=== PATIENT | female | born 1955 | race American Indian/Alaskan Native ===

== ENCOUNTER 2017-12-31 14:37 | Inpatient (IN) | payer OTHER ==
[2017-12-31 15:18] LABS: Basophils # (Auto) 0.1 K/mm3 (0.0-0.1); Eosinophils # (Auto) 0.1 K/mm3 (0.0-0.4); Eosinophils % (Auto) 1.4 % (0.0-4.3); Hematocrit 40.4 % (30.3-42.9); Hemoglobin 13.2 gm/dl (10.1-14.3); Lymphocytes # (Auto) 1.1 K/mm3 (1.2-5.4); Lymphocytes % (Auto) 17.5 % (13.4-35.0); Mean Corpuscular HGB Conc 33 % (30-34); Mean Corpuscular Hemoglobin 29 pg (28-32); Mean Corpuscular Volume 90 fl (79-97); Monocytes # (Auto) 0.5 K/mm3 (0.0-0.8); Monocytes % (Auto) 7.1 % (0.0-7.3); Platelet Count 289 K/mm3 (140-440); Red Blood Count 4.49 M/mm3 (3.65-5.03); Red Cell Distribution Width 15.9 % (13.2-15.2)
[2017-12-31 15:28] LABS: INR 1.16 (0.87-1.13)
[2017-12-31 15:29] LABS: Partial Thromboplastin Time 26.7 Sec. (24.2-36.6)
[2017-12-31 15:32] LABS: Calcium 8.9 mg/dL (8.4-10.2)
--- NOTE | 2017-12-31 16:30 | XRay Report ---
FINAL REPORT EXAM: XR CHEST 1V AP HISTORY: DIFF BREATHING TECHNIQUE: One view examination of the chest PRIORS: None FINDINGS: Bilateral lung base linear and patchy opacity is slightly more prominent on the right. No focal consolidation. This may be atelectasis, edema, or slight interstitial pneumonitis. No definite evidence of pneumothorax or pleural effusion. Cardiac silhouette size slightly enlarged without definite vascular congestion. No visible acute displaced fracture. Atherosclerotic change with calcification in aortic arch. IMPRESSION: Bilateral lung base linear and slight patchy opacity may reflect atelectasis, edema, and/or interstitial pneumonitis
[2017-12-31] MEDS ORDERED: LASIX IV ONE (20:25)
--- NOTE | 2017-12-31 20:32 | Emergency Department Report ---
HPI - General Chief Complaint: Dyspnea/Respdistress Time Seen by Provider: 12/31/17 20:11 - HPI HPI: Room 25 The patient is a 62-year-old female presenting with a chief complaint of shortness of breath. The patient states she has had shortness of breath for 3 months. The patient states she's been to the hospital several times for shortness of breath but is persistently short of breath at discharge. Patient states for the past 2 weeks she's noted bilateral lower extremity edema. The patient states she's been compliant with her Lasix until she ran out approximately 1 week ago. Patient denies chest pain Location: Lungs, feet Duration: [See above] Quality: Shortness of breath Severity: moderate Modifying factors: [see above] Context: [see above] Mode of transportation: [not driving] ED Past Medical Hx - Past Medical History Hx Congestive Heart Failure: Yes - Surgical History Past Surgical History?: No - Family History Family history: no significant - Social History Smoking Status: Never Smoker Substance Use Type: None (denies illicit drug use) ED Review of Systems ROS: Stated complaint: ASHISH Other details as noted in HPI Constitutional: no symptoms reported Eyes: denies: eye pain ENT: denies: throat pain Respiratory: shortness of breath Cardiovascular: denies: chest pain Endocrine: denies: unexplained weight gain Gastrointestinal: denies: abdominal pain Genitourinary: denies: dysuria Musculoskeletal: denies: back pain Skin: denies: change in color Neurological: denies: headache Hematological/Lymphatic: other (bilateral lower extremity edema) Physical Exam - Physical Exam Vital Signs: Vital Signs 12/31/17 12/31/17 14:43 19:59 Temperature 98.1 F Pulse Rate 103 H 85 Respiratory 24 20 Rate Blood Pressure 105/71 O2 Sat by Pulse 87 99 Oximetry Physical Exam: GENERAL: The patient is well-developed well-nourished female lying on stretcher not appearing to be in acute distress. [] HEENT: Normocephalic. Atraumatic. Extraocular motions are intact. Patient has moist mucous membranes. NECK: Supple. Trachea midline CHEST/LUNGS: Bibasilar crackles. There is no respiratory distress noted. HEART/CARDIOVASCULAR: Regular. There is no tachycardia. There is no gallop rub or murmur. ABDOMEN: Abdomen is soft, nontender. Patient has normal bowel sounds. There is no abdominal distention. SKIN: There is no rash. There is 2-3+ bilateral lower extremity pitting edema. There is no diaphoresis. NEURO: The patient is awake, alert, and oriented. The patient is cooperative. The patient has normal speech MUSCULOSKELETAL: There is no evidence of acute injury. ED Course Vital Signs 12/31/17 12/31/17 14:43 19:59 Temperature 98.1 F Pulse Rate 103 H 85 Respiratory 24 20 Rate Blood Pressure 105/71 O2 Sat by Pulse 87 99 Oximetry ED Medical Decision Making - Lab Data Result diagrams: 12/31/17 15:09 12/31/17 15:09 Laboratory Tests 12/31/17 12/31/17 12/31/17 15:09 15:09 15:09 WBC 6.3 RBC 4.49 Hgb 13.2 Hct 40.4 MCV 90 MCH 29 MCHC 33 RDW 15.9 H Plt Count 289 Lymph % (Auto) 17.5 [place] % (Auto) 7.1 Eos % (Auto) 1.4 Baso % (Auto) 1.0 Lymph # 1.1 L [place] # 0.5 Eos # 0.1 Baso # 0.1 Seg Neutrophils % 73.0 H Seg Neutrophils # 4.6 PT 15.4 H INR 1.16 H APTT 26.7 Sodium 138 Potassium 3.7 Chloride 99.9 Carbon Dioxide 26 Anion Gap 16 BUN 21 H Creatinine 1.0 Estimated GFR 57 BUN/Creatinine Ratio 21 Glucose 135 H Calcium 8.9 Troponin T 0.021 NT-Pro-B Natriuret Pep 12/31/17 15:09 WBC RBC Hgb Hct MCV MCH MCHC RDW Plt Count Lymph % (Auto) [place] % (Auto) Eos % (Auto) Baso % (Auto) Lymph # [place] # Eos # Baso # Seg Neutrophils % Seg Neutrophils # PT INR APTT Sodium Potassium Chloride Carbon Dioxide Anion Gap BUN Creatinine Estimated GFR BUN/Creatinine Ratio Glucose Calcium Troponin T NT-Pro-B Natriuret Pep 2424 H - EKG Data -: EKG Interpreted by Me EKG shows normal: sinus rhythm Rate: normal - EKG Data When compared to previous EKG there are: previous EKG unavailable Interpretation: other (no ischemic changes seen) - Radiology Data Radiology results: report reviewed (chest x-ray), image reviewed (chest x-ray) interpreted by me: Chest x-ray-edema at bilateral bases. No pneumothorax [facility] [address] [place] [address] XRay Report Signed Patient: LULU BACA MR#: [id number] : 1955 Acct: [id number] Age/Sex: 62 / F ADM Date: 12/31/17 Loc: ED Attending Dr: Ordering Physician: SOFIA SWAIN MD Date of Service: 12/31/17 Procedure(s): XR chest 1V ap Accession Number(s): [id number] cc: ED MD WILIAM Fluoro Time In Minutes: FINAL REPORT EXAM: XR CHEST 1V AP HISTORY: DIFF BREATHING TECHNIQUE: One view examination of the chest PRIORS: None FINDINGS: Bilateral lung base linear and patchy opacity is slightly more prominent on the right. No focal consolidation. This may be atelectasis, edema, or slight interstitial pneumonitis. No definite evidence of pneumothorax or pleural effusion. Cardiac silhouette size slightly enlarged without definite vascular congestion. No visible acute displaced fracture. Atherosclerotic change with calcification in aortic arch. IMPRESSION: Bilateral lung base linear and slight patchy opacity may reflect atelectasis, edema, and/or interstitial pneumonitis Transcribed By: BAL Dictated By: LUIS MATUTE MD Electronically Authenticated By: LUIS MATUTE MD Signed Date/ Time: 12/31/171625 DD/ 25 TD/TT: 12/31/171625 - Differential Diagnosis CHF exacerbation, pneumonia, bronchitis Critical care attestation.: If time is entered above; I have spent that time in minutes in the direct care of this critically ill patient, excluding procedure time. ED Disposition Clinical Impression: Shortness of breath, CHF exacerbation Disposition: OP ADMIT IP TO THIS HOSP Is pt being admited?: No Does the pt Need Aspirin: No Condition: Fair Referrals: PRIMARY CARE, [Primary Care Provider] - 3-5 Days Time of Disposition: 20:35 (hospitalist paged (Dr Howard))
[2017-12-31] MEDS ORDERED: SODIUM CHLORIDE FLUSH SYRINGE 10 ML IV PRN (21:39)
[2017-12-31] MEDS ORDERED: NORCO 5/325 PO PRN (21:39)
[2017-12-31] MEDS ORDERED: ZOFRAN IV PRN (21:39)
[2017-12-31] MEDS ORDERED: TYLENOL PO PRN (21:39)
[2017-12-31] MEDS ORDERED: LOPRESSOR PO SCH ×2 (22:00)
[2017-12-31] MEDS ORDERED: DUONEB *Not for PRN Use IH ONE (22:24)
[2017-12-31] MEDS: DUONEB *Not for PRN Use IH SCH (22:28)
--- NOTE | 2017-12-31 23:36 | History and Physical Report ---
History of Present Illness Date of examination: 12/31/17 Date of admission: 12/31/17 21:39 Chief complaint: Shortness of breath for 3 months Chronic cough for 5 years History of present illness: 62-year-old -[place] female with a questionable history of congestive heart failure and apparently admitted to [facility] [place] 3 times in the past 3 months, with a diagnosis of CHF and was told to see learning and development consultant and drapery counselor as an outpatient comes in with complaints of persistent shortness of breath for the past 3 months. She says the shortness of breath is on minimal exertion. She denies any exertional chest pain palpitations or syncope. Denies any history of paroxysmal nocturnal dyspnea but states she sleeps almost in a sitting up position. She denies any fever or chills. Has chronic cough with mucoid sputum for the past 5 years. She denies any nasal congestion or headaches. Denies nausea vomiting diarrhea or abdominal pain hematemesis or melena. Denies dysuria or urinary frequency. She states she ran out of Lasix a week ago. She denies taking any other medications or inhalers. She states she has not seen a learning and development consultant or drapery counselor during the last 3 admissions and denies having had any echocardiogram She is being admitted for further evaluation of for shortness of breath Past History Past Medical History: heart failure Past Surgical History: No surgical history Social history: no significant social history. denies: smoking, alcohol abuse, prescription drug abuse, IV drug use Family history: CAD, diabetes, hypertension Medications and Allergies Allergies Allergy/AdvReac Type Severity Reaction Status Date / Time No Known Allergies Allergy Unverified 12/31/17 14:43 Active Meds: Active Medications Acetaminophen (Tylenol) 650 mg PO Q4H PRN PRN Reason: Pain MILD(1-3)/Fever >100.5/BOB Acetaminophen/Hydrocodone Bitart ([place] 5/325) 1 each PO Q6H PRN PRN Reason: Pain, Moderate (4-6) Albuterol/Ipratropium (Duoneb *Not For Prn Use*) 1 ampul IH Q6HRT [facility] Last Admin: 12/31/17 22:28 Dose: 1 ampul Furosemide (Lasix) 20 mg IV Q12H [facility] Heparin Sodium (Porcine) (Heparin) 5,000 unit SUB-Q Q8HR [facility] Lisinopril (Zestril) 2.5 mg PO DAILY [facility] Metoprolol Tartrate (Lopressor) 6.25 mg PO Q12HR [facility] Ondansetron HCl (Zofran) 4 mg IV Q8H PRN PRN Reason: Nausea And Vomiting Sodium Chloride (Sodium Chloride Flush Syringe 10 Ml) 10 ml IV BID [facility] Sodium Chloride (Sodium Chloride Flush Syringe 10 Ml) 10 ml IV PRN PRN PRN Reason: LINE FLUSH Review of Systems All systems: negative (as stated above in the history of present illness) Exam - Constitutional Vitals: Temp Pulse Resp BP Pulse Ox 98.1 F 81 15 120/88 98 12/31/17 14:43 12/31/17 22:44 12/31/17 22:51 12/31/17 22:40 12/31/17 22:51 General appearance: Present: no acute distress - EENT Eyes: Present: PERRL, EOM intact ENT: hearing intact, clear oral mucosa - Neck Neck: Present: supple, normal ROM. Absent: masses or JVD - Respiratory Respiratory effort: normal Respiratory: bilateral: rales (bilateral basal Rales), negative: rhonchi, wheezing - Cardiovascular Rhythm: regular Heart Sounds: Present: S1 & S2 - Extremities Extremity abnormal: edema (proposed bilateral pitting leg edema) Peripheral Pulses: within normal limits - Abdominal General gastrointestinal: Present: soft, non-tender. Absent: hepatomegaly, splenomegaly Female genitourinary: Present: deferred - Rectal Rectal Exam: deferred - Integumentary Integumentary: Present: clear - Musculoskeletal Musculoskeletal: strength equal bilaterally - Psychiatric Psychiatric: appropriate mood/affect - Neurologic Neurologic: no focal deficits, moves all extremities Results - Labs CBC & Chem 7: 12/31/17 15:09 12/31/17 15:09 Labs: Abnormal lab results 12/31/17 12/31/17 12/31/17 Range/Units 15:09 15: 15: RDW 15.9 H (13.2-15.2) % Lymph # 1.1 L (1.2-5.4) K/mm3 Seg Neutrophils % 73.0 H (40.0-70.0) % PT 15.4 H (12.2-14.9) Sec. INR 1.16 H (0.87-1.13) BUN 21 H (7-17) mg/dL Glucose 135 H (65-100) mg/dL NT-Pro-B Natriuret Pep (0-900) pg/mL 12/31/17 Range/Units 15:09 RDW (13.2-15.2) % Lymph # (1.2-5.4) K/mm3 Seg Neutrophils % (40.0-70.0) % PT (12.2-14.9) Sec. INR (0.87-1.13) BUN (7-17) mg/dL Glucose (65-100) mg/dL NT-Pro-B Natriuret Pep 2424 H (0-900) pg/mL Assessment and Plan - Patient Problems (1) CHF exacerbation Current Visit: Yes Status: Acute Qualifiers: Heart failure type: unspecified Qualified Code(s): I50.9 - Heart failure, unspecified Plan to address problem: Admitted the patient to telemetry Oxygen via nasal cannula We will order echocardiogram Consult cardiology BNP is moderately elevated Troponin negative EKG shows a heart rate of 100 bpm sinus tachycardia low-voltage QRS complex with right ventricular hypertrophy Lasix IV We will start the patient on low-dose EMERSON inhibitor with lisinopril 2.5 and metoprolol 6.25 mg twice a day We will await cardiology follow-up for further recommendations (2) Chronic cough Current Visit: Yes Status: Acute Plan to address problem: Patient states she has been coughing for the past 5 years We will request a pulmonary consult to rule out ?? ILD Empirically start the patient on DuoNeb solution via nebulizer and prednisone (3) Hypoxia Current Visit: Yes Status: Acute Plan to address problem: Patient's O2 saturation initially was 85% unclear if this was on room air However it went up to about 95% with oxygen (4) Hyperglycemia Current Visit: Yes Status: Acute Plan to address problem: check hemoglobin A1c to rule out diabetes
[2018-01-01] MEDS: LOPRESSOR PO SCH ×4 (00:39→22:03)
[2018-01-01] MEDS: HEPARIN SUB-Q SCH ×4 (00:40→22:04)
[2018-01-01] MEDS: SODIUM CHLORIDE FLUSH SYRINGE 10 ML IV SCH ×3 (00:40→22:03)
[2018-01-01] MEDS: DUONEB *Not for PRN Use IH SCH ×4 (01:06→21:02)
[2018-01-01 05:03] LABS: BUN/Creatinine Ratio 26; Blood Urea Nitrogen 21 mg/dL (7-17); Calcium 8.6 mg/dL (8.4-10.2); Hemolysis Index 5
[2018-01-01] MEDS ORDERED: LASIX IV SCH (06:00)
[2018-01-01] MEDS: DELTASONE PO SCH (10:34)
[2018-01-01] MEDS: ZESTRIL PO SCH ×2 (10:34→10:39)
[2018-01-01] MEDS ORDERED: PNEUMOVAX 23 IM ONE (12:00)
--- NOTE | 2018-01-01 13:09 | Progress Note ---
Assessment and Plan Assessment and plan: Acute on chronic CHF. Patient was just diagnosed with CHF about 3 months ago and has had multiple hospitalizations. She ran out of lasix Lasix iv bid cardiology consulted, Echo ordered Prediabetes. Start diabetic diet. Fingerstick glucose Qac and hs hypokalemia. Replace orally and re-check potassium level in the morning. DVT prophylaxis with Heparin. Full code status History Interval history: Shortness of breath swelling both legs Hospitalist Physical - Physical exam Narrative exam: Gen : Not in acute distress, sitting up in bed HEENT:Normocephalic, atraumatic Neck: supple, JVD presented Lungs: Biltateral crackles, no rhonchi Heart :S1 and S2 reg, no murmurs, rubs or gallop Abd:soft, non tender, non distended, normal bowel sounds Ext: Bilateral pitting pedal edema, no clubbing, no cyanosis, Neuro: Awake,alert,oriented x 3, no focal signs Psych:normal mood - Constitutional Vitals: Temp Pulse Resp BP Pulse Ox 97.7 F 81 16 114/77 95 01/01/18 11:05 01/01/18 11:05 01/01/18 11:05 01/01/18 11:05 01/01/18 11:05 General appearance: Present: no acute distress Results - Labs CBC & Chem 7: 12/31/17 15:09 01/01/18 04:19 Labs: Laboratory Last Values WBC 6.3 K/mm3 (4.5-11.0) 12/31/17 15:09 RBC 4.49 M/mm3 (3.65-5.03) 12/31/17 15:09 Hgb 13.2 gm/dl (10.1-14.3) 12/31/17 15:09 Hct 40.4 % (30.3-42.9) 12/31/17 15:09 MCV 90 fl (79-97) 12/31/17 15:09 MCH 29 pg (28-32) 12/31/17 15:09 MCHC 33 % (30-34) 12/31/17 15:09 RDW 15.9 % (13.2-15.2) H 12/31/17 15:09 Plt Count 289 K/mm3 (140-440) 12/31/17 15:09 Lymph % (Auto) 17.5 % (13.4-35.0) 12/31/17 15:09 [place] % (Auto) 7.1 % (0.0-7.3) 12/31/17 15:09 Eos % (Auto) 1.4 % (0.0-4.3) 12/31/17 15:09 Baso % (Auto) 1.0 % (0.0-1.8) 12/31/17 15:09 Lymph # 1.1 K/mm3 (1.2-5.4) L 12/31/17 15:09 [place] # 0.5 K/mm3 (0.0-0.8) 12/31/17 15:09 Eos # 0.1 K/mm3 (0.0-0.4) 12/31/17 15:09 Baso # 0.1 K/mm3 (0.0-0.1) 12/31/17 15:09 Seg Neutrophils % 73.0 % (40.0-70.0) H 12/31/17 15:09 Seg Neutrophils # 4.6 K/mm3 (1.8-7.7) 12/31/17 15:09 PT 15.4 Sec. (12.2-14.9) H 12/31/17 15:09 INR 1.16 (0.87-1.13) H 12/31/17 15:09 APTT 26.7 Sec. (24.2-36.6) 12/31/17 15:09 Sodium 137 mmol/L (137-145) 01/01/18 04:19 Potassium 3.4 mmol/L (3.6-5.0) L 01/01/18 04:19 Chloride 100.5 mmol/L (98-107) 01/01/18 04:19 Carbon Dioxide 24 mmol/L (22-30) 01/01/18 04:19 Anion Gap 16 mmol/L 01/01/18 04:19 BUN 21 mg/dL (7-17) H 01/01/18 04:19 Creatinine 0.8 mg/dL (0.7-1.2) 01/01/18 04:19 Estimated GFR > 60 ml/min 01/01/18 04:19 BUN/Creatinine Ratio 26 % 01/01/18 04:19 Glucose 124 mg/dL (65-100) H 01/01/18 04:19 Hemoglobin A1c 6.4 % (4-6) H 01/01/18 04:19 Calcium 8.6 mg/dL (8.4-10.2) 01/01/18 04:19 Troponin T 0.021 ng/mL (0.00-0.029) 12/31/17 15:09 NT-Pro-B Natriuret Pep 2424 pg/mL (0-900) H 12/31/17 15:09 TSH 1.260 mlU/mL (0.270-4.200) 01/01/18 04:19
--- NOTE | 2018-01-01 15:12 | Consultation ---
History of Present Illness Consult date: 01/01/18 Past History Past Medical History: heart failure Past Surgical History: No surgical history Social history: no significant social history. denies: smoking, alcohol abuse, prescription drug abuse, IV drug use Family history: CAD, diabetes, hypertension Medications and Allergies Allergies Allergy/AdvReac Type Severity Reaction Status Date / Time No Known Allergies Allergy Unverified 12/31/17 14:43 Active Meds: Active Medications Acetaminophen (Tylenol) 650 mg PO Q4H PRN PRN Reason: Pain MILD(1-3)/Fever >100.5/BOB Acetaminophen/Hydrocodone Bitart ([place] 5/325) 1 each PO Q6H PRN PRN Reason: Pain, Moderate (4-6) Albuterol/Ipratropium (Duoneb *Not For Prn Use*) 1 ampul IH Q6HRT [facility] Last Admin: 01/01/18 08:51 Dose: Not Given Furosemide (Lasix) 40 mg IV 0600,1800 [facility] Heparin Sodium (Porcine) (Heparin) 5,000 unit SUB-Q Q8HR [facility] Last Admin: 01/01/18 05:50 Dose: Not Given Lisinopril (Zestril) 2.5 mg PO DAILY [facility] Last Admin: 01/01/18 10:39 Dose: Not Given Ondansetron HCl (Zofran) 4 mg IV Q8H PRN PRN Reason: Nausea And Vomiting Prednisone (Deltasone) 40 mg PO QDAY [facility] Last Admin: 01/01/18 10:34 Dose: 40 mg Sodium Chloride (Sodium Chloride Flush Syringe 10 Ml) 10 ml IV BID [facility] Last Admin: 01/01/18 10:36 Dose: 10 ml Sodium Chloride (Sodium Chloride Flush Syringe 10 Ml) 10 ml IV PRN PRN PRN Reason: LINE FLUSH Physical Examination Vital Signs Temp Pulse Resp BP Pulse Ox 98.1 F 103 H 24 105/71 87 12/31/17 14:43 12/31/17 14:43 12/31/17 14:43 12/31/17 14:43 12/31/17 14:43 Results 12/31/17 15:09 01/01/18 04:19 Coagulation 12/31/17 Range/Units 15:09 PT 15.4 H (12.2-14.9) Sec. INR 1.16 H (0.87-1.13) APTT 26.7 (24.2-36.6) Sec. CBC 12/31/17 Range/Units 15:09 WBC 6.3 (4.5-11.0) K/mm3 RBC 4.49 (3.65-5.03) M/mm3 Hgb 13.2 (10.1-14.3) gm/dl Hct 40.4 (30.3-42.9) % Plt Count 289 (140-440) K/mm3 Lymph # 1.1 L (1.2-5.4) K/mm3 [place] # 0.5 (0.0-0.8) K/mm3 Eos # 0.1 (0.0-0.4) K/mm3 Baso # 0.1 (0.0-0.1) K/mm3 Comprehensive Metabolic Panel 12/31/17 01/01/18 Range/Units 15:09 04:19 Sodium 138 137 (137-145) mmol/L Potassium 3.7 3.4 L (3.6-5.0) mmol/L Chloride 99.9 100.5 (98-107) mmol/L Carbon Dioxide 26 24 (22-30) mmol/L BUN 21 H 21 H (7-17) mg/dL Creatinine 1.0 0.8 (0.7-1.2) mg/dL Glucose 135 H 124 H (65-100) mg/dL Calcium 8.9 8.6 (8.4-10.2) mg/dL Assessment and Plan Detailed Cardiology consult dictated.
[2018-01-01] MEDS: LASIX IV SCH ×2 (15:39→17:37)
--- NOTE | 2018-01-01 15:44 | Cat Scan Report ---
FINAL REPORT EXAM: CT CHEST WO CON HISTORY: Concern for ILD TECHNIQUE: Standard unenhanced CT of the chest at 2.5 mm axial increments. Coronal and sagittal reconstruction was also obtained. PRIORS: None. FINDINGS: There is interstitial prominence throughout both lungs particularly in the periphery bilaterally. More coarsened lung markings are present in the lung bases posteriorly with a few air bronchograms identified in the right middle lobe. These likely represent infiltrate superimposed on chronic fibrotic changes. Alternatively, these could be chronic as well and can be correlated clinically. Several small ground-glass nodules are present in the apices bilaterally There is extensive adenopathy throughout the mediastinum. The largest lymph node is in the right paratracheal region measuring 1.7 cm. This may be reactive. There is no evidence for bilateral hilar or axillary adenopathy. The esophagus is collapsed. The trachea is midline. Calcification of aorta is noted. There is a small low-density pericardial effusion. Cardiac size is mildly enlarged. Aorta is normal in caliber. Images through the lung bases include upper abdomen which show no abnormality of the visualized abdominal viscera. Bony structures show no focal abnormalities. No evidence for bony fracture is seen. IMPRESSION: 1. Interstitial prominence throughout the lungs particularly in the periphery, likely chronic 2. More coarsened lung markings in each lung base posteriorly and in the right middle lobe. With air bronchograms noted in right middle lobe, best ability of infiltrate superimposed on chronic fibrotic changes should be considered. However, this could also be a completely chronic findings 3. Extensive mediastinal adenopathy which may be reactive 4. Small ground-glass nodules in the apices bilaterally, most typically inflammatory or infectious. These can be followed. 5. Small pericardial effusion with mild cardiomegaly
[2018-01-01] MEDS: K-DUR PO SCH ×2 (16:27→22:03)
[2018-01-02] MEDS: DUONEB *Not for PRN Use IH SCH ×4 (02:23→19:39)
[2018-01-02] MEDS: LASIX IV SCH ×2 (05:42→18:45)
[2018-01-02] MEDS: HEPARIN SUB-Q SCH ×3 (05:44→22:41)
--- NOTE | 2018-01-02 06:38 | Consultation ---
CARDIOLOGY CONSULTATION REFERRING PHYSICIAN: Dr. Anderson Maier, hospitalist. HISTORY OF PRESENT ILLNESS: A 62-year-old [facility] [place] woman with a history of "Congestive heart failure" was admitted with chronic shortness of breath on [id number] exertion for the past 4 months. She was admitted at [facility] [place] three times with this diagnosis and treated for the same. She also gives a history of swelling of both legs and feet for the past 2-3 weeks in duration. No history of orthopnea or paroxysmal nocturnal dyspnea. She has chronic cough with mucoid expectoration for several months. She was on diuretics and she ran out of it and she started having these symptoms and she was admitted. No history of hypertension or diabetes mellitus. She does not know her lipid status. No history of any thyroid problems. One set of troponin is negative. ProBNP was 2424. Glucose was slightly increased to 135 and 124. PAST MEDICAL HISTORY: History of "CHF", history of chronic cough. No history of CAD or myocardial infarction in the past. PAST SURGICAL HISTORY: She has had tubal ligation in the past. SOCIAL HISTORY: Not a smoker, not an alcoholic, no history of drug abuse. FAMILY HISTORY: Negative for premature coronary artery disease; however, there is a family history of hypertension, diabetes mellitus and CAD. ALLERGIES: PENICILLIN. MEDICATIONS: Furosemide 40 mg IV b.i.d., subcutaneous heparin 5000 units q.8 hours, metoprolol 6.25 mg p.o. b.i.d., lisinopril 2.5 mg p.o. daily, and prednisone 40 mg p.o. daily. REVIEW OF SYSTEMS: CARDIOVASCULAR: As described in the history. PULMONARY: As described in the history. GENITOURINARY SYSTEM: As described in the history. Review of rest of the 10 systems is negative. PHYSICAL EXAMINATION: GENERAL: A 62-year-old [facility] [place] woman, not in acute distress, able to lie flat in the bed. VITAL SIGNS: She is afebrile, pulse 81 per minute and regular, blood pressure 114/77 mmHg, and respirations 18 per minute. NEUROLOGIC: She is alert and oriented x 3. HEENT: Negative. NECK: Supple, no JVD, no bruit, no thyromegaly. HEART: PMI is slightly shifted laterally and is forcible in nature, no palpable thrills. Auscultation of heart reveals S1, S2 heard, regular. Grade 1 to 2 over 6 short ejection systolic murmur is heard. No gallop, no rub. EXTREMITIES: Peripheral pulses felt, bilateral 1+ pitting edema of the legs and feet. LUNGS: Bibasilar crepitations. No bronchial breathing, no wheezing. ABDOMEN: Soft, benign. No organomegaly. SKIN: Negative. BONE AND JOINTS: Negative. LABORATORY DATA: Potassium 3.4, BUN and creatinine are within normal limits. Serum TSH is normal. ProBNP and troponin as described in the history. CBC, platelet count within normal limits. Chest x-ray one-view: Bibasilar atelectasis/pulmonary edema/interstitial pneumonitis. EKG done on 12/31/2017 revealed mild sinus tachycardia with a rate of 100 per minute, low voltage complexes in the precordial leads,pulmonary disease pattern, possible right ventricular hypertrophy, mild and diffuse nonspecific T-wave changes. IMPRESSION: 1. Acute on chronic congestive heart failure. 2. Possible bronchitis. 3. History of chronic cough. 4. Mild hyperglycemia. 5. Abnormal EKG. 6. Hypokalemia. RECOMMENDATIONS: 1. We would increase metoprolol to 12.5 mg p.o. b.i.d. 2. Continue IV diuretics and EMERSON inhibitor. 3. To keep K level around 4. 4. Follow up echocardiogram. Further recommendations will follow after reviewing the echocardiogram. Thank you again, we will follow. Sincerely, JOB# [id number] ALEXI/MASON TRAORE
[2018-01-02 08:10] LABS: BUN/Creatinine Ratio 24; Blood Urea Nitrogen 19 mg/dL (7-17); Calcium 9.1 mg/dL (8.4-10.2); Hemolysis Index 85
--- NOTE | 2018-01-02 09:10 | Progress Note ---
Assessment and Plan Assessment and plan: Acute on chronic systolic CHF. Patient was just diagnosed with CHF about 3 months ago and has had multiple hospitalizations. She ran out of lasix Continue Lasix 40 iv bid cardiology consulted, Echo shows EF 45-50% Prediabetes. Start diabetic diet. Fingerstick glucose Qac and hs Hypokalemia. Now resolved. Will discontinue Potassium DVT prophylaxis with Heparin. Full code status History Interval history: Feels better, Less shortness of breath less swelling both legs Hospitalist Physical - Physical exam Narrative exam: Gen : Not in acute distress, sitting up in bed HEENT:Normocephalic, atraumatic Neck: supple, JVD presented Lungs: Biltateral crackles, no rhonchi Heart :S1 and S2 reg, no murmurs, rubs or gallop Abd:soft, non tender, non distended, normal bowel sounds Ext: Bilateral pitting pedal edema, no clubbing, no cyanosis, Neuro: Awake,alert,oriented x 3, no focal signs Psych:normal mood - Constitutional Vitals: Temp Pulse Resp BP Pulse Ox 97.6 F 76 20 102/70 90 01/02/18 04:24 01/02/18 04:24 01/02/18 04:24 01/02/18 04:24 01/02/18 04:24 General appearance: Present: no acute distress Results - Labs CBC & Chem 7: 12/31/17 15:09 01/02/18 07:30 Labs: Laboratory Last Values WBC 6.3 K/mm3 (4.5-11.0) 12/31/17 15:09 RBC 4.49 M/mm3 (3.65-5.03) 12/31/17 15:09 Hgb 13.2 gm/dl (10.1-14.3) 12/31/17 15:09 Hct 40.4 % (30.3-42.9) 12/31/17 15:09 MCV 90 fl (79-97) 12/31/17 15:09 MCH 29 pg (28-32) 12/31/17 15:09 MCHC 33 % (30-34) 12/31/17 15:09 RDW 15.9 % (13.2-15.2) H 12/31/17 15:09 Plt Count 289 K/mm3 (140-440) 12/31/17 15:09 Lymph % (Auto) 17.5 % (13.4-35.0) 12/31/17 15:09 Early % (Auto) 7.1 % (0.0-7.3) 12/31/17 15:09 Eos % (Auto) 1.4 % (0.0-4.3) 12/31/17 15:09 Baso % (Auto) 1.0 % (0.0-1.8) 12/31/17 15:09 Lymph # 1.1 K/mm3 (1.2-5.4) L 12/31/17 15:09 Early # 0.5 K/mm3 (0.0-0.8) 12/31/17 15:09 Eos # 0.1 K/mm3 (0.0-0.4) 12/31/17 15:09 Baso # 0.1 K/mm3 (0.0-0.1) 12/31/17 15:09 Seg Neutrophils % 73.0 % (40.0-70.0) H 12/31/17 15:09 Seg Neutrophils # 4.6 K/mm3 (1.8-7.7) 12/31/17 15:09 PT 15.4 Sec. (12.2-14.9) H 12/31/17 15:09 INR 1.16 (0.87-1.13) H 12/31/17 15:09 APTT 26.7 Sec. (24.2-36.6) 12/31/17 15:09 Sodium 138 mmol/L (137-145) 01/02/18 07:30 Potassium 4.8 mmol/L (3.6-5.0) D 01/02/18 07:30 Chloride 99.8 mmol/L (98-107) 01/02/18 07:30 Carbon Dioxide 22 mmol/L (22-30) 01/02/18 07:30 Anion Gap 21 mmol/L 01/02/18 07:30 BUN 19 mg/dL (7-17) H 01/02/18 07:30 Creatinine 0.8 mg/dL (0.7-1.2) 01/02/18 07:30 Estimated GFR > 60 ml/min 01/02/18 07:30 BUN/Creatinine Ratio 24 % 07/08/18 07:30 Glucose 114 mg/dL (65-100) H 01/02/18 07:30 Hemoglobin A1c 6.4 % (4-6) H 01/01/18 04:19 Calcium 9.1 mg/dL (8.4-10.2) 01/02/18 07:30 Troponin T 0.021 ng/mL (0.00-0.029) 12/31/17 15:09 NT-Pro-B Natriuret Pep 2424 pg/mL (0-900) H 12/31/17 15:09 TSH 1.260 mlU/mL (0.270-4.200) 01/01/18 04:19
[2018-01-02] MEDS: ZESTRIL PO SCH (11:15)
[2018-01-02] MEDS: LOPRESSOR PO SCH ×2 (11:15→22:41)
[2018-01-02] MEDS: DELTASONE PO SCH (11:24)
[2018-01-02] MEDS: SODIUM CHLORIDE FLUSH SYRINGE 10 ML IV SCH ×2 (11:25→22:41)
--- NOTE | 2018-01-02 12:49 | Event Note ---
Date: 01/02/18 Pulm consult for chronic cough, cough of [address] of chest. Does show evidence of chronic disease and volume overload. Per report, lifelong nonsmoker. Patient has improved with diuresis as directed by cards. Will sign off. She is welcome to see us or another lung specialist if her shortness of breath, and cough are resolved with adequate diuretic therapy.
--- NOTE | 2018-01-02 15:33 | Progress Note ---
Assessment and Plan Patient has biventricular CHF - predominantly right sided HF.D/C Lisinopril ( ch.cough). Place her on Losartan.Cause for her predominately R heart failure is not clear.No H/O pul.embolism in the past.Intracardiac shunt has to be ruled out. Will plan for ULYSSES in AM. Benefits and risks of the procedure were explained to the patient in detail.She understands and wants us to proceed. - Patient Problems (1) Biventricular congestive heart failure Current Visit: Yes Status: Acute (2) Abnormal EKG Current Visit: Yes Status: Acute (3) Hypokalemia Current Visit: Yes Status: Acute (4) Cor pulmonale Current Visit: Yes Status: Chronic (5) Chronic cough Current Visit: Yes Status: Chronic (6) Hyperglycemia Current Visit: Yes Status: Acute (7) Hypoxia Current Visit: Yes Status: Acute (8) Shortness of breath Current Visit: Yes Status: Acute Subjective Date of service: 01/02/18 Interval history: K, BUN, Cr: Normal.Hb A1C 9.1.Echo: LVEF 45 to 50%. R heart enlargement.Moderate RV systolic dysfunction. Mild to moderate TR, Mild pul.htn with RVSP of 44 mm Hg.Mildly dilated noncollapsible IVC.SOB, Swelling legs- better.Still has cough. Objective Vital Signs Temp Pulse Pulse Pulse Pulse Pulse Resp 01/02/18 14:21 95 H 95 H 01/02/18 14:10 88 88 01/02/18 11:15 01/02/18 10:00 01/02/18 09:30 88 01/02/18 09:15 96 H 01/02/18 08:44 97.3 F L 92 H 18 01/02/18 04:24 97.6 F 76 20 01/01/18 23:22 97.5 F L 89 20 01/01/18 22:15 100 H 18 01/01/18 22:03 100 H 01/01/18 21:09 01/01/18 20:17 101 H 01/01/18 20:13 97.9 F 100 H 20 01/01/18 16:16 97.9 F 94 H 20 01/01/18 16:14 99 H 01/01/18 16:07 01/01/18 15:57 99 H 01/01/18 15:48 97.9 F 94 H Resp Resp Resp BP BP Pulse Ox 01/02/18 14:21 20 20 01/02/18 14:10 18 18 01/02/18 11:15 108/73 01/02/18 10:00 96 01/02/18 09:30 20 01/02/18 09:15 18 01/02/18 08:44 108/73 94 01/02/18 04:24 102/70 90 01/01/18 23:22 101/73 93 01/01/18 22:15 92 01/01/18 22:03 100/66 01/01/18 21:09 96 01/01/18 20:17 01/01/18 20:13 100/66 91 01/01/18 16:16 113/79 95 01/01/18 16:14 20 01/01/18 16:07 95 01/01/18 15:57 20 01/01/18 15:48 113/79 90 - Physical Examination General: No Apparent Distress HEENT: Positive: Normocephaly, Mucus Membranes Moist Neck: Positive: neck supple, trachea midline Cardiac: Positive: Reg Rate and Rhythm, Other (Loud S2+) Lungs: Positive: clear to auscultation Neuro: Positive: Grossly Intact Abdomen: Positive: Soft, Active Bowel Sounds Skin: Positive: Clear. Negative: Rash Musculoskeletal: No Fluid Collection, No Pain, Normal Range of Motion Extremities: Present: upper extr. pulses, lower extr. pulses, +1 Edema - Labs and Meds Comprehensive Metabolic Panel 01/02/18 Range/Units 07:30 Sodium 138 (137-145) mmol/L Potassium 4.8 D (3.6-5.0) mmol/L Chloride 99.8 (98-107) mmol/L Carbon Dioxide 22 (22-30) mmol/L BUN 19 H (7-17) mg/dL Creatinine 0.8 (0.7-1.2) mg/dL Glucose 114 H (65-100) mg/dL Calcium 9.1 (8.4-10.2) mg/dL - Imaging and Cardiology EKG: report reviewed, image reviewed Echo: report reviewed, image reviewed - Telemetry EKG Rhythm: Sinus Rhythm - EKG Sinus rhythms and dysrhythmias: sinus rhythm QRS axis and voltage: right axis deviation Chamber hypertrophy or enlargement: right atrial enlargment, righ ventricular hypertro Repolarization changes or abnormalities: nonspecific abnormality, ST segment, and/or T wave
[2018-01-02] MEDS ORDERED: PROVENTIL IH PRN (19:41)
[2018-01-03] MEDS: DUONEB *Not for PRN Use IH SCH ×5 (01:32→20:46)
[2018-01-03] MEDS: HEPARIN SUB-Q SCH ×3 (06:28→22:29)
[2018-01-03] MEDS: LASIX IV SCH ×3 (06:28→19:28)
[2018-01-03] MEDS: DELTASONE PO SCH (09:59)
[2018-01-03] MEDS: LOPRESSOR PO SCH ×2 (09:59→22:29)
[2018-01-03] MEDS: COZAAR PO SCH (09:59)
[2018-01-03] MEDS ORDERED: NACL 0.9% 500 ML 500 ML IV SCH ×2 (10:00→14:00)
[2018-01-03] MEDS ORDERED: HURRICAINE ONE 20% TOPICAL SPRAY MM NR (10:00)
[2018-01-03] MEDS: SODIUM CHLORIDE FLUSH SYRINGE 10 ML IV SCH ×2 (10:00→22:28)
--- NOTE | 2018-01-03 10:37 | Anesthesia Consultation ---
Anesthesia Consult and Med Hx Date of service: 01/03/18 (ULYSSES) - Airway Anesthetic Teeth Evaluation: Poor - Pre-Operative Health Status ASA Pre-Surgery Classification: ASA3, ASA4 Proposed Anesthetic Plan: Sedation, Conscious - Pulmonary Hx Asthma: No SOB: Yes COPD: No Hx Pneumonia: No - Cardiovascular System Hx Hypertension: No Hx Coronary Artery Disease: No Hx Heart Attack/AMI: No Hx Angina: No Hx Percutaneous Transluminal Coronary Angioplasty (PTCA): No Hx Pacemaker: No Hx Internal Defibrillator: No Hx Valvular Heart Disease: No Hx Heart Murmur: No Hx Peripheral Vascular Disease: No - Endocrine Hx End Stage Renal Disease: No - Additional Comments Anesthesia Medical History Comments: According to medical records, patient is presenting with acute SOB, CHF, HYPOXIA, ABN EKG, CHRONIC COUGH, CORPULM, INCREASED GLUCOSE AND HYPOKOLEMIA
[2018-01-03] MEDS ORDERED: ePHEDrine 50 MG/5 ML-0.9% NACL IV ONE (10:43)
[2018-01-03] MEDS ORDERED: DIPRIVAN 10 MG/ML IV ONE ×4 (10:43→11:18)
--- NOTE | 2018-01-03 10:44 | Anesthesia Day of Surgery ---
Anesthesia Day of Surgery - Day of Surgery Patient Examined: Yes Patient H&P Reviewed: Yes Patient is NPO: Yes
[2018-01-03] MEDS ORDERED: XYLOCAINE MPF 2% ONE (10:45)
[2018-01-03] MEDS ORDERED: NEO SYNEPHRINE/NS Syringe(OR USE) IV ONE (10:45)
--- NOTE | 2018-01-03 10:46 | Anesthesia Consultation ---
Anesthesia Consult and Med Hx Date of service: 01/03/18 - Airway Anesthetic Teeth Evaluation: Poor ROM Head & Neck: Adequate Mental/Hyoid Distance: Adequate Mallampati Class: Class II Intubation Access Assessment: Probably Good - Pulmonary Exam CTA: Yes - Cardiac Exam Cardiac Exam: RRR - Pre-Operative Health Status ASA Pre-Surgery Classification: ASA2 Proposed Anesthetic Plan: MAC - Pulmonary Hx Asthma: No SOB: Yes COPD: No Hx Pneumonia: No - Cardiovascular System Hx Hypertension: No Hx Coronary Artery Disease: No Hx Heart Attack/AMI: No Hx Angina: No Hx Percutaneous Transluminal Coronary Angioplasty (PTCA): No Hx Pacemaker: No Hx Internal Defibrillator: No Hx Valvular Heart Disease: No Hx Heart Murmur: No Hx Peripheral Vascular Disease: No - Endocrine Hx End Stage Renal Disease: No - Additional Comments Anesthesia Medical History Comments: According to medical records, patient is presenting with acute SOB, CHF, HYPOXIA, ABN EKG, CHRONIC COUGH, CORPULM, INCREASED GLUCOSE AND HYPOKOLEMIA
[2018-01-03] MEDS ORDERED: NACL 0.9% 500 ML 0 ML ONE (10:55)
[2018-01-03] MEDS ORDERED: NACL 0.9% 1000 ML 1,000 ML ONE (10:59)
[2018-01-03] MEDS ORDERED: HURRICAINE ONE 20% TOPICAL SPRAY MM (11:03)
[2018-01-03] MEDS ORDERED: ROBINUL ONE (11:13)
--- NOTE | 2018-01-03 13:48 | Progress Note ---
Assessment and Plan S/p ULYSSES today which showed ASD, mod to severe TR, mild pulm HTN. Will plan for LHC and RHC in AM with O2 sat run for further evaluation. Indications, potential risks and benefits of procedure reviewed with pt and she is agreeable to proceed. NPO after MN. The patient has been seen in conjunction with Dr. Mercado who agrees with the assessment and plan of care. - Patient Problems (1) Abnormal EKG Current Visit: Yes Status: Acute (2) Biventricular congestive heart failure Current Visit: Yes Status: Acute (3) Cor pulmonale Current Visit: Yes Status: Chronic (4) Atrial septal defect Current Visit: Yes Status: Chronic (5) Tricuspid regurgitation Current Visit: Yes Status: Chronic (6) Mild pulmonary hypertension Current Visit: Yes Status: Chronic (7) Chronic cough Current Visit: Yes Status: Chronic (8) Hypoxia Current Visit: Yes Status: Acute Subjective Date of service: 01/03/18 Principal diagnosis: HF Interval history: pt for ULYSSES today. Objective Last Vital Signs Temp 97.3 F L 01/03/18 12:14 Pulse 85 01/03/18 13:25 Resp 24 01/03/18 13:25 BP 97/71 01/03/18 13:25 Pulse Ox 96 01/03/18 13:25 - Physical Examination General: No Apparent Distress HEENT: Positive: Normocephaly, Mucus Membranes Moist Neck: Positive: neck supple, trachea midline Cardiac: Positive: Reg Rate and Rhythm, S1/S2 Lungs: Positive: Decreased Breath Sounds Neuro: Positive: Grossly Intact Abdomen: Positive: Soft, Active Bowel Sounds Skin: Positive: Clear. Negative: Rash Musculoskeletal: No Fluid Collection, No Pain, Normal Range of Motion Extremities: Present: upper extr. pulses, lower extr. pulses, +1 Edema - Imaging and Cardiology EKG: report reviewed, image reviewed Echo: report reviewed, image reviewed - EKG Sinus rhythms and dysrhythmias: sinus rhythm QRS axis and voltage: right axis deviation Chamber hypertrophy or enlargement: right atrial enlargment, righ ventricular hypertro Repolarization changes or abnormalities: nonspecific abnormality, ST segment, and/or T wave
--- NOTE | 2018-01-03 15:40 | Progress Note ---
Assessment and Plan Assessment and plan: Acute on chronic systolic CHF. Patient was just diagnosed with CHF about 3 months ago and has had multiple hospitalizations. She ran out of lasix Continue Lasix 40 iv bid cardiology consulted, Echo shows EF 45-50% ULYSSES done today shows ASD, mild pulm hypertension. Plan is for cardiac cath tomorrow Prediabetes. Started diabetic diet. Fingerstick glucose Qac and hs Hypokalemia. Now resolved. Will discontinue Potassium DVT prophylaxis with Heparin subQ Full code status History Interval history: Feels better, Less shortness of breath less swelling both legs ULYSSES done today Hospitalist Physical - Physical exam Narrative exam: Gen : Not in acute distress, sitting up in bed HEENT:Normocephalic, atraumatic Neck: supple, JVD presented Lungs: Biltateral crackles, no rhonchi Heart :S1 and S2 reg, no murmurs, rubs or gallop Abd:soft, non tender, non distended, normal bowel sounds Ext: Bilateral pitting pedal edema, no clubbing, no cyanosis, Neuro: Awake,alert,oriented x 3, no focal signs Psych:normal mood - Constitutional Vitals: Temp Pulse Resp BP Pulse Ox 97.3 F L 108 H 20 97/71 96 01/03/18 12:14 01/03/18 14:40 01/03/18 14:40 01/03/18 13:25 01/03/18 13:25 General appearance: Present: no acute distress Results - Labs CBC & Chem 7: 12/31/17 15:09 01/02/18 07:30 Labs: Laboratory Last Values WBC 6.3 K/mm3 (4.5-11.0) 12/31/17 15:09 RBC 4.49 M/mm3 (3.65-5.03) 12/31/17 15:09 Hgb 13.2 gm/dl (10.1-14.3) 12/31/17 15:09 Hct 40.4 % (30.3-42.9) 12/31/17 15:09 MCV 90 fl (79-97) 12/31/17 15:09 MCH 29 pg (28-32) 12/31/17 15:09 MCHC 33 % (30-34) 12/31/17 15:09 RDW 15.9 % (13.2-15.2) H 12/31/17 15:09 Plt Count 289 K/mm3 (140-440) 12/31/17 15:09 Lymph % (Auto) 17.5 % (13.4-35.0) 12/31/17 15:09 [place] % (Auto) 7.1 % (0.0-7.3) 12/31/17 15:09 Eos % (Auto) 1.4 % (0.0-4.3) 12/31/17 15:09 Baso % (Auto) 1.0 % (0.0-1.8) 12/31/17 15:09 Lymph # 1.1 K/mm3 (1.2-5.4) L 12/31/17 15:09 [place] # 0.5 K/mm3 (0.0-0.8) 12/31/17 15:09 Eos # 0.1 K/mm3 (0.0-0.4) 12/31/17 15:09 Baso # 0.1 K/mm3 (0.0-0.1) 12/31/17 15:09 Seg Neutrophils % 73.0 % (40.0-70.0) H 12/31/17 15:09 Seg Neutrophils # 4.6 K/mm3 (1.8-7.7) 12/31/17 15:09 PT 15.4 Sec. (12.2-14.9) H 12/31/17 15:09 INR 1.16 (0.87-1.13) H 12/31/17 15:09 APTT 26.7 Sec. (24.2-36.6) 12/31/17 15:09 Sodium 138 mmol/L (137-145) 01/02/18 07:30 Potassium 4.8 mmol/L (3.6-5.0) D 01/02/18 07:30 Chloride 99.8 mmol/L (98-107) 01/02/18 07:30 Carbon Dioxide 22 mmol/L (22-30) 01/02/18 07:30 Anion Gap 21 mmol/L 01/02/18 07:30 BUN 19 mg/dL (7-17) H 01/02/18 07:30 Creatinine 0.8 mg/dL (0.7-1.2) 01/02/18 07:30 Estimated GFR > 60 ml/min 01/02/18 07:30 BUN/Creatinine Ratio 24 % 01/02/18 07:30 Glucose 114 mg/dL (65-100) H 01/02/18 07:30 Hemoglobin A1c 6.4 % (4-6) H 01/01/18 04:19 Calcium 9.1 mg/dL (8.4-10.2) 01/02/18 07:30 Troponin T 0.021 ng/mL (0.00-0.029) 12/31/17 15:09 NT-Pro-B Natriuret Pep 2424 pg/mL (0-900) H 12/31/17 15:09 TSH 1.260 mlU/mL (0.270-4.200) 01/01/18 04:19
[2018-01-04 05:43] LABS: Basophils # (Auto) 0.1 K/mm3 (0.0-0.1); Basophils % (Auto) 0.8 % (0.0-1.8); Eosinophils % (Auto) 0.6 % (0.0-4.3); Hematocrit 41.6 % (30.3-42.9); Hemoglobin 13.9 gm/dl (10.1-14.3); Lymphocytes # (Auto) 1.7 K/mm3 (1.2-5.4); Lymphocytes % (Auto) 24.1 % (13.4-35.0); Mean Corpuscular HGB Conc 34 % (30-34); Mean Corpuscular Hemoglobin 30 pg (28-32); Mean Corpuscular Volume 89 fl (79-97); Monocytes # (Auto) 0.3 K/mm3 (0.0-0.8); Monocytes % (Auto) 4.5 % (0.0-7.3); Red Blood Count 4.65 M/mm3 (3.65-5.03); Red Cell Distribution Width 16.1 % (13.2-15.2)
[2018-01-04 05:44] LABS: Platelet Count 198 K/mm3 (140-440)
[2018-01-04 05:50] LABS: BUN/Creatinine Ratio 21; Blood Urea Nitrogen 19 mg/dL (7-17); Hemolysis Index 69
[2018-01-04 05:53] LABS: INR 1.13 (0.87-1.13)
[2018-01-04 05:54] LABS: Partial Thromboplastin Time 21.5 Sec. (24.2-36.6)
[2018-01-04] MEDS: LASIX IV SCH (06:18)
[2018-01-04] MEDS: HEPARIN SUB-Q SCH ×3 (06:20→22:43)
[2018-01-04] MEDS ORDERED: NACL 0.9% 500 ML 500 ML IV SCH (10:00)
[2018-01-04] MEDS ORDERED: ECOTRIN PO SCH (10:00)
[2018-01-04] MEDS ORDERED: HEPARIN 10,000 UNITS/10 ML ONE (10:20)
[2018-01-04] MEDS ORDERED: HEPARIN/NS 5000 UNIT/500ML(CATH LAB) 1,000 ML IR ONE (10:20)
[2018-01-04] MEDS ORDERED: NITROGLYCERIN SYRINGE 0 ML ONE (10:21)
[2018-01-04] MEDS ORDERED: XYLOCAINE 2% INFILTRATI ONE (10:21)
[2018-01-04] MEDS ORDERED: VERSED ONE (10:22)
[2018-01-04] MEDS ORDERED: SUBLIMAZE ONE (10:22)
--- NOTE | 2018-01-04 12:27 | Progress Note ---
Assessment and Plan S/p LHC & RHC today which showed NO ASD, no O2 sat step-up, EF 35%, normal coronaries, mod pulmonary HTN. Hold IV lasix. Cont lopressor and losartan. Initiate aldactone. Cont to monitor. The patient has been seen in conjunction with Dr. Mercado who agrees with the assessment and plan of care. - Patient Problems (1) Biventricular congestive heart failure Current Visit: Yes Status: Acute (2) Nonischemic cardiomyopathy Current Visit: Yes Status: Chronic (3) Cor pulmonale Current Visit: Yes Status: Chronic (4) Tricuspid regurgitation Current Visit: Yes Status: Chronic (5) Pulmonary HTN Current Visit: Yes Status: Chronic (6) Abnormal EKG Current Visit: Yes Status: Acute (7) Chronic cough Current Visit: Yes Status: Chronic (8) Hypoxia Current Visit: Yes Status: Acute Subjective Date of service: 01/04/18 Principal diagnosis: HF Interval history: pt for LHC & RHC today. no current complaints. Objective Last Vital Signs Temp 97.4 F L 01/04/18 07:35 Pulse 107 H 01/04/18 10:00 Resp 20 01/04/18 10:00 BP 103/75 01/04/18 07:35 Pulse Ox 98 01/04/18 07:46 - Physical Examination General: No Apparent Distress HEENT: Positive: Normocephaly, Mucus Membranes Moist Neck: Positive: neck supple, trachea midline Cardiac: Positive: Reg Rate and Rhythm, S1/S2 Lungs: Positive: Decreased Breath Sounds Neuro: Positive: Grossly Intact Abdomen: Positive: Soft, Active Bowel Sounds Skin: Positive: Clear. Negative: Rash Musculoskeletal: No Fluid Collection, No Pain, Normal Range of Motion Extremities: Present: upper extr. pulses, lower extr. pulses, +1 Edema - Labs and Meds Coagulation 01/04/18 Range/Units 05:01 PT 15.1 H (12.2-14.9) Sec. INR 1.13 (0.87-1.13) APTT 21.5 L (24.2-36.6) Sec. CBC 01/04/18 Range/Units 05:01 WBC 7.0 (4.5-11.0) K/mm3 RBC 4.65 (3.65-5.03) M/mm3 Hgb 13.9 (10.1-14.3) gm/dl Hct 41.6 (30.3-42.9) % Plt Count 198 (140-440) K/mm3 Lymph # 1.7 (1.2-5.4) K/mm3 [place] # 0.3 (0.0-0.8) K/mm3 Eos # 0.0 (0.0-0.4) K/mm3 Baso # 0.1 (0.0-0.1) K/mm3 Comprehensive Metabolic Panel 01/04/18 Range/Units 05:01 Sodium 138 (137-145) mmol/L Potassium 4.3 (3.6-5.0) mmol/L Chloride 97.4 L (98-107) mmol/L Carbon Dioxide 24 (22-30) mmol/L BUN 19 H (7-17) mg/dL Creatinine 0.9 (0.7-1.2) mg/dL Glucose 125 H (65-100) mg/dL Calcium 9.0 (8.4-10.2) mg/dL - Imaging and Cardiology EKG: report reviewed, image reviewed Echo: report reviewed, image reviewed - EKG Sinus rhythms and dysrhythmias: sinus rhythm QRS axis and voltage: right axis deviation Chamber hypertrophy or enlargement: right atrial enlargment, righ ventricular hypertro Repolarization changes or abnormalities: nonspecific abnormality, ST segment, and/or T wave
--- NOTE | 2018-01-04 12:59 | Cardiac Catherization Report ---
LEFT HEART CATHETERIZATION INDICATION FOR PROCEDURE: A 62-year-old -[place] female who was admitted with shortness of breath and right-sided heart failure. Echocardiogram showed ejection fraction of 45% along with transesophageal echocardiogram suggesting PFO versus ASD with markedly dilated right atrium and right ventricle. Hence, a cardiac catheterization being performed for evaluation of her congestive heart failure and right-sided heart enlargement. The patient is aware of the procedure, potential complications, and alternatives of therapy available. DESCRIPTION OF PROCEDURE: The patient was brought to the catheterization laboratory in a fasting condition. The patient's oxygen saturations were on below 90s even on 2-3 liters of oxygen. The patient after being evaluated for moderate sedation was sedated with IV Versed 1 mg and 25 mg of fentanyl. Local anesthesia was given in the right groin. Initially, right femoral artery puncture was made using 5-Qatari micropuncture needle. Using 5-Qatari multipurpose catheter, angiograms of the right coronary artery and left coronary artery were obtained and also left ventriculogram was performed using power injector 24 mL at 8 mL per second. After obtaining his right heart catheterization, right femoral vein puncture was made under local anesthesia and 7-Qatari Virgil-Senait catheter was advanced under fluoroscopy into the pulmonary artery without difficulty; however, could not further advance with the catheter. Subsequently, a 5-Qatari JR4 catheter with the help of J-wire was used to obtain the oxygen saturations in multiple areas on the right side. This was done because the flotation catheter could not be advanced into the PA even with the help of a wire. Hence, a 5F JR4 catheter was used to obtain the pressures and O2 saturations. O2 saturation was obtained in the left pulmonary artery and main pulmonary artery, right ventricle, superior vena cava in addition to mid right atrium and inferior vena cava. Also, at the same time arterial sample was obtained from the right femoral artery for O2 saturations. At the end of the procedure, angiograms of the right femoral artery were obtained when it was felt appropriate. A 6-Qatari ProGlide closure device was applied with good hemostasis. No untoward complications were noted. Following findings were noted. Aortic pressure is 103/71, left ventricular pressure is 102/10-12. Estimated ejection fraction 30-35%. Right atrial pressure is 22/21. Right ventricular pressure is 59/20. Pulmonary artery pressure is 55/27 with a mean of 38. Cardiac output was 3.31 liters. Oxygen saturations are as follows: Right femoral artery saturation was 80%. IVC saturation is 46%, mid right atrial saturation is 40%. SVC is 38%. Right ventricle is 40% and pulmonary artery saturation was 42%. Right coronary dominant vessel shows sluggish flow, otherwise angiographically smooth and normal. Left coronary artery arises normally from left coronary cusp. Left main, LAD, and circumflex artery and its branch are angiographically smooth and normal with sluggish flow. Left ventriculogram done in HERNANDEZ projection shows mildly dilated left ventricle with moderate diffuse hypokinesis, ejection fraction in the 30-35%. FINAL IMPRESSION: 1. Dilated cardiomyopathy with moderate LV dysfunction, ejection fraction 30-35%. 2. Normal coronary anatomy. 3. Moderate pulmonary hypertension with a pulmonary artery pressure of 55/27 with a mean of 38. Right atrial pressures mean of 22 mmHg. At this time, there is no significant step-off of O2 saturations in the right side to indicate significant left to right shunt. No significant left to right shunt was noted. At this time, considering normal coronary anatomy with moderate LV dysfunction, we will continue medical therapy. Also, the patient has moderate pulmonary hypertension. Etiology is not clear. At the point of this examination, the patient's end-diastolic pressure is normal in the range of 10-12 mmHg; however, the patient is diuresed well. Needs further followup of her pulmonary hypertension. The patient tolerated the procedure well. Good hemostasis was achieved in the right groin. Arterial puncture was closed with ProGlide device with good hemostasis and manual pressure was applied in the right femoral vein. No untoward complications were noted. The patient was sedated with IV Versed and fentanyl. Her oxygen saturations have been low and monitored throughout. Her sedation started at 10:50 a.m. and ended at 11:56 a.m. and continuous EKG monitoring O2 saturation and blood pressure monitoring was done. The patient was transferred to the room in stable condition. JOB# [id number] MELANI/MASON TRAORE
[2018-01-04] MEDS: ALDACTONE PO SCH (13:27)
[2018-01-04] MEDS: DELTASONE PO SCH (13:28)
[2018-01-04] MEDS: COZAAR PO SCH (13:29)
[2018-01-04] MEDS: LOPRESSOR PO SCH ×2 (13:30→22:44)
[2018-01-04] MEDS: SODIUM CHLORIDE FLUSH SYRINGE 10 ML IV SCH ×2 (13:30→22:43)
--- NOTE | 2018-01-04 17:11 | Progress Note ---
Assessment and Plan /Acute on chronic systolic CHF. Patient was just diagnosed with CHF about 3 months ago and has had multiple hospitalizations. She ran out of lasix Continue Lasix 40 iv bid cardiology consulted, Echo shows EF 45-50% ULYSSES done 01/03/18 shows ASD, mild pulm hypertension. s/p cardiac cath today /Prediabetes. Started diabetic diet. Fingerstick glucose Qac and hs /Hypokalemia. Now resolved. DVT prophylaxis with Heparin subQ Full code status Hospitalist Physical Gen : Not in acute distress, sitting up in bed HEENT:Normocephalic, atraumatic Neck: supple, JVD presented Lungs: Biltateral crackles, no rhonchi Heart :S1 and S2 reg, no murmurs, rubs or gallop Abd:soft, non tender, non distended, normal bowel sounds Ext: Bilateral pitting pedal edema, no clubbing, no cyanosis, Neuro: Awake,alert,oriented x 3, no focal signs Psych:normal mood Subjective Date of service: 01/04/18 Principal diagnosis: HF Interval history: Feels better, Less shortness of breath less swelling both legs Cardiac cath done today Objective - Constitutional Vitals: Vital Signs - 12hr 01/04/18 01/04/18 01/04/18 07:35 07:46 10:00 Temperature 97.4 F L Pulse Rate 92 H 107 H Respiratory 16 20 Rate Blood Pressure Blood Pressure 103/75 [Left] O2 Sat by Pulse 92 98 Oximetry 01/04/18 01/04/18 01/04/18 13:17 13:27 16:05 Temperature 98.1 F Pulse Rate 89 93 H Respiratory 18 Rate Blood Pressure 95/65 95/65 88/60 Blood Pressure [Left] O2 Sat by Pulse 92 94 Oximetry 01/04/18 01/04/18 01/04/18 16:07 16:08 16:32 Temperature 98.3 F Pulse Rate 102 H 102 H 94 H Respiratory 18 Rate Blood Pressure 89/62 103/70 96/72 Blood Pressure [Left] O2 Sat by Pulse 94 91 91 Oximetry - Labs CBC & Chem 7: 01/04/18 05:01 01/04/18 05:01 Labs: Abnormal lab results 01/04/18 01/04/18 01/04/18 Range/Units 05:01 05:01 05:01 RDW 16.1 H (13.2-15.2) % PT 15.1 H (12.2-14.9) Sec. APTT 21.5 L (24.2-36.6) Sec. Chloride 97.4 L (98-107) mmol/L BUN 19 H (7-17) mg/dL Glucose 125 H (65-100) mg/dL POC Glucose (70-105) 01/04/18 01/04/18 Range/Units 06:53 16:44 RDW (13.2-15.2) % PT (12.2-14.9) Sec. APTT (24.2-36.6) Sec. Chloride (98-107) mmol/L BUN (7-17) mg/dL Glucose (65-100) mg/dL POC Glucose 107 H 118 H (70-105)
[2018-01-05] MEDS: HEPARIN SUB-Q SCH ×2 (06:57→14:28)
[2018-01-05] MEDS: ALDACTONE PO SCH (11:00)
[2018-01-05] MEDS: LOPRESSOR PO SCH (11:00)
[2018-01-05] MEDS: COZAAR PO SCH (11:00)
[2018-01-05] MEDS: DELTASONE PO SCH (11:14)
[2018-01-05] MEDS: SODIUM CHLORIDE FLUSH SYRINGE 10 ML IV SCH (11:15)
--- NOTE | 2018-01-05 12:06 | Progress Note ---
Assessment and Plan Currently stable cardiac status. Pt may discharge home from cardiology standpoint. Cont lopressor, losartan, aldactone. Follow up in our [place] office with Dr. Mercado on 01/12/2018 @ 3:00PM. The patient has been seen in conjunction with Dr. Mercado who agrees with the assessment and plan of care. - Patient Problems (1) Biventricular congestive heart failure Current Visit: Yes Status: Acute (2) Nonischemic cardiomyopathy Current Visit: Yes Status: Chronic (3) Cor pulmonale Current Visit: Yes Status: Chronic (4) Tricuspid regurgitation Current Visit: Yes Status: Chronic (5) Pulmonary HTN Current Visit: Yes Status: Chronic (6) Abnormal EKG Current Visit: Yes Status: Acute (7) PFO (patent foramen ovale) Current Visit: Yes Status: Acute (8) Chronic cough Current Visit: Yes Status: Chronic (9) Hypoxia Current Visit: Yes Status: Acute Subjective Date of service: 01/05/18 Principal diagnosis: HF Interval history: pt sitting up at bedside, no current cardiac complaints. Objective Last Vital Signs Temp 97.9 F 01/05/18 08:15 Pulse 74 01/05/18 10:00 Resp 20 01/05/18 08:15 BP 100/74 01/05/18 08:15 Pulse Ox 99 01/05/18 07:16 - Physical Examination General: No Apparent Distress HEENT: Positive: PERRL, Normocephaly, Mucus Membranes Moist Neck: Positive: neck supple, trachea midline Cardiac: Positive: Reg Rate and Rhythm, S1/S2 Neuro: Positive: Grossly Intact Abdomen: Positive: Soft, Active Bowel Sounds Skin: Positive: Clear. Negative: Rash Incision: Cardiac Cath Site (right femoral c/d/i with no evidence of bleeding or hematoma) Musculoskeletal: No Fluid Collection, No Pain, Normal Range of Motion Extremities: Present: upper extr. pulses, lower extr. pulses. Absent: edema - Imaging and Cardiology EKG: report reviewed, image reviewed Echo: report reviewed, image reviewed - Telemetry EKG Rhythm: Sinus Rhythm - EKG Sinus rhythms and dysrhythmias: sinus rhythm QRS axis and voltage: right axis deviation Chamber hypertrophy or enlargement: right atrial enlargment, righ ventricular hypertro Repolarization changes or abnormalities: nonspecific abnormality, ST segment, and/or T wave
--- NOTE | 2018-01-05 13:58 | Discharge Summary ---
Providers - Providers Date of Admission: 12/31/17 21:39 Date of discharge: 01/05/18 Attending physician: JOSE R MOREIRA 12/31/17 21:50 Consult to Physician [CONS] Routine Comment: Consulting Provider: GERSON ROSE Physician Instructions: Reason For Exam: chf 01/04/18 12:35 Consult to Cardiac Rehabilitation [CONS] Routine Reason For Exam: Cardiac Rehab Evaluation Primary care physician: TOLL LINE INSPECTOR Hospitalization Condition: Fair Pertinent studies: CXR CT chest 2dcho ULYSSES cardiac cath Hospital course: Discharge diagnosis and management: /Acute on chronic systolic CHF. Patient was just diagnosed with CHF about 3 months ago and has had multiple hospitalizations. She ran out of lasix Continue Lasix 40 iv bid cardiology was consulted, Echo shows EF 45-50%, ULYSSES done 01/03/18 shows ASD, mild pulm hypertension. s/p cardiac cath revealed no ASD /Prediabetes. Started diabetic diet. Fingerstick glucose Qac and hs /Hypokalemia. Now resolved. DVT prophylaxis with Heparin subQ Full code status Hospitalist Physical Gen : Not in acute distress, sitting up in bed HEENT:Normocephalic, atraumatic Neck: supple, JVD presented Lungs: Biltateral crackles, no rhonchi Heart :S1 and S2 reg, no murmurs, rubs or gallop Abd:soft, non tender, non distended, normal bowel sounds Ext: Bilateral pitting pedal edema, no clubbing, no cyanosis, Neuro: Awake,alert,oriented x 3, no focal signs Psych:normal mood Disposition: DC-01 TO HOME OR SELFCARE Time spent for discharge: 32 minutes Core Measure Documentation - Palliative Care Palliative Care/ Comfort Measures: Not Applicable - Core Measures Any of the following diagnoses?: none Exam - Constitutional Vitals: Temp Pulse Resp BP Pulse Ox 97.9 F 88 18 99/73 99 01/05/18 11:06 01/05/18 11:06 01/05/18 11:06 01/05/18 11:06 01/05/18 11:06 Plan Activity: advance as tolerated Weight Bearing Status: Non-Weight Bearing Diet: low fat, low salt Follow up with: FRANCHESKA BEATTY MD [Staff Physician] - 7 Days (Follow up in our [place] office with Dr. Mercado on 01/12/2018 @ 3:00PM. ) PRIMARY CARE, [Primary Care Provider] - 3-5 Days Prescriptions: Losartan [Cozaar] 25 mg PO QDAY #30 tablet Metoprolol [Lopressor TAB] 12.5 mg PO BID #30 tablet Spironolactone [Aldactone] 12.5 mg PO QDAY #30 tablet
[2018-01-05 16:57] VITALS: BP 108/81
[2018-01-06] MEDS ORDERED: LASIX PO SCH (10:00)
--- NOTE | 2018-01-07 16:29 | Post Anesthesia Evaluation ---
- Post Anesthesia Evaluation Patient Participated: Yes Airway Patent: Yes Stable Respiratory Function: Yes Nausea/Vomiting: No Temp > 96.8F: Yes Pain Manageable: Yes Adequeate Hydration: Yes Anesthesia Complications: No Block Receding Appropriately: No Patient on Ventilator: No
== END 2018-01-05 17:30 | disposition home or self-care (01) | DRG 287 ==
LOC: ED 14:37 → 4A 21:39
PROVIDERS: ADMIT Internal Medicine; ATTEND Internal Medicine
PROC: 3E0234Z Introduction of Serum, Toxoid and Vaccine into Muscle, Percutaneous Approach (ICD-10-PCS; 2018-01-01)
PROC: 4A023N8 Measurement of Cardiac Sampling and Pressure, Bilateral, Percutaneous Approach (ICD-10-PCS; principal; 2018-01-04)
PROC: B2111ZZ Fluoroscopy of Multiple Coronary Arteries using Low Osmolar Contrast (ICD-10-PCS; 2018-01-04)
PROC: B2151ZZ Fluoroscopy of Left Heart using Low Osmolar Contrast (ICD-10-PCS; 2018-01-04)
DX: I50.23 Acute on chronic systolic (congestive) heart failure (principal); Q21.1 Atrial septal defect; I42.8 Other cardiomyopathies; E87.6 Hypokalemia; I50.82 Biventricular heart failure; I07.1 Rheumatic tricuspid insufficiency; I27.20 Pulmonary hypertension, unspecified; R94.31 Abnormal electrocardiogram [ECG] [EKG]; R09.02 Hypoxemia; E11.65 Type 2 diabetes mellitus with hyperglycemia; Z82.49 Family history of ischemic heart disease and other diseases of the circulatory system; Z83.3 Family history of diabetes mellitus; Z23 Encounter for immunization
CPT/HCPCS: 36415; 71045; 71250; 80048; 82962; 83036; 83880; 84443; 84484; 85025; 85610; 85730; 87116; 90732; 93005; 93010; 93306; 93312; 93320; 93325; 93460; 94640; 94760; 96374; C1760; J1644; J1940; J2250; J2370; J2704; J3010; J7030; J7040; J7512; Q9967

== ENCOUNTER 2018-02-25 22:03 | Inpatient (IN) | payer OTHER ==
--- NOTE | 2018-02-25 23:43 | Emergency Department Report ---
HPI - General Chief Complaint: Dyspnea/Respdistress Time Seen by Provider: 02/25/18 23:12 - HPI HPI: 63-year-old female presents to the emergency department with complaint of shortness of breath and bilateral lower extremity swelling. Patient was found to have a pulse ox of 80% on room air in triage. It went up to the low 90s with 4 L via nasal cannula. She denies any chest pain, fever, nausea, vomiting , back pain or diaphoresis. The patient does have a past medical history of CHF for which she takes diuretics. She is to be on Lasix but was switched to something that "starts with a G." however the diuretic has not been working for her. She has also been dealing with a mixed dry and productive cough. Secondarily, the patient complains of some redness and firmness to the mid upper abdomen that has been going on since the patient was admitted to [facility] back in [facility]. She does not have a primary care physician. She follows with [facility] cardiology. She had a cardiac catheterization done back in December that showed dilated cardiomyopathy with a ejection fraction of 30- 35%. No recent travel or sick contacts at home. ED Past Medical Hx - Past Medical History Previous Medical History?: Yes Hx Hypertension: No Hx Heart Attack/AMI: No Hx Congestive Heart Failure: Yes Hx Diabetes: No Hx Deep Vein Thrombosis: No Hx Asthma: No Hx COPD: No - Surgical History Past Surgical History?: Yes Hx Coronary Stent: No Hx Pacemaker: No Hx Internal Defibrillator: No - Social History Smoking Status: Never Smoker Substance Use Type: None - Medications Home Medications: Home Medications Medication Instructions Recorded Confirmed Last Taken Type Aspirin EC [Aspirin Enteric Coated 81 mg PO QDAY 01/02/18 01/02/18 Unknown History TAB] Furosemide [Lasix TAB] 40 mg PO QDAY #30 tablet 01/05/18 Unknown Rx Losartan [Cozaar] 25 mg PO QDAY #30 tablet 01/05/18 Unknown Rx Metoprolol [Lopressor TAB] 12.5 mg PO BID #30 tablet 01/05/18 Unknown Rx Spironolactone [Aldactone] 12.5 mg PO QDAY #30 tablet 01/05/18 Unknown Rx ED Review of Systems ROS: Stated complaint: SWELLING BOTH LEGS Other details as noted in HPI Comment: All other systems reviewed and negative Constitutional: denies: chills, fever Eyes: denies: eye pain, eye discharge, vision change ENT: denies: ear pain, throat pain Respiratory: cough, shortness of breath Cardiovascular: edema. denies: chest pain Genitourinary: denies: urgency, dysuria, discharge Musculoskeletal: denies: back pain, joint swelling, arthralgia Skin: rash, change in color Neurological: denies: headache, weakness, paresthesias Physical Exam - Physical Exam Vital Signs: Vital Signs 02/25/18 02/25/18 23:04 23:20 Temperature 97.7 F Pulse Rate 104 H Respiratory 17 Rate Blood Pressure 95/72 O2 Sat by Pulse 83 L 97 Oximetry Physical Exam: GENERAL: The patient is well-developed well-nourished. HENT: Normocephalic. Atraumatic. Patient has moist mucous membranes. EYES: Extraocular motions are intact. Pupils equal reactive to light bilaterally. NECK: Supple. Trachea is midline. CHEST/LUNGS: Mild coarse breath sounds. Mild tachypnea but no accessory muscle use. There is no respiratory distress noted. HEART/CARDIOVASCULAR: Regular. There is no tachycardia. There is no murmur. ABDOMEN: Abdomen is soft, nontender. Patient has normal bowel sounds. There is no abdominal distention. SKIN: Skin is warm and dry. 2+ pitting edema to the bilateral lower extremities. NEURO: The patient is awake, alert, and oriented. The patient is cooperative. The patient has no focal neurologic deficits. The patient has normal speech. MUSCULOSKELETAL: There is no tenderness or deformity. There is no limitation range of motion. There is no evidence of acute injury. ED Course Vital Signs 02/25/18 02/25/18 23:04 23:20 Temperature 97.7 F Pulse Rate 104 H Respiratory 17 Rate Blood Pressure 95/72 O2 Sat by Pulse 83 L 97 Oximetry - Reevaluation(s) Reevaluation #1: 02/26/18 02:57 Just as the patient came back from the nuclear medicine study, she has started to exhibit left-sided weakness. She has a left upper extremity drift and is having difficulty moving the left lower extremity at all. No obvious facial symmetry. No gaze preference. She is awake, alert and oriented. A code stroke was called and the patient will have a CT of the head without contrast stat. 02/26/18 06:38 The patient was reevaluated again after returning from CT imaging of the head, which did come back negative for any bleed or signs of ischemia or any other acute process, and the patient has begun to show improvement. She has full range of motion of the left upper extremity without any drift. She has started to raise her leg off of the gurney. About 15 minutes later the patient was able to completely lift her leg up and has the same muscle strength as the right side. At this point there was no further signs of any neurological deficits. Currently she has an NIH stroke scale of 0. - Consultations Consultation #1: 02/26/18 06:37 I spoke with the telemedicine neurologist manager production, Dr. Peter, regarding the patient's sudden onset of left-sided weakness as well as the patient's improvement after CT scan. He agrees that the patient does not require TPA at this time and does not require CT angiography of the head and neck. He recommends neuro checks every 2 hours and if there is any worsening or return of these deficits that he should be called back and we should consider CT angiography at that time. ED Medical Decision Making - Lab Data Result diagrams: 02/25/18 23:23 02/25/18 23:23 - EKG Data -: EKG Interpreted by Ri EKG shows normal: sinus rhythm, axis, intervals, QRS complexes (low-voltage, right ventricular hypertrophy), ST-T waves Rate: tachycardia (106 bpm) - EKG Data When compared to previous EKG there are: no significant change Interpretation: unchanged when compared t (12/31/17) - Radiology Data Radiology results: report reviewed, image reviewed PROCEDURE: NM LUNG SCAN PERF/VENT TECHNIQUE: 3.94 mCi Tc-99m MAA was injected IV for pulmonary perfusion imaging in multiple projections. 14.82 mCi xenon 133 gas was inhaled for pulmonary ventilation imaging in multiple projections. Injection site: RIGHT antecubital fossa. CPT 06381 HISTORY: SOB, elevated dimer COMPARISON: No prior studies are available for comparison. FINDINGS: Perfusion: No defects . Ventilation: No defects . IMPRESSION: Normal Examination Transcribed By: [facility] Dictated By: ELEUTERIO STUART MD Electronically Authenticated By: ELEUTERIO STUART MD Signed Date/Time: 02/26/18 0243 PROCEDURE: CT HEAD/BRAIN WO CON TECHNIQUE: Computerized tomography of the head was performed without contrast material. HISTORY: Stroke symptoms COMPARISON: No prior studies are available for comparison. FINDINGS: Skull and scalp: Normal. Paranasal sinuses: Normal. Ventricles and subarachnoid spaces: Normal. Cerebrum: No evidence of hemorrhage, acute infarction or mass . Cerebellum and brainstem: No evidence of hemorrhage, acute infarction or mass. Vasculature: Normal. Comments: None. IMPRESSION: Normal Examination Transcribed By: [facility] Dictated By: ELEUTERIO STUART MD Electronically Authenticated By: ELEUTERIO STUART MD Signed Date/Time: 02/26/18311 - Medical Decision Making Patient presents with some shortness of breath and lower extremity swelling and history of CHF. She does not appear in any respiratory distress. EKG does not show any signs of ST elevation RI, ischemia or dysrhythmia. Patient does have significant lower show many swelling and a BNP greater than 4000. Since patient had some shortness of breath and hypoxia upon presentation, a d-dimer was done and came back greater than 1000. Patient has very mild renal insufficiency and therefore a VQ scan was done to rule out a PE. The VQ scan was negative for pulmonary embolism. However after the patient returned from VQ scan she suddenly appeared confused with some left-sided weakness. At that time she had an NIH stroke scale of 5. A code stroke was called and the patient had a CT of the head done without contrast that came back resulting as normal without signs of ischemia, bleed, shift, mass or any other acute process. She was reevaluated multiple times both before and after CT and began showing improvement. The patient was back at her baseline without any left- sided deficits after about 45 minutes for return of the CT scan. It is possible the patient had some type of a reaction to the chemicals given during nuclear medicine or potentially the patient had a TIA. As per the consultation section, I had spoken with the telemedicine neurologist, who agreed that the patient did not appear to require TPA at that time as she was showing improvement. She did not require CT angiography at that time as well. We have continued to monitor her and there has been no regression. However the patient will be admitted to the hospital for her CHF exacerbation and we will continue to monitor her. The patient was accepted for admission by the hospitalist service and I was given permission to place bridging orders under Dr. Hoang. - Differential Diagnosis CHF, PE, pneumonia Critical Care Time: No Critical care attestation.: If time is entered above; I have spent that time in minutes in the direct care of this critically ill patient, excluding procedure time. ED Disposition Clinical Impression: Bilateral lower extremity edema, TIA (transient ischemic attack) CHF exacerbation Qualifiers: Heart failure type: unspecified Qualified Code(s): I50.9 - Heart failure, unspecified Disposition: OP ADMIT IP TO THIS HOSP Is pt being admited?: Yes Condition: Fair Referrals: PRIMARY CARE, [Primary Care Provider] - 3-5 Days
--- NOTE | 2018-02-25 23:59 | XRay Report ---
FINAL REPORT PROCEDURE: XR CHEST 1V AP TECHNIQUE: Chest radiograph anteroposterior view. CPT 11517 HISTORY: SOB COMPARISON: 12/31/2017 FINDINGS: Heart: Normal. Mediastinum/Vessels: Normal. Lungs/Pleural space: Normal. Bony thorax: No acute osseous abnormality. Life support devices: None. IMPRESSION: No acute cardiopulmonary abnormality.
[2018-02-26 00:18] LABS: Basophils # (Auto) 0.1 K/mm3 (0.0-0.1); Basophils % (Auto) 1.1 % (0.0-1.8); Eosinophils # (Auto) 0.1 K/mm3 (0.0-0.4); Hemoglobin 14.9 gm/dl (10.1-14.3); Lymphocytes # (Auto) 1.5 K/mm3 (1.2-5.4); Lymphocytes % (Auto) 26.6 % (13.4-35.0); Mean Corpuscular HGB Conc 32 % (30-34); Mean Corpuscular Hemoglobin 30 pg (28-32); Mean Corpuscular Volume 93 fl (79-97); Monocytes # (Auto) 0.2 K/mm3 (0.0-0.8); Platelet Count 309 K/mm3 (140-440); Red Blood Count 4.93 M/mm3 (3.65-5.03)
[2018-02-26 00:24] LABS: INR 1.3 (0.87-1.13)
[2018-02-26 00:25] LABS: Partial Thromboplastin Time 29.2 Sec. (24.2-36.6)
[2018-02-26 00:28] LABS: Calcium 9.5 mg/dL (8.4-10.2)
[2018-02-26 00:29] LABS: Albumin 3.6 g/dL (3.9-5); Bilirubin,Direct 0.6 mg/dL (0-0.2)
[2018-02-26] MEDS ORDERED: NACL 0.9% 500 ML 500 ML IV ONE (01:34)
--- NOTE | 2018-02-26 02:44 | Nuclear Medicine Report ---
FINAL REPORT PROCEDURE: NM LUNG SCAN PERF/VENT TECHNIQUE: 3.94 mCi Tc-99m MAA was injected IV for pulmonary perfusion imaging in multiple projections. 14.82 mCi xenon 133 gas was inhaled for pulmonary ventilation imaging in multiple projections. Injection site: RIGHT antecubital fossa. CPT 87783 HISTORY: SOB, elevated dimer COMPARISON: No prior studies are available for comparison. FINDINGS: Perfusion: No defects . Ventilation: No defects . IMPRESSION: Normal Examination
--- NOTE | 2018-02-26 03:13 | Cat Scan Report ---
FINAL REPORT PROCEDURE: CT HEAD/BRAIN WO CON TECHNIQUE: Computerized tomography of the head was performed without contrast material. HISTORY: Stroke symptoms COMPARISON: No prior studies are available for comparison. FINDINGS: Skull and scalp: Normal. Paranasal sinuses: Normal. Ventricles and subarachnoid spaces: Normal. Cerebrum: No evidence of hemorrhage, acute infarction or mass . Cerebellum and brainstem: No evidence of hemorrhage, acute infarction or mass. Vasculature: Normal. Comments: None. IMPRESSION: Normal Examination
[2018-02-26] MEDS ORDERED: HEPARIN SUB-Q SCH (06:00)
--- NOTE | 2018-02-26 07:31 | History and Physical Report ---
History of Present Illness Date of examination: 02/26/18 Date of admission: 02/26/18 Chief complaint: Snoring leg edema and shortness of breath since yesterday History of present illness: A pleasant 63-year-old -[place] female patient with significant history of congestive heart failure on anti-failure medications pulmonary hypertension Recently evaluated by cardiology, status post heart cath, nonobstructive coronary disease and cardiomyopathy ejection fraction 30-35% Patient claims compliments with all her medications Complaint of worsening effort tolerance, orthopnea, worsening leg edema Has mild congestion and cough, not see primary care physician, has seen [facility] core extruder 2 weeks ago Denies nausea vomiting or abdominal pain Past History Past Medical History: heart failure, hypertension Past Surgical History: Other (tubal ligation) Social history: lives with family. denies: smoking, alcohol abuse, prescription drug abuse Family history: hypertension Medications and Allergies Allergies Allergy/AdvReac Type Severity Reaction Status Date / Time Penicillins Allergy Itching Verified 01/03/18 12:09 Home Medications Medication Instructions Recorded Confirmed Last Taken Type Aspirin EC [Aspirin Enteric Coated 81 mg PO QDAY 01/02/18 02/27/18 02/26/18 History TAB] Furosemide [Lasix TAB] 40 mg PO QDAY #30 tablet 01/05/18 02/27/18 02/26/18 Rx Losartan [Cozaar] 25 mg PO QDAY #30 tablet 01/05/18 02/27/18 02/26/18 Rx Metoprolol [Lopressor TAB] 12.5 mg PO BID #30 tablet 01/05/18 02/27/18 02/26/18 Rx Spironolactone [Aldactone] 12.5 mg PO QDAY #30 tablet 01/05/18 02/27/18 Rx Active Meds: Active Medications Aspirin (Halfprin Ec) 81 mg PO QDAY [facility] Heparin Sodium (Porcine) (Heparin) 5,000 unit SUB-Q Q8HR [facility] Last Admin: 02/26/18 06:41 Dose: 5,000 unit Losartan Potassium (Cozaar) 25 mg PO QDAY [facility] Metoprolol Tartrate (Lopressor) 12.5 mg PO BID [facility] Spironolactone (Aldactone) 12.5 mg PO QDAY [facility] Review of Systems Constitutional: fatigue, weakness, no weight loss, no weight gain Ears, nose, mouth and throat: no nasal congestion, no nasal discharge Cardiovascular: chest pain, orthopnea, edema, shortness of breath Respiratory: cough, shortness of breath, dyspnea on exertion, congestion Gastrointestinal: no abdominal pain, no nausea, no vomiting Genitourinary Female: no flank pain, no dysuria Musculoskeletal: no myalgias, no arthritis Integumentary: no redness, no lesions Neurological: no weakness, no numbness Psychiatric: no anxiety, no depression Endocrine: no cold intolerance, no heat intolerance Hematologic/Lymphatic: no easy bruising, no easy bleeding Allergic/Immunologic: no urticaria, no allergic rhinitis Exam - Constitutional Vitals: Temp Pulse Resp BP Pulse Ox 97.7 F 87 26 H 90/67 95 02/25/18 23:06 02/26/18 06:16 02/26/18 06:16 02/26/18 06:16 02/26/18 06:16 General appearance: Present: mild distress, well-nourished - EENT Eyes: Present: PERRL, EOM intact - Neck Neck: Present: supple, normal ROM - Respiratory Respiratory effort: normal Respiratory: bilateral: diminished, rales, negative: rhonchi, wheezing - Cardiovascular Rhythm: regular Heart Sounds: Present: S1 & S2 - Extremities Extremities: no ischemia Extremity abnormal: edema (bilateral edema 4+) - Abdominal General gastrointestinal: Present: soft, non-tender, non-distended, normal bowel sounds - Integumentary Integumentary: Present: clear, warm - Musculoskeletal Musculoskeletal: strength equal bilaterally - Psychiatric Psychiatric: appropriate mood/affect, cooperative - Neurologic Neurologic: CNII-XII intact, moves all extremities Results - Labs CBC & Chem 7: 02/25/18 23:23 02/27/18 08:00 Labs: Abnormal lab results 02/25/18 02/25/18 02/25/18 Range/Units 23:23 23:23 23:23 Hgb 14.9 H (10.1-14.3) gm/dl Hct 46.0 H (30.3-42.9) % RDW 18.0 H (13.2-15.2) % PT 16.7 H (12.2-14.9) Sec. INR 1.30 H (0.87-1.13) D-Dimer 1149.50 H (0-234) ng/mlDDU Sodium 136 L (137-145) mmol/L Chloride 94.8 L (98-107) mmol/L BUN 36 H (7-17) mg/dL Glucose 192 H (65-100) mg/dL POC Glucose (70-105) Total Bilirubin (0.1-1.2) mg/dL Direct Bilirubin (0-0.2) mg/dL NT-Pro-B Natriuret Pep 4255 H (0-900) pg/mL Albumin (3.9-5) g/dL 02/25/18 02/26/18 Range/Units 23:23 02:59 Hgb (10.1-14.3) gm/dl Hct (30.3-42.9) % RDW (13.2-15.2) % PT (12.2-14.9) Sec. INR (0.87-1.13) D-Dimer (0-234) ng/mlDDU Sodium (137-145) mmol/L Chloride (98-107) mmol/L BUN (7-17) mg/dL Glucose (65-100) mg/dL POC Glucose 186 H (70-105) Total Bilirubin 1.80 H (0.1-1.2) mg/dL Direct Bilirubin 0.6 H (0-0.2) mg/dL NT-Pro-B Natriuret Pep (0-900) pg/mL Albumin 3.6 L (3.9-5) g/dL Assessment and Plan --Acute on chronic systolic congestive heart failure; Ejection fraction 45-50%, oxygen titrated to O2 sats more than 90% IV diuretics, beta blockers, jefe inhibitors, input output monitoring Low-sodium diet, fluid restriction, cardiology consultation if needed --Acute on chronic respiratory failure Secondary to acute exacerbation of congestive heart failure Continue supportive care, anti-failure medications --Hypertension; moderate control Continue current antihypertensives and when necessary medications --Mild malnutrition; supportive care and nutrition supplements --DVT prophylaxis; Lovenox --Full CODE STATUS Closely monitor the patient and adjust management as needed Possible discharge in 1-2 days if stable Patient's condition treatment plan discussed in detail with the patient and her nurse Her telemetry beds available, we'll downgrade to medical floor with remote telemetry
[2018-02-26] MEDS ORDERED: LASIX IV ONE (08:48)
[2018-02-26] MEDS ORDERED: MORPHINE IV PRN (09:05)
[2018-02-26] MEDS ORDERED: COLACE PO PRN (09:05)
[2018-02-26] MEDS: PEPCID PO SCH ×2 (10:15→23:33)
[2018-02-26] MEDS: COZAAR PO SCH (10:45)
[2018-02-26] MEDS: HALFPRIN EC PO SCH (10:45)
[2018-02-26] MEDS: ALDACTONE PO SCH (10:45)
[2018-02-26] MEDS: LASIX IV SCH (17:27)
[2018-02-26] MEDS: LOPRESSOR PO SCH ×2 (17:30→23:32)
[2018-02-26] MEDS ORDERED: LOVENOX SUB-Q SCH (22:00)
[2018-02-26] MEDS: LOVENOX SUB-Q SCH (23:36)
[2018-02-27 08:24] LABS: BUN/Creatinine Ratio 31; Blood Urea Nitrogen 34 mg/dL (7-17); Calcium 8.9 mg/dL (8.4-10.2); Hemolysis Index 51
--- NOTE | 2018-02-27 09:06 | Progress Note ---
Assessment and Plan Assessment and plan: --Acute on chronic systolic congestive heart failure; Ejection fraction 45-50%, oxygen titrated to O2 sats more than 90% Patient is hypotensive reduce IV diuretics, beta blockers, jefe inhibitors doses , input output monitoring, Low-sodium diet, fluid restriction, cardiology consultation if needed --Acute on chronic respiratory failure Secondary to acute exacerbation of congestive heart failure Continue supportive care, anti-failure medications, oxygen titrated O2 sats more than 90% --History of Hypertension; she is currently hypotensive, asymptomatic Hold antihypertensives and when necessary medications Add Midodrine ,Closely monitor blood pressures --Mild malnutrition; supportive care and nutrition supplements --DVT prophylaxis; Lovenox --Full CODE STATUS Closely monitor the patient and adjust management as needed Possible discharge in 1-2 days if stable Patient's condition treatment plan discussed in detail with the patient and her nurse Her telemetry beds available, we'll downgrade to medical floor with remote telemetry History Interval history: Patient seen and examined medical records reviewed Patient feels slightly better Ambulatory in the room, lower extremity swelling slightly improved Alert awake oriented 3 not in acute distress Blood pressures are on the lower range Hospitalist Physical - Constitutional Vitals: Temp Pulse Resp BP Pulse Ox 98.7 F 54 L 20 119/96 89 02/26/18 19:40 02/26/18 23:32 02/26/18 19:40 02/26/18 23:32 02/26/18 19:40 General appearance: Present: no acute distress, well-nourished - EENT Eyes: Present: PERRL, EOM intact - Neck Neck: Present: supple, normal ROM - Respiratory Respiratory effort: normal Respiratory: bilateral: diminished, rales, negative: rhonchi, wheezing - Cardiovascular Rhythm: regular Heart Sounds: Present: S1 & S2 - Extremities Extremities: no ischemia Extremity abnormal: edema (bilateral 2+ pedal edema) - Abdominal General gastrointestinal: soft, non-tender, non-distended, normal bowel sounds - Integumentary Integumentary: Present: clear, warm - Psychiatric Psychiatric: appropriate mood/affect, cooperative - Neurologic Neurologic: CNII-XII intact, moves all extremities Results - Labs CBC & Chem 7: 02/25/18 23:23 02/27/18 08:00 Labs: Laboratory Last Values WBC 5.8 K/mm3 (4.5-11.0) 02/25/18 23:23 RBC 4.93 M/mm3 (3.65-5.03) 02/25/18 23:23 Hgb 14.9 gm/dl (10.1-14.3) H 02/25/18 23:23 Hct 46.0 % (30.3-42.9) H 02/25/18 23:23 MCV 93 fl (79-97) 02/25/18 23:23 MCH 30 pg (28-32) 02/25/18 23: MCHC 32 % (30-34) 02/25/18 23:23 RDW 18.0 % (13.2-15.2) H 02/25/18 23:23 Plt Count 309 K/mm3 (140-440) 02/25/18 23:23 Lymph % (Auto) 26.6 % (13.4-35.0) 02/25/18 23:23 [place] % (Auto) 4.0 % (0.0-7.3) 02/25/18 23: Eos % (Auto) 1.0 % (0.0-4.3) 02/25/18 23:23 Baso % (Auto) 1.1 % (0.0-1.8) 02/25/18 23:23 Lymph # 1.5 K/mm3 (1.2-5.4) 02/25/18 23:23 [place] # 0.2 K/mm3 (0.0-0.8) 02/25/18 23:23 Eos # 0.1 K/mm3 (0.0-0.4) 02/25/18 23: Baso # 0.1 K/mm3 (0.0-0.1) 02/25/18 23:23 Seg Neutrophils % 67.3 % (40.0-70.0) 02/25/18 23: Seg Neutrophils # 3.9 K/mm3 (1.8-7.7) 02/25/18 23:23 PT 16.7 Sec. (12.2-14.9) H 02/25/18 23:23 INR 1.30 (0.87-1.13) H 02/25/18 23:23 APTT 29.2 Sec. (24.2-36.6) 02/25/18 23:23 D-Dimer 1149.50 ng/mlDDU (0-234) H 02/25/18 23:23 Sodium 136 mmol/L (137-145) L 02/27/18 08:00 Potassium 3.9 mmol/L (3.6-5.0) 02/27/18 08:00 Chloride 99.3 mmol/L (98-107) 02/27/18 08:00 Carbon Dioxide 22 mmol/L (22-30) 02/27/18 08:00 Anion Gap 19 mmol/L 02/27/18 08:00 BUN 34 mg/dL (7-17) H 02/27/18 08:00 Creatinine 1.1 mg/dL (0.7-1.2) 02/27/18 08:00 Estimated GFR > 60 ml/min 02/27/18 08:00 BUN/Creatinine Ratio 31 % 02/27/18 08:00 Glucose 105 mg/dL (65-100) H 02/27/18 08:00 POC Glucose 186 (70-105) H 02/26/18 02:59 Calcium 8.9 mg/dL (8.4-10.2) 02/27/18 08:00 Phosphorus 3.80 mg/dL (2.5-4.5) 02/27/18 08:00 Magnesium 2.20 mg/dL (1.7-2.3) 02/27/18 08:00 Total Bilirubin 1.80 mg/dL (0.1-1.2) H 02/25/18 23:23 Direct Bilirubin 0.6 mg/dL (0-0.2) H 02/25/18 23:23 Indirect Bilirubin 1.2 mg/dL 02/25/18 23:23 AST 20 units/L (5-40) 02/25/18 23:23 ALT 21 units/L (7-56) 02/25/18 23:23 Alkaline Phosphatase 111 units/L (35-129) 02/25/18 23:23 Troponin T 0.014 ng/mL (0.00-0.029) 02/25/18 23:23 NT-Pro-B Natriuret Pep 4255 pg/mL (0-900) H 02/25/18 23:23 Total Protein 7.3 g/dL (6.3-8.2) 02/25/18 23:23 Albumin 3.6 g/dL (3.9-5) L 02/25/18 23:23 Albumin/Globulin Ratio 1.0 % 02/25/18 23:23
[2018-02-27] MEDS: HALFPRIN EC PO SCH (10:57)
[2018-02-27] MEDS: PEPCID PO SCH ×2 (10:57→21:35)
[2018-02-27] MEDS ORDERED: PROAMATINE PO ONE (15:27)
[2018-02-27] MEDS: PROAMATINE PO SCH (18:46)
[2018-02-27] MEDS: LASIX IV SCH (19:12)
[2018-02-27] MEDS: LOVENOX SUB-Q SCH (21:35)
[2018-02-28] MEDS: LASIX IV SCH ×2 (06:03→17:36)
[2018-02-28] MEDS: PROAMATINE PO SCH ×4 (08:30→22:27)
[2018-02-28 09:01] LABS: Basophils # (Auto) 0.1 K/mm3 (0.0-0.1); Basophils % (Auto) 1.4 % (0.0-1.8); Eosinophils # (Auto) 0.1 K/mm3 (0.0-0.4); Hematocrit 43.5 % (30.3-42.9); Hemoglobin 14.6 gm/dl (10.1-14.3); Lymphocytes # (Auto) 1.5 K/mm3 (1.2-5.4); Lymphocytes % (Auto) 39.9 % (13.4-35.0); Mean Corpuscular HGB Conc 34 % (30-34); Mean Corpuscular Hemoglobin 30 pg (28-32); Mean Corpuscular Volume 90 fl (79-97); Monocytes # (Auto) 0.3 K/mm3 (0.0-0.8); Red Blood Count 4.86 M/mm3 (3.65-5.03); Red Cell Distribution Width 17.3 % (13.2-15.2)
[2018-02-28 09:04] LABS: Platelet Count 162 K/mm3 (140-440)
[2018-02-28] MEDS: HALFPRIN EC PO SCH (09:31)
[2018-02-28] MEDS: PEPCID PO SCH ×2 (09:31→22:26)
--- NOTE | 2018-02-28 10:04 | Progress Note ---
Assessment and Plan Assessment and plan: --Hypotension; probably secondary to congestive heart failure Hold antihypertensives, Lasix as tolerated On Midodrin, increase dose to 10 mg twice a day, cardiology following --Acute on chronic systolic congestive heart failure; Ejection fraction 45-50%, oxygen titrated to O2 sats more than 90% Patient is hypotensive ,hold IV diuretics, beta blockers, jefe inhibitors doses, input output monitoring, Low-sodium diet. --Acute on chronic respiratory failure; mild improvement Secondary to acute exacerbation of congestive heart failure oxygen titrated O2 sats more than 90% --History of Hypertension; she is currently hypotensive, hold all BP meds --Mild malnutrition; supportive care and nutrition supplements --DVT prophylaxis; Lovenox --Full CODE STATUS Physical therapy occupational therapy DC planning; possible home with home health and medically stable Disposition; follow patient's blood pressures, cardiology recommendations Possible discharge in 1-2 days if stable History Interval history: Patient Seen and examined medical records reviewed Patient feels better, mild chest congestion Lower extremity edema significantly improved Patient remains hypotensive, asymptomatic Blood pressure and anti-failure medicines on hold Vital signs reviewed Hospitalist Physical - Constitutional Vitals: Temp Pulse Resp BP Pulse Ox 97.5 F L 78 18 91/71 98 02/28/18 09:56 02/28/18 09:56 02/28/18 09:56 02/28/18 09:56 02/28/18 09:56 General appearance: Present: no acute distress, well-nourished - EENT Eyes: Present: PERRL, EOM intact - Neck Neck: Present: supple, normal ROM - Respiratory Respiratory effort: normal Respiratory: bilateral: diminished, rales, negative: rhonchi, wheezing - Cardiovascular Rhythm: regular Heart Sounds: Present: S1 & S2 - Extremities Extremities: no ischemia Extremity abnormal: edema - Abdominal General gastrointestinal: soft, non-tender, non-distended, normal bowel sounds - Integumentary Integumentary: Present: clear, warm - Psychiatric Psychiatric: appropriate mood/affect, cooperative - Neurologic Neurologic: CNII-XII intact, moves all extremities Results - Labs CBC & Chem 7: 02/28/18 07:36 02/28/18 07:36 Labs: Laboratory Last Values WBC 3.7 K/mm3 (4.5-11.0) L 02/28/18 07:36 RBC 4.86 M/mm3 (3.65-5.03) 02/28/18 07:36 Hgb 14.6 gm/dl (10.1-14.3) H 02/28/18 07:36 Hct 43.5 % (30.3-42.9) H 02/28/18 07:36 MCV 90 fl (79-97) 02/28/18 07:36 MCH 30 pg (28-32) 02/28/18 07:36 MCHC 34 % (30-34) 02/28/18 07:36 RDW 17.3 % (13.2-15.2) H 02/28/18 07:36 Plt Count 162 K/mm3 (140-440) 02/28/18 07:36 Lymph % (Auto) 39.9 % (13.4-35.0) H 02/28/18 07:36 [place] % (Auto) 9.0 % (0.0-7.3) H 02/28/18 07:36 Eos % (Auto) 3.0 % (0.0-4.3) 02/28/18 07:36 Baso % (Auto) 1.4 % (0.0-1.8) 02/28/18 07:36 Lymph # 1.5 K/mm3 (1.2-5.4) 02/28/18 07:36 [place] # 0.3 K/mm3 (0.0-0.8) 02/28/18 07:36 Eos # 0.1 K/mm3 (0.0-0.4) 02/28/18 07:36 Baso # 0.1 K/mm3 (0.0-0.1) 02/28/18 07:36 Seg Neutrophils % 46.7 % (40.0-70.0) 02/28/18 07:36 Seg Neutrophils # 1.7 K/mm3 (1.8-7.7) L 02/28/18 07:36 PT 16.7 Sec. (12.2-14.9) H 02/25/18 23:23 INR 1.30 (0.87-1.13) H 02/25/18 23:23 APTT 29.2 Sec. (24.2-36.6) 02/25/18 23:23 D-Dimer 1149.50 ng/mlDDU (0-234) H 02/25/18 23:23 Sodium 135 mmol/L (137-145) L 02/28/18 07:36 Potassium 4.5 mmol/L (3.6-5.0) 02/28/18 07:36 Chloride 99.5 mmol/L (98-107) 02/28/18 07:36 Carbon Dioxide 21 mmol/L (22-30) L 02/28/18 07:36 Anion Gap 19 mmol/L 02/28/18 07:36 BUN 33 mg/dL (7-17) H 02/28/18 07:36 Creatinine 1.2 mg/dL (0.7-1.2) 02/28/18 07:36 Estimated GFR 55 ml/min 02/28/18 07:36 BUN/Creatinine Ratio 28 % 02/28/18 07:36 Glucose 93 mg/dL (65-100) 02/28/18 07:36 POC Glucose 186 (70-105) H 02/26/18 02:59 Calcium 9.0 mg/dL (8.4-10.2) 02/28/18 07:36 Phosphorus 3.80 mg/dL (2.5-4.5) 02/27/18 08:00 Magnesium 2.00 mg/dL (1.7-2.3) 02/28/18 07:36 Total Bilirubin 1.80 mg/dL (0.1-1.2) H 02/25/18 23:23 Direct Bilirubin 0.6 mg/dL (0-0.2) H 02/25/18 23:23 Indirect Bilirubin 1.2 mg/dL 02/25/18 23:23 AST 20 units/L (5-40) 02/25/18 23:23 ALT 21 units/L (7-56) 02/25/18 23:23 Alkaline Phosphatase 111 units/L (35-129) 02/25/18 23:23 Troponin T 0.014 ng/mL (0.00-0.029) 02/25/18 23:23 NT-Pro-B Natriuret Pep 4255 pg/mL (0-900) H 02/25/18 23:23 Total Protein 7.3 g/dL (6.3-8.2) 02/25/18 23:23 Albumin 3.6 g/dL (3.9-5) L 02/25/18 23:23 Albumin/Globulin Ratio 1.0 % 02/25/18 23:23
--- NOTE | 2018-02-28 13:57 | Event Note ---
Date: 02/28/18 Cardiology no dictated #1 dyspnea and hypotension probably secondary to congestive heart failure and respiratory failure. Patient is doing better today. Medications are on hold and she is on Mididrin. #2 nonischemic cardiomyopathy Cardiac December 2017 normal coronary anatomy with EF 35%. Patent foramina ovale with pulmonary hypertension #3 respiratory failure Will follow closely Thank you Dr. Sloane Espino
--- NOTE | 2018-02-28 16:06 | Consultation ---
CARDIOLOGY EVALUATION REASON FOR EVLUATION: Congestive heart failure. HISTORY OF PRESENT ILLNESS: The patient is a 63-year-old female who comes to the Emergency Room with difficulty in breathing and fatigue. The patient is well known to us with congestive heart failure. The patient had cardiac catheterization in December and apparently was diagnosed to have nonischemic cardiomyopathy. The patient had a cardiac catheterization done in December 2017, which revealed cardiomyopathy with left ventricular ejection fraction of 35% with normal coronary anatomy. The patient is noted to have a PFO with a left to right shunt. No evidence of ASD by O2 saturation. Moderate pulmonary hypertension was noted. Yesterday, the patient was noted to be hypotensive and blood pressure medications were on hold. The patient is known to have had hypertension in the past. The patient also has a history of chronic cough. Today, the patient is feeling somewhat better. With the reduction of medications, the blood pressure has improved. REVIEW OF SYSTEMS: HEAD, EYES, EARS, NOSE AND THROAT: No symptoms. ENDOCRINE: No history of diabetes or thyroid problems. GASTROINTESTINAL: No abdominal pain, nausea, or vomiting. Bowel habits have been regular. GENITOURINARY: No symptoms. CENTRAL NERVOUS SYSTEM: No history of cerebrovascular accident or convulsive disorder. PHYSICAL EXAMINATION: GENERAL: Adult female, in no acute distress. VITAL SIGNS: Blood pressure is 91/71. HEAD, EYES, EARS, NOSE, AND THROAT: Unremarkable. NECK: Supple. No thyromegaly. Both carotids are palpable and equal. Neck veins are flat. CHEST: Symmetrical. LUNGS: Essentially clear. Few scattered basilar rales are present. HEART: S1 and S2 are heard well. Grade 1-2/6 soft systolic murmur is present. Rhythm is noted to be regular. ABDOMEN: Soft and nontender. EXTREMITIES: 1+ bilateral pitting edema is present. EKG: Sinus rhythm, right ventricular hypertrophy. LABORATORY DATA: Hemoglobin 14.6, hematocrit 43.9, potassium 4.5, BUN 33, creatinine 1.2. BNP 4255. IMPRESSION: 1. Congestive heart failure. 2. Nonischemic cardiomyopathy. Cardiac catheterization in December 2017, ejection fraction of 35% with normal coronary anatomy. 3. Patent foramen ovale. 4. Pulmonary hypertension. 5. Hypotension. The patient is seen for cardiac evaluation. The patient was hypotensive when she came in and with the withholding of medications, the blood pressure has improved. The patient is also on a small dose of midodrine. We will continue monitoring closely. Thank you for allowing me to participate in the care of this pleasant lady. JOB# [id number] EILEEN/NTS
[2018-02-28] MEDS: TYLENOL PO PRN (16:50)
--- NOTE | 2018-02-28 19:15 | Vascular Lab Report ---
LOWER EXTREMITY VENOUS DUPLEX: REASON FOR EXAM: Elevated d-dimer. COMMENTS ON THE RIGHT: All veins visualized are freely compressible without evidence of internal echogenicity. Flow is spontaneous and phasic throughout. COMMENTS ON THE LEFT: All veins visualized are freely compressible without evidence of internal echogenicity. Flow is spontaneous and phasic throughout. IMPRESSION: No evidence of acute or chronic deep venous thrombosis in either lower extremity.
[2018-02-28] MEDS: LOVENOX SUB-Q SCH (22:27)
[2018-03-01] MEDS: LASIX IV SCH ×3 (05:20→21:50)
[2018-03-01 08:49] LABS: Alanine Aminotransferase 27 units/L (7-56); BUN/Creatinine Ratio 29; Blood Urea Nitrogen 32 mg/dL (7-17); Hemolysis Index 28
[2018-03-01 08:51] LABS: Basophils % (Auto) 1.1 % (0.0-1.8); Eosinophils # (Auto) 0.1 K/mm3 (0.0-0.4); Eosinophils % (Auto) 2.9 % (0.0-4.3); Hematocrit 42.6 % (30.3-42.9); Hemoglobin 14.2 gm/dl (10.1-14.3); Lymphocytes # (Auto) 1.3 K/mm3 (1.2-5.4); Lymphocytes % (Auto) 42.9 % (13.4-35.0); Mean Corpuscular HGB Conc 33 % (30-34); Mean Corpuscular Hemoglobin 30 pg (28-32); Mean Corpuscular Volume 91 fl (79-97); Monocytes # (Auto) 0.3 K/mm3 (0.0-0.8); Monocytes % (Auto) 8.3 % (0.0-7.3); Platelet Count 217 K/mm3 (140-440); Red Blood Count 4.71 M/mm3 (3.65-5.03); Red Cell Distribution Width 17.7 % (13.2-15.2)
[2018-03-01] MEDS: PROAMATINE PO SCH ×2 (09:21→20:59)
[2018-03-01] MEDS: HALFPRIN EC PO SCH (09:21)
[2018-03-01] MEDS: PEPCID PO SCH ×2 (09:21→21:00)
--- NOTE | 2018-03-01 09:25 | Progress Note ---
Assessment and Plan Cardiac medications on hold in setting of borderline hypotension. Continue diuresis as tolerated. Initiate dobutamine gtt. Tx to telemetry. D/w Dr. Anton. The patient has been seen in conjunction with Dr. CADENCE Espino who agrees with the assessment and plan of care. - Patient Problems (1) Biventricular congestive heart failure Current Visit: Yes Status: Acute (2) Nonischemic cardiomyopathy Current Visit: Yes Status: Chronic (3) Cor pulmonale Current Visit: Yes Status: Chronic (4) Pulmonary HTN Current Visit: Yes Status: Chronic (5) Tricuspid regurgitation Current Visit: Yes Status: Chronic (6) Abnormal EKG Current Visit: Yes Status: Acute (7) PFO (patent foramen ovale) Current Visit: Yes Status: Chronic (8) Hypotension Current Visit: Yes Status: Chronic (9) Hypoxia Current Visit: Yes Status: Chronic Subjective Date of service: 03/01/18 Principal diagnosis: HF Interval history: pt resting comfortably in bed, states she feels about the same as yesterday. BPs remain borderline hypotensive. BLE edema persists. Objective Last Vital Signs Temp 97.4 F L 03/01/18 09:00 Pulse 78 03/01/18 09:00 Resp 16 03/01/18 09:00 BP 90/66 03/01/18 09:00 Pulse Ox 98 03/01/18 09:00 - Physical Examination General: No Apparent Distress HEENT: Positive: PERRL, Normocephaly, Mucus Membranes Moist Neck: Positive: neck supple, trachea midline Cardiac: Positive: Reg Rate and Rhythm, S1/S2 Lungs: Positive: Decreased Breath Sounds, Rales (bibasilar) Neuro: Positive: Grossly Intact Abdomen: Positive: Soft. Negative: Tender Extremities: Present: +2 Edema (BLE) - Labs and Meds Cardiac Enzymes 03/01/18 Range/Units 08:02 AST 22 (5-40) units/L CBC 03/01/18 Range/Units 08:02 WBC 3.1 L (4.5-11.0) K/mm3 RBC 4.71 (3.65-5.03) M/mm3 Hgb 14.2 (10.1-14.3) gm/dl Hct 42.6 (30.3-42.9) % Plt Count 217 (140-440) K/mm3 Lymph # 1.3 (1.2-5.4) K/mm3 [place] # 0.3 (0.0-0.8) K/mm3 Eos # 0.1 (0.0-0.4) K/mm3 Baso # 0.0 (0.0-0.1) K/mm3 Comprehensive Metabolic Panel 03/01/18 Range/Units 08:02 Sodium 137 (137-145) mmol/L Potassium 4.6 (3.6-5.0) mmol/L Chloride 102.0 (98-107) mmol/L Carbon Dioxide 21 L (22-30) mmol/L BUN 32 H (7-17) mg/dL Creatinine 1.1 (0.7-1.2) mg/dL Glucose 98 (65-100) mg/dL Calcium 9.0 (8.4-10.2) mg/dL AST 22 (5-40) units/L ALT 27 (7-56) units/L Alkaline Phosphatase 103 (35-129) units/L Total Protein 6.7 (6.3-8.2) g/dL Albumin 3.0 L (3.9-5) g/dL - Imaging and Cardiology EKG: report reviewed, image reviewed Echo: report reviewed (01/03/2018: ULYSSES; EF 45-50%, marked RA enlargement, mod RV enlargement, mod RV systolic dysfunction, trace MR, mod to severe TR, mild pulm HTN with RVSP 38mmHg, mod left to right shunt suggestive of ostium secundum atrial septal defect) Cardiac cath: report reviewed (01/04/2018: LHC & RHC, NO ASD, no O2 sat step-up, EF 35%, normal coronaries, mod pulmonary HTN. )
--- NOTE | 2018-03-01 10:38 | Progress Note ---
Assessment and Plan Assessment and plan: --Hypotension; blood pressures are still in the lower range, secondary to congestive heart failure Hold antihypertensives, Lasix as tolerated, On Midodrin 10 mg twice a day, Patient was on dobutamine drip, however had cardiac arrhythmia, dobutamine discontinued --New onset A. fib with rapid ventricular rate; paroxysmal Cardiology considering amiodarone, full dose anticoagulation --Acute on chronic systolic congestive heart failure; Ejection fraction 45-50%, oxygen titrated to O2 sats more than 90% Patient is hypotensive ,hold IV diuretics, beta blockers, jefe inhibitors doses, input output monitoring, Low-sodium diet. --Acute on chronic respiratory failure; mild improvement Secondary to acute exacerbation of congestive heart failure oxygen titrated O2 sats more than 90% --History of Hypertension; she is currently hypotensive, hold all BP meds --Mild malnutrition; supportive care and nutrition supplements --DVT prophylaxis; Lovenox --Full CODE STATUS Physical therapy occupational therapy DC planning; possible home with home health and medically stable Transfer the patient to telemetry for possible dobutamine drip per cardiology History Interval history: Patient seen and examined medical records reviewed Overnight events noted patient was hypotensive and tachycardic New-onset paroxysmal atrial fibrillation, dobutamine discontinued Plans to initiate amiodarone and anticoagulation Patient feels slightly better remains hypotensive Patient is alert awake oriented 3 Vital signs reviewed Hospitalist Physical - Constitutional Vitals: Temp Pulse Resp BP Pulse Ox 97.4 F L 78 16 90/66 98 03/01/18 09:00 03/01/18 09:00 03/01/18 09:00 03/01/18 09:00 03/01/18 09:00 General appearance: Present: no acute distress, well-nourished - EENT Eyes: Present: PERRL, EOM intact - Neck Neck: Present: supple, normal ROM - Respiratory Respiratory effort: normal Respiratory: bilateral: diminished, rales, negative: rhonchi, wheezing - Cardiovascular Rhythm: regular Heart Sounds: Present: S1 & S2 - Extremities Extremities: no ischemia Extremity abnormal: edema - Abdominal General gastrointestinal: soft, non-tender, non-distended, normal bowel sounds - Integumentary Integumentary: Present: clear, warm - Psychiatric Psychiatric: appropriate mood/affect, cooperative - Neurologic Neurologic: CNII-XII intact, moves all extremities Results - Labs CBC & Chem 7: 03/02/18 05:57 03/02/18 05:57 Labs: Laboratory Last Values WBC 3.1 K/mm3 (4.5-11.0) L 03/01/18 08:02 RBC 4.71 M/mm3 (3.65-5.03) 03/01/18 08:02 Hgb 14.2 gm/dl (10.1-14.3) 03/01/18 08:02 Hct 42.6 % (30.3-42.9) 03/01/18 08:02 MCV 91 fl (79-97) 03/01/18 08:02 MCH 30 pg (28-32) 03/01/18 08:02 MCHC 33 % (30-34) 03/01/18 08:02 RDW 17.7 % (13.2-15.2) H 03/01/18 08:02 Plt Count 217 K/mm3 (140-440) 03/01/18 08:02 Lymph % (Auto) 42.9 % (13.4-35.0) H 03/01/18 08:02 [place] % (Auto) 8.3 % (0.0-7.3) H 03/01/18 08:02 Eos % (Auto) 2.9 % (0.0-4.3) 03/01/18 08:02 Baso % (Auto) 1.1 % (0.0-1.8) 03/01/18 08:02 Lymph # 1.3 K/mm3 (1.2-5.4) 03/01/18 08:02 [place] # 0.3 K/mm3 (0.0-0.8) 03/01/18 08:02 Eos # 0.1 K/mm3 (0.0-0.4) 03/01/18 08:02 Baso # 0.0 K/mm3 (0.0-0.1) 03/01/18 08:02 Seg Neutrophils % 44.8 % (40.0-70.0) 03/01/18 08:02 Seg Neutrophils # 1.4 K/mm3 (1.8-7.7) L 03/01/18 08:02 PT 16.7 Sec. (12.2-14.9) H 02/25/18 23:23 INR 1.30 (0.87-1.13) H 02/25/18 23:23 APTT 29.2 Sec. (24.2-36.6) 02/25/18 23:23 D-Dimer 1149.50 ng/mlDDU (0-234) H 02/25/18 23:23 Sodium 137 mmol/L (137-145) 03/01/18 08:02 Potassium 4.6 mmol/L (3.6-5.0) 03/01/18 08:02 Chloride 102.0 mmol/L (98-107) 03/01/18 08:02 Carbon Dioxide 21 mmol/L (22-30) L 03/01/18 08:02 Anion Gap 19 mmol/L 03/01/18 08:02 BUN 32 mg/dL (7-17) H 03/01/18 08:02 Creatinine 1.1 mg/dL (0.7-1.2) 03/01/18 08:02 Estimated GFR > 60 ml/min 03/01/18 08:02 BUN/Creatinine Ratio 29 % 03/01/18 08:02 Glucose 98 mg/dL (65-100) 03/01/18 08:02 POC Glucose 186 (70-105) H 02/26/18 02:59 Calcium 9.0 mg/dL (8.4-10.2) 03/01/18 08:02 Phosphorus 3.80 mg/dL (2.5-4.5) 02/27/18 08:00 Magnesium 2.00 mg/dL (1.7-2.3) 02/28/18 07:36 Total Bilirubin 1.30 mg/dL (0.1-1.2) H 03/01/18 08:02 Direct Bilirubin 0.6 mg/dL (0-0.2) H 02/25/18 23:23 Indirect Bilirubin 1.2 mg/dL 02/25/18 23:23 AST 22 units/L (5-40) 03/01/18 08:02 ALT 27 units/L (7-56) 03/01/18 08:02 Alkaline Phosphatase 103 units/L (35-129) 03/01/18 08:02 Troponin T 0.014 ng/mL (0.00-0.029) 02/25/18 23:23 NT-Pro-B Natriuret Pep 4255 pg/mL (0-900) H 02/25/18 23:23 Total Protein 6.7 g/dL (6.3-8.2) 03/01/18 08:02 Albumin 3.0 g/dL (3.9-5) L 03/01/18 08:02 Albumin/Globulin Ratio 0.8 % 03/01/18 08:02
[2018-03-01] MEDS ORDERED: DOBUTREX DRIP 500MG/D5W 250ML 500 MG/250 ML BAG IV SCH (14:07)
[2018-03-01 19:54] LABS: Chol/HDL Ratio 1.93 %
[2018-03-01] MEDS: ROBITUSSIN PO PRN (20:59)
[2018-03-01] MEDS: LOVENOX SUB-Q SCH (21:00)
[2018-03-01] MEDS: LOPRESSOR PO SCH (21:50)
[2018-03-01] MEDS: ALDACTONE PO SCH (21:50)
[2018-03-01] MEDS: COZAAR PO SCH (21:50)
[2018-03-02] MEDS: ROBITUSSIN PO PRN (03:23)
[2018-03-02] MEDS: LASIX IV SCH ×2 (06:43→18:47)
[2018-03-02 07:27] LABS: Hematocrit 42.2 % (30.3-42.9); Hemoglobin 14.2 gm/dl (10.1-14.3); Mean Corpuscular HGB Conc 34 % (30-34); Mean Corpuscular Hemoglobin 30 pg (28-32); Mean Corpuscular Volume 90 fl (79-97); Platelet Count 190 K/mm3 (140-440); Red Blood Count 4.69 M/mm3 (3.65-5.03); Red Cell Distribution Width 17.8 % (13.2-15.2)
[2018-03-02 07:29] LABS: Eosinophils % (Auto) 0.3 % (0.0-4.3); Monocytes % (Auto) 7.4 % (0.0-7.3)
[2018-03-02 07:30] LABS: Basophils % (Auto) 1.1 % (0.0-1.8); Lymphocytes # (Auto) 0.7 K/mm3 (1.2-5.4); Monocytes # (Auto) 0.3 K/mm3 (0.0-0.8)
[2018-03-02 07:53] LABS: BUN/Creatinine Ratio 33; Blood Urea Nitrogen 30 mg/dL (7-17); Hemolysis Index 160
[2018-03-02] MEDS: ZOFRAN IV PRN ×2 (10:45→15:56)
[2018-03-02] MEDS: HALFPRIN EC PO SCH (10:49)
[2018-03-02] MEDS: PROAMATINE PO SCH ×2 (10:50→21:55)
[2018-03-02] MEDS: PEPCID PO SCH ×2 (10:50→21:55)
--- NOTE | 2018-03-02 11:16 | Progress Note ---
<ARELLANOETELVINA - Last Filed: 03/02/18 11:22> Assessment and Plan Cardiac medications on hold in setting of borderline hypotension. D/c dobutamine in setting of hypotension and tachycardia noted overnight. Repeat CXR and pro-BNP. Initiate IV amiodarone and full dosage lovenox BID for systemic anticoagulation in setting of new onset paroxysmal atrial fibrillation. Consider conversion to OAC prior to hospital discharge. Continue diuresis as tolerated. The patient has been seen in conjunction with Dr. CADENCE Espino who agrees with the assessment and plan of care. - Patient Problems (1) Biventricular congestive heart failure Current Visit: Yes Status: Acute (2) Nonischemic cardiomyopathy Current Visit: Yes Status: Chronic (3) Paroxysmal atrial fibrillation with RVR Current Visit: Yes Status: Acute (4) Cor pulmonale Current Visit: Yes Status: Chronic (5) Pulmonary HTN Current Visit: Yes Status: Chronic (6) Tricuspid regurgitation Current Visit: Yes Status: Chronic (7) PFO (patent foramen ovale) Current Visit: Yes Status: Chronic (8) Hypotension Current Visit: Yes Status: Chronic (9) Hypoxia Current Visit: Yes Status: Chronic Subjective Date of service: 03/02/18 Principal diagnosis: HF Interval history: pt resting in bed, c/o nausea and vomiting. Dobutamine gtt infusing. BPs low. tele reviewed - pt had bouts of apparent atrial fibrillation with RVR overnight , currently in SR. BLE edema persists. no family at bedside. Objective Last Vital Signs Temp 98.3 F 03/02/18 05:19 Pulse 98 H 03/02/18 04:11 Resp 20 03/02/18 05:19 BP 83/51 03/02/18 04:11 Pulse Ox 93 03/02/18 04:11 - Physical Examination General: No Apparent Distress HEENT: Positive: PERRL, Normocephaly, Mucus Membranes Moist Neck: Positive: neck supple, trachea midline Cardiac: Positive: Reg Rate and Rhythm, S1/S2 Lungs: Positive: Decreased Breath Sounds Neuro: Positive: Grossly Intact Abdomen: Positive: Soft. Negative: Tender Skin: Negative: Wound Extremities: Present: +2 Edema (BLE) - Labs and Meds Lipids 03/01/18 Range/Units 08:02 Triglycerides 54 (2-149) mg/dL Cholesterol 95 (50-199) mg/dL HDL Cholesterol 49 (40-59) mg/dL Cholesterol/HDL Ratio 1.93 % CBC 03/02/18 Range/Units 05:57 WBC 4.0 L (4.5-11.0) K/mm3 RBC 4.69 (3.65-5.03) M/mm3 Hgb 14.2 (10.1-14.3) gm/dl Hct 42.2 (30.3-42.9) % Plt Count 190 (140-440) K/mm3 Lymph # 0.7 L (1.2-5.4) K/mm3 Taney # 0.3 (0.0-0.8) K/mm3 Eos # 0.0 (0.0-0.4) K/mm3 Baso # 0.0 (0.0-0.1) K/mm3 Comprehensive Metabolic Panel 03/02/18 Range/Units 05:57 Sodium 133 L (137-145) mmol/L Potassium 4.6 (3.6-5.0) mmol/L Chloride 97.4 L (98-107) mmol/L Carbon Dioxide 17 L (22-30) mmol/L BUN 30 H (7-17) mg/dL Creatinine 0.9 (0.7-1.2) mg/dL Glucose 117 H (65-100) mg/dL Calcium 9.0 (8.4-10.2) mg/dL - Imaging and Cardiology EKG: report reviewed, image reviewed Echo: report reviewed (01/03/2018: ULYSSES; EF 45-50%, marked RA enlargement, mod RV enlargement, mod RV systolic dysfunction, trace MR, mod to severe TR, mild pulm HTN with RVSP 38mmHg, mod left to right shunt suggestive of ostium secundum atrial septal defect) Cardiac cath: report reviewed (01/04/2018: LHC & RHC, NO ASD, no O2 sat step-up, EF 35%, normal coronaries, mod pulmonary HTN. ) - Telemetry EKG Rhythm: Sinus Rhythm <CLAUDIA ESPINO - Last Filed: 03/02/18 11:53> Assessment and Plan discussed with Dr Anton Prognosis is guarded Objective Vital Signs Temp Pulse Pulse Resp Resp BP BP 03/02/18 05:19 98.3 F 20 03/02/18 04:11 98 H 83/51 03/02/18 00:22 97.9 F 20 03/01/18 23:21 107 H 83/49 03/01/18 22:50 03/01/18 20:30 97 H 03/01/18 20:19 20 03/01/18 20:15 82 20 03/01/18 20:14 98.1 F 20 03/01/18 19:37 115 H 81/51 03/01/18 14:17 96.3 F L 78 16 86/63 Pulse Ox 03/02/18 05:19 03/02/18 04:11 93 03/02/18 00:22 03/01/18 23:21 95 03/01/18 22:50 95 03/01/18 20:30 03/01/18 20:19 03/01/18 20:15 98 03/01/18 20:14 03/01/18 19:37 97 03/01/18 14:17 95 - Labs and Meds Lipids 03/01/18 Range/Units 08:02 Triglycerides 54 (2-149) mg/dL Cholesterol 95 (50-199) mg/dL HDL Cholesterol 49 (40-59) mg/dL Cholesterol/HDL Ratio 1.93 % CBC 03/02/18 Range/Units 05:57 WBC 4.0 L (4.5-11.0) K/mm3 RBC 4.69 (3.65-5.03) M/mm3 Hgb 14.2 (10.1-14.3) gm/dl Hct 42.2 (30.3-42.9) % Plt Count 190 (140-440) K/mm3 Lymph # 0.7 L (1.2-5.4) K/mm3 Taney # 0.3 (0.0-0.8) K/mm3 Eos # 0.0 (0.0-0.4) K/mm3 Baso # 0.0 (0.0-0.1) K/mm3 Comprehensive Metabolic Panel 03/02/18 Range/Units 05:57 Sodium 133 L (137-145) mmol/L Potassium 4.6 (3.6-5.0) mmol/L Chloride 97.4 L (98-107) mmol/L Carbon Dioxide 17 L (22-30) mmol/L BUN 30 H (7-17) mg/dL Creatinine 0.9 (0.7-1.2) mg/dL Glucose 117 H (65-100) mg/dL Calcium 9.0 (8.4-10.2) mg/dL
[2018-03-02] MEDS ORDERED: CORDARONE 150 MG in D5W 97 ML IV ONE (11:21)
--- NOTE | 2018-03-02 11:44 | XRay Report ---
AP CHEST: HISTORY: Shortness of breath Compared to 02/25/18. The interstitium appears slightly prominent. This could represent interstitial edema or early fibrotic changes. This is most pronounced at the lung bases. I suspect this could represent chronic interstitial changes or early fibrosis. There is no evidence for pneumonia, pleural effusion or pneumothorax. Heart and mediastinal structures are within normal limits. IMPRESSION: Slightly prominent interstitium as described. If further evaluation is needed, high resolution CT chest should provide the most information.
[2018-03-02] MEDS ORDERED: CORDARONE 900 MG in D5W 482 ML IV SCH (12:00)
--- NOTE | 2018-03-02 12:57 | Event Note ---
Date: 03/02/18 Responded to code METS for episode of bradycardia and hypotension after return from bathroom - ? vasovagal episode. Pt alert on evaluation with BP 80s/50s and HR SR 80s. Pt to be tx to CCU. Initiate dopamine gtt. Pt has yet to receive IV amio that was ordered this AM. Will hold-off on amio initiation and this time and monitor closely. Ganesh ARELLANO NP / DR. CADENCE KIRBY
[2018-03-02] MEDS ORDERED: LEVOPHED DRIP 4 MG/NS 250 ML 4 MG/250 ML BAG IV SCH (13:00)
--- NOTE | 2018-03-02 15:28 | XRay Report ---
AP CHEST: HISTORY: Right arm PICC placement The right arm PICC terminates at the cavoatrial junction. The remainder of the examination is unchanged since earlier today at 1121 hrs. IMPRESSION: Adequate right arm PICC placement.
[2018-03-02] MEDS: INTROPIN DRIP 800 MG/D5W 250 ML 800 MG/250 ML BAG IV SCH (15:37)
--- NOTE | 2018-03-02 17:18 | Consultation ---
History of Present Illness Consult date: 03/02/18 Requesting physician: ALIRIO GOTTI History of present illness: A pleasant 63-year-old -[place] female patient with significant history of congestive heart failure on anti-failure medications pulmonary hypertension Recently evaluated by cardiology, status post heart cath, nonobstructive coronary disease and cardiomyopathy ejection fraction 30-35% Patient claims compliments with all her medications Complaint of worsening effort tolerance, orthopnea, worsening leg edema Has mild congestion and cough, not see primary care physician, has seen [facility] clearance diver 2 weeks ago Denies nausea vomiting or abdominal pain Was admitted to the hospital, however this morning had a syncopal event with hypotension and increased work of breathing. was transferred to the ICU for vasopressor/iontropic support, and supplemental oxygen. Patient was seen and examined. Vitals, labs, medications, chart and imaging were reviewed Past History Past Medical History: heart failure, hypertension Past Surgical History: Other (tubal ligation) Social history: lives with family. denies: smoking, alcohol abuse, prescription drug abuse Family history: hypertension Medications and Allergies Allergies Allergy/AdvReac Type Severity Reaction Status Date / Time Penicillins Allergy Itching Verified 01/03/18 12:09 Home Medications Medication Instructions Recorded Confirmed Last Taken Type Aspirin EC [Aspirin Enteric Coated 81 mg PO QDAY 01/02/18 02/27/18 02/26/18 History TAB] Furosemide [Lasix TAB] 40 mg PO QDAY #30 tablet 01/05/18 02/27/18 02/26/18 Rx Losartan [Cozaar] 25 mg PO QDAY #30 tablet 01/05/18 02/27/18 02/26/18 Rx Metoprolol [Lopressor TAB] 12.5 mg PO BID #30 tablet 01/05/18 02/27/18 02/26/18 Rx Spironolactone [Aldactone] 12.5 mg PO QDAY #30 tablet 01/05/18 02/27/18 Rx Active Meds: Active Medications Acetaminophen (Tylenol) 650 mg PO Q4H PRN PRN Reason: Pain, Mild (1-3) Last Admin: 02/28/18 16:50 Dose: 650 mg Aspirin (Halfprin Ec) 81 mg PO QDAY [facility] Last Admin: 03/02/18 10:49 Dose: 81 mg Atorvastatin Calcium (Lipitor) 40 mg PO QHS [facility] Last Admin: 03/01/18 21:00 Dose: 40 mg Docusate Sodium (Colace) 100 mg PO BID PRN PRN Reason: Constipation Enoxaparin Sodium (Lovenox) 80 mg 1 mg/kg (80 mg) SUB-Q Q12HR [facility] Famotidine (Pepcid) 20 mg PO BID [facility] Last Admin: 03/02/18 10:50 Dose: 20 mg Furosemide (Lasix) 20 mg IV 0600,1800 [facility] Last Admin: 03/02/18 06:43 Dose: Not Given Guaifenesin (Robitussin) 100 mg PO Q6H PRN PRN Reason: Cough Last Admin: 03/02/18 03:23 Dose: 100 mg Dopamine HCl/Dextrose (Intropin Drip 800 Mg/D5w 250 Ml) 800 mg in 250 mls @ 4.421 mls/hr IV TITR [facility] Last Admin: 03/02/18 15:37 Dose: 3 mcg/kg/min, 4.421 mls/hr Midodrine (Proamatine) 10 mg PO BID [facility] Last Admin: 03/02/18 10:50 Dose: 10 mg Morphine Sulfate (Morphine) 1 mg IV Q4H PRN PRN Reason: Pain, Moderate (4-6) Ondansetron HCl (Zofran) 4 mg IV Q6HR PRN PRN Reason: Nausea And Vomiting Last Admin: 03/02/18 15:56 Dose: 4 mg Zolpidem Tartrate (Ambien) 5 mg PO QHS PRN PRN Reason: Sleep Physical Examination Vital signs: Vital Signs Temp Pulse Resp BP Pulse Ox 97.7 F 104 H 17 95/72 83 L 02/25/18 23:04 02/25/18 23:04 02/25/18 23:04 02/25/18 23:04 02/25/18 23:04 General appearance: Present: moderate respiratroy distress, chronically ill looking, - EENT Eyes: Present: PERRL, EOM intact - Neck Neck: Present: supple, normal ROM - Respiratory Respiratory effort: normal Respiratory: bilateral: diminished, rales, negative: rhonchi, wheezing - Cardiovascular Rhythm: regular Heart Sounds: Present: S1 & S2 - Extremities Extremities: no ischemia Extremity abnormal: edema (bilateral 2+ pedal edema) - Abdominal General gastrointestinal: soft, non-tender, non-distended, normal bowel sounds - Integumentary Integumentary: Present: clear, warm - Psychiatric Psychiatric: appropriate mood/affect, cooperative - Neurologic Neurologic: CNII-XII intact, moves all extremities Results - Laboratory Findings CBC and BMP: 03/10/18 05:00 03/10/18 05:00 PT/INR, D-dimer PT 16.7 Sec. (12.2-14.9) H 02/25/18 23:23 INR 1.30 (0.87-1.13) H 02/25/18 23:23 D-Dimer 1149.50 ng/mlDDU (0-234) H 02/25/18 23:23 Abnormal lab findings: Abnormal Labs 02/25/18 02/25/18 02/25/18 23:23 23:23 23:23 WBC Hgb 14.9 H Hct 46.0 H RDW 18.0 H Lymph % (Auto) Lynn % (Auto) Lymph # Seg Neutrophils % Seg Neutrophils # PT 16.7 H INR 1.30 H D-Dimer 1149.50 H Sodium 136 L Chloride 94.8 L Carbon Dioxide BUN 36 H Glucose 192 H POC Glucose Total Bilirubin Direct Bilirubin NT-Pro-B Natriuret Pep 4255 H Albumin LDL Cholesterol Direct 02/25/18 02/26/18 02/27/18 23:23 02:59 08:00 WBC Hgb Hct RDW Lymph % (Auto) Lynn % (Auto) Lymph # Seg Neutrophils % Seg Neutrophils # PT INR D-Dimer Sodium 136 L Chloride Carbon Dioxide BUN 34 H Glucose 105 H POC Glucose 186 H Total Bilirubin 1.80 H Direct Bilirubin 0.6 H NT-Pro-B Natriuret Pep Albumin 3.6 L LDL Cholesterol Direct 02/28/18 02/28/18 03/01/18 07:36 07:36 08:02 WBC 3.7 L 3.1 L Hgb 14.6 H Hct 43.5 H RDW 17.3 H 17.7 H Lymph % (Auto) 39.9 H 42.9 H Lynn % (Auto) 9.0 H 8.3 H Lymph # Seg Neutrophils % Seg Neutrophils # 1.7 L 1.4 L PT INR D-Dimer Sodium 135 L Chloride Carbon Dioxide 21 L BUN 33 H Glucose POC Glucose Total Bilirubin Direct Bilirubin NT-Pro-B Natriuret Pep Albumin LDL Cholesterol Direct 03/01/18 03/01/18 03/02/18 08:02 08:02 05:57 WBC Hgb Hct RDW Lymph % (Auto) Lynn % (Auto) Lymph # Seg Neutrophils % Seg Neutrophils # PT INR D-Dimer Sodium 133 L Chloride 97.4 L Carbon Dioxide 21 L 17 L BUN 32 H 30 H Glucose 117 H POC Glucose Total Bilirubin 1.30 H Direct Bilirubin NT-Pro-B Natriuret Pep Albumin 3.0 L LDL Cholesterol Direct 42 L 03/02/18 05:57 WBC 4.0 L Hgb Hct RDW 17.8 H Lymph % (Auto) Lynn % (Auto) 7.4 H Lymph # 0.7 L Seg Neutrophils % 73.2 H Seg Neutrophils # PT INR D-Dimer Sodium Chloride Carbon Dioxide BUN Glucose POC Glucose Total Bilirubin Direct Bilirubin NT-Pro-B Natriuret Pep Albumin LDL Cholesterol Direct - Diagnostic Findings Chest x-ray: image reviewed Assessment and Plan Syncope Acute on chronic hypoxemic respiratory failure (2nd to CHF, fluid overload) Orthopnea Chronic Biventricular CHF with acute exacerbation NICMOP Paroxysmal Atrial Fibrillation H/O Pulmonary HTN PFO Hypotension (h/o Hypertension) Hypokalemia (likely due to diuretic) Moderate protein calorie malnutrition - continue full anticoagulation for A-fib - continue supplemental oxygen to keep sats > 90% - start BIPAP , IPAP 14/EPAP6, FIO2 60%, titrate to oxygen saturations>90% - bronchodilators per protocol -ABG now and prn -optimize cardiac medications - get am CXR - gentle diuresis - continue dopamine per cardiology recommendations - aspiration precautions - increase Pepcid to bid re: reflux symptoms - PT/OT as tolerated - mobility protocol for pressure ulcer prophylaxis - target MAP > 65mmHg - continue other care per attending / other consultants The high probability of a clinically significant, sudden or life-threatening deterioration of the [cardiac, respiratory] system(s) required my full and direct attention, intervention and personal management. The aggregate critical care time was [40] minutes without overlap. Time includes spent on; [x] Data Review and interpretation [x] Patient assessment and monitoring of vital signs [x] Documentation [x] Medication orders and management
[2018-03-02 17:45] LABS: Creatine Kinase MB 4.8 ng/mL (0.0-4.0)
[2018-03-02] MEDS: LOVENOX SUB-Q SCH (21:55)
[2018-03-03 05:31] LABS: Basophils # (Auto) 0.1 K/mm3 (0.0-0.1); Basophils % (Auto) 1.2 % (0.0-1.8); Eosinophils # (Auto) 0.1 K/mm3 (0.0-0.4); Eosinophils % (Auto) 1.2 % (0.0-4.3); Hematocrit 42.7 % (30.3-42.9); Hemoglobin 13.9 gm/dl (10.1-14.3); Lymphocytes % (Auto) 20.8 % (13.4-35.0); Mean Corpuscular HGB Conc 33 % (30-34); Mean Corpuscular Hemoglobin 30 pg (28-32); Mean Corpuscular Volume 93 fl (79-97); Monocytes # (Auto) 0.3 K/mm3 (0.0-0.8); Monocytes % (Auto) 6.4 % (0.0-7.3); Platelet Count 236 K/mm3 (140-440); Red Blood Count 4.61 M/mm3 (3.65-5.03); Red Cell Distribution Width 16.9 % (13.2-15.2)
[2018-03-03 06:09] LABS: BUN/Creatinine Ratio 36; Blood Urea Nitrogen 25 mg/dL (7-17); Calcium 9.1 mg/dL (8.4-10.2); Hemolysis Index 2
[2018-03-03] MEDS: LASIX IV SCH ×2 (07:47→18:16)
--- NOTE | 2018-03-03 09:22 | Progress Note ---
Assessment and Plan Pt appears to be clinically improving. Cont dopamine gtt. Continue diuresis as tolerated. Obtain strict I&Os and daily weights. No BB and/or ACEI/ARB at this time in setting of low BPs. Replete K+. Cont full dosage lovenox BID for systemic anticoagulation in setting of recently noted paroxysmal atrial fibrillation. Consider conversion to OAC prior to hospital discharge. The patient has been seen in conjunction with Dr. CADENCE Espino who agrees with the assessment and plan of care. - Patient Problems (1) Biventricular congestive heart failure Current Visit: Yes Status: Acute (2) Nonischemic cardiomyopathy Current Visit: Yes Status: Chronic (3) Acute respiratory failure Current Visit: Yes Status: Acute (4) Paroxysmal atrial fibrillation with RVR Current Visit: Yes Status: Acute (5) Pulmonary HTN Current Visit: Yes Status: Chronic (6) Tricuspid regurgitation Current Visit: Yes Status: Chronic (7) PFO (patent foramen ovale) Current Visit: Yes Status: Chronic (8) Hypotension Current Visit: Yes Status: Chronic (9) Hypoxia Current Visit: Yes Status: Chronic Subjective Date of service: 03/03/18 Principal diagnosis: HF Interval history: pt resting in bed, states she is feeling better today, n/v currently resolved. on BiPAP. BLE edema improving. Dopamine gtt infusing. BPs improving. tele reviewed - pt was in SR overnight with no tachyarrhythmias noted. family member at bedside. Objective Last Vital Signs Temp 97 F L 03/03/18 04:00 Pulse 100 H 03/03/18 08:29 Resp 26 H 03/03/18 08:29 BP 97/71 03/03/18 08:29 Pulse Ox 94 03/03/18 08:29 - Physical Examination General: Other (on BiPAP) HEENT: Positive: PERRL, Normocephaly, Mucus Membranes Moist Neck: Positive: neck supple, trachea midline Cardiac: Positive: Reg Rate and Rhythm, S1/S2, Systolic Murmur Lungs: Positive: Decreased Breath Sounds Neuro: Positive: Grossly Intact Abdomen: Positive: Soft. Negative: Tender Skin: Negative: Wound Extremities: Present: +2 Edema (BLE) - Labs and Meds Cardiac Enzymes 03/02/18 Range/Units 17:05 CK-MB (CK-2) 4.8 H (0.0-4.0) ng/mL CBC 03/03/18 Range/Units 05:15 WBC 4.9 (4.5-11.0) K/mm3 RBC 4.61 (3.65-5.03) M/mm3 Hgb 13.9 (10.1-14.3) gm/dl Hct 42.7 (30.3-42.9) % Plt Count 236 (140-440) K/mm3 Lymph # 1.0 L (1.2-5.4) K/mm3 Mccreary # 0.3 (0.0-0.8) K/mm3 Eos # 0.1 (0.0-0.4) K/mm3 Baso # 0.1 (0.0-0.1) K/mm3 Comprehensive Metabolic Panel 03/03/18 Range/Units 05:15 Sodium 139 (137-145) mmol/L Potassium 3.4 L D (3.6-5.0) mmol/L Chloride 99.0 (98-107) mmol/L Carbon Dioxide 25 D (22-30) mmol/L BUN 25 H (7-17) mg/dL Creatinine 0.7 (0.7-1.2) mg/dL Glucose 122 H (65-100) mg/dL Calcium 9.1 (8.4-10.2) mg/dL - Imaging and Cardiology EKG: report reviewed, image reviewed Echo: report reviewed (01/03/2018: ULYSSES; EF 45-50%, marked RA enlargement, mod RV enlargement, mod RV systolic dysfunction, trace MR, mod to severe TR, mild pulm HTN with RVSP 38mmHg, mod left to right shunt suggestive of ostium secundum atrial septal defect) Cardiac cath: report reviewed (01/04/2018: LHC & RHC, NO ASD, no O2 sat step-up, EF 35%, normal coronaries, mod pulmonary HTN. ) - Telemetry EKG Rhythm: Sinus Rhythm
[2018-03-03] MEDS: PEPCID PO SCH ×2 (09:47→22:22)
[2018-03-03] MEDS: PROAMATINE PO SCH ×2 (09:48→22:21)
[2018-03-03] MEDS: LOVENOX SUB-Q SCH ×2 (09:48→22:21)
[2018-03-03] MEDS: HALFPRIN EC PO SCH (09:49)
[2018-03-03] MEDS ORDERED: K-DUR PO ONE (10:00)
--- NOTE | 2018-03-03 10:41 | Progress Note ---
<BRANDON KENNY - Last Filed: 03/03/18 14:46> Assessment and Plan Assessment and plan: 1. chronic systolic CHF with acute exacerbation Non-ischemic cardiomyopathy, EF 45-50% (per heart cath in December 2017) BNP level 3881, Continue IV diuretics Lasix, Monitor I&O, Low-sodium diet, fluid restriction Cardiology following 2. Acute on chronic respiratory failure (2nd to CHF, fluid overload) Currently on Bipap, O2 Sat stable Continue supportive care Pulmonary follow 3. Hypotension (h/o Hypertension) Dopamine infusing (renal dose) Hold hypertensives medications Monitor BP, VS as per unit protocol 5. Hypokalemia (likely due to diuretic) Replace potassium per protocol Monitor K level Am BMP 6. Moderate protein calorie malnutrition Supportive care and nutrition supplements 7. DVT prophylaxis; on Lovenox Continue supportive care Patient's condition/ treatment plan discussed in detail with the patient and her nurse History Interval history: Pt is awake on Bipap, states that she is doing okay today Hospitalist Physical - Physical exam Narrative exam: Pt is supine in bed, awake, A&Ox3 respond appropriately to question, respiration with mild labor (on bipap with FIO2 of 55, LEs with edema, abdomen size increase, petichea rash on abdomen noted, pt reports pruritus - Constitutional Vitals: Temp Pulse Resp BP Pulse Ox 97 F L 96 H 24 97/67 98 03/03/18 04:00 03/03/18 09:31 03/03/18 09:31 03/03/18 09:31 03/03/18 09:34 General appearance: Present: mild distress, well-nourished - EENT Eyes: Present: PERRL, EOM intact - Neck Neck: Present: normal ROM - Respiratory Respiratory: bilateral: diminished, negative: other (shallow breathing) - Cardiovascular Heart Sounds: Present: systolic murmur - Extremities Extremity abnormal: edema (3+ pitting edema) - Abdominal General gastrointestinal: soft, normal bowel sounds (ingrease gut size) - Integumentary Integumentary: Present: rash (puritic Petichea rash noted on abdominal area, ) - Psychiatric Psychiatric: cooperative Results - Labs CBC & Chem 7: 03/03/18 05:15 03/03/18 05:15 Labs: Laboratory Last Values WBC 4.9 K/mm3 (4.5-11.0) 03/03/18 05:15 RBC 4.61 M/mm3 (3.65-5.03) 03/03/18 05:15 Hgb 13.9 gm/dl (10.1-14.3) 03/03/18 05:15 Hct 42.7 % (30.3-42.9) 03/03/18 05:15 MCV 93 fl (79-97) 03/03/18 05:15 MCH 30 pg (28-32) 03/03/18 05:15 MCHC 33 % (30-34) 03/03/18 05:15 RDW 16.9 % (13.2-15.2) H 03/03/18 05:15 Plt Count 236 K/mm3 (140-440) 03/03/18 05:15 Lymph % (Auto) 20.8 % (13.4-35.0) 03/03/18 05:15 [place] % (Auto) 6.4 % (0.0-7.3) 03/03/18 05:15 Eos % (Auto) 1.2 % (0.0-4.3) 03/03/18 05:15 Baso % (Auto) 1.2 % (0.0-1.8) 03/03/18 05:15 Lymph # 1.0 K/mm3 (1.2-5.4) L 03/03/18 05:15 [place] # 0.3 K/mm3 (0.0-0.8) 03/03/18 05:15 Eos # 0.1 K/mm3 (0.0-0.4) 03/03/18 05:15 Baso # 0.1 K/mm3 (0.0-0.1) 03/03/18 05:15 Seg Neutrophils % 70.4 % (40.0-70.0) H 03/03/18 05:15 Seg Neutrophils # 3.5 K/mm3 (1.8-7.7) 03/03/18 05:15 PT 16.7 Sec. (12.2-14.9) H 02/25/18 23:23 INR 1.30 (0.87-1.13) H 02/25/18 23:23 APTT 29.2 Sec. (24.2-36.6) 02/25/18 23:23 D-Dimer 1149.50 ng/mlDDU (0-234) H 02/25/18 23:23 POC ABG pH 7.437 (7.35-7.45) 03/03/18 08:28 POC ABG pCO2 37.1 (35-45) 03/03/18 08:28 POC ABG pO2 65 (80-105) L 03/03/18 08:28 POC ABG HCO3 25.0 03/03/18 08:28 POC ABG Total CO2 26 03/03/18 08:28 POC ABG O2 Sat 93 03/03/18 08:28 POC ABG Base Excess 1 03/03/18 08:28 FiO2 75 % 03/03/18 08:28 Sodium 139 mmol/L (137-145) 03/03/18 05:15 Potassium 3.4 mmol/L (3.6-5.0) L D 03/03/18 05:15 Chloride 99.0 mmol/L (98-107) 03/03/18 05:15 Carbon Dioxide 25 mmol/L (22-30) D 03/03/18 05:15 Anion Gap 18 mmol/L 03/03/18 05:15 BUN 25 mg/dL (7-17) H 03/03/18 05:15 Creatinine 0.7 mg/dL (0.7-1.2) 03/03/18 05:15 Estimated GFR > 60 ml/min 03/03/18 05:15 BUN/Creatinine Ratio 36 % 03/03/18 05:15 Glucose 122 mg/dL (65-100) H 03/03/18 05:15 POC Glucose 186 (70-105) H 02/26/18 02:59 Calcium 9.1 mg/dL (8.4-10.2) 03/03/18 05:15 Phosphorus 3.00 mg/dL (2.5-4.5) 03/02/18 05:57 Magnesium 2.20 mg/dL (1.7-2.3) 03/02/18 05:57 Total Bilirubin 1.30 mg/dL (0.1-1.2) H 03/01/18 08:02 Direct Bilirubin 0.6 mg/dL (0-0.2) H 02/25/18 23:23 Indirect Bilirubin 1.2 mg/dL 08/31/18 23:23 AST 22 units/L (5-40) 03/01/18 08:02 ALT 27 units/L (7-56) 03/01/18 08:02 Alkaline Phosphatase 103 units/L (35-129) 03/01/18 08:02 Total Creatine Kinase 59 units/L (30-135) 03/02/18 17:05 CK-MB (CK-2) 4.8 ng/mL (0.0-4.0) H 03/02/18 17:05 CK-MB (CK-2) Rel Index 8.1 (0-4) H 03/02/18 17:05 Troponin T < 0.010 ng/mL (0.00-0.029) 03/02/18 17:05 NT-Pro-B Natriuret Pep 3883 pg/mL (0-900) H 03/02/18 17:05 Total Protein 6.7 g/dL (6.3-8.2) 03/01/18 08:02 Albumin 3.0 g/dL (3.9-5) L 03/01/18 08:02 Albumin/Globulin Ratio 0.8 % 03/01/18 08:02 Triglycerides 54 mg/dL (2-149) 03/01/18 08:02 Cholesterol 95 mg/dL (50-199) 03/01/18 08:02 LDL Cholesterol Direct 42 mg/dL (50-130) L 03/01/18 08:02 HDL Cholesterol 49 mg/dL (40-59) 03/01/18 08:02 Cholesterol/HDL Ratio 1.93 % 03/01/18 08:02 <ALIRIO GOTTI - Last Filed: 03/03/18 20:16> Assessment and Plan Assessment and plan: I saw and evaluated the patient. I agree with the findings and the plan of care as documented in the Nurse Practitioner's~note, with the following corrections and additions. Patient seen and evaluated medical records reviewed About documentation noted and agreed Plan of care is reviewed the nurse practitioner. Cardiology recommendations noted Hospitalist Physical - Constitutional Vitals: Temp Pulse Resp BP Pulse Ox 97.5 F L 111 H 25 H 95/69 97 03/03/18 16:00 03/03/18 18:00 03/03/18 18:00 03/03/18 18:00 03/03/18 18:00 Results - Labs CBC & Chem 7: 03/03/18 05:15 03/03/18 05:15 Labs: Laboratory Last Values WBC 4.9 K/mm3 (4.5-11.0) 03/03/18 05:15 RBC 4.61 M/mm3 (3.65-5.03) 03/03/18 05:15 Hgb 13.9 gm/dl (10.1-14.3) 03/03/18 05:15 Hct 42.7 % (30.3-42.9) 03/03/18 05:15 MCV 93 fl (79-97) 03/03/18 05:15 MCH 30 pg (28-32) 03/03/18 05:15 MCHC 33 % (30-34) 03/03/18 05:15 RDW 16.9 % (13.2-15.2) H 03/03/18 05:15 Plt Count 236 K/mm3 (140-440) 03/03/18 05:15 Lymph % (Auto) 20.8 % (13.4-35.0) 03/03/18 05:15 [place] % (Auto) 6.4 % (0.0-7.3) 03/03/18 05:15 Eos % (Auto) 1.2 % (0.0-4.3) 03/03/18 05:15 Baso % (Auto) 1.2 % (0.0-1.8) 03/03/18 05:15 Lymph # 1.0 K/mm3 (1.2-5.4) L 03/03/18 05:15 [place] # 0.3 K/mm3 (0.0-0.8) 03/03/18 05:15 Eos # 0.1 K/mm3 (0.0-0.4) 03/03/18 05:15 Baso # 0.1 K/mm3 (0.0-0.1) 03/03/18 05:15 Seg Neutrophils % 70.4 % (40.0-70.0) H 03/03/18 05:15 Seg Neutrophils # 3.5 K/mm3 (1.8-7.7) 03/03/18 05:15 PT 16.7 Sec. (12.2-14.9) H 02/25/18 23:23 INR 1.30 (0.87-1.13) H 02/25/18 23:23 APTT 29.2 Sec. (24.2-36.6) 02/25/18 23:23 D-Dimer 1149.50 ng/mlDDU (0-234) H 02/25/18 23:23 POC ABG pH 7.437 (7.35-7.45) 03/03/18 08:28 POC ABG pCO2 37.1 (35-45) 03/03/18 08:28 POC ABG pO2 65 (80-105) L 03/03/18 08:28 POC ABG HCO3 25.0 03/03/18 08:28 POC ABG Total CO2 26 03/03/18 08:28 POC ABG O2 Sat 93 03/03/18 08:28 POC ABG Base Excess 1 03/03/18 08:28 FiO2 75 % 03/03/18 08:28 Sodium 139 mmol/L (137-145) 03/03/18 05:15 Potassium 3.4 mmol/L (3.6-5.0) L D 03/03/18 05:15 Chloride 99.0 mmol/L (98-107) 03/03/18 05:15 Carbon Dioxide 25 mmol/L (22-30) D 03/03/18 05:15 Anion Gap 18 mmol/L 03/03/18 05:15 BUN 25 mg/dL (7-17) H 03/03/18 05:15 Creatinine 0.7 mg/dL (0.7-1.2) 03/03/18 05:15 Estimated GFR > 60 ml/min 03/03/18 05:15 BUN/Creatinine Ratio 36 % 03/03/18 05:15 Glucose 122 mg/dL (65-100) H 03/03/18 05:15 POC Glucose 186 (70-105) H 02/26/18 02:59 Calcium 9.1 mg/dL (8.4-10.2) 03/03/18 05:15 Phosphorus 3.00 mg/dL (2.5-4.5) 03/02/18 05:57 Magnesium 2.20 mg/dL (1.7-2.3) 03/02/18 05:57 Total Bilirubin 1.30 mg/dL (0.1-1.2) H 03/01/18 08:02 Direct Bilirubin 0.6 mg/dL (0-0.2) H 02/25/18 23:23 Indirect Bilirubin 1.2 mg/dL 02/25/18 23:23 AST 22 units/L (5-40) 03/01/18 08:02 ALT 27 units/L (7-56) 03/01/18 08:02 Alkaline Phosphatase 103 units/L (35-129) 03/01/18 08:02 Total Creatine Kinase 59 units/L (30-135) 03/02/18 17:05 CK-MB (CK-2) 4.8 ng/mL (0.0-4.0) H 03/02/18 17:05 CK-MB (CK-2) Rel Index 8.1 (0-4) H 03/02/18 17:05 Troponin T < 0.010 ng/mL (0.00-0.029) 03/02/18 17:05 NT-Pro-B Natriuret Pep 3883 pg/mL (0-900) H 03/02/18 17:05 Total Protein 6.7 g/dL (6.3-8.2) 03/01/18 08:02 Albumin 3.0 g/dL (3.9-5) L 03/01/18 08:02 Albumin/Globulin Ratio 0.8 % 03/01/18 08:02 Triglycerides 54 mg/dL (2-149) 03/01/18 08:02 Cholesterol 95 mg/dL (50-199) 03/01/18 08:02 LDL Cholesterol Direct 42 mg/dL (50-130) L 03/01/18 08:02 HDL Cholesterol 49 mg/dL (40-59) 03/01/18 08:02 Cholesterol/HDL Ratio 1.93 % 03/01/18 08:02
--- NOTE | 2018-03-03 11:33 | Progress Note ---
Assessment and Plan Syncope Acute on chronic respiratory failure (2nd to CHF, fluid overload) Orthopnea Chronic Biventricular CHF with acute exacerbation NICMOP Paroxysmal Atrial Fibrillation H/O Pulmonary HTN PFO Hypotension (h/o Hypertension) Hypokalemia (likely due to diuretic) Moderate protein calorie malnutrition - continue full anticoagulation for A-fib - continue supplemental oxygen to keep sats > 90% - continue BIPAP but increased settings to 14/10 - bronchodilators with - get am CXR - gentle diuresis - continue dopamine per cardiology recommendations - aspiration precautions - increase Pepcid to bid re: reflux symptoms - PT/OT as tolerated - mobility protocol for pressure ulcer prophylaxis - target MAP > 65mmHg - continue other care per attending / other consultants The high probability of a clinically significant, sudden or life-threatening deterioration of the [cardiac, respiratory] system(s) required my full and direct attention, intervention and personal management. The aggregate critical care time was [40] minutes without overlap. Time includes spent on; [x] Data Review and interpretation [x] Patient assessment and monitoring of vital signs [x] Documentation [x] Medication orders and management Subjective Date of service: 03/03/18 Principal diagnosis: Acute on Chronic Hypoxemic Respiratory Failure; AE-CHF; CMOP; Hypotension Interval history: Patient is seen today for: Acute on Chronic Hypoxemic Respiratory Failure; AE- CHF; CMOP; Hypotension; Symptomatic Bradycardia Seen and examined at bedside; 24hour events reviewed; nursing and respiratory care staff consulted; no adverse overnight events reported to me; remains on contionuous BIPAP; FiO2 at 70%; resting peacefully in bed; denies acute chest pains or palpitations; poor appetite; No N&V Objective Vital Signs - 12hr 03/02/18 03/02/18 03/03/18 23:41 23:51 00:00 Temperature 97 F L Pulse Rate 91 H 89 88 Pulse Rate [ 95 H Apical] Respiratory 22 19 19 Rate Blood Pressure 118/86 121/87 121/87 O2 Sat by Pulse 97 94 93 Oximetry 03/03/18 03/03/18 03/03/18 00:11 00:21 00:30 Temperature Pulse Rate 91 H 92 H 93 H Pulse Rate [ Apical] Respiratory 20 19 20 Rate Blood Pressure 121/87 116/84 109/77 O2 Sat by Pulse 91 91 92 Oximetry 03/03/18 03/03/18 03/03/18 00:41 00:51 01:00 Temperature Pulse Rate 89 92 H 100 H Pulse Rate [ Apical] Respiratory 18 19 23 Rate Blood Pressure 116/84 109/82 110/83 O2 Sat by Pulse 90 90 Oximetry 03/03/18 03/03/18 03/03/18 01:11 01:20 01:30 Temperature Pulse Rate 99 H 105 H 109 H Pulse Rate [ Apical] Respiratory 21 20 17 Rate Blood Pressure 110/83 114/85 114/85 O2 Sat by Pulse 90 100 97 Oximetry 03/03/18 03/03/18 03/03/18 01:41 01:51 02:00 Temperature Pulse Rate 86 88 90 Pulse Rate [ Apical] Respiratory 19 18 25 H Rate Blood Pressure 114/85 109/83 109/78 O2 Sat by Pulse 94 93 93 Oximetry 03/03/18 03/03/18 03/03/18 02:30 03:00 03:30 Temperature Pulse Rate 94 H 91 H 88 Pulse Rate [ Apical] Respiratory 25 H 21 21 Rate Blood Pressure 104/75 106/77 101/73 O2 Sat by Pulse 97 95 Oximetry 03/03/18 03/03/18 03/03/18 04:00 04:30 05:01 Temperature 97 F L Pulse Rate 90 89 109 H Pulse Rate [ 96 H Apical] Respiratory 21 23 21 Rate Blood Pressure 102/74 104/77 102/74 O2 Sat by Pulse 95 99 Oximetry 03/03/18 03/03/18 03/03/18 05:30 06:00 06:30 Temperature Pulse Rate 107 H 92 H 84 Pulse Rate [ Apical] Respiratory 12 24 18 Rate Blood Pressure 95/71 108/76 103/74 O2 Sat by Pulse 93 Oximetry 03/03/18 03/03/18 03/03/18 07:00 07:30 07:58 Temperature Pulse Rate 92 H 91 H 102 H Pulse Rate [ Apical] Respiratory 21 22 31 H Rate Blood Pressure 108/75 103/74 102/71 O2 Sat by Pulse 93 99 Oximetry 03/03/18 03/03/18 03/03/18 08:00 08:29 09:31 Temperature Pulse Rate 103 H 100 H 96 H Pulse Rate [ Apical] Respiratory 19 26 H 24 Rate Blood Pressure 98/77 97/71 97/67 O2 Sat by Pulse 100 94 99 Oximetry 03/03/18 09:34 Temperature Pulse Rate Pulse Rate [ Apical] Respiratory Rate Blood Pressure O2 Sat by Pulse 98 Oximetry Constitutional: alert, appears uncomfortable, other (elderly looking AAF, normocephalic and atraumatic with increased respiratory effort) Eyes: non-icteric ENT: oropharynx moist, other ([place] 3) Neck: supple, no lymphadenopathy, other (No thyromegaly) Effort: mildly labored Ascultation: Bilateral: diminished breath sounds, rales (inspiratory in bases) Percussion: Bilateral: not dull Cardiovascular: irregular rhythm, other (No R/M) Gastrointestinal: normoactive bowel sounds, soft, non-tender, non-distended, other (No HSM) Integumentary: rash Extremities: no cyanosis, pulses normal, no ischemia or petechiae, edema (2++) Neurologic: normal mental status, non-focal exam, pupils equal and round, motor strength normal and Psychiatric: mood appropriate, depressed (affect) CBC and BMP: 03/04/18 04:37 03/04/18 04:37 ABG, PT/INR, D-dimer: ABG POC ABG pH 7.437 (7.35-7.45) 03/03/18 08:28 POC ABG pCO2 37.1 (35-45) 03/03/18 08:28 POC ABG pO2 65 (80-105) L 03/03/18 08:28 POC ABG HCO3 25.0 03/03/18 08:28 POC ABG Total CO2 26 03/03/18 08:28 POC ABG O2 Sat 93 03/03/18 08:28 PT/INR, D-dimer PT 16.7 Sec. (12.2-14.9) H 02/25/18 23:23 INR 1.30 (0.87-1.13) H 02/25/18 23:23 D-Dimer 1149.50 ng/mlDDU (0-234) H 02/25/18 23:23 Abnormal lab findings: Abnormal Labs 02/25/18 02/25/18 02/25/18 23:23 23:23 23:23 WBC Hgb 14.9 H Hct 46.0 H RDW 18.0 H Lymph % (Auto) [place] % (Auto) Lymph # Seg Neutrophils % Seg Neutrophils # PT 16.7 H INR 1.30 H D-Dimer 1149.50 H POC ABG pO2 Sodium 136 L Potassium Chloride 94.8 L Carbon Dioxide BUN 36 H Glucose 192 H POC Glucose Total Bilirubin Direct Bilirubin CK-MB (CK-2) CK-MB (CK-2) Rel Index NT-Pro-B Natriuret Pep 4255 H Albumin LDL Cholesterol Direct 02/25/18 02/26/18 02/27/18 23:23 02:59 08:00 WBC Hgb Hct RDW Lymph % (Auto) [place] % (Auto) Lymph # Seg Neutrophils % Seg Neutrophils # PT INR D-Dimer POC ABG pO2 Sodium 136 L Potassium Chloride Carbon Dioxide BUN 34 H Glucose 105 H POC Glucose 186 H Total Bilirubin 1.80 H Direct Bilirubin 0.6 H CK-MB (CK-2) CK-MB (CK-2) Rel Index NT-Pro-B Natriuret Pep Albumin 3.6 L LDL Cholesterol Direct 02/28/18 02/28/18 03/01/18 07:36 07:36 08:02 WBC 3.7 L 3.1 L Hgb 14.6 H Hct 43.5 H RDW 17.3 H 17.7 H Lymph % (Auto) 39.9 H 42.9 H [place] % (Auto) 9.0 H 8.3 H Lymph # Seg Neutrophils % Seg Neutrophils # 1.7 L 1.4 L PT INR D-Dimer POC ABG pO2 Sodium 135 L Potassium Chloride Carbon Dioxide 21 L BUN 33 H Glucose POC Glucose Total Bilirubin Direct Bilirubin CK-MB (CK-2) CK-MB (CK-2) Rel Index NT-Pro-B Natriuret Pep Albumin LDL Cholesterol Direct 03/01/18 03/01/18 03/02/18 08:02 08:02 05:57 WBC Hgb Hct RDW Lymph % (Auto) [place] % (Auto) Lymph # Seg Neutrophils % Seg Neutrophils # PT INR D-Dimer POC ABG pO2 Sodium 133 L Potassium Chloride 97.4 L Carbon Dioxide 21 L 17 L BUN 32 H 30 H Glucose 117 H POC Glucose Total Bilirubin 1.30 H Direct Bilirubin CK-MB (CK-2) CK-MB (CK-2) Rel Index NT-Pro-B Natriuret Pep Albumin 3.0 L LDL Cholesterol Direct 42 L 03/02/18 03/02/18 03/02/18 05:57 17:05 17:05 WBC 4.0 L Hgb Hct RDW 17.8 H Lymph % (Auto) [place] % (Auto) 7.4 H Lymph # 0.7 L Seg Neutrophils % 73.2 H Seg Neutrophils # PT INR D-Dimer POC ABG pO2 Sodium Potassium Chloride Carbon Dioxide BUN Glucose POC Glucose Total Bilirubin Direct Bilirubin CK-MB (CK-2) 4.8 H CK-MB (CK-2) Rel Index 8.1 H NT-Pro-B Natriuret Pep 3883 H Albumin LDL Cholesterol Direct 03/03/18 03/03/18 03/03/18 05:15 05:15 08:28 WBC Hgb Hct RDW 16.9 H Lymph % (Auto) [place] % (Auto) Lymph # 1.0 L Seg Neutrophils % 70.4 H Seg Neutrophils # PT INR D-Dimer POC ABG pO2 65 L Sodium Potassium 3.4 L D Chloride Carbon Dioxide BUN 25 H Glucose 122 H POC Glucose Total Bilirubin Direct Bilirubin CK-MB (CK-2) CK-MB (CK-2) Rel Index NT-Pro-B Natriuret Pep Albumin LDL Cholesterol Direct Chest x-ray: pending Allied health notes reviewed: nursing
--- NOTE | 2018-03-03 18:40 | Progress Note ---
Assessment and Plan Assessment and plan: --Hypotension; blood pressures are still in the lower range, secondary to congestive heart failure Hold antihypertensives, Lasix as tolerated, On Midodrin 10 mg twice a day, Patient was on dobutamine drip, however had cardiac arrhythmia, dobutamine discontinued --New onset A. fib with rapid ventricular rate; paroxysmal Cardiology considering amiodarone, full dose anticoagulation --Acute on chronic systolic congestive heart failure; Ejection fraction 45-50%, oxygen titrated to O2 sats more than 90% Patient is hypotensive ,hold IV diuretics, beta blockers, jefe inhibitors doses, input output monitoring, Low-sodium diet. --Acute on chronic respiratory failure; mild improvement Secondary to acute exacerbation of congestive heart failure oxygen titrated O2 sats more than 90% --History of Hypertension; she is currently hypotensive, hold all BP meds --Mild malnutrition; supportive care and nutrition supplements --DVT prophylaxis; Lovenox --Full CODE STATUS Physical therapy occupational therapy DC planning; possible home with home health and medically stable Transfer the patient to telemetry for possible dobutamine drip per cardiology Hospitalist Physical - Constitutional Vitals: Temp Pulse Resp BP Pulse Ox 97.5 F L 111 H 25 H 95/69 97 03/03/18 16:00 03/03/18 18:00 03/03/18 18:00 03/03/18 18:00 03/03/18 18:00 General appearance: Present: mild distress, well-nourished Results - Labs CBC & Chem 7: 03/03/18 05:15 03/03/18 05:15 Labs: Laboratory Last Values WBC 4.9 K/mm3 (4.5-11.0) 03/03/18 05:15 RBC 4.61 M/mm3 (3.65-5.03) 03/03/18 05:15 Hgb 13.9 gm/dl (10.1-14.3) 03/03/18 05:15 Hct 42.7 % (30.3-42.9) 03/03/18 05:15 MCV 93 fl (79-97) 03/03/18 05:15 MCH 30 pg (28-32) 03/03/18 05:15 MCHC 33 % (30-34) 03/03/18 05:15 RDW 16.9 % (13.2-15.2) H 03/03/18 05:15 Plt Count 236 K/mm3 (140-440) 03/03/18 05:15 Lymph % (Auto) 20.8 % (13.4-35.0) 03/03/18 05:15 [place] % (Auto) 6.4 % (0.0-7.3) 03/03/18 05:15 Eos % (Auto) 1.2 % (0.0-4.3) 03/03/18 05:15 Baso % (Auto) 1.2 % (0.0-1.8) 03/03/18 05:15 Lymph # 1.0 K/mm3 (1.2-5.4) L 03/03/18 05:15 [place] # 0.3 K/mm3 (0.0-0.8) 03/03/18 05:15 Eos # 0.1 K/mm3 (0.0-0.4) 03/03/18 05:15 Baso # 0.1 K/mm3 (0.0-0.1) 03/03/18 05:15 Seg Neutrophils % 70.4 % (40.0-70.0) H 03/03/18 05:15 Seg Neutrophils # 3.5 K/mm3 (1.8-7.7) 03/03/18 05:15 PT 16.7 Sec. (12.2-14.9) H 02/25/18 23:23 INR 1.30 (0.87-1.13) H 02/25/18 23:23 APTT 29.2 Sec. (24.2-36.6) 02/25/18 23:23 D-Dimer 1149.50 ng/mlDDU (0-234) H 02/25/18 23:23 POC ABG pH 7.437 (7.35-7.45) 03/03/18 08:28 POC ABG pCO2 37.1 (35-45) 03/03/18 08:28 POC ABG pO2 65 (80-105) L 03/03/18 08:28 POC ABG HCO3 25.0 03/03/18 08:28 POC ABG Total CO2 26 03/03/18 08:28 POC ABG O2 Sat 93 03/03/18 08:28 POC ABG Base Excess 1 03/03/18 08:28 FiO2 75 % 03/03/18 08:28 Sodium 139 mmol/L (137-145) 03/03/18 05:15 Potassium 3.4 mmol/L (3.6-5.0) L D 03/03/18 05:15 Chloride 99.0 mmol/L (98-107) 03/03/18 05:15 Carbon Dioxide 25 mmol/L (22-30) D 03/03/18 05:15 Anion Gap 18 mmol/L 03/03/18 05:15 BUN 25 mg/dL (7-17) H 03/03/18 05:15 Creatinine 0.7 mg/dL (0.7-1.2) 03/03/18 05:15 Estimated GFR > 60 ml/min 03/03/18 05:15 BUN/Creatinine Ratio 36 % 03/03/18 05:15 Glucose 122 mg/dL (65-100) H 03/03/18 05:15 POC Glucose 186 (70-105) H 02/26/18 02:59 Calcium 9.1 mg/dL (8.4-10.2) 03/03/18 05:15 Phosphorus 3.00 mg/dL (2.5-4.5) 03/02/18 05:57 Magnesium 2.20 mg/dL (1.7-2.3) 03/02/18 05:57 Total Bilirubin 1.30 mg/dL (0.1-1.2) H 03/01/18 08:02 Direct Bilirubin 0.6 mg/dL (0-0.2) H 02/25/18 23:23 Indirect Bilirubin 1.2 mg/dL 02/25/18 23:23 AST 22 units/L (5-40) 03/01/18 08:02 ALT 27 units/L (7-56) 03/01/18 08:02 Alkaline Phosphatase 103 units/L (35-129) 03/01/18 08:02 Total Creatine Kinase 59 units/L (30-135) 03/02/18 17:05 CK-MB (CK-2) 4.8 ng/mL (0.0-4.0) H 03/02/18 17:05 CK-MB (CK-2) Rel Index 8.1 (0-4) H 03/02/18 17:05 Troponin T < 0.010 ng/mL (0.00-0.029) 03/02/18 17:05 NT-Pro-B Natriuret Pep 3883 pg/mL (0-900) H 03/02/18 17:05 Total Protein 6.7 g/dL (6.3-8.2) 03/01/18 08:02 Albumin 3.0 g/dL (3.9-5) L 03/01/18 08:02 Albumin/Globulin Ratio 0.8 % 03/01/18 08:02 Triglycerides 54 mg/dL (2-149) 03/01/18 08:02 Cholesterol 95 mg/dL (50-199) 03/01/18 08:02 LDL Cholesterol Direct 42 mg/dL (50-130) L 03/01/18 08:02 HDL Cholesterol 49 mg/dL (40-59) 03/01/18 08:02 Cholesterol/HDL Ratio 1.93 % 03/01/18 08:02
[2018-03-04 05:38] LABS: Alanine Aminotransferase 23 units/L (7-56); Albumin 3.1 g/dL (3.9-5); BUN/Creatinine Ratio 29; Blood Urea Nitrogen 26 mg/dL (7-17); Calcium 9.1 mg/dL (8.4-10.2); Hemolysis Index 15
[2018-03-04 06:00] LABS: Basophils # (Auto) 0.1 K/mm3 (0.0-0.1); Eosinophils % (Auto) 0.7 % (0.0-4.3); Hematocrit 42.6 % (30.3-42.9); Hemoglobin 13.9 gm/dl (10.1-14.3); Lymphocytes % (Auto) 20.7 % (13.4-35.0); Mean Corpuscular HGB Conc 33 % (30-34); Mean Corpuscular Hemoglobin 30 pg (28-32); Mean Corpuscular Volume 91 fl (79-97); Monocytes # (Auto) 0.3 K/mm3 (0.0-0.8); Monocytes % (Auto) 6.8 % (0.0-7.3); Platelet Count 231 K/mm3 (140-440); Red Blood Count 4.68 M/mm3 (3.65-5.03); Red Cell Distribution Width 17.4 % (13.2-15.2)
[2018-03-04] MEDS: LASIX IV SCH ×2 (06:50→19:21)
[2018-03-04] MEDS: PEPCID PO SCH ×2 (10:02→21:48)
[2018-03-04] MEDS: PROAMATINE PO SCH ×2 (10:02→21:48)
[2018-03-04] MEDS: HALFPRIN EC PO SCH (10:02)
[2018-03-04] MEDS: LOVENOX SUB-Q SCH ×2 (10:03→21:48)
[2018-03-04] MEDS: ZOFRAN IV PRN (10:10)
--- NOTE | 2018-03-04 10:14 | Progress Note ---
Assessment and Plan Assessment and plan: --Hypotension; blood pressures are still in the lower range, continue dopamine per cardiology Beta blockers and jefe inhibitors are on hold, Lasix as needed, cardiology following --New onset A. fib with rapid ventricular rate; paroxysmal Full dose anticoagulation with Lovenox, and transition to eliquis in stable --Acute on chronic systolic congestive heart failure; Ejection fraction 45-50%, oxygen titrated to O2 sats more than 90% Patient is hypotensive ,hold IV diuretics, beta blockers, jefe inhibitors doses, input output monitoring, Low-sodium diet. --Acute on chronic respiratory failure; mild improvement Secondary to acute exacerbation of congestive heart failure On BiPAP, wean as tolerated and change to nasal cannula oxygen --History of Hypertension; she is currently hypotensive, hold all BP meds --Mild malnutrition; supportive care and nutrition supplements --DVT prophylaxis; Lovenox --Full CODE STATUS Physical therapy occupational therapy DC planning; possible home with home health and medically stable Consider home hospice, Plan of care is reviewed with the patient and the family member at the bedside critical care time 35 minutes History Interval history: Patient seen and examined medical records reviewed Patient feels slightly better, on BiPAP Denies any chest pain, mild shortness of breath Concerned about leg edema Patient is alert awake oriented Vital Signs reviewed Hospitalist Physical - Constitutional Vitals: Temp Pulse Resp BP Pulse Ox 96.2 F L 113 H 12 93/71 100 03/04/18 09:00 03/04/18 09:46 03/04/18 09:46 03/04/18 09:46 03/04/18 09:46 General appearance: Present: no acute distress, well-nourished, other ( on BiPAP ) - EENT Eyes: Present: PERRL, EOM intact - Neck Neck: Present: supple, normal ROM - Respiratory Respiratory effort: normal Respiratory: bilateral: diminished, rales, negative: rhonchi, wheezing - Cardiovascular Rhythm: regular Heart Sounds: Present: S1 & S2 - Extremities Extremities: no ischemia, No edema Extremity abnormal: edema - Abdominal General gastrointestinal: soft, non-tender, non-distended, normal bowel sounds - Integumentary Integumentary: Present: clear, warm - Psychiatric Psychiatric: appropriate mood/affect, cooperative - Neurologic Neurologic: CNII-XII intact, moves all extremities Results - Labs CBC & Chem 7: 03/04/18 04:37 03/04/18 04:37 Labs: Laboratory Last Values WBC 4.9 K/mm3 (4.5-11.0) 03/04/18 04:37 RBC 4.68 M/mm3 (3.65-5.03) 03/04/18 04:37 Hgb 13.9 gm/dl (10.1-14.3) 03/04/18 04:37 Hct 42.6 % (30.3-42.9) 03/04/18 04:37 MCV 91 fl (79-97) 03/04/18 04:37 MCH 30 pg (28-32) 03/04/18 04:37 MCHC 33 % (30-34) 03/04/18 04:37 RDW 17.4 % (13.2-15.2) H 03/04/18 04:37 Plt Count 231 K/mm3 (140-440) 03/04/18 04:37 Lymph % (Auto) 20.7 % (13.4-35.0) 03/04/18 04:37 [place] % (Auto) 6.8 % (0.0-7.3) 03/04/18 04:37 Eos % (Auto) 0.7 % (0.0-4.3) 03/04/18 04:37 Baso % (Auto) Licensed [employer] 03/04/18 04:37 Lymph # 1.0 K/mm3 (1.2-5.4) L 03/04/18 04:37 [place] # 0.3 K/mm3 (0.0-0.8) 03/04/18 04:37 Eos # 0.0 K/mm3 (0.0-0.4) 03/04/18 04:37 Baso # 0.1 K/mm3 (0.0-0.1) 03/04/18 04:37 Seg Neutrophils % 70.7 % (40.0-70.0) H 03/04/18 04:37 Seg Neutrophils # 3.5 K/mm3 (1.8-7.7) 03/04/18 04:37 PT 16.7 Sec. (12.2-14.9) H 02/25/18 23:23 INR 1.30 (0.87-1.13) H 02/25/18 23:23 APTT 29.2 Sec. (24.2-36.6) 02/25/18 23:23 D-Dimer 1149.50 ng/mlDDU (0-234) H 02/25/18 23:23 POC ABG pH 7.437 (7.35-7.45) 03/03/18 08:28 POC ABG pCO2 37.1 (35-45) 03/03/18 08:28 POC ABG pO2 65 (80-105) L 03/03/18 08:28 POC ABG HCO3 25.0 03/03/18 08:28 POC ABG Total CO2 26 03/03/18 08:28 POC ABG O2 Sat 93 03/03/18 08:28 POC ABG Base Excess 1 03/03/18 08:28 FiO2 75 % 03/03/18 08:28 Sodium 139 mmol/L (137-145) 03/04/18 04:37 Potassium 4.5 mmol/L (3.6-5.0) D 03/04/18 04:37 Chloride 99.4 mmol/L (98-107) 03/04/18 04:37 Carbon Dioxide 25 mmol/L (22-30) 03/04/18 04:37 Anion Gap 19 mmol/L 03/04/18 04:37 BUN 26 mg/dL (7-17) H 03/04/18 04:37 Creatinine 0.9 mg/dL (0.7-1.2) 03/04/18 04:37 Estimated GFR > 60 ml/min 03/04/18 04:37 BUN/Creatinine Ratio 29 % 03/04/18 04:37 Glucose 137 mg/dL (65-100) H 03/04/18 04:37 POC Glucose 186 (70-105) H 02/26/18 02:59 Calcium 9.1 mg/dL (8.4-10.2) 03/04/18 04:37 Phosphorus 3.00 mg/dL (2.5-4.5) 03/02/18 05:57 Magnesium 1.90 mg/dL (1.7-2.3) 03/04/18 04:37 Total Bilirubin 2.10 mg/dL (0.1-1.2) H 03/04/18 04:37 Direct Bilirubin 1.0 mg/dL (0-0.2) H 03/04/18 04:37 Indirect Bilirubin 1.1 mg/dL 03/04/18 04:37 AST 18 units/L (5-40) 03/04/18 04:37 ALT 23 units/L (7-56) 03/04/18 04:37 Alkaline Phosphatase 111 units/L (35-129) 03/04/18 04:37 Total Creatine Kinase 59 units/L (30-135) 03/02/18 17:05 CK-MB (CK-2) 4.8 ng/mL (0.0-4.0) H 03/02/18 17:05 CK-MB (CK-2) Rel Index 8.1 (0-4) H 03/02/18 17:05 Troponin T < 0.010 ng/mL (0.00-0.029) 03/02/18 17:05 NT-Pro-B Natriuret Pep 3883 pg/mL (0-900) H 03/02/18 17:05 Total Protein 6.8 g/dL (6.3-8.2) 03/04/18 04:37 Albumin 3.1 g/dL (3.9-5) L 03/04/18 04:37 Albumin/Globulin Ratio 0.8 % 03/04/18 04:37 Triglycerides 54 mg/dL (2-149) 03/01/18 08:02 Cholesterol 95 mg/dL (50-199) 03/01/18 08:02 LDL Cholesterol Direct 42 mg/dL (50-130) L 03/01/18 08:02 HDL Cholesterol 49 mg/dL (40-59) 03/01/18 08:02 Cholesterol/HDL Ratio 1.93 % 03/01/18 08:02
--- NOTE | 2018-03-04 10:47 | Progress Note ---
Assessment and Plan Pt appears to be clinically improving. Cont dopamine gtt. Continue diuresis as tolerated. Obtain strict I&Os and daily weights. Wean BiPAP as tolerated. No BB and/or ACEI/ARB at this time in setting of low BPs. Cont full dosage lovenox BID for systemic anticoagulation in setting of recently noted paroxysmal atrial fibrillation. Consider conversion to OAC prior to hospital discharge. The patient has been seen in conjunction with Dr. CADENCE Espino who agrees with the assessment and plan of care. - Patient Problems (1) Biventricular congestive heart failure Current Visit: Yes Status: Acute (2) Nonischemic cardiomyopathy Current Visit: Yes Status: Chronic (3) Acute respiratory failure Current Visit: Yes Status: Acute (4) Paroxysmal atrial fibrillation with RVR Current Visit: Yes Status: Acute (5) Pulmonary HTN Current Visit: Yes Status: Chronic (6) Tricuspid regurgitation Current Visit: Yes Status: Chronic (7) PFO (patent foramen ovale) Current Visit: Yes Status: Chronic (8) Hypotension Current Visit: Yes Status: Chronic (9) Hypoxia Current Visit: Yes Status: Chronic Subjective Date of service: 03/04/18 Principal diagnosis: HF Interval history: pt resting in bed, states she is feeling okay. remains on BiPAP on 50% O2. BLE edema improving. Dopamine gtt infusing. BPs improving. tele reviewed - pt was in SR overnight with no tachyarrhythmias noted. Objective Last Vital Signs Temp 96.2 F L 03/04/18 09:00 Pulse 89 03/04/18 10:00 Resp 24 03/04/18 10:00 BP 89/66 03/04/18 10:00 Pulse Ox 97 03/04/18 10:00 - Physical Examination General: Other (on BiPAP) HEENT: Positive: PERRL, Normocephaly, Mucus Membranes Moist Neck: Positive: neck supple, trachea midline Cardiac: Positive: Reg Rate and Rhythm, S1/S2 Lungs: Positive: Decreased Breath Sounds Neuro: Positive: Grossly Intact Abdomen: Positive: Soft. Negative: Tender Skin: Negative: Wound Extremities: Present: +2 Edema (BLE) - Labs and Meds Cardiac Enzymes 03/04/18 Range/Units 04:37 AST 18 (5-40) units/L CBC 03/04/18 Range/Units 04:37 WBC 4.9 (4.5-11.0) K/mm3 RBC 4.68 (3.65-5.03) M/mm3 Hgb 13.9 (10.1-14.3) gm/dl Hct 42.6 (30.3-42.9) % Plt Count 231 (140-440) K/mm3 Lymph # 1.0 L (1.2-5.4) K/mm3 [place] # 0.3 (0.0-0.8) K/mm3 Eos # 0.0 (0.0-0.4) K/mm3 Baso # 0.1 (0.0-0.1) K/mm3 Comprehensive Metabolic Panel 03/04/18 Range/Units 04:37 Sodium 139 (137-145) mmol/L Potassium 4.5 D (3.6-5.0) mmol/L Chloride 99.4 (98-107) mmol/L Carbon Dioxide 25 (22-30) mmol/L BUN 26 H (7-17) mg/dL Creatinine 0.9 (0.7-1.2) mg/dL Glucose 137 H (65-100) mg/dL Calcium 9.1 (8.4-10.2) mg/dL Direct Bilirubin 1.0 H (0-0.2) mg/dL Indirect Bilirubin 1.1 mg/dL AST 18 (5-40) units/L ALT 23 (7-56) units/L Alkaline Phosphatase 111 (35-129) units/L Total Protein 6.8 (6.3-8.2) g/dL Albumin 3.1 L (3.9-5) g/dL - Imaging and Cardiology EKG: report reviewed, image reviewed Echo: report reviewed (01/03/2018: ULYSSES; EF 45-50%, marked RA enlargement, mod RV enlargement, mod RV systolic dysfunction, trace MR, mod to severe TR, mild pulm HTN with RVSP 38mmHg, mod left to right shunt suggestive of ostium secundum atrial septal defect) Cardiac cath: report reviewed (01/04/2018: LHC & RHC, NO ASD, no O2 sat step-up, EF 35%, normal coronaries, mod pulmonary HTN. ) - Telemetry EKG Rhythm: Sinus Rhythm
--- NOTE | 2018-03-04 13:55 | XRay Report ---
Single view chest: History: Pulmonary edema. Findings: Cardiomegaly. Trachea is midline. Tip of right PICC line in MID superior vena cava. Suspicion of mild pulmonary edema without significant interval change. Impression: No significant interval change.
[2018-03-04] MEDS: INTROPIN DRIP 800 MG/D5W 250 ML 800 MG/250 ML BAG IV SCH (13:57)
--- NOTE | 2018-03-04 13:59 | Progress Note ---
Assessment and Plan Syncope Acute on chronic respiratory failure (2nd to CHF, fluid overload) Orthopnea Chronic Biventricular CHF with acute exacerbation NICMOP Paroxysmal Atrial Fibrillation H/O Pulmonary HTN PFO Hypotension (h/o Hypertension) Hypokalemia (likely due to diuretic) Moderate protein calorie malnutrition - continue full anticoagulation for A-fib - continue supplemental oxygen to keep sats > 90% (HFNC) - continue BIPAP at increased settings of 14/10 (Scheduled qhs) - continue bronchodilators with pulmonary hygiene per RT - follow am CXR - continue diuresis - continue dopamine per cardiology recommendations - continue aspiration precautions - increase Pepcid to bid re: reflux symptoms - PT/OT as tolerated - mobility protocol for pressure ulcer prophylaxis - target MAP > 65mmHg - continue other care per attending / other consultants The high probability of a clinically significant, sudden or life-threatening deterioration of the [cardiac, respiratory] system(s) required my full and direct attention, intervention and personal management. The aggregate critical care time was [35] minutes without overlap. Time includes spent on; [x] Data Review and interpretation [x] Patient assessment and monitoring of vital signs [x] Documentation [x] Medication orders and management Subjective Date of service: 03/04/18 Principal diagnosis: Acute on Chronic Hypoxemic Respiratory Failure; AE-CHF; CMOP; Hypotension Interval history: Patient is seen today for: Acute on Chronic Hypoxemic Respiratory Failure; AE- CHF; CMOP; Hypotension; Symptomatic Bradycardia Seen and examined at bedside; 24hour events reviewed; nursing and respiratory care staff consulted; no adverse overnight events reported to me; remains on dopamine; remains on HFNC with FiO2 of 55%; No N/V/F/C; denies acute chest pains but still SOB Objective Vital Signs - 12hr 03/04/18 03/04/18 03/04/18 02:00 02:15 02:30 Temperature Pulse Rate 101 H 98 H 94 H Pulse Rate [ Apical] Respiratory 22 19 19 Rate Blood Pressure 90/68 91/66 96/70 O2 Sat by Pulse Oximetry 03/04/18 03/04/18 03/04/18 02:45 03:00 03:15 Temperature Pulse Rate 96 H 89 93 H Pulse Rate [ Apical] Respiratory 21 18 16 Rate Blood Pressure 95/72 99/68 101/74 O2 Sat by Pulse 98 99 99 Oximetry 03/04/18 03/04/18 03/04/18 03:30 03:45 04:00 Temperature 98.4 F Pulse Rate 96 H 96 H 93 H Pulse Rate [ Apical] Respiratory 19 23 22 Rate Blood Pressure 97/75 97/74 97/74 O2 Sat by Pulse 100 100 99 Oximetry 03/04/18 03/04/18 03/04/18 04:15 04:30 04:45 Temperature Pulse Rate 90 99 H 97 H Pulse Rate [ Apical] Respiratory 20 23 23 Rate Blood Pressure 100/73 100/71 96/73 O2 Sat by Pulse 98 99 98 Oximetry 03/04/18 03/04/18 03/04/18 05:00 05:15 05:30 Temperature Pulse Rate 94 H 92 H 93 H Pulse Rate [ Apical] Respiratory 19 20 20 Rate Blood Pressure 92/69 91/60 85/58 O2 Sat by Pulse 92 98 97 Oximetry 03/04/18 03/04/18 03/04/18 05:45 06:00 06:15 Temperature Pulse Rate 89 102 H 98 H Pulse Rate [ Apical] Respiratory 18 18 20 Rate Blood Pressure 87/60 90/61 86/61 O2 Sat by Pulse 96 96 95 Oximetry 03/04/18 03/04/18 03/04/18 06:30 06:45 07:00 Temperature Pulse Rate 94 H 91 H 88 Pulse Rate [ Apical] Respiratory 21 19 20 Rate Blood Pressure 96/68 86/61 95/67 O2 Sat by Pulse 97 96 Oximetry 03/04/18 03/04/18 03/04/18 07:15 07:30 07:45 Temperature Pulse Rate 95 H 92 H 93 H Pulse Rate [ Apical] Respiratory 23 20 23 Rate Blood Pressure 96/69 90/66 90/66 O2 Sat by Pulse 97 98 Oximetry 03/04/18 03/04/18 03/04/18 08:00 08:15 08:30 Temperature Pulse Rate 89 90 100 H Pulse Rate [ 89 Apical] Respiratory 22 22 18 Rate Blood Pressure 95/70 91/66 99/68 O2 Sat by Pulse 97 97 97 Oximetry 03/04/18 03/04/18 03/04/18 08:45 09:00 09:15 Temperature 96.2 F L Pulse Rate 92 H 90 92 H Pulse Rate [ Apical] Respiratory 20 17 19 Rate Blood Pressure 89/66 93/69 99/68 O2 Sat by Pulse 94 95 96 Oximetry 03/04/18 03/04/18 03/04/18 09:16 09:30 09:46 Temperature Pulse Rate 91 H 113 H Pulse Rate [ Apical] Respiratory 18 12 Rate Blood Pressure 96/69 93/71 O2 Sat by Pulse 96 96 100 Oximetry 03/04/18 03/04/18 03/04/18 10:00 10:15 10:30 Temperature Pulse Rate 96 H 92 H 94 H Pulse Rate [ Apical] Respiratory 24 26 H 21 Rate Blood Pressure 89/66 109/91 100/76 O2 Sat by Pulse 97 97 96 Oximetry 03/04/18 03/04/18 03/04/18 10:45 11:00 11:15 Temperature Pulse Rate 105 H 94 H 95 H Pulse Rate [ Apical] Respiratory 26 H 22 24 Rate Blood Pressure 93/72 93/72 97/72 O2 Sat by Pulse 95 97 Oximetry 03/04/18 03/04/18 03/04/18 11:23 11:30 11:45 Temperature Pulse Rate 97 H 97 H Pulse Rate [ Apical] Respiratory 14 20 Rate Blood Pressure 98/77 93/70 O2 Sat by Pulse 97 95 Oximetry 03/04/18 03/04/18 03/04/18 12:00 12:15 12:30 Temperature 95.8 F L Pulse Rate 96 H 98 H 92 H Pulse Rate [ 96 H Apical] Respiratory 21 14 18 Rate Blood Pressure 97/70 105/73 103/71 O2 Sat by Pulse 95 94 99 Oximetry 03/04/18 03/04/18 03/04/18 12:45 13:00 13:15 Temperature Pulse Rate 100 H 95 H 101 H Pulse Rate [ Apical] Respiratory 19 19 19 Rate Blood Pressure 102/76 94/69 95/72 O2 Sat by Pulse 95 95 Oximetry 03/04/18 03/04/18 13:30 13:45 Temperature Pulse Rate 96 H 95 H Pulse Rate [ Apical] Respiratory 13 19 Rate Blood Pressure 95/70 98/70 O2 Sat by Pulse 92 Oximetry Constitutional: alert, appears uncomfortable, other (elderly looking AAF, normocephalic and atraumatic with increased respiratory effort) Eyes: non-icteric ENT: oropharynx moist, other ([place] 3) Neck: supple, no lymphadenopathy, other (No thyromegaly) Effort: mildly labored Ascultation: Bilateral: diminished breath sounds, rales (inspiratory in bases) Percussion: Bilateral: not dull Cardiovascular: irregular rhythm, other (No R/M) Gastrointestinal: normoactive bowel sounds, soft, non-tender, non-distended, other (No HSM) Integumentary: rash Extremities: no cyanosis, pulses normal, no ischemia or petechiae, edema (2++) Neurologic: normal mental status, non-focal exam, pupils equal and round, motor strength normal and Psychiatric: mood appropriate, depressed (affect) CBC and BMP: 03/05/18 04:20 03/05/18 04:20 ABG, PT/INR, D-dimer: ABG POC ABG pH 7.437 (7.35-7.45) 03/03/18 08:28 POC ABG pCO2 37.1 (35-45) 03/03/18 08:28 POC ABG pO2 65 (80-105) L 03/03/18 08:28 POC ABG HCO3 25.0 03/03/18 08:28 POC ABG Total CO2 26 03/03/18 08:28 POC ABG O2 Sat 93 03/03/18 08:28 PT/INR, D-dimer PT 16.7 Sec. (12.2-14.9) H 02/25/18 23:23 INR 1.30 (0.87-1.13) H 02/25/18 23:23 D-Dimer 1149.50 ng/mlDDU (0-234) H 02/25/18 23:23 Abnormal lab findings: Abnormal Labs 02/25/18 02/25/18 02/25/18 23:23 23:23 23:23 WBC Hgb 14.9 H Hct 46.0 H RDW 18.0 H Lymph % (Auto) [place] % (Auto) Lymph # Seg Neutrophils % Seg Neutrophils # PT 16.7 H INR 1.30 H D-Dimer 1149.50 H POC ABG pO2 Sodium 136 L Potassium Chloride 94.8 L Carbon Dioxide BUN 36 H Glucose 192 H POC Glucose Total Bilirubin Direct Bilirubin CK-MB (CK-2) CK-MB (CK-2) Rel Index NT-Pro-B Natriuret Pep 4255 H Albumin LDL Cholesterol Direct 02/25/18 02/26/18 02/27/18 23:23 02:59 08:00 WBC Hgb Hct RDW Lymph % (Auto) [place] % (Auto) Lymph # Seg Neutrophils % Seg Neutrophils # PT INR D-Dimer POC ABG pO2 Sodium 136 L Potassium Chloride Carbon Dioxide BUN 34 H Glucose 105 H POC Glucose 186 H Total Bilirubin 1.80 H Direct Bilirubin 0.6 H CK-MB (CK-2) CK-MB (CK-2) Rel Index NT-Pro-B Natriuret Pep Albumin 3.6 L LDL Cholesterol Direct 02/28/18 02/28/18 03/01/18 07:36 07:36 08:02 WBC 3.7 L 3.1 L Hgb 14.6 H Hct 43.5 H RDW 17.3 H 17.7 H Lymph % (Auto) 39.9 H 42.9 H [place] % (Auto) 9.0 H 8.3 H Lymph # Seg Neutrophils % Seg Neutrophils # 1.7 L 1.4 L PT INR D-Dimer POC ABG pO2 Sodium 135 L Potassium Chloride Carbon Dioxide 21 L BUN 33 H Glucose POC Glucose Total Bilirubin Direct Bilirubin CK-MB (CK-2) CK-MB (CK-2) Rel Index NT-Pro-B Natriuret Pep Albumin LDL Cholesterol Direct 03/01/18 03/01/18 03/02/18 08:02 08:02 05:57 WBC Hgb Hct RDW Lymph % (Auto) [place] % (Auto) Lymph # Seg Neutrophils % Seg Neutrophils # PT INR D-Dimer POC ABG pO2 Sodium 133 L Potassium Chloride 97.4 L Carbon Dioxide 21 L 17 L BUN 32 H 30 H Glucose 117 H POC Glucose Total Bilirubin 1.30 H Direct Bilirubin CK-MB (CK-2) CK-MB (CK-2) Rel Index NT-Pro-B Natriuret Pep Albumin 3.0 L LDL Cholesterol Direct 42 L 03/02/18 03/02/18 03/02/18 05:57 17:05 17:05 WBC 4.0 L Hgb Hct RDW 17.8 H Lymph % (Auto) [place] % (Auto) 7.4 H Lymph # 0.7 L Seg Neutrophils % 73.2 H Seg Neutrophils # PT INR D-Dimer POC ABG pO2 Sodium Potassium Chloride Carbon Dioxide BUN Glucose POC Glucose Total Bilirubin Direct Bilirubin CK-MB (CK-2) 4.8 H CK-MB (CK-2) Rel Index 8.1 H NT-Pro-B Natriuret Pep 3883 H Albumin LDL Cholesterol Direct 03/03/18 03/03/18 03/03/18 05:15 05:15 08:28 WBC Hgb Hct RDW 16.9 H Lymph % (Auto) [place] % (Auto) Lymph # 1.0 L Seg Neutrophils % 70.4 H Seg Neutrophils # PT INR D-Dimer POC ABG pO2 65 L Sodium Potassium 3.4 L D Chloride Carbon Dioxide BUN 25 H Glucose 122 H POC Glucose Total Bilirubin Direct Bilirubin CK-MB (CK-2) CK-MB (CK-2) Rel Index NT-Pro-B Natriuret Pep Albumin LDL Cholesterol Direct 03/04/18 03/04/18 04:37 04:37 WBC Hgb Hct RDW 17.4 H Lymph % (Auto) [place] % (Auto) Lymph # 1.0 L Seg Neutrophils % 70.7 H Seg Neutrophils # PT INR D-Dimer POC ABG pO2 Sodium Potassium Chloride Carbon Dioxide BUN 26 H Glucose 137 H POC Glucose Total Bilirubin 2.10 H Direct Bilirubin 1.0 H CK-MB (CK-2) CK-MB (CK-2) Rel Index NT-Pro-B Natriuret Pep Albumin 3.1 L LDL Cholesterol Direct Allied health notes reviewed: nursing
[2018-03-04] MEDS: AMBIEN PO PRN (21:48)
[2018-03-05 04:42] LABS: Basophils # (Auto) 0.1 K/mm3 (0.0-0.1); Basophils % (Auto) 2.7 % (0.0-1.8); Eosinophils # (Auto) 0.1 K/mm3 (0.0-0.4); Eosinophils % (Auto) 1.9 % (0.0-4.3); Hemoglobin 14.2 gm/dl (10.1-14.3); Lymphocytes # (Auto) 1.2 K/mm3 (1.2-5.4); Lymphocytes % (Auto) 29.3 % (13.4-35.0); Mean Corpuscular HGB Conc 32 % (30-34); Mean Corpuscular Hemoglobin 30 pg (28-32); Mean Corpuscular Volume 93 fl (79-97); Monocytes # (Auto) 0.3 K/mm3 (0.0-0.8); Monocytes % (Auto) 6.7 % (0.0-7.3); Platelet Count 232 K/mm3 (140-440); Red Blood Count 4.73 M/mm3 (3.65-5.03); Red Cell Distribution Width 18.1 % (13.2-15.2)
[2018-03-05 04:58] LABS: BUN/Creatinine Ratio 32; Blood Urea Nitrogen 29 mg/dL (7-17); Calcium 9.1 mg/dL (8.4-10.2); Hemolysis Index 16
[2018-03-05] MEDS: LASIX IV SCH ×2 (06:48→17:34)
--- NOTE | 2018-03-05 09:37 | Progress Note ---
Assessment and Plan Assessment and plan: --Hypotension; patient is on midodrine and dopamine ,blood pressures are still in the lower range, Beta blockers and jefe inhibitors are on hold, Lasix as needed, cardiology following --Acute on chronic respiratory failure; and due to acute on chronic CHF on intermittent BiPAP Patient is saturating well on nasal cannula oxygen this morning Titrated to O2 sats more than 90%, supportive care, evaluate for home oxygen at discharge --New onset A. fib with rapid ventricular rate; paroxysmal Now rate controlled,anticoagulation with Lovenox,transition to eliquis when pt is stable --Acute on chronic systolic congestive heart failure; with severe lower extremity edema Ejection fraction 45-50%, oxygen , elevated the limbs, low-sodium diet, fluid restriction beta blockers, jefe inhibitors are on hold in view of hypotension, Lasix as tolerated ,input output monitoring, --Mild malnutrition; supportive care and nutrition supplements --DVT prophylaxis; Lovenox --Full CODE STATUS Physical therapy occupational therapy as tolerated Closely monitor and adjust the management as needed critical care time 35 minutes History Interval history: Patient Seen and examined medical records reviewed Patient feels slightly better, denies chest pain or shortness of breath Remains hypotensive on dopamine drip Alert awake oriented 3 Vital signs reviewed Hospitalist Physical - Constitutional Vitals: Temp Pulse Resp BP Pulse Ox 96 F L 85 18 98/70 99 03/05/18 04:00 03/05/18 06:15 03/05/18 06:15 03/05/18 06:15 03/05/18 06:15 General appearance: Present: no acute distress, well-nourished, other (nasal cannula oxygen) - EENT Eyes: Present: PERRL, EOM intact - Neck Neck: Present: supple, normal ROM - Respiratory Respiratory effort: normal Respiratory: bilateral: diminished, rales, negative: rhonchi, wheezing - Cardiovascular Rhythm: regular Heart Sounds: Present: S1 & S2 - Extremities Extremities: no ischemia Extremity abnormal: edema (bilateral pedal edema 2+) - Abdominal General gastrointestinal: soft, non-tender, non-distended, normal bowel sounds - Integumentary Integumentary: Present: clear, warm - Psychiatric Psychiatric: appropriate mood/affect, cooperative - Neurologic Neurologic: CNII-XII intact, moves all extremities Results - Labs CBC & Chem 7: 03/05/18 04:20 03/05/18 04:20 Labs: Laboratory Last Values WBC 4.1 K/mm3 (4.5-11.0) L 03/05/18 04:20 RBC 4.73 M/mm3 (3.65-5.03) 03/05/18 04:20 Hgb 14.2 gm/dl (10.1-14.3) 03/05/18 04:20 Hct 44.0 % (30.3-42.9) H 03/05/18 04:20 MCV 93 fl (79-97) 03/05/18 04:20 MCH 30 pg (28-32) 03/05/18 04:20 MCHC 32 % (30-34) 03/05/18 04:20 RDW 18.1 % (13.2-15.2) H 03/05/18 04:20 Plt Count 232 K/mm3 (140-440) 03/05/18 04:20 Lymph % (Auto) 29.3 % (13.4-35.0) 03/05/18 04:20 [place] % (Auto) 6.7 % (0.0-7.3) 03/05/18 04:20 Eos % (Auto) 1.9 % (0.0-4.3) 03/05/18 04:20 Baso % (Auto) 2.7 % (0.0-1.8) H 03/05/18 04:20 Lymph # 1.2 K/mm3 (1.2-5.4) 03/05/18 04:20 [place] # 0.3 K/mm3 (0.0-0.8) 03/05/18 04:20 Eos # 0.1 K/mm3 (0.0-0.4) 03/05/18 04:20 Baso # 0.1 K/mm3 (0.0-0.1) 03/05/18 04:20 Seg Neutrophils % 59.4 % (40.0-70.0) 03/05/18 04:20 Seg Neutrophils # 2.5 K/mm3 (1.8-7.7) 03/05/18 04:20 PT 16.7 Sec. (12.2-14.9) H 02/25/18 23:23 INR 1.30 (0.87-1.13) H 02/25/18 23:23 APTT 29.2 Sec. (24.2-36.6) 02/25/18 23:23 D-Dimer 1149.50 ng/mlDDU (0-234) H 02/25/18 23:23 POC ABG pH 7.394 (7.35-7.45) 03/04/18 14:13 POC ABG pCO2 41.4 (35-45) 03/04/18 14:13 POC ABG pO2 62 (80-105) L 03/04/18 14:13 POC ABG HCO3 25.3 03/04/18 14:13 POC ABG Total CO2 27 03/04/18 14:13 POC ABG O2 Sat 91 03/04/18 14:13 POC ABG Base Excess 0 03/04/18 14:13 FiO2 50 % 03/04/18 14:13 Sodium 136 mmol/L (137-145) L 03/05/18 04:20 Potassium 4.1 mmol/L (3.6-5.0) 03/05/18 04:20 Chloride 97.8 mmol/L (98-107) L 03/05/18 04:20 Carbon Dioxide 25 mmol/L (22-30) 03/05/18 04:20 Anion Gap 17 mmol/L 03/05/18 04:20 BUN 29 mg/dL (7-17) H 03/05/18 04:20 Creatinine 0.9 mg/dL (0.7-1.2) 03/05/18 04:20 Estimated GFR > 60 ml/min 03/05/18 04:20 BUN/Creatinine Ratio 32 % 03/05/18 04:20 Glucose 113 mg/dL (65-100) H 03/05/18 04:20 POC Glucose 186 (70-105) H 02/26/18 02:59 Calcium 9.1 mg/dL (8.4-10.2) 03/05/18 04:20 Phosphorus 3.00 mg/dL (2.5-4.5) 03/02/18 05:57 Magnesium 1.90 mg/dL (1.7-2.3) 03/05/18 04:20 Total Bilirubin 2.10 mg/dL (0.1-1.2) H 03/04/18 04:37 Direct Bilirubin 1.0 mg/dL (0-0.2) H 03/04/18 04:37 Indirect Bilirubin 1.1 mg/dL 03/04/18 04:37 AST 18 units/L (5-40) 03/04/18 04:37 ALT 23 units/L (7-56) 03/04/18 04:37 Alkaline Phosphatase 111 units/L (35-129) 03/04/18 04:37 Total Creatine Kinase 59 units/L (30-135) 03/02/18 17:05 CK-MB (CK-2) 4.8 ng/mL (0.0-4.0) H 03/02/18 17:05 CK-MB (CK-2) Rel Index 8.1 (0-4) H 03/02/18 17:05 Troponin T < 0.010 ng/mL (0.00-0.029) 03/02/18 17:05 NT-Pro-B Natriuret Pep 3883 pg/mL (0-900) H 03/02/18 17:05 Total Protein 6.8 g/dL (6.3-8.2) 03/04/18 04:37 Albumin 3.1 g/dL (3.9-5) L 03/04/18 04:37 Albumin/Globulin Ratio 0.8 % 03/04/18 04:37 Triglycerides 54 mg/dL (2-149) 03/01/18 08:02 Cholesterol 95 mg/dL (50-199) 03/01/18 08:02 LDL Cholesterol Direct 42 mg/dL (50-130) L 03/01/18 08:02 HDL Cholesterol 49 mg/dL (40-59) 03/01/18 08:02 Cholesterol/HDL Ratio 1.93 % 03/01/18 08:02
[2018-03-05] MEDS: LOVENOX SUB-Q SCH ×2 (10:59→21:20)
[2018-03-05] MEDS: HALFPRIN EC PO SCH (10:59)
[2018-03-05] MEDS: PROAMATINE PO SCH ×2 (10:59→21:20)
[2018-03-05] MEDS: PEPCID PO SCH ×2 (10:59→21:21)
--- NOTE | 2018-03-05 11:06 | Progress Note ---
Assessment and Plan clinically improving wean pressors as tolerated may hold evening lasix dosing Given elevated/dilated rh pressures, very narrow fluid equilibrium is noted with preload dependence - Patient Problems (1) Abnormal EKG Current Visit: Yes Status: Acute (2) Bilateral lower extremity edema Current Visit: Yes Status: Acute (3) CHF exacerbation Current Visit: Yes Status: Acute Qualifiers: Heart failure type: unspecified Qualified Code(s): I50.9 - Heart failure, unspecified (4) Paroxysmal atrial fibrillation with RVR Current Visit: Yes Status: Acute (5) TIA (transient ischemic attack) Current Visit: Yes Status: Acute (6) Cor pulmonale Current Visit: Yes Status: Chronic (7) Nonischemic cardiomyopathy Current Visit: Yes Status: Chronic (8) Mild pulmonary hypertension Current Visit: No Status: Chronic Subjective Date of service: 03/05/18 Principal diagnosis: Acute on Chronic Hypoxemic Respiratory Failure; AE-CHF; CMOP; Hypotension Interval history: feels better Objective Vital Signs Temp Pulse Pulse Resp BP Pulse Ox 03/05/18 10:45 105 H 17 85/57 98 03/05/18 10:30 105 H 18 91/62 95 03/05/18 10:15 103 H 21 94/60 96 03/05/18 10:00 105 H 25 H 89/66 98 03/05/18 09:45 106 H 16 87/63 97 03/05/18 09:30 106 H 23 87/63 03/05/18 09:15 112 H 12 89/60 97 03/05/18 09:00 109 H 16 85/65 95 03/05/18 08:45 101 H 22 85/65 97 03/05/18 08:30 88 18 94/70 98 03/05/18 08:15 90 21 95/69 97 03/05/18 08:00 97.2 F L 90 19 93/70 97 03/05/18 07:45 88 21 95/69 97 03/05/18 07:30 90 21 95/68 98 03/05/18 07:15 89 18 95/65 98 03/05/18 07:00 95 H 17 90/67 98 03/05/18 06:45 86 18 96/68 98 03/05/18 06:30 87 20 95/72 99 03/05/18 06:15 85 18 98/70 99 03/05/18 06:00 89 21 97/70 99 03/05/18 05:45 96 H 17 90/67 98 03/05/18 05:30 86 19 88/65 98 03/05/18 05:15 87 19 92/63 98 03/05/18 05:00 82 19 94/70 97 03/05/18 04:45 78 16 99/75 99 03/05/18 04:30 102 H 22 83/65 100 03/05/18 04:15 84 16 99/73 03/05/18 04:00 96 F L 82 17 94/69 98 03/05/18 03:45 84 17 104/74 03/05/18 03:30 87 17 94/67 03/05/18 03:15 91 H 18 97/74 03/05/18 03:00 84 18 93/69 03/05/18 02:45 82 15 91/67 03/05/18 02:30 86 18 93/68 03/05/18 02:15 83 18 103/73 03/05/18 02:00 90 17 96/73 03/05/18 01:45 91 H 19 106/78 96 03/05/18 01:30 78 16 109/80 03/05/18 01:15 79 17 111/78 03/05/18 01:00 90 15 75/52 95 03/05/18 00:13 96 F L 03/05/18 00:02 87 16 97/76 95 03/05/18 00:01 88 03/05/18 00:00 96 F L 85 16 97/76 03/04/18 23:33 93 H 19 102/74 96 03/04/18 23:00 85 21 110/80 94 03/04/18 22:00 99 H 18 87/64 94 03/04/18 21:00 97 H 19 92/65 94 03/04/18 20:00 102 H 17 91/65 92 03/04/18 19:15 99 H 18 91/65 91 03/04/18 19:00 108 H 19 95/68 03/04/18 18:46 109 H 20 95/68 87 03/04/18 18:30 99 H 20 95/68 88 03/04/18 18:15 98 H 19 87/69 92 03/04/18 18:00 105 H 21 88/68 100 09/07/18 17:45 100 H 19 92/69 18 17:30 98 H 20 87/61 18 17:15 103 H 11 L 82/61 87 18 17:00 103 H 13 86/64 03/04/18 16:45 101 H 21 92/63 94 03/04/18 16:30 105 H 11 L 97/70 03/04/18 16:15 102 H 17 94/62 92 03/04/18 16:00 97.6 F 91 H 91 H 17 98/72 92 03/04/18 15:45 95 H 18 88/65 03/04/18 15:30 92 H 16 92/67 92 03/04/18 15:15 95 H 16 96/69 93 03/04/18 15:00 92 H 17 98/72 03/04/18 14:45 96 H 17 91/67 03/04/18 14:30 91 H 15 101/67 91 03/04/18 14:15 101 H 18 102/77 94 03/04/18 14:00 94 H 16 92/70 03/04/18 13:45 95 H 19 98/70 92 03/04/18 13:30 96 H 13 95/70 03/04/18 13:15 101 H 19 95/72 95 03/04/18 13:00 95 H 19 94/69 95 18 12:45 100 H 19 102/76 03/04/18 12:30 92 H 18 103/71 99 03/04/18 12:15 98 H 14 105/73 94 03/04/18 12:00 95.8 F L 96 H 96 H 21 97/70 95 03/04/18 11:45 97 H 20 93/70 95 03/04/18 11:30 97 H 14 98/77 03/04/18 11:23 97 03/04/18 11:15 95 H 24 97/72 - Physical Examination General: Other (on BiPAP) HEENT: Positive: PERRL, Normocephaly, Mucus Membranes Moist Neck: Positive: neck supple, trachea midline Neuro: Positive: Grossly Intact Abdomen: Positive: Soft. Negative: Tender Skin: Negative: Wound Extremities: Present: +2 Edema (BLE) - Labs and Meds CBC 03/05/18 Range/Units 04:20 WBC 4.1 L (4.5-11.0) K/mm3 RBC 4.73 (3.65-5.03) M/mm3 Hgb 14.2 (10.1-14.3) gm/dl Hct 44.0 H (30.3-42.9) % Plt Count 232 (140-440) K/mm3 Lymph # 1.2 (1.2-5.4) K/mm3 [place] # 0.3 (0.0-0.8) K/mm3 Eos # 0.1 (0.0-0.4) K/mm3 Baso # 0.1 (0.0-0.1) K/mm3 Comprehensive Metabolic Panel 03/05/18 Range/Units 04:20 Sodium 136 L (137-145) mmol/L Potassium 4.1 (3.6-5.0) mmol/L Chloride 97.8 L (98-107) mmol/L Carbon Dioxide 25 (22-30) mmol/L BUN 29 H (7-17) mg/dL Creatinine 0.9 (0.7-1.2) mg/dL Glucose 113 H (65-100) mg/dL Calcium 9.1 (8.4-10.2) mg/dL - Imaging and Cardiology EKG: report reviewed, image reviewed Echo: report reviewed (01/03/2018: ULYSSES; EF 45-50%, marked RA enlargement, mod RV enlargement, mod RV systolic dysfunction, trace MR, mod to severe TR, mild pulm HTN with RVSP 38mmHg, mod left to right shunt suggestive of ostium secundum atrial septal defect) Cardiac cath: report reviewed (01/04/2018: LHC & RHC, NO ASD, no O2 sat step-up, EF 35%, normal coronaries, mod pulmonary HTN. ) - Allied health notes Allied health notes reviewed: nursing
--- NOTE | 2018-03-05 16:39 | Progress Note ---
Assessment and Plan Syncope Acute on chronic respiratory failure (2nd to CHF, fluid overload) Orthopnea Chronic Biventricular CHF with acute exacerbation NICMOP Paroxysmal Atrial Fibrillation H/O Pulmonary HTN PFO Hypotension (h/o Hypertension) Hypokalemia (likely due to diuretic) Moderate protein calorie malnutrition - continue full anticoagulation for A-fib - continue supplemental oxygen to keep sats > 90% (HFNC) - continue BIPAP at increased settings of 14/10 (Scheduled qhs) - continue bronchodilators with pulmonary hygiene per RT - follow am CXR - continue gentle diuresis - continue dopamine per cardiology recommendations - continue aspiration precautions - increase Pepcid to bid re: reflux symptoms - PT/OT as tolerated - mobility protocol for pressure ulcer prophylaxis - target MAP > 65mmHg - continue other care per attending / other consultants The high probability of a clinically significant, sudden or life-threatening deterioration of the [cardiac, respiratory] system(s) required my full and direct attention, intervention and personal management. The aggregate critical care time was [38] minutes without overlap. Time includes spent on; [x] Data Review and interpretation [x] Patient assessment and monitoring of vital signs [x] Documentation [x] Medication orders and management Subjective Date of service: 03/05/18 Principal diagnosis: Acute on Chronic Hypoxemic Respiratory Failure; AE-CHF; CMOP; Hypotension Interval history: Patient is seen today for: Acute on Chronic Hypoxemic Respiratory Failure; AE- CHF; CMOP; Hypotension; Symptomatic Bradycardia Seen and examined at bedside; 24hour events reviewed; nursing and respiratory care staff consulted; no adverse overnight events reported to me; remains on dopamine; remains on supplemental oxygen (HFNC at 55%); no new issues otherwise Objective Vital Signs - 12hr 03/05/18 03/05/18 03/05/18 04:45 05:00 05:15 Temperature Pulse Rate 78 82 87 Pulse Rate [ Left Dorsalis Pedis] Respiratory 16 19 19 Rate Blood Pressure 99/75 94/70 92/63 O2 Sat by Pulse 99 97 98 Oximetry 03/05/18 03/05/18 03/05/18 05:30 05:45 06:00 Temperature Pulse Rate 86 96 H 89 Pulse Rate [ Left Dorsalis Pedis] Respiratory 19 17 21 Rate Blood Pressure 88/65 90/67 97/70 O2 Sat by Pulse 98 98 99 Oximetry 03/05/18 03/05/18 03/05/18 06:15 06:30 06:45 Temperature Pulse Rate 85 87 86 Pulse Rate [ Left Dorsalis Pedis] Respiratory 18 20 18 Rate Blood Pressure 98/70 95/72 96/68 O2 Sat by Pulse 99 99 98 Oximetry 03/05/18 03/05/18 03/05/18 07:00 07:15 07:30 Temperature Pulse Rate 95 H 89 90 Pulse Rate [ Left Dorsalis Pedis] Respiratory 17 18 21 Rate Blood Pressure 90/67 95/65 95/68 O2 Sat by Pulse 98 98 98 Oximetry 03/05/18 03/05/18 03/05/18 07:45 08:00 08:15 Temperature 97.2 F L Pulse Rate 88 90 90 Pulse Rate [ 112 H Left Dorsalis Pedis] Respiratory 21 19 21 Rate Blood Pressure 95/69 93/70 95/69 O2 Sat by Pulse 97 97 97 Oximetry 03/05/18 03/05/18 03/05/18 08:30 08:45 09:00 Temperature Pulse Rate 88 101 H 109 H Pulse Rate [ Left Dorsalis Pedis] Respiratory 18 22 16 Rate Blood Pressure 94/70 85/65 85/65 O2 Sat by Pulse 98 97 95 Oximetry 03/05/18 03/05/18 03/05/18 09:15 09:30 09:45 Temperature Pulse Rate 112 H 106 H 106 H Pulse Rate [ Left Dorsalis Pedis] Respiratory 12 23 16 Rate Blood Pressure 89/60 87/63 87/63 O2 Sat by Pulse 97 97 Oximetry 03/05/18 03/05/18 03/05/18 10:00 10:15 10:30 Temperature Pulse Rate 105 H 103 H 105 H Pulse Rate [ Left Dorsalis Pedis] Respiratory 25 H 21 18 Rate Blood Pressure 89/66 94/60 91/62 O2 Sat by Pulse 98 96 95 Oximetry 03/05/18 03/05/18 03/05/18 10:40 10:45 11:01 Temperature Pulse Rate 105 H 110 H Pulse Rate [ Left Dorsalis Pedis] Respiratory 17 22 Rate Blood Pressure 85/57 87/65 O2 Sat by Pulse 97 98 96 Oximetry 03/05/18 03/05/18 03/05/18 11:15 11:30 11:45 Temperature Pulse Rate 105 H 105 H 95 H Pulse Rate [ Left Dorsalis Pedis] Respiratory 20 25 H 17 Rate Blood Pressure 82/59 87/67 98/69 O2 Sat by Pulse 96 92 94 Oximetry 03/05/18 03/05/18 03/05/18 12:00 12:15 12:31 Temperature 97.2 F L Pulse Rate 97 H 106 H 96 H Pulse Rate [ 107 H Left Dorsalis Pedis] Respiratory 19 23 25 H Rate Blood Pressure 104/70 87/65 104/86 O2 Sat by Pulse 94 Oximetry 03/05/18 03/05/18 03/05/18 12:45 13:00 13:15 Temperature Pulse Rate 94 H 102 H 94 H Pulse Rate [ Left Dorsalis Pedis] Respiratory 17 16 17 Rate Blood Pressure 101/75 88/62 95/69 O2 Sat by Pulse 98 93 94 Oximetry 03/05/18 03/05/18 03/05/18 13:30 13:45 14:00 Temperature Pulse Rate 98 H 109 H 108 H Pulse Rate [ Left Dorsalis Pedis] Respiratory 17 13 16 Rate Blood Pressure 91/69 97/62 81/58 O2 Sat by Pulse 96 96 Oximetry 03/05/18 03/05/18 03/05/18 14:15 14:30 14:45 Temperature Pulse Rate 106 H 103 H 103 H Pulse Rate [ Left Dorsalis Pedis] Respiratory 17 12 18 Rate Blood Pressure 87/61 84/58 85/66 O2 Sat by Pulse 95 94 93 Oximetry 03/05/18 03/05/18 03/05/18 15:01 15:15 15:30 Temperature Pulse Rate 102 H 107 H 102 H Pulse Rate [ Left Dorsalis Pedis] Respiratory 21 19 17 Rate Blood Pressure 94/61 94/71 89/65 O2 Sat by Pulse 95 93 99 Oximetry 03/05/18 03/05/18 15:45 16:00 Temperature 97.2 F L Pulse Rate 109 H 104 H Pulse Rate [ 104 H Left Dorsalis Pedis] Respiratory 22 19 Rate Blood Pressure 93/66 93/66 O2 Sat by Pulse 100 95 Oximetry Constitutional: alert, appears uncomfortable, other (elderly looking AAF, normocephalic and atraumatic with increased respiratory effort) Eyes: non-icteric ENT: oropharynx moist, other ([place] 3) Neck: supple, no lymphadenopathy, other (No thyromegaly) Effort: mildly labored Ascultation: Bilateral: diminished breath sounds, rales (inspiratory in bases) Percussion: Bilateral: not dull Cardiovascular: irregular rhythm, other (No R/M) Gastrointestinal: normoactive bowel sounds, soft, non-tender, non-distended, other (No HSM) Integumentary: rash Extremities: no cyanosis, pulses normal, no ischemia or petechiae, edema (2++) Neurologic: normal mental status, non-focal exam, pupils equal and round, motor strength normal and Psychiatric: mood appropriate, depressed (affect) CBC and BMP: 03/05/18 04:20 03/06/18 05:15 ABG, PT/INR, D-dimer: ABG POC ABG pH 7.394 (7.35-7.45) 03/04/18 14:13 POC ABG pCO2 41.4 (35-45) 03/04/18 14:13 POC ABG pO2 62 (80-105) L 03/04/18 14:13 POC ABG HCO3 25.3 03/04/18 14:13 POC ABG Total CO2 27 03/04/18 14:13 POC ABG O2 Sat 91 03/04/18 14:13 PT/INR, D-dimer PT 16.7 Sec. (12.2-14.9) H 02/25/18 23:23 INR 1.30 (0.87-1.13) H 02/25/18 23:23 D-Dimer 1149.50 ng/mlDDU (0-234) H 02/25/18 23:23 Abnormal lab findings: Abnormal Labs 02/25/18 02/25/18 02/25/18 23:23 23:23 23:23 WBC Hgb 14.9 H Hct 46.0 H RDW 18.0 H Lymph % (Auto) [place] % (Auto) Baso % (Auto) Lymph # Seg Neutrophils % Seg Neutrophils # PT 16.7 H INR 1.30 H D-Dimer 1149.50 H POC ABG pO2 Sodium 136 L Potassium Chloride 94.8 L Carbon Dioxide BUN 36 H Glucose 192 H POC Glucose Total Bilirubin Direct Bilirubin CK-MB (CK-2) CK-MB (CK-2) Rel Index NT-Pro-B Natriuret Pep 4255 H Albumin LDL Cholesterol Direct 02/25/18 02/26/18 02/27/18 23:23 02:59 08:00 WBC Hgb Hct RDW Lymph % (Auto) [place] % (Auto) Baso % (Auto) Lymph # Seg Neutrophils % Seg Neutrophils # PT INR D-Dimer POC ABG pO2 Sodium 136 L Potassium Chloride Carbon Dioxide BUN 34 H Glucose 105 H POC Glucose 186 H Total Bilirubin 1.80 H Direct Bilirubin 0.6 H CK-MB (CK-2) CK-MB (CK-2) Rel Index NT-Pro-B Natriuret Pep Albumin 3.6 L LDL Cholesterol Direct 02/28/18 02/28/18 03/01/18 07:36 07:36 08:02 WBC 3.7 L 3.1 L Hgb 14.6 H Hct 43.5 H RDW 17.3 H 17.7 H Lymph % (Auto) 39.9 H 42.9 H [place] % (Auto) 9.0 H 8.3 H Baso % (Auto) Lymph # Seg Neutrophils % Seg Neutrophils # 1.7 L 1.4 L PT INR D-Dimer POC ABG pO2 Sodium 135 L Potassium Chloride Carbon Dioxide 21 L BUN 33 H Glucose POC Glucose Total Bilirubin Direct Bilirubin CK-MB (CK-2) CK-MB (CK-2) Rel Index NT-Pro-B Natriuret Pep Albumin LDL Cholesterol Direct 03/01/18 03/01/18 03/02/18 08:02 08:02 05:57 WBC Hgb Hct RDW Lymph % (Auto) [place] % (Auto) Baso % (Auto) Lymph # Seg Neutrophils % Seg Neutrophils # PT INR D-Dimer POC ABG pO2 Sodium 133 L Potassium Chloride 97.4 L Carbon Dioxide 21 L 17 L BUN 32 H 30 H Glucose 117 H POC Glucose Total Bilirubin 1.30 H Direct Bilirubin CK-MB (CK-2) CK-MB (CK-2) Rel Index NT-Pro-B Natriuret Pep Albumin 3.0 L LDL Cholesterol Direct 42 L 03/02/18 03/02/18 03/02/18 05:57 17:05 17:05 WBC 4.0 L Hgb Hct RDW 17.8 H Lymph % (Auto) [place] % (Auto) 7.4 H Baso % (Auto) Lymph # 0.7 L Seg Neutrophils % 73.2 H Seg Neutrophils # PT INR D-Dimer POC ABG pO2 Sodium Potassium Chloride Carbon Dioxide BUN Glucose POC Glucose Total Bilirubin Direct Bilirubin CK-MB (CK-2) 4.8 H CK-MB (CK-2) Rel Index 8.1 H NT-Pro-B Natriuret Pep 3883 H Albumin LDL Cholesterol Direct 03/03/18 03/03/18 03/03/18 05:15 05:15 08:28 WBC Hgb Hct RDW 16.9 H Lymph % (Auto) [place] % (Auto) Baso % (Auto) Lymph # 1.0 L Seg Neutrophils % 70.4 H Seg Neutrophils # PT INR D-Dimer POC ABG pO2 65 L Sodium Potassium 3.4 L D Chloride Carbon Dioxide BUN 25 H Glucose 122 H POC Glucose Total Bilirubin Direct Bilirubin CK-MB (CK-2) CK-MB (CK-2) Rel Index NT-Pro-B Natriuret Pep Albumin LDL Cholesterol Direct 03/04/18 03/04/18 03/04/18 04:37 04:37 14:13 WBC Hgb Hct RDW 17.4 H Lymph % (Auto) [place] % (Auto) Baso % (Auto) Lymph # 1.0 L Seg Neutrophils % 70.7 H Seg Neutrophils # PT INR D-Dimer POC ABG pO2 62 L Sodium Potassium Chloride Carbon Dioxide BUN 26 H Glucose 137 H POC Glucose Total Bilirubin 2.10 H Direct Bilirubin 1.0 H CK-MB (CK-2) CK-MB (CK-2) Rel Index NT-Pro-B Natriuret Pep Albumin 3.1 L LDL Cholesterol Direct 03/05/18 03/05/18 04:20 04:20 WBC 4.1 L Hgb Hct 44.0 H RDW 18.1 H Lymph % (Auto) [place] % (Auto) Baso % (Auto) 2.7 H Lymph # Seg Neutrophils % Seg Neutrophils # PT INR D-Dimer POC ABG pO2 Sodium 136 L Potassium Chloride 97.8 L Carbon Dioxide BUN 29 H Glucose 113 H POC Glucose Total Bilirubin Direct Bilirubin CK-MB (CK-2) CK-MB (CK-2) Rel Index NT-Pro-B Natriuret Pep Albumin LDL Cholesterol Direct Allied health notes reviewed: nursing
[2018-03-05] MEDS: AMBIEN PO PRN (21:20)
[2018-03-06] MEDS: LASIX IV SCH ×2 (05:49→19:31)
[2018-03-06 06:05] LABS: BUN/Creatinine Ratio 34; Blood Urea Nitrogen 31 mg/dL (7-17); Hemolysis Index 3
--- NOTE | 2018-03-06 10:31 | Progress Note ---
Assessment and Plan Assessment and plan: --Acute on chronic respiratory failure; and due to acute on chronic CHF on intermittent BiPAP Patient is saturating well on nasal cannula oxygen this morning evaluate for home oxygen at discharge --Hypotension; patient is on midodrine and dopamine ,blood pressures are still in the lower range, Beta blockers and jefe inhibitors are on hold, Lasix as needed, cardiology following --New onset A. fib with rapid ventricular rate; paroxysmal rate controlled intermittent RVR,anticoagulation with Lovenox,transition to eliquis when pt is stable --Acute on chronic systolic congestive heart failure; with severe lower extremity edema Ejection fraction 45-50%, oxygen , elevated the limbs, low-sodium diet, fluid restriction beta blockers, jefe inhibitors are on hold in view of hypotension, Lasix as tolerated . --Mild malnutrition; supportive care and nutrition supplements --DVT prophylaxis; Lovenox --Full CODE STATUS Physical therapy occupational therapy as tolerated Closely monitor and adjust the management as needed Plan of care discussed with cardiology Continue current management critical care time 35 minutes History Interval history: Patient seen and examined medical records reviewed Patient remains hypotensive on dopamine, Feels slightly better denies chest pain shortness of breathy Vital signs reviewed Hospitalist Physical - Constitutional Vitals: Temp Pulse Resp BP Pulse Ox 97.2 F L 99 H 21 83/65 99 03/06/18 08:00 03/06/18 10:01 03/06/18 10:01 03/06/18 10:01 03/06/18 10:01 General appearance: Present: no acute distress, well-nourished, other (nasal cannula oxygen) - EENT Eyes: Present: PERRL, EOM intact - Neck Neck: Present: supple, normal ROM - Respiratory Respiratory effort: normal, labored - Cardiovascular Rhythm: regular Heart Sounds: Present: S1 & S2 - Extremities Extremities: no ischemia, pulses intact, pulses symmetrical Peripheral Pulses: within normal limits - Abdominal General gastrointestinal: soft, non-tender, non-distended, normal bowel sounds - Integumentary Integumentary: Present: clear, warm - Psychiatric Psychiatric: appropriate mood/affect, cooperative - Neurologic Neurologic: CNII-XII intact, moves all extremities Results - Labs CBC & Chem 7: 03/05/18 04:20 03/06/18 05:15 Labs: Laboratory Last Values WBC 4.1 K/mm3 (4.5-11.0) L 03/05/18 04:20 RBC 4.73 M/mm3 (3.65-5.03) 03/05/18 04:20 Hgb 14.2 gm/dl (10.1-14.3) 03/05/18 04:20 Hct 44.0 % (30.3-42.9) H 03/05/18 04:20 MCV 93 fl (79-97) 03/05/18 04:20 MCH 30 pg (28-32) 03/05/18 04:20 MCHC 32 % (30-34) 03/05/18 04:20 RDW 18.1 % (13.2-15.2) H 03/05/18 04:20 Plt Count 232 K/mm3 (140-440) 03/05/18 04:20 Lymph % (Auto) 29.3 % (13.4-35.0) 03/05/18 04:20 [place] % (Auto) 6.7 % (0.0-7.3) 03/05/18 04:20 Eos % (Auto) 1.9 % (0.0-4.3) 03/05/18 04:20 Baso % (Auto) 2.7 % (0.0-1.8) H 03/05/18 04:20 Lymph # 1.2 K/mm3 (1.2-5.4) 03/05/18 04:20 [place] # 0.3 K/mm3 (0.0-0.8) 03/05/18 04:20 Eos # 0.1 K/mm3 (0.0-0.4) 03/05/18 04:20 Baso # 0.1 K/mm3 (0.0-0.1) 03/05/18 04:20 Seg Neutrophils % 59.4 % (40.0-70.0) 03/05/18 04:20 Seg Neutrophils # 2.5 K/mm3 (1.8-7.7) 03/05/18 04:20 PT 16.7 Sec. (12.2-14.9) H 02/25/18 23:23 INR 1.30 (0.87-1.13) H 02/25/18 23:23 APTT 29.2 Sec. (24.2-36.6) 02/25/18 23:23 D-Dimer 1149.50 ng/mlDDU (0-234) H 02/25/18 23:23 POC ABG pH 7.394 (7.35-7.45) 03/04/18 14:13 POC ABG pCO2 41.4 (35-45) 03/04/18 14:13 POC ABG pO2 62 (80-105) L 03/04/18 14:13 POC ABG HCO3 25.3 03/04/18 14:13 POC ABG Total CO2 27 03/04/18 14:13 POC ABG O2 Sat 91 03/04/18 14:13 POC ABG Base Excess 0 03/04/18 14:13 FiO2 50 % 03/04/18 14:13 Sodium 137 mmol/L (137-145) 03/06/18 05:15 Potassium 3.8 mmol/L (3.6-5.0) 03/06/18 05:15 Chloride 97.8 mmol/L (98-107) L 03/06/18 05:15 Carbon Dioxide 25 mmol/L (22-30) 03/06/18 05:15 Anion Gap 18 mmol/L 03/06/18 05:15 BUN 31 mg/dL (7-17) H 03/06/18 05:15 Creatinine 0.9 mg/dL (0.7-1.2) 03/06/18 05:15 Estimated GFR > 60 ml/min 03/06/18 05:15 BUN/Creatinine Ratio 34 % 03/06/18 05:15 Glucose 116 mg/dL (65-100) H 03/06/18 05:15 POC Glucose 186 (70-105) H 02/26/18 02:59 Calcium 9.0 mg/dL (8.4-10.2) 03/06/18 05:15 Phosphorus 3.00 mg/dL (2.5-4.5) 03/02/18 05:57 Magnesium 1.90 mg/dL (1.7-2.3) 03/05/18 04:20 Total Bilirubin 2.10 mg/dL (0.1-1.2) H 03/04/18 04:37 Direct Bilirubin 1.0 mg/dL (0-0.2) H 03/04/18 04:37 Indirect Bilirubin 1.1 mg/dL 03/04/18 04:37 AST 18 units/L (5-40) 03/04/18 04:37 ALT 23 units/L (7-56) 03/04/18 04:37 Alkaline Phosphatase 111 units/L (35-129) 03/04/18 04:37 Total Creatine Kinase 59 units/L (30-135) 03/02/18 17:05 CK-MB (CK-2) 4.8 ng/mL (0.0-4.0) H 03/02/18 17:05 CK-MB (CK-2) Rel Index 8.1 (0-4) H 03/02/18 17:05 Troponin T < 0.010 ng/mL (0.00-0.029) 03/02/18 17:05 NT-Pro-B Natriuret Pep 3883 pg/mL (0-900) H 03/02/18 17:05 Total Protein 6.8 g/dL (6.3-8.2) 03/04/18 04:37 Albumin 3.1 g/dL (3.9-5) L 03/04/18 04:37 Albumin/Globulin Ratio 0.8 % 03/04/18 04:37 Triglycerides 54 mg/dL (2-149) 03/01/18 08:02 Cholesterol 95 mg/dL (50-199) 03/01/18 08:02 LDL Cholesterol Direct 42 mg/dL (50-130) L 03/01/18 08:02 HDL Cholesterol 49 mg/dL (40-59) 03/01/18 08:02 Cholesterol/HDL Ratio 1.93 % 03/01/18 08:02
--- NOTE | 2018-03-06 11:51 | Progress Note ---
Assessment and Plan clinically improving wean pressors as tolerated hold lasix if bp doesn't respond, may need to add gentle hydration Given elevated/dilated rh pressures, very narrow fluid equilibrium is noted with preload dependence - Patient Problems (1) Abnormal EKG Current Visit: Yes Status: Acute (2) Bilateral lower extremity edema Current Visit: Yes Status: Acute (3) CHF exacerbation Current Visit: Yes Status: Acute Qualifiers: Heart failure type: unspecified Qualified Code(s): I50.9 - Heart failure, unspecified (4) Paroxysmal atrial fibrillation with RVR Current Visit: Yes Status: Acute (5) TIA (transient ischemic attack) Current Visit: Yes Status: Acute (6) Cor pulmonale Current Visit: Yes Status: Chronic (7) Nonischemic cardiomyopathy Current Visit: Yes Status: Chronic (8) Mild pulmonary hypertension Current Visit: No Status: Chronic Subjective Date of service: 03/06/18 Principal diagnosis: Acute on Chronic Hypoxemic Respiratory Failure; AE-CHF; CMOP; Hypotension Interval history: feels better Objective Vital Signs Temp Pulse Pulse Resp BP Pulse Ox 03/06/18 10:01 99 H 21 83/65 99 03/06/18 09:45 106 H 18 88/61 03/06/18 09:30 104 H 20 83/65 98 03/06/18 09:15 103 H 16 86/65 99 03/06/18 09:01 101 H 17 67/34 100 03/06/18 08:45 97 H 16 89/64 96 03/06/18 08:30 91 H 14 91/65 95 03/06/18 08:15 93 H 15 89/62 94 03/06/18 08:00 97.2 F L 90 16 93/64 94 03/06/18 07:45 91 H 16 90/62 96 03/06/18 07:40 95 03/06/18 07:30 92 H 16 90/63 96 03/06/18 07:15 93 H 15 89/66 96 03/06/18 07:00 92 H 18 93/61 97 03/06/18 06:45 95 H 17 89/66 97 03/06/18 06:30 103 H 18 87/65 97 03/06/18 06:15 103 H 16 97/77 03/06/18 06:00 93 H 20 94/71 97 03/06/18 05:45 92 H 22 98/69 98 09/09/18 05:30 92 H 17 89/65 97 03/06/18 05:15 91 H 19 97/72 97 03/06/18 05:00 96.5 F L 96 H 21 96/73 97 03/06/18 04:45 97 H 20 99/69 96 03/06/18 04:30 94 H 21 95/71 97 03/06/18 04:15 93 H 22 97/71 96 03/06/18 04:00 92 H 20 96/73 97 03/06/18 03:50 95 H 21 91/70 97 03/06/18 03:45 92 H 18 91/70 96 03/06/18 03:30 94 H 20 98/73 97 03/06/18 03:15 93 H 21 92/70 97 03/06/18 03:00 92 H 19 99/71 99 03/06/18 02:45 93 H 21 95/71 97 03/06/18 02:30 91 H 19 97/73 96 03/06/18 02:15 96 H 21 94/70 97 03/06/18 02:00 90 18 97/67 96 03/06/18 01:45 90 20 93/73 96 03/06/18 01:30 91 H 20 89/74 96 03/06/18 01:15 96 H 20 88/69 96 03/06/18 01:00 90 20 98/77 96 03/06/18 00:45 93 H 21 98/77 03/06/18 00:30 89 18 102/78 03/06/18 00:15 89 21 106/80 96 03/06/18 00:00 94 H 21 104/72 97 03/05/18 23:45 90 22 97/76 96 03/05/18 23:31 98 H 24 89/66 96 03/05/18 23:15 88 20 112/86 96 03/05/18 23:02 92 H 21 113/80 94 03/05/18 23:00 95 H 15 113/80 90 03/05/18 22:45 94 H 19 100/74 89 03/05/18 22:30 99 H 19 95/68 90 03/05/18 22:15 101 H 18 91/67 92 03/05/18 22:00 89 15 97/70 94 03/05/18 21:45 96 H 15 99/68 94 03/05/18 21:30 104 H 20 94/62 93 03/05/18 21:27 105 H 17 89/65 93 03/05/18 21:15 102 H 20 89/65 92 03/05/18 21:00 100 H 19 91/66 91 03/05/18 20:45 99 H 18 88/67 92 03/05/18 20:30 99 H 17 94/67 96 03/05/18 20:15 101 H 18 92/69 03/05/18 20:14 96 03/05/18 20:00 97.2 F L 102 H 20 88/67 93 03/05/18 19:45 104 H 21 98/71 98 03/05/18 19:41 105 H 03/05/18 19:30 104 H 17 95/69 98 03/05/18 19:15 101 H 22 96/68 94 03/05/18 19:00 102 H 29 H 92/68 95 03/05/18 18:45 107 H 18 97/69 100 03/05/18 18:30 101 H 23 96/65 94 03/05/18 18:15 113 H 18 94/60 97 03/05/18 18:00 104 H 11 L 73/47 99 03/05/18 17:45 97 H 18 82/57 93 03/05/18 17:30 99 H 17 79/55 93 03/05/18 17:15 100 H 16 84/56 89 03/05/18 17:00 101 H 18 80/56 89 03/05/18 16:45 96 H 18 81/53 89 03/05/18 16:30 99 H 17 86/57 93 03/05/18 16:15 107 H 20 82/49 92 03/05/18 16:00 97.2 F L 104 H 104 H 19 93/66 95 03/05/18 15:45 109 H 22 93/66 100 03/05/18 15:30 102 H 17 89/65 99 03/05/18 15:15 107 H 19 94/71 93 03/05/18 15:01 102 H 21 94/61 95 03/05/18 14:45 103 H 18 85/66 93 03/05/18 14:30 103 H 12 84/58 94 09/08/18 14:15 106 H 17 87/61 95 03/05/18 14:00 108 H 16 81/58 03/05/18 13:45 109 H 13 97/62 96 03/05/18 13:30 98 H 17 91/69 96 03/05/18 13:15 94 H 17 95/69 94 03/05/18 13:00 102 H 16 88/62 93 03/05/18 12:45 94 H 17 101/75 98 03/05/18 12:31 96 H 25 H 104/86 03/05/18 12:15 106 H 23 87/65 03/05/18 12:00 97.2 F L 97 H 107 H 19 104/70 94 - Physical Examination General: Other (on BiPAP) HEENT: Positive: PERRL, Normocephaly, Mucus Membranes Moist Neck: Positive: neck supple, trachea midline Neuro: Positive: Grossly Intact Abdomen: Positive: Soft. Negative: Tender Skin: Negative: Wound Extremities: Present: +2 Edema (BLE) - Labs and Meds Comprehensive Metabolic Panel 03/06/18 Range/Units 05:15 Sodium 137 (137-145) mmol/L Potassium 3.8 (3.6-5.0) mmol/L Chloride 97.8 L (98-107) mmol/L Carbon Dioxide 25 (22-30) mmol/L BUN 31 H (7-17) mg/dL Creatinine 0.9 (0.7-1.2) mg/dL Glucose 116 H (65-100) mg/dL Calcium 9.0 (8.4-10.2) mg/dL - Imaging and Cardiology EKG: report reviewed, image reviewed Echo: report reviewed (01/03/2018: ULYSSES; EF 45-50%, marked RA enlargement, mod RV enlargement, mod RV systolic dysfunction, trace MR, mod to severe TR, mild pulm HTN with RVSP 38mmHg, mod left to right shunt suggestive of ostium secundum atrial septal defect) Cardiac cath: report reviewed (01/04/2018: LHC & RHC, NO ASD, no O2 sat step-up, EF 35%, normal coronaries, mod pulmonary HTN. ) - Allied health notes Allied health notes reviewed: nursing
[2018-03-06] MEDS: PROAMATINE PO SCH ×2 (12:53→21:47)
[2018-03-06] MEDS: LOVENOX SUB-Q SCH ×2 (12:54→21:47)
[2018-03-06] MEDS: PEPCID PO SCH ×2 (12:54→21:47)
[2018-03-06] MEDS: HALFPRIN EC PO SCH (12:54)
--- NOTE | 2018-03-06 14:25 | Progress Note ---
Assessment and Plan Syncope Acute on chronic respiratory failure (2nd to CHF, fluid overload) Orthopnea Chronic Biventricular CHF with acute exacerbation NICMOP Paroxysmal Atrial Fibrillation H/O Pulmonary HTN PFO Hypotension (h/o Hypertension) Hypokalemia (likely due to diuretic) Moderate protein calorie malnutrition - continue full anticoagulation for A-fib - continue supplemental oxygen to keep sats > 90% (HFNC) - continue BIPAP at increased settings of 14/10 (Scheduled qhs) - continue bronchodilators with pulmonary hygiene per RT - follow am CXR - continue gentle diuresis - continue dopamine per cardiology recommendations - continue aspiration precautions - increase Pepcid to bid re: reflux symptoms - PT/OT as tolerated - mobility protocol for pressure ulcer prophylaxis - target MAP > 65mmHg - continue other care per attending / other consultants The high probability of a clinically significant, sudden or life-threatening deterioration of the [cardiac, respiratory] system(s) required my full and direct attention, intervention and personal management. The aggregate critical care time was [32] minutes without overlap. Time includes spent on; [x] Data Review and interpretation [x] Patient assessment and monitoring of vital signs [x] Documentation [x] Medication orders and management Subjective Date of service: 03/06/18 Principal diagnosis: Acute on Chronic Hypoxemic Respiratory Failure; AE-CHF; CMOP; Hypotension Interval history: Patient is seen today for: Acute on Chronic Hypoxemic Respiratory Failure; AE- CHF; CMOP; Hypotension; Symptomatic Bradycardia Seen and examined at bedside; 24hour events reviewed; nursing and respiratory care staff consulted; no adverse overnight events reported to me; remains on dopamine; slowly weaning oxygen; denies acute chest pains or palpitations Objective Vital Signs - 12hr 03/06/18 03/06/18 03/06/18 02:30 02:45 03:00 Temperature Pulse Rate 91 H 93 H 92 H Respiratory 19 21 19 Rate Blood Pressure 97/73 95/71 99/71 O2 Sat by Pulse 96 97 99 Oximetry 03/06/18 03/06/18 03/06/18 03:15 03:30 03:45 Temperature Pulse Rate 93 H 94 H 92 H Respiratory 21 20 18 Rate Blood Pressure 92/70 98/73 91/70 O2 Sat by Pulse 97 97 96 Oximetry 03/06/18 03/06/18 03/06/18 03:50 04:00 04:15 Temperature Pulse Rate 95 H 92 H 93 H Respiratory 21 20 22 Rate Blood Pressure 91/70 96/73 97/71 O2 Sat by Pulse 97 97 96 Oximetry 03/06/18 03/06/18 03/06/18 04:30 04:45 05:00 Temperature 96.5 F L Pulse Rate 94 H 97 H 96 H Respiratory 21 20 21 Rate Blood Pressure 95/71 99/69 96/73 O2 Sat by Pulse 97 96 97 Oximetry 03/06/18 03/06/18 03/06/18 05:15 05:30 05:45 Temperature Pulse Rate 91 H 92 H 92 H Respiratory 19 17 22 Rate Blood Pressure 97/72 89/65 98/69 O2 Sat by Pulse 97 97 98 Oximetry 03/06/18 03/06/18 03/06/18 06:00 06:15 06:30 Temperature Pulse Rate 93 H 103 H 103 H Respiratory 20 16 18 Rate Blood Pressure 94/71 97/77 87/65 O2 Sat by Pulse 97 97 Oximetry 03/06/18 03/06/18 03/06/18 06:45 07:00 07:15 Temperature Pulse Rate 95 H 92 H 93 H Respiratory 17 18 15 Rate Blood Pressure 89/66 93/61 89/66 O2 Sat by Pulse 97 97 96 Oximetry 03/06/18 03/06/18 03/06/18 07:30 07:40 07:45 Temperature Pulse Rate 92 H 91 H Respiratory 16 16 Rate Blood Pressure 90/63 90/62 O2 Sat by Pulse 96 95 96 Oximetry 03/06/18 03/06/18 03/06/18 08:00 08:15 08:30 Temperature 97.2 F L Pulse Rate 90 93 H 91 H Respiratory 16 15 14 Rate Blood Pressure 93/64 89/62 91/65 O2 Sat by Pulse 94 94 95 Oximetry 03/06/18 03/06/18 03/06/18 08:45 09:01 09:15 Temperature Pulse Rate 97 H 101 H 103 H Respiratory 16 17 16 Rate Blood Pressure 89/64 67/34 86/65 O2 Sat by Pulse 96 100 99 Oximetry 03/06/18 03/06/18 03/06/18 09:30 09:45 10:01 Temperature Pulse Rate 104 H 106 H 99 H Respiratory 20 18 21 Rate Blood Pressure 83/65 88/61 83/65 O2 Sat by Pulse 98 99 Oximetry 03/06/18 12:00 Temperature 97.6 F Pulse Rate Respiratory Rate Blood Pressure O2 Sat by Pulse Oximetry Constitutional: alert, appears uncomfortable, other (elderly looking AAF, normocephalic and atraumatic with increased respiratory effort) Eyes: non-icteric ENT: oropharynx moist, other ([place] 3) Neck: supple, no lymphadenopathy, other (No thyromegaly) Effort: mildly labored Ascultation: Bilateral: diminished breath sounds, rales (inspiratory in bases) Percussion: Bilateral: not dull Cardiovascular: irregular rhythm, other (No R/M) Gastrointestinal: normoactive bowel sounds, soft, non-tender, non-distended, other (No HSM) Integumentary: rash Extremities: no cyanosis, pulses normal, no ischemia or petechiae, edema (2++) Neurologic: normal mental status, non-focal exam, pupils equal and round, motor strength normal and Psychiatric: mood appropriate, depressed (affect) CBC and BMP: 03/07/18 05:00 03/07/18 05:00 ABG, PT/INR, D-dimer: ABG POC ABG pH 7.394 (7.35-7.45) 03/04/18 14:13 POC ABG pCO2 41.4 (35-45) 03/04/18 14:13 POC ABG pO2 62 (80-105) L 03/04/18 14:13 POC ABG HCO3 25.3 03/04/18 14:13 POC ABG Total CO2 27 03/04/18 14:13 POC ABG O2 Sat 91 03/04/18 14:13 PT/INR, D-dimer PT 16.7 Sec. (12.2-14.9) H 02/25/18 23:23 INR 1.30 (0.87-1.13) H 02/25/18 23:23 D-Dimer 1149.50 ng/mlDDU (0-234) H 02/25/18 23:23 Abnormal lab findings: Abnormal Labs 02/25/18 02/25/18 02/25/18 23:23 23:23 23:23 WBC Hgb 14.9 H Hct 46.0 H RDW 18.0 H Lymph % (Auto) [place] % (Auto) Baso % (Auto) Lymph # Seg Neutrophils % Seg Neutrophils # PT 16.7 H INR 1.30 H D-Dimer 1149.50 H POC ABG pO2 Sodium 136 L Potassium Chloride 94.8 L Carbon Dioxide BUN 36 H Glucose 192 H POC Glucose Total Bilirubin Direct Bilirubin CK-MB (CK-2) CK-MB (CK-2) Rel Index NT-Pro-B Natriuret Pep 4255 H Albumin LDL Cholesterol Direct 02/25/18 02/26/18 02/27/18 23:23 02:59 08:00 WBC Hgb Hct RDW Lymph % (Auto) [place] % (Auto) Baso % (Auto) Lymph # Seg Neutrophils % Seg Neutrophils # PT INR D-Dimer POC ABG pO2 Sodium 136 L Potassium Chloride Carbon Dioxide BUN 34 H Glucose 105 H POC Glucose 186 H Total Bilirubin 1.80 H Direct Bilirubin 0.6 H CK-MB (CK-2) CK-MB (CK-2) Rel Index NT-Pro-B Natriuret Pep Albumin 3.6 L LDL Cholesterol Direct 02/28/18 02/28/18 03/01/18 07:36 07:36 08:02 WBC 3.7 L 3.1 L Hgb 14.6 H Hct 43.5 H RDW 17.3 H 17.7 H Lymph % (Auto) 39.9 H 42.9 H [place] % (Auto) 9.0 H 8.3 H Baso % (Auto) Lymph # Seg Neutrophils % Seg Neutrophils # 1.7 L 1.4 L PT INR D-Dimer POC ABG pO2 Sodium 135 L Potassium Chloride Carbon Dioxide 21 L BUN 33 H Glucose POC Glucose Total Bilirubin Direct Bilirubin CK-MB (CK-2) CK-MB (CK-2) Rel Index NT-Pro-B Natriuret Pep Albumin LDL Cholesterol Direct 03/01/18 03/01/18 03/02/18 08:02 08:02 05:57 WBC Hgb Hct RDW Lymph % (Auto) [place] % (Auto) Baso % (Auto) Lymph # Seg Neutrophils % Seg Neutrophils # PT INR D-Dimer POC ABG pO2 Sodium 133 L Potassium Chloride 97.4 L Carbon Dioxide 21 L 17 L BUN 32 H 30 H Glucose 117 H POC Glucose Total Bilirubin 1.30 H Direct Bilirubin CK-MB (CK-2) CK-MB (CK-2) Rel Index NT-Pro-B Natriuret Pep Albumin 3.0 L LDL Cholesterol Direct 42 L 03/02/18 03/02/18 03/02/18 05:57 17:05 17:05 WBC 4.0 L Hgb Hct RDW 17.8 H Lymph % (Auto) [place] % (Auto) 7.4 H Baso % (Auto) Lymph # 0.7 L Seg Neutrophils % 73.2 H Seg Neutrophils # PT INR D-Dimer POC ABG pO2 Sodium Potassium Chloride Carbon Dioxide BUN Glucose POC Glucose Total Bilirubin Direct Bilirubin CK-MB (CK-2) 4.8 H CK-MB (CK-2) Rel Index 8.1 H NT-Pro-B Natriuret Pep 3883 H Albumin LDL Cholesterol Direct 03/03/18 03/03/18 03/03/18 05:15 05:15 08:28 WBC Hgb Hct RDW 16.9 H Lymph % (Auto) [place] % (Auto) Baso % (Auto) Lymph # 1.0 L Seg Neutrophils % 70.4 H Seg Neutrophils # PT INR D-Dimer POC ABG pO2 65 L Sodium Potassium 3.4 L D Chloride Carbon Dioxide BUN 25 H Glucose 122 H POC Glucose Total Bilirubin Direct Bilirubin CK-MB (CK-2) CK-MB (CK-2) Rel Index NT-Pro-B Natriuret Pep Albumin LDL Cholesterol Direct 03/04/18 03/04/18 03/04/18 04:37 04:37 14:13 WBC Hgb Hct RDW 17.4 H Lymph % (Auto) [place] % (Auto) Baso % (Auto) Lymph # 1.0 L Seg Neutrophils % 70.7 H Seg Neutrophils # PT INR D-Dimer POC ABG pO2 62 L Sodium Potassium Chloride Carbon Dioxide BUN 26 H Glucose 137 H POC Glucose Total Bilirubin 2.10 H Direct Bilirubin 1.0 H CK-MB (CK-2) CK-MB (CK-2) Rel Index NT-Pro-B Natriuret Pep Albumin 3.1 L LDL Cholesterol Direct 03/05/18 03/05/18 03/06/18 04:20 04:20 05:15 WBC 4.1 L Hgb Hct 44.0 H RDW 18.1 H Lymph % (Auto) [place] % (Auto) Baso % (Auto) 2.7 H Lymph # Seg Neutrophils % Seg Neutrophils # PT INR D-Dimer POC ABG pO2 Sodium 136 L Potassium Chloride 97.8 L 97.8 L Carbon Dioxide BUN 29 H 31 H Glucose 113 H 116 H POC Glucose Total Bilirubin Direct Bilirubin CK-MB (CK-2) CK-MB (CK-2) Rel Index NT-Pro-B Natriuret Pep Albumin LDL Cholesterol Direct Allied health notes reviewed: nursing
[2018-03-06] MEDS: ZOFRAN IV PRN (14:47)
[2018-03-07 05:31] LABS: Basophils # (Auto) 0.1 K/mm3 (0.0-0.1); Basophils % (Auto) 1.5 % (0.0-1.8); Eosinophils # (Auto) 0.1 K/mm3 (0.0-0.4); Eosinophils % (Auto) 1.7 % (0.0-4.3); Hemoglobin 15.7 gm/dl (10.1-14.3); Lymphocytes # (Auto) 1.3 K/mm3 (1.2-5.4); Lymphocytes % (Auto) 35.4 % (13.4-35.0); Mean Corpuscular HGB Conc 33 % (30-34); Mean Corpuscular Hemoglobin 30 pg (28-32); Mean Corpuscular Volume 92 fl (79-97); Monocytes # (Auto) 0.2 K/mm3 (0.0-0.8); Platelet Count 264 K/mm3 (140-440); Red Blood Count 5.22 M/mm3 (3.65-5.03); Red Cell Distribution Width 17.8 % (13.2-15.2)
[2018-03-07 05:41] LABS: BUN/Creatinine Ratio 34; Blood Urea Nitrogen 31 mg/dL (7-17); Hemolysis Index 16
[2018-03-07] MEDS: LASIX IV SCH (06:23)
[2018-03-07] MEDS: HALFPRIN EC PO SCH (10:29)
[2018-03-07] MEDS: LOVENOX SUB-Q SCH ×2 (10:29→22:31)
[2018-03-07] MEDS: PEPCID PO SCH ×2 (10:29→22:30)
[2018-03-07] MEDS: PROAMATINE PO SCH ×3 (10:29→23:00)
--- NOTE | 2018-03-07 10:30 | Progress Note ---
Assessment and Plan Cont present management. Wean pressors as tolerated. No BB and/or ACEI/ARB at this time in setting of low BPs. Cont full dosage lovenox BID for systemic anticoagulation in setting of recently noted paroxysmal atrial fibrillation. Consider conversion to OAC prior to hospital discharge. The patient has been seen in conjunction with Dr. Wu who agrees with the assessment and plan of care. - Patient Problems (1) Biventricular congestive heart failure Current Visit: Yes Status: Acute (2) Nonischemic cardiomyopathy Current Visit: Yes Status: Chronic (3) Acute respiratory failure Current Visit: Yes Status: Acute (4) Paroxysmal atrial fibrillation with RVR Current Visit: Yes Status: Acute (5) Cor pulmonale Current Visit: Yes Status: Chronic (6) Pulmonary HTN Current Visit: Yes Status: Chronic (7) Tricuspid regurgitation Current Visit: Yes Status: Chronic (8) PFO (patent foramen ovale) Current Visit: Yes Status: Chronic (9) Hypotension Current Visit: Yes Status: Chronic (10) Hypoxia Current Visit: Yes Status: Chronic Subjective Date of service: 03/07/18 Principal diagnosis: Acute on Chronic Hypoxemic Respiratory Failure; AE-CHF; CMOP; Hypotension Interval history: pt resting in bed, states she is feeling okay. on HiFlo NC. BLE edema improving. Dopamine gtt infusing. Objective Last Vital Signs Temp 97.4 F L 03/07/18 08:00 Pulse 101 H 03/07/18 06:15 Resp 16 03/07/18 08:00 BP 87/66 03/07/18 06:15 Pulse Ox 93 03/07/18 08:00 - Physical Examination General: No Apparent Distress HEENT: Positive: PERRL, Normocephaly, Mucus Membranes Moist Neck: Positive: neck supple, trachea midline Cardiac: Positive: Reg Rate and Rhythm, S1/S2 Lungs: Positive: Decreased Breath Sounds Neuro: Positive: Grossly Intact Abdomen: Positive: Soft. Negative: Tender Skin: Negative: Wound Extremities: Present: +2 Edema (BLE) - Labs and Meds CBC 03/07/18 Range/Units 05:00 WBC 3.8 L (4.5-11.0) K/mm3 RBC 5.22 H (3.65-5.03) M/mm3 Hgb 15.7 H (10.1-14.3) gm/dl Hct 48.0 H (30.3-42.9) % Plt Count 264 (140-440) K/mm3 Lymph # 1.3 (1.2-5.4) K/mm3 [place] # 0.2 (0.0-0.8) K/mm3 Eos # 0.1 (0.0-0.4) K/mm3 Baso # 0.1 (0.0-0.1) K/mm3 Comprehensive Metabolic Panel 03/07/18 Range/Units 05:00 Sodium 135 L (137-145) mmol/L Potassium 4.0 (3.6-5.0) mmol/L Chloride 98.0 (98-107) mmol/L Carbon Dioxide 24 (22-30) mmol/L BUN 31 H (7-17) mg/dL Creatinine 0.9 (0.7-1.2) mg/dL Glucose 120 H (65-100) mg/dL Calcium 9.0 (8.4-10.2) mg/dL - Imaging and Cardiology EKG: report reviewed, image reviewed Echo: report reviewed (01/03/2018: ULYSSES; EF 45-50%, marked RA enlargement, mod RV enlargement, mod RV systolic dysfunction, trace MR, mod to severe TR, mild pulm HTN with RVSP 38mmHg, mod left to right shunt suggestive of ostium secundum atrial septal defect) Cardiac cath: report reviewed (01/04/2018: LHC & RHC, NO ASD, no O2 sat step-up, EF 35%, normal coronaries, mod pulmonary HTN. ) - Telemetry EKG Rhythm: Sinus Rhythm - Allied health notes Allied health notes reviewed: nursing
--- NOTE | 2018-03-07 11:01 | Progress Note ---
Assessment and Plan Assessment and plan: --Acute on chronic respiratory failure; patient is stable on nasal cannula oxygen BiPAP as needed , evaluate for home oxygen at discharge --Hypotension; continue midodrine and dopamine ,blood pressures are still in the lower range, Beta blockers and jefe inhibitors are on hold, Lasix as needed, cardiology following --New onset paroxysmal A. fib with rapid ventricular rate; now rate controlled Continue anticoagulation with full dose Lovenox,transition to eliquis when pt is stable --Acute on chronic systolic congestive heart failure; with severe lower extremity edema Ejection fraction 45-50%, oxygen , elevated the limbs, low-sodium diet, fluid restriction beta blockers, jefe inhibitors are on hold in view of hypotension, Lasix as tolerated . --Mild malnutrition; supportive care and nutrition supplements --DVT prophylaxis; Lovenox --Full CODE STATUS Continue current management Physical therapy occupational therapy Cardiology recommendations noted and appreciated Possible discharge in 1-2 days if stable Plan of care is reviewed with the patient, her nurse and the manager of case managementguest relations manager time 35 minutes History Interval history: Patient seen and examined in ICU this morning medical records reviewed No new events reported by the nursing Clinically no change, remains hypotensive on dopamine Patient denies any chest pain or shortness of breath Vital signs reviewed Hospitalist Physical - Constitutional Vitals: Temp Pulse Resp BP Pulse Ox 97.4 F L 101 H 16 87/66 93 03/07/18 08:00 03/07/18 06:15 03/07/18 08:00 03/07/18 06:15 03/07/18 08:00 General appearance: Present: no acute distress, well-nourished, other (nasal cannula oxygen) - EENT Eyes: Present: PERRL, EOM intact - Neck Neck: Present: supple, normal ROM - Respiratory Respiratory effort: normal Respiratory: bilateral: diminished, rales, negative: rhonchi, wheezing - Cardiovascular Rhythm: regular Heart Sounds: Present: S1 & S2 - Extremities Extremities: no ischemia Extremity abnormal: edema (bilateral edema) - Abdominal General gastrointestinal: soft, non-tender, non-distended, normal bowel sounds - Integumentary Integumentary: Present: clear, warm - Psychiatric Psychiatric: appropriate mood/affect, cooperative - Neurologic Neurologic: CNII-XII intact, moves all extremities Results - Labs CBC & Chem 7: 03/07/18 05:00 03/07/18 05:00 Labs: Laboratory Last Values WBC 3.8 K/mm3 (4.5-11.0) L 03/07/18 05:00 RBC 5.22 M/mm3 (3.65-5.03) H 03/07/18 05:00 Hgb 15.7 gm/dl (10.1-14.3) H 03/07/18 05:00 Hct 48.0 % (30.3-42.9) H 03/07/18 05:00 MCV 92 fl (79-97) 03/07/18 05:00 MCH 30 pg (28-32) 03/07/18 05:00 MCHC 33 % (30-34) 03/07/18 05:00 RDW 17.8 % (13.2-15.2) H 03/07/18 05:00 Plt Count 264 K/mm3 (140-440) 03/07/18 05:00 Lymph % (Auto) 35.4 % (13.4-35.0) H 03/07/18 05:00 [place] % (Auto) 6.0 % (0.0-7.3) 03/07/18 05:00 Eos % (Auto) 1.7 % (0.0-4.3) 03/07/18 05:00 Baso % (Auto) 1.5 % (0.0-1.8) 03/07/18 05:00 Lymph # 1.3 K/mm3 (1.2-5.4) 03/07/18 05:00 [place] # 0.2 K/mm3 (0.0-0.8) 03/07/18 05:00 Eos # 0.1 K/mm3 (0.0-0.4) 03/07/18 05:00 Baso # 0.1 K/mm3 (0.0-0.1) 03/07/18 05:00 Seg Neutrophils % 55.4 % (40.0-70.0) 03/07/18 05:00 Seg Neutrophils # 2.1 K/mm3 (1.8-7.7) 03/07/18 05:00 PT 16.7 Sec. (12.2-14.9) H 02/25/18 23:23 INR 1.30 (0.87-1.13) H 02/25/18 23:23 APTT 29.2 Sec. (24.2-36.6) 02/25/18 23:23 D-Dimer 1149.50 ng/mlDDU (0-234) H 02/25/18 23:23 POC ABG pH 7.394 (7.35-7.45) 03/04/18 14:13 POC ABG pCO2 41.4 (35-45) 03/04/18 14:13 POC ABG pO2 62 (80-105) L 03/04/18 14:13 POC ABG HCO3 25.3 03/04/18 14:13 POC ABG Total CO2 27 03/04/18 14:13 POC ABG O2 Sat 91 03/04/18 14:13 POC ABG Base Excess 0 03/04/18 14:13 FiO2 50 % 03/04/18 14:13 Sodium 135 mmol/L (137-145) L 03/07/18 05:00 Potassium 4.0 mmol/L (3.6-5.0) 03/07/18 05:00 Chloride 98.0 mmol/L (98-107) 03/07/18 05:00 Carbon Dioxide 24 mmol/L (22-30) 03/07/18 05:00 Anion Gap 17 mmol/L 03/07/18 05:00 BUN 31 mg/dL (7-17) H 03/07/18 05:00 Creatinine 0.9 mg/dL (0.7-1.2) 03/07/18 05:00 Estimated GFR > 60 ml/min 03/07/18 05:00 BUN/Creatinine Ratio 34 % 03/07/18 05:00 Glucose 120 mg/dL (65-100) H 03/07/18 05:00 POC Glucose 186 (70-105) H 02/26/18 02:59 Calcium 9.0 mg/dL (8.4-10.2) 03/07/18 05:00 Phosphorus 3.00 mg/dL (2.5-4.5) 03/02/18 05:57 Magnesium 1.90 mg/dL (1.7-2.3) 03/07/18 05:00 Total Bilirubin 2.10 mg/dL (0.1-1.2) H 03/04/18 04:37 Direct Bilirubin 1.0 mg/dL (0-0.2) H 03/04/18 04:37 Indirect Bilirubin 1.1 mg/dL 03/04/18 04:37 AST 18 units/L (5-40) 03/04/18 04:37 ALT 23 units/L (7-56) 03/04/18 04:37 Alkaline Phosphatase 111 units/L (35-129) 03/04/18 04:37 Total Creatine Kinase 59 units/L (30-135) 03/02/18 17:05 CK-MB (CK-2) 4.8 ng/mL (0.0-4.0) H 03/02/18 17:05 CK-MB (CK-2) Rel Index 8.1 (0-4) H 03/02/18 17:05 Troponin T < 0.010 ng/mL (0.00-0.029) 03/02/18 17:05 NT-Pro-B Natriuret Pep 3883 pg/mL (0-900) H 03/02/18 17:05 Total Protein 6.8 g/dL (6.3-8.2) 03/04/18 04:37 Albumin 3.1 g/dL (3.9-5) L 03/04/18 04:37 Albumin/Globulin Ratio 0.8 % 03/04/18 04:37 Triglycerides 54 mg/dL (2-149) 03/01/18 08:02 Cholesterol 95 mg/dL (50-199) 03/01/18 08:02 LDL Cholesterol Direct 42 mg/dL (50-130) L 03/01/18 08:02 HDL Cholesterol 49 mg/dL (40-59) 03/01/18 08:02 Cholesterol/HDL Ratio 1.93 % 03/01/18 08:02
--- NOTE | 2018-03-07 13:52 | Progress Note ---
Assessment and Plan Syncope Acute on chronic respiratory failure (2nd to CHF, fluid overload) Orthopnea Chronic Biventricular CHF with acute exacerbation NICMOP Paroxysmal Atrial Fibrillation H/O Pulmonary HTN PFO Hypotension (h/o Hypertension) Hypokalemia (likely due to diuretic) Moderate protein calorie malnutrition - continue full anticoagulation for A-fib - continue supplemental oxygen to keep sats > 90% (HFNC) - continue BIPAP at increased settings of 14/10 (Scheduled qhs) - continue bronchodilators with pulmonary hygiene per RT - follow am CXR - continue gentle diuresis - continue dopamine per cardiology recommendations - continue aspiration precautions - increase Pepcid to bid re: reflux symptoms - PT/OT as tolerated - mobility protocol for pressure ulcer prophylaxis - target MAP > 65mmHg - continue other care per attending / other consultants The high probability of a clinically significant, sudden or life-threatening deterioration of the [cardiac, respiratory] system(s) required my full and direct attention, intervention and personal management. The aggregate critical care time was [35] minutes without overlap. Time includes spent on; [x] Data Review and interpretation [x] Patient assessment and monitoring of vital signs [x] Documentation [x] Medication orders and management Subjective Date of service: 03/07/18 Principal diagnosis: Acute on Chronic Hypoxemic Respiratory Failure; AE-CHF; CMOP; Hypotension Interval history: Patient is seen today for: Acute on Chronic Hypoxemic Respiratory Failure; AE- CHF; CMOP; Hypotension; Symptomatic Bradycardia Seen and examined at bedside; 24hour events reviewed; nursing and respiratory care staff consulted; no adverse overnight events reported to me; remains on dopamine; remains hypoxemic but overall some improvement; No N/V/F/C Objective Vital Signs - 12hr 03/07/18 03/07/18 03/07/18 02:00 02:15 02:30 Temperature Pulse Rate 91 H 96 H 97 H Respiratory 20 22 19 Rate Blood Pressure 100/75 100/75 101/75 O2 Sat by Pulse 96 Oximetry 03/07/18 03/07/18 03/07/18 02:45 03:00 03:15 Temperature Pulse Rate 96 H 99 H 97 H Respiratory 21 22 20 Rate Blood Pressure 96/73 97/73 98/72 O2 Sat by Pulse Oximetry 03/07/18 03/07/18 03/07/18 03:30 03:45 04:00 Temperature Pulse Rate 102 H 98 H 98 H Respiratory 20 22 22 Rate Blood Pressure 99/73 99/75 95/74 O2 Sat by Pulse Oximetry 03/07/18 03/07/18 03/07/18 04:15 04:30 04:45 Temperature Pulse Rate 92 H 96 H 104 H Respiratory 19 18 18 Rate Blood Pressure 97/72 92/71 92/71 O2 Sat by Pulse Oximetry 03/07/18 03/07/18 03/07/18 05:00 05:15 05:30 Temperature Pulse Rate 93 H 101 H 101 H Respiratory 19 24 17 Rate Blood Pressure 97/72 96/70 97/69 O2 Sat by Pulse Oximetry 03/07/18 03/07/18 03/07/18 05:45 06:00 06:15 Temperature Pulse Rate 111 H 106 H 101 H Respiratory 19 24 27 H Rate Blood Pressure 92/53 87/66 O2 Sat by Pulse 96 94 Oximetry 03/07/18 03/07/18 03/07/18 07:10 08:00 12:00 Temperature 97.4 F L 97.5 F L Pulse Rate Respiratory 16 Rate Blood Pressure O2 Sat by Pulse 93 93 Oximetry Constitutional: alert, appears uncomfortable, other (elderly looking AAF, normocephalic and atraumatic with increased respiratory effort) Eyes: non-icteric ENT: oropharynx moist, other (Mallampatti 3) Neck: supple, no lymphadenopathy, other (No thyromegaly) Effort: mildly labored Ascultation: Bilateral: diminished breath sounds, rales (inspiratory in bases) Percussion: Bilateral: not dull Cardiovascular: irregular rhythm, other (No R/M) Gastrointestinal: normoactive bowel sounds, soft, non-tender, non-distended, other (No HSM) Integumentary: rash Extremities: no cyanosis, pulses normal, no ischemia or petechiae, edema (2++) Neurologic: normal mental status, non-focal exam, pupils equal and round, motor strength normal and Psychiatric: mood appropriate, depressed (affect) CBC and BMP: 03/09/18 07:00 03/09/18 07:00 ABG, PT/INR, D-dimer: ABG POC ABG pH 7.394 (7.35-7.45) 03/04/18 14:13 POC ABG pCO2 41.4 (35-45) 03/04/18 14:13 POC ABG pO2 62 (80-105) L 03/04/18 14:13 POC ABG HCO3 25.3 03/04/18 14:13 POC ABG Total CO2 27 03/04/18 14:13 POC ABG O2 Sat 91 03/04/18 14:13 PT/INR, D-dimer PT 16.7 Sec. (12.2-14.9) H 02/25/18 23:23 INR 1.30 (0.87-1.13) H 02/25/18 23:23 D-Dimer 1149.50 ng/mlDDU (0-234) H 02/25/18 23:23 Abnormal lab findings: Abnormal Labs 02/25/18 02/25/18 02/25/18 23:23 23:23 23:23 WBC RBC Hgb 14.9 H Hct 46.0 H RDW 18.0 H Lymph % (Auto) [place] % (Auto) Baso % (Auto) Lymph # Seg Neutrophils % Seg Neutrophils # PT 16.7 H INR 1.30 H D-Dimer 1149.50 H POC ABG pO2 Sodium 136 L Potassium Chloride 94.8 L Carbon Dioxide BUN 36 H Glucose 192 H POC Glucose Total Bilirubin Direct Bilirubin CK-MB (CK-2) CK-MB (CK-2) Rel Index NT-Pro-B Natriuret Pep 4255 H Albumin LDL Cholesterol Direct 02/25/18 02/26/18 02/27/18 23:23 02:59 08:00 WBC RBC Hgb Hct RDW Lymph % (Auto) [place] % (Auto) Baso % (Auto) Lymph # Seg Neutrophils % Seg Neutrophils # PT INR D-Dimer POC ABG pO2 Sodium 136 L Potassium Chloride Carbon Dioxide BUN 34 H Glucose 105 H POC Glucose 186 H Total Bilirubin 1.80 H Direct Bilirubin 0.6 H CK-MB (CK-2) CK-MB (CK-2) Rel Index NT-Pro-B Natriuret Pep Albumin 3.6 L LDL Cholesterol Direct 02/28/18 02/28/18 03/01/18 07:36 07:36 08:02 WBC 3.7 L 3.1 L RBC Hgb 14.6 H Hct 43.5 H RDW 17.3 H 17.7 H Lymph % (Auto) 39.9 H 42.9 H [place] % (Auto) 9.0 H 8.3 H Baso % (Auto) Lymph # Seg Neutrophils % Seg Neutrophils # 1.7 L 1.4 L PT INR D-Dimer POC ABG pO2 Sodium 135 L Potassium Chloride Carbon Dioxide 21 L BUN 33 H Glucose POC Glucose Total Bilirubin Direct Bilirubin CK-MB (CK-2) CK-MB (CK-2) Rel Index NT-Pro-B Natriuret Pep Albumin LDL Cholesterol Direct 03/01/18 03/01/18 03/02/18 08:02 08:02 05:57 WBC RBC Hgb Hct RDW Lymph % (Auto) [place] % (Auto) Baso % (Auto) Lymph # Seg Neutrophils % Seg Neutrophils # PT INR D-Dimer POC ABG pO2 Sodium 133 L Potassium Chloride 97.4 L Carbon Dioxide 21 L 17 L BUN 32 H 30 H Glucose 117 H POC Glucose Total Bilirubin 1.30 H Direct Bilirubin CK-MB (CK-2) CK-MB (CK-2) Rel Index NT-Pro-B Natriuret Pep Albumin 3.0 L LDL Cholesterol Direct 42 L 03/02/18 03/02/18 03/02/18 05:57 17:05 17:05 WBC 4.0 L RBC Hgb Hct RDW 17.8 H Lymph % (Auto) [place] % (Auto) 7.4 H Baso % (Auto) Lymph # 0.7 L Seg Neutrophils % 73.2 H Seg Neutrophils # PT INR D-Dimer POC ABG pO2 Sodium Potassium Chloride Carbon Dioxide BUN Glucose POC Glucose Total Bilirubin Direct Bilirubin CK-MB (CK-2) 4.8 H CK-MB (CK-2) Rel Index 8.1 H NT-Pro-B Natriuret Pep 3883 H Albumin LDL Cholesterol Direct 03/03/18 03/03/18 03/03/18 05:15 05:15 08:28 WBC RBC Hgb Hct RDW 16.9 H Lymph % (Auto) [place] % (Auto) Baso % (Auto) Lymph # 1.0 L Seg Neutrophils % 70.4 H Seg Neutrophils # PT INR D-Dimer POC ABG pO2 65 L Sodium Potassium 3.4 L D Chloride Carbon Dioxide BUN 25 H Glucose 122 H POC Glucose Total Bilirubin Direct Bilirubin CK-MB (CK-2) CK-MB (CK-2) Rel Index NT-Pro-B Natriuret Pep Albumin LDL Cholesterol Direct 03/04/18 03/04/1803/04/18 04:37 04:37 14:13 WBC RBC Hgb Hct RDW 17.4 H Lymph % (Auto) [place] % (Auto) Baso % (Auto) Lymph # 1.0 L Seg Neutrophils % 70.7 H Seg Neutrophils # PT INR D-Dimer POC ABG pO2 62 L Sodium Potassium Chloride Carbon Dioxide BUN 26 H Glucose 137 H POC Glucose Total Bilirubin 2.10 H Direct Bilirubin 1.0 H CK-MB (CK-2) CK-MB (CK-2) Rel Index NT-Pro-B Natriuret Pep Albumin 3.1 L LDL Cholesterol Direct 03/05/18 03/05/18 03/06/18 04:20 04:20 05:15 WBC 4.1 L RBC Hgb Hct 44.0 H RDW 18.1 H Lymph % (Auto) [place] % (Auto) Baso % (Auto) 2.7 H Lymph # Seg Neutrophils % Seg Neutrophils # PT INR D-Dimer POC ABG pO2 Sodium 136 L Potassium Chloride 97.8 L 97.8 L Carbon Dioxide BUN 29 H 31 H Glucose 113 H 116 H POC Glucose Total Bilirubin Direct Bilirubin CK-MB (CK-2) CK-MB (CK-2) Rel Index NT-Pro-B Natriuret Pep Albumin LDL Cholesterol Direct 03/07/18 03/07/18 05:00 05:00 WBC 3.8 L RBC 5.22 H Hgb 15.7 H Hct 48.0 H RDW 17.8 H Lymph % (Auto) 35.4 H [place] % (Auto) Baso % (Auto) Lymph # Seg Neutrophils % Seg Neutrophils # PT INR D-Dimer POC ABG pO2 Sodium 135 L Potassium Chloride Carbon Dioxide BUN 31 H Glucose 120 H POC Glucose Total Bilirubin Direct Bilirubin CK-MB (CK-2) CK-MB (CK-2) Rel Index NT-Pro-B Natriuret Pep Albumin LDL Cholesterol Direct Allied health notes reviewed: nursing
[2018-03-08] MEDS: PROAMATINE PO SCH ×3 (04:30→21:56)
[2018-03-08] MEDS: HALFPRIN EC PO SCH (10:02)
[2018-03-08] MEDS: LASIX PO SCH (10:02)
[2018-03-08] MEDS: LOVENOX SUB-Q SCH (10:02)
[2018-03-08] MEDS: PEPCID PO SCH ×4 (10:02→22:00)
--- NOTE | 2018-03-08 11:23 | Progress Note ---
Assessment and Plan Wean pressors as tolerated. No BB and/or ACEI/ARB at this time in setting of low BPs. Cont full dosage lovenox BID for systemic anticoagulation in setting of recently noted paroxysmal atrial fibrillation. Consider conversion to OAC prior to hospital discharge. Chest CT from 12/2017 reviewed - concerning for chronic interstitial disease. Recommend further eval/management per pulmonary. RHC recommended for further evaluation of pulmonary pressures and hemodynamic status. Indications, potential risks and benefits of RHC reviewed with pt and pt 's son at bedside and they are agreeable to proceed in AM. NPO after MN. The patient has been seen in conjunction with Dr. Batista who agrees with the assessment and plan of care. - Patient Problems (1) Biventricular congestive heart failure Current Visit: Yes Status: Acute (2) Nonischemic cardiomyopathy Current Visit: Yes Status: Chronic (3) Acute respiratory failure Current Visit: Yes Status: Acute (4) Paroxysmal atrial fibrillation with RVR Current Visit: Yes Status: Acute (5) Cor pulmonale Current Visit: Yes Status: Chronic (6) Pulmonary HTN Current Visit: Yes Status: Chronic (7) Tricuspid regurgitation Current Visit: Yes Status: Chronic (8) PFO (patent foramen ovale) Current Visit: Yes Status: Chronic (9) Hypotension Current Visit: Yes Status: Chronic (10) Hypoxia Current Visit: Yes Status: Chronic (11) Interstitial lung disease Current Visit: Yes Status: Suspected Subjective Date of service: 03/08/18 Principal diagnosis: Acute on Chronic Hypoxemic Respiratory Failure; AE-CHF; CMOP; Hypotension Interval history: pt resting in bed, appears comfortable. on HiFlo NC. BLE edema persists. Dopamine gtt infusing. Objective Last Vital Signs Temp 97.8 F 03/08/18 03:31 Pulse 98 H 03/08/18 08:30 Resp 23 03/08/18 08:30 BP 92/66 03/08/18 08:30 Pulse Ox 98 03/08/18 08:30 - Physical Examination General: No Apparent Distress HEENT: Positive: PERRL, Normocephaly, Mucus Membranes Moist Neck: Positive: neck supple, trachea midline Neuro: Positive: Grossly Intact Abdomen: Positive: Soft. Negative: Tender Skin: Negative: Wound Extremities: Present: +2 Edema (BLE) - Imaging and Cardiology EKG: report reviewed, image reviewed Echo: report reviewed (01/03/2018: ULYSSES; EF 45-50%, marked RA enlargement, mod RV enlargement, mod RV systolic dysfunction, trace MR, mod to severe TR, mild pulm HTN with RVSP 38mmHg, mod left to right shunt suggestive of ostium secundum atrial septal defect) Cardiac cath: report reviewed (01/04/2018: LHC & RHC, NO ASD, no O2 sat step-up, EF 35%, normal coronaries, mod pulmonary HTN. ) - Allied health notes Allied health notes reviewed: nursing
[2018-03-08] MEDS ORDERED: PEPCID IV PRN (12:08)
--- NOTE | 2018-03-08 12:33 | Progress Note ---
Assessment and Plan Syncope Acute on chronic respiratory failure (2nd to CHF, fluid overload) Orthopnea Chronic Biventricular CHF with acute exacerbation NICMOP Paroxysmal Atrial Fibrillation H/O Pulmonary HTN PFO Hypotension (h/o Hypertension) Hypokalemia (likely due to diuretic) Moderate protein calorie malnutrition - add stress dose steroids re: hypotension - repeat CXR to evaluate infiltrates and correlate clinically - continue GI prophylaxis - continue full anticoagulation for A-fib - continue supplemental oxygen to keep sats > 90% (HFNC) - continue BIPAP at increased settings of 14/10 (Scheduled qhs) - continue bronchodilators with pulmonary hygiene per RT - continue gentle diuresis - continue dopamine per cardiology recommendations - continue aspiration precautions - increase Pepcid to bid re: reflux symptoms - PT/OT as tolerated - mobility protocol for pressure ulcer prophylaxis - target MAP > 65mmHg - continue other care per attending / other consultants The high probability of a clinically significant, sudden or life-threatening deterioration of the [cardiac, respiratory] system(s) required my full and direct attention, intervention and personal management. The aggregate critical care time was [30] minutes without overlap. Time includes spent on; [x] Data Review and interpretation [x] Patient assessment and monitoring of vital signs [x] Documentation [x] Medication orders and management Subjective Date of service: 03/08/18 Principal diagnosis: Acute on Chronic Hypoxemic Respiratory Failure; AE-CHF; CMOP; Hypotension Interval history: Patient is seen today for: Acute on Chronic Hypoxemic Respiratory Failure; AE- CHF; CMOP; Hypotension; Symptomatic Bradycardia Seen and examined at bedside; 24hour events reviewed; nursing and respiratory care staff consulted; no adverse overnight events reported to me; remains on dopamine; remains hypoxemic; denies h/o prior lung disease; tentatively for heart cath soon Objective Vital Signs - 12hr 03/08/18 03/08/18 03/08/18 00:45 01:00 01:15 Temperature Pulse Rate 107 H 110 H 103 H Respiratory 20 27 H 20 Rate Blood Pressure 97/73 97/73 95/72 O2 Sat by Pulse 97 Oximetry 03/08/18 03/08/18 03/08/18 01:30 01:45 02:00 Temperature Pulse Rate 102 H 100 H 108 H Respiratory 20 19 22 Rate Blood Pressure 101/76 94/73 92/66 O2 Sat by Pulse 95 96 Oximetry 03/08/18 03/08/18 03/08/18 02:15 02:30 02:45 Temperature Pulse Rate 104 H 110 H 103 H Respiratory 25 H 26 H 22 Rate Blood Pressure 96/72 90/63 93/71 O2 Sat by Pulse Oximetry 03/08/18 03/08/18 03/08/18 03:00 03:15 03:30 Temperature Pulse Rate 100 H 98 H 99 H Respiratory 15 17 20 Rate Blood Pressure 92/66 94/67 97/69 O2 Sat by Pulse 97 Oximetry 03/08/18 03/08/18 03/08/18 03:31 03:45 04:00 Temperature 97.8 F Pulse Rate 101 H 101 H Respiratory 19 15 Rate Blood Pressure 97/70 97/70 O2 Sat by Pulse 96 Oximetry 03/08/18 03/08/18 03/08/18 04:15 04:30 04:45 Temperature Pulse Rate 98 H 99 H 105 H Respiratory 15 17 21 Rate Blood Pressure 93/66 92/66 95/73 O2 Sat by Pulse 97 Oximetry 03/08/18 03/08/18 03/08/18 05:00 05:15 05:30 Temperature Pulse Rate 98 H 98 H 95 H Respiratory 15 17 15 Rate Blood Pressure 91/68 92/66 92/67 O2 Sat by Pulse 97 Oximetry 03/08/18 03/08/18 03/08/18 05:45 06:00 06:15 Temperature Pulse Rate 102 H 100 H 102 H Respiratory 17 17 17 Rate Blood Pressure 95/65 92/67 98/70 O2 Sat by Pulse Oximetry 03/08/18 03/08/18 03/08/18 06:30 06:45 07:00 Temperature Pulse Rate 101 H 100 H 97 H Respiratory 18 18 19 Rate Blood Pressure 90/69 94/71 95/68 O2 Sat by Pulse Oximetry 03/08/18 03/08/18 03/08/18 07:15 07:30 07:45 Temperature Pulse Rate 101 H 102 H 103 H Respiratory 21 21 19 Rate Blood Pressure 93/67 96/66 95/61 O2 Sat by Pulse Oximetry 03/08/18 03/08/18 03/08/18 08:00 08:15 08:30 Temperature Pulse Rate 103 H 104 H 98 H Respiratory 21 25 H 23 Rate Blood Pressure 89/62 89/63 92/66 O2 Sat by Pulse 98 98 Oximetry 03/08/18 03/08/1803/08/18 08:45 09:00 09:15 Temperature Pulse Rate 100 H 107 H 107 H Respiratory 19 25 H 24 Rate Blood Pressure 90/64 92/65 89/67 O2 Sat by Pulse 99 99 Oximetry 03/08/18 03/08/18 03/08/18 09:30 09:45 10:00 Temperature Pulse Rate 104 H 120 H 103 H Respiratory 22 29 H 21 Rate Blood Pressure 86/64 93/68 86/65 O2 Sat by Pulse 77 L Oximetry 03/08/18 03/08/18 03/08/18 10:15 10:30 10:45 Temperature Pulse Rate 107 H 106 H 103 H Respiratory 22 15 19 Rate Blood Pressure 89/52 92/62 85/65 O2 Sat by Pulse 92 96 Oximetry 03/08/18 03/08/18 03/08/18 11:00 11:15 11:30 Temperature Pulse Rate 102 H 103 H 107 H Respiratory 20 21 17 Rate Blood Pressure 90/65 87/64 89/67 O2 Sat by Pulse Oximetry 03/08/18 11:45 Temperature Pulse Rate 105 H Respiratory 16 Rate Blood Pressure 95/60 O2 Sat by Pulse 95 Oximetry Constitutional: alert, appears uncomfortable, other (elderly looking AAF, normocephalic and atraumatic with increased respiratory effort) Eyes: non-icteric ENT: oropharynx moist, other (Mallampatti 3) Neck: supple, no lymphadenopathy, other (No thyromegaly) Effort: mildly labored Ascultation: Bilateral: diminished breath sounds, rales (inspiratory in bases) Percussion: Bilateral: not dull Cardiovascular: irregular rhythm, other (No R/M) Gastrointestinal: normoactive bowel sounds, soft, non-tender, non-distended, other (No HSM) Integumentary: rash Extremities: no cyanosis, pulses normal, no ischemia or petechiae, edema (2++) Neurologic: normal mental status, non-focal exam, pupils equal and round, motor strength normal and Psychiatric: mood appropriate, depressed (affect) CBC and BMP: 03/09/18 07:00 03/09/18 07:00 ABG, PT/INR, D-dimer: ABG POC ABG pH 7.399 (7.35-7.45) 03/07/18 14:16 POC ABG pCO2 38.9 (35-45) 03/07/18 14:16 POC ABG pO2 63 (80-105) L 03/07/18 14:16 POC ABG HCO3 24.1 03/07/18 14:16 POC ABG Total CO2 25 03/07/18 14:16 POC ABG O2 Sat 92 03/07/18 14:16 PT/INR, D-dimer PT 16.7 Sec. (12.2-14.9) H 02/25/18 23:23 INR 1.30 (0.87-1.13) H 02/25/18 23:23 D-Dimer 1149.50 ng/mlDDU (0-234) H 02/25/18 23:23 Abnormal lab findings: Abnormal Labs 02/25/18 02/25/18 02/25/18 23:23 23:23 23:23 WBC RBC Hgb 14.9 H Hct 46.0 H RDW 18.0 H Lymph % (Auto) [place] % (Auto) Baso % (Auto) Lymph # Seg Neutrophils % Seg Neutrophils # PT 16.7 H INR 1.30 H D-Dimer 1149.50 H POC ABG pO2 Sodium 136 L Potassium Chloride 94.8 L Carbon Dioxide BUN 36 H Glucose 192 H POC Glucose Total Bilirubin Direct Bilirubin CK-MB (CK-2) CK-MB (CK-2) Rel Index NT-Pro-B Natriuret Pep 4255 H Albumin LDL Cholesterol Direct 02/25/18 02/26/18 02/27/18 23:23 02:59 08:00 WBC RBC Hgb Hct RDW Lymph % (Auto) [place] % (Auto) Baso % (Auto) Lymph # Seg Neutrophils % Seg Neutrophils # PT INR D-Dimer POC ABG pO2 Sodium 136 L Potassium Chloride Carbon Dioxide BUN 34 H Glucose 105 H POC Glucose 186 H Total Bilirubin 1.80 H Direct Bilirubin 0.6 H CK-MB (CK-2) CK-MB (CK-2) Rel Index NT-Pro-B Natriuret Pep Albumin 3.6 L LDL Cholesterol Direct 02/28/18 02/28/18 03/01/18 07:36 07:36 08:02 WBC 3.7 L 3.1 L RBC Hgb 14.6 H Hct 43.5 H RDW 17.3 H 17.7 H Lymph % (Auto) 39.9 H 42.9 H [place] % (Auto) 9.0 H 8.3 H Baso % (Auto) Lymph # Seg Neutrophils % Seg Neutrophils # 1.7 L 1.4 L PT INR D-Dimer POC ABG pO2 Sodium 135 L Potassium Chloride Carbon Dioxide 21 L BUN 33 H Glucose POC Glucose Total Bilirubin Direct Bilirubin CK-MB (CK-2) CK-MB (CK-2) Rel Index NT-Pro-B Natriuret Pep Albumin LDL Cholesterol Direct 03/01/18 03/01/18 03/02/18 08:02 08:02 05:57 WBC RBC Hgb Hct RDW Lymph % (Auto) [place] % (Auto) Baso % (Auto) Lymph # Seg Neutrophils % Seg Neutrophils # PT INR D-Dimer POC ABG pO2 Sodium 133 L Potassium Chloride 97.4 L Carbon Dioxide 21 L 17 L BUN 32 H 30 H Glucose 117 H POC Glucose Total Bilirubin 1.30 H Direct Bilirubin CK-MB (CK-2) CK-MB (CK-2) Rel Index NT-Pro-B Natriuret Pep Albumin 3.0 L LDL Cholesterol Direct 42 L 03/02/18 03/02/18 03/02/18 05:57 17:05 17:05 WBC 4.0 L RBC Hgb Hct RDW 17.8 H Lymph % (Auto) [place] % (Auto) 7.4 H Baso % (Auto) Lymph # 0.7 L Seg Neutrophils % 73.2 H Seg Neutrophils # PT INR D-Dimer POC ABG pO2 Sodium Potassium Chloride Carbon Dioxide BUN Glucose POC Glucose Total Bilirubin Direct Bilirubin CK-MB (CK-2) 4.8 H CK-MB (CK-2) Rel Index 8.1 H NT-Pro-B Natriuret Pep 3883 H Albumin LDL Cholesterol Direct 03/03/18 03/03/18 03/03/18 05:15 05:15 08:28 WBC RBC Hgb Hct RDW 16.9 H Lymph % (Auto) [place] % (Auto) Baso % (Auto) Lymph # 1.0 L Seg Neutrophils % 70.4 H Seg Neutrophils # PT INR D-Dimer POC ABG pO2 65 L Sodium Potassium 3.4 L D Chloride Carbon Dioxide BUN 25 H Glucose 122 H POC Glucose Total Bilirubin Direct Bilirubin CK-MB (CK-2) CK-MB (CK-2) Rel Index NT-Pro-B Natriuret Pep Albumin LDL Cholesterol Direct 03/04/18 03/04/18 03/04/18 04:37 04:37 14:13 WBC RBC Hgb Hct RDW 17.4 H Lymph % (Auto) [place] % (Auto) Baso % (Auto) Lymph # 1.0 L Seg Neutrophils % 70.7 H Seg Neutrophils # PT INR D-Dimer POC ABG pO2 62 L Sodium Potassium Chloride Carbon Dioxide BUN 26 H Glucose 137 H POC Glucose Total Bilirubin 2.10 H Direct Bilirubin 1.0 H CK-MB (CK-2) CK-MB (CK-2) Rel Index NT-Pro-B Natriuret Pep Albumin 3.1 L LDL Cholesterol Direct 03/05/18 03/05/18 03/06/18 04:20 04:20 05:15 WBC 4.1 L RBC Hgb Hct 44.0 H RDW 18.1 H Lymph % (Auto) [place] % (Auto) Baso % (Auto) 2.7 H Lymph # Seg Neutrophils % Seg Neutrophils # PT INR D-Dimer POC ABG pO2 Sodium 136 L Potassium Chloride 97.8 L 97.8 L Carbon Dioxide BUN 29 H 31 H Glucose 113 H 116 H POC Glucose Total Bilirubin Direct Bilirubin CK-MB (CK-2) CK-MB (CK-2) Rel Index NT-Pro-B Natriuret Pep Albumin LDL Cholesterol Direct 03/07/18 03/07/18 03/07/18 05:00 05:00 14:16 WBC 3.8 L RBC 5.22 H Hgb 15.7 H Hct 48.0 H RDW 17.8 H Lymph % (Auto) 35.4 H [place] % (Auto) Baso % (Auto) Lymph # Seg Neutrophils % Seg Neutrophils # PT INR D-Dimer POC ABG pO2 63 L Sodium 135 L Potassium Chloride Carbon Dioxide BUN 31 H Glucose 120 H POC Glucose Total Bilirubin Direct Bilirubin CK-MB (CK-2) CK-MB (CK-2) Rel Index NT-Pro-B Natriuret Pep Albumin LDL Cholesterol Direct Allied health notes reviewed: nursing
[2018-03-08] MEDS: INTROPIN DRIP 800 MG/D5W 250 ML 800 MG/250 ML BAG IV SCH (14:06)
--- NOTE | 2018-03-08 14:56 | Progress Note ---
Assessment and Plan Assessment and plan: --Acute on chronic systolic congestive heart failure; with severe lower extremity edema Ejection fraction 45-50%, oxygen , elevated the limbs, low-sodium diet, fluid restriction beta blockers, jefe inhibitors are on hold in view of hypotension, Lasix as tolerated . Cardiology planning a right heart catheterization tomorrow for pulmonary attention and hemodynamic status --Acute on chronic respiratory failure; patient is stable on nasal cannula oxygen BiPAP as needed , evaluate for home oxygen at discharge --Hypotension; continue midodrine and dopamine ,blood pressures are still in the lower range, Beta blockers and jefe inhibitors are on hold, Lasix as needed, cardiology following --New onset paroxysmal A. fib with rapid ventricular rate; now rate controlled Continue anticoagulation with full dose Lovenox,transition to eliquis when pt is stable --Mild malnutrition; supportive care and nutrition supplements --DVT prophylaxis; Lovenox --Full CODE STATUS None of care reviewed with the patient and the family member at the bedside As well as her nurse and case management Critical care time 32 minutes History Interval history: Patient seen and evaluated medical records reviewed Patient complains of generalized tiredness, remains hypotensive on dopamine Alert awake in mild distress Cardiology planning right heart catheterization tomorrow To evaluate pulmonary pressures and hemodynamic status Vital signs reviewed Hospitalist Physical - Constitutional Vitals: Temp Pulse Resp BP Pulse Ox 97.3 F L 105 H 16 95/60 95 03/08/18 12:00 03/08/18 11:45 03/08/18 11:45 03/08/18 11:45 03/08/18 11:45 General appearance: Present: mild distress, well-nourished, other (nasal cannula oxygen) - EENT Eyes: Present: PERRL, EOM intact - Neck Neck: Present: supple, normal ROM - Respiratory Respiratory effort: normal Respiratory: bilateral: diminished, rales, negative: rhonchi, wheezing - Cardiovascular Rhythm: regular Heart Sounds: Present: S1 & S2 - Extremities Extremities: no ischemia Extremity abnormal: edema - Abdominal General gastrointestinal: soft, non-tender, non-distended, normal bowel sounds - Integumentary Integumentary: Present: clear, warm - Psychiatric Psychiatric: appropriate mood/affect, cooperative - Neurologic Neurologic: CNII-XII intact, moves all extremities Results - Labs CBC & Chem 7: 03/07/18 05:00 03/07/18 05:00 Labs: Laboratory Last Values WBC 3.8 K/mm3 (4.5-11.0) L 03/07/18 05:00 RBC 5.22 M/mm3 (3.65-5.03) H 03/07/18 05:00 Hgb 15.7 gm/dl (10.1-14.3) H 03/07/18 05:00 Hct 48.0 % (30.3-42.9) H 03/07/18 05:00 MCV 92 fl (79-97) 03/07/18 05:00 MCH 30 pg (28-32) 03/07/18 05:00 MCHC 33 % (30-34) 03/07/18 05:00 RDW 17.8 % (13.2-15.2) H 03/07/18 05:00 Plt Count 264 K/mm3 (140-440) 03/07/18 05:00 Lymph % (Auto) 35.4 % (13.4-35.0) H 03/07/18 05:00 Bulloch % (Auto) 6.0 % (0.0-7.3) 03/07/18 05:00 Eos % (Auto) 1.7 % (0.0-4.3) 03/07/18 05:00 Baso % (Auto) 1.5 % (0.0-1.8) 03/07/18 05:00 Lymph # 1.3 K/mm3 (1.2-5.4) 03/07/18 05:00 Bulloch # 0.2 K/mm3 (0.0-0.8) 03/07/18 05:00 Eos # 0.1 K/mm3 (0.0-0.4) 03/07/18 05:00 Baso # 0.1 K/mm3 (0.0-0.1) 03/07/18 05:00 Seg Neutrophils % 55.4 % (40.0-70.0) 03/07/18 05:00 Seg Neutrophils # 2.1 K/mm3 (1.8-7.7) 03/07/18 05:00 PT 16.7 Sec. (12.2-14.9) H 02/25/18 23:23 INR 1.30 (0.87-1.13) H 02/25/18 23:23 APTT 29.2 Sec. (24.2-36.6) 02/25/18 23:23 D-Dimer 1149.50 ng/mlDDU (0-234) H 02/25/18 23:23 POC ABG pH 7.399 (7.35-7.45) 03/07/18 14:16 POC ABG pCO2 38.9 (35-45) 03/07/18 14:16 POC ABG pO2 63 (80-105) L 03/07/18 14:16 POC ABG HCO3 24.1 03/07/18 14:16 POC ABG Total CO2 25 03/07/18 14:16 POC ABG O2 Sat 92 03/07/18 14:16 POC ABG Base Excess -1 03/07/18 14:16 FiO2 45 % 03/07/18 14:16 Sodium 135 mmol/L (137-145) L 03/07/18 05:00 Potassium 4.0 mmol/L (3.6-5.0) 03/07/18 05:00 Chloride 98.0 mmol/L (98-107) 03/07/18 05:00 Carbon Dioxide 24 mmol/L (22-30) 03/07/18 05:00 Anion Gap 17 mmol/L 03/07/18 05:00 BUN 31 mg/dL (7-17) H 03/07/18 05:00 Creatinine 0.9 mg/dL (0.7-1.2) 03/07/18 05:00 Estimated GFR > 60 ml/min 03/07/18 05:00 BUN/Creatinine Ratio 34 % 03/07/18 05:00 Glucose 120 mg/dL (65-100) H 03/07/18 05:00 POC Glucose 186 (70-105) H 02/26/18 02:59 Calcium 9.0 mg/dL (8.4-10.2) 03/07/18 05:00 Phosphorus 3.00 mg/dL (2.5-4.5) 03/02/18 05:57 Magnesium 1.90 mg/dL (1.7-2.3) 03/07/18 05:00 Total Bilirubin 2.10 mg/dL (0.1-1.2) H 03/04/18 04:37 Direct Bilirubin 1.0 mg/dL (0-0.2) H 03/04/18 04:37 Indirect Bilirubin 1.1 mg/dL 03/04/18 04:37 AST 18 units/L (5-40) 03/04/18 04:37 ALT 23 units/L (7-56) 03/04/18 04:37 Alkaline Phosphatase 111 units/L (35-129) 03/04/18 04:37 Total Creatine Kinase 59 units/L (30-135) 03/02/18 17:05 CK-MB (CK-2) 4.8 ng/mL (0.0-4.0) H 03/02/18 17:05 CK-MB (CK-2) Rel Index 8.1 (0-4) H 03/02/18 17:05 Troponin T < 0.010 ng/mL (0.00-0.029) 03/02/18 17:05 NT-Pro-B Natriuret Pep 3883 pg/mL (0-900) H 03/02/18 17:05 Total Protein 6.8 g/dL (6.3-8.2) 03/04/18 04:37 Albumin 3.1 g/dL (3.9-5) L 03/04/18 04:37 Albumin/Globulin Ratio 0.8 % 03/04/18 04:37 Triglycerides 54 mg/dL (2-149) 03/01/18 08:02 Cholesterol 95 mg/dL (50-199) 03/01/18 08:02 LDL Cholesterol Direct 42 mg/dL (50-130) L 03/01/18 08:02 HDL Cholesterol 49 mg/dL (40-59) 03/01/18 08:02 Cholesterol/HDL Ratio 1.93 % 03/01/18 08:02
--- NOTE | 2018-03-08 15:06 | Progress Note ---
Assessment and Plan - Patient Problems (1) Biventricular congestive heart failure Current Visit: Yes Status: Acute (2) Nonischemic cardiomyopathy Current Visit: Yes Status: Chronic (3) Acute respiratory failure Current Visit: Yes Status: Acute (4) Paroxysmal atrial fibrillation with RVR Current Visit: Yes Status: Acute (5) Cor pulmonale Current Visit: Yes Status: Chronic (6) Pulmonary HTN Current Visit: Yes Status: Chronic (7) Tricuspid regurgitation Current Visit: Yes Status: Chronic (8) PFO (patent foramen ovale) Current Visit: Yes Status: Chronic (9) Hypotension Current Visit: Yes Status: Chronic (10) Hypoxia Current Visit: Yes Status: Chronic Subjective Date of service: 03/08/18 Principal diagnosis: Acute on Chronic Hypoxemic Respiratory Failure; AE-CHF; CMOP; Hypotension Interval history: pt resting in bed, appears comfortable. on HiFlo NC. BLE edema persists. Dopamine gtt infusing. Objective Vital Signs Temp Pulse Resp Resp BP Pulse Ox 03/08/18 12:00 97.3 F L 03/08/18 11:45 105 H 16 95/60 95 03/08/18 11:30 107 H 17 89/67 03/08/18 11:15 103 H 21 87/64 03/08/18 11:00 102 H 20 90/65 03/08/18 10:45 103 H 19 85/65 96 03/08/18 10:30 106 H 15 92/62 03/08/18 10:15 107 H 22 89/52 92 03/08/18 10:00 103 H 21 86/65 03/08/18 09:45 120 H 29 H 93/68 77 L 03/08/18 09:30 104 H 22 86/64 03/08/18 09:15 107 H 24 89/67 03/08/18 09:00 107 H 25 H 92/65 99 03/08/18 08:45 100 H 19 90/64 99 03/08/18 08:30 98 H 23 92/66 98 03/08/18 08:15 104 H 25 H 89/63 03/08/18 08:00 103 H 21 89/62 98 03/08/18 07:45 103 H 19 95/61 03/08/18 07:30 102 H 21 96/66 03/08/18 07:15 101 H 21 93/67 03/08/18 07:00 97 H 19 95/68 03/08/18 06:45 100 H 18 94/71 03/08/18 06:30 101 H 18 90/69 03/08/18 06:15 102 H 17 98/70 03/08/18 06:00 100 H 17 92/67 03/08/18 05:45 102 H 17 95/65 03/08/18 05:30 95 H 15 92/67 03/08/18 05:15 98 H 17 92/66 97 03/08/18 05:00 98 H 15 91/68 03/08/18 04:45 105 H 21 95/73 03/08/18 04:30 99 H 17 92/66 03/08/18 04:15 98 H 15 93/66 97 03/08/18 04:00 101 H 15 97/70 96 03/08/18 03:45 101 H 19 97/70 03/08/18 03:31 97.8 F 03/08/18 03:30 99 H 20 97/69 03/08/18 03:15 98 H 17 94/67 97 03/08/18 03:00 100 H 15 92/66 03/08/18 02:45 103 H 22 93/71 03/08/18 02:30 110 H 26 H 90/63 03/08/18 02:15 104 H 25 H 96/72 03/08/18 02:00 108 H 22 92/66 96 03/08/18 01:45 100 H 19 94/73 03/08/18 01:30 102 H 20 101/76 95 03/08/18 01:15 103 H 20 95/72 03/08/18 01:00 110 H 27 H 97/73 97 03/08/18 00:45 107 H 20 97/73 03/08/18 00:30 110 H 24 96/73 100 03/08/18 00:15 104 H 21 93/72 03/08/18 00:00 102 H 17 94/67 96 03/07/18 23:45 101 H 20 94/67 03/07/18 23:35 107 H 22 91/69 96 03/07/18 23:30 108 H 24 91/69 03/07/18 23:26 97.2 F L 03/07/18 23:21 100 H 17 88/64 95 03/07/18 23:15 104 H 18 89/68 95 18 23:03 106 H 23 89/68 94 03/07/18 23:00 109 H 29 H 89/68 94 03/07/18 22:45 105 H 15 95/68 03/07/18 22:30 104 H 19 92/68 93 03/07/18 22:15 106 H 20 96/69 94 03/07/18 22:00 106 H 21 16 88/66 93 03/07/18 21:45 104 H 30 H 91/68 92 03/07/18 21:30 112 H 26 H 95/72 03/07/18 21:15 110 H 21 89/66 94 03/07/18 21:00 104 H 19 92/69 03/07/18 20:45 105 H 18 98/72 03/07/18 20:30 96 H 18 89/66 03/07/18 20:15 99 H 20 87/64 03/07/18 20:00 97.5 F L 102 H 20 92/70 03/07/18 19:45 106 H 22 88/64 03/07/18 19:36 94 03/07/18 19:30 135 H 34 H 102/79 03/07/18 19:15 107 H 24 92/70 96 03/07/18 19:00 104 H 20 100/69 96 03/07/18 18:45 108 H 28 H 95/70 95 18 18:30 109 H 20 93/68 95 18 18:15 105 H 19 100/68 03/07/18 18:00 107 H 23 92/68 03/07/18 17:45 101 H 18 98/71 95 18 17:30 104 H 21 94/68 03/07/18 17:15 101 H 19 104/70 03/07/18 17:00 104 H 24 97/70 95 03/07/18 16:45 102 H 18 98/65 95 03/07/18 16:30 103 H 16 91/72 95 18 16:15 101 H 16 91/67 95 03/07/18 16:00 97.2 F L 106 H 16 91/68 96 03/07/18 15:45 95 H 16 93/68 96 03/07/18 15:30 101 H 19 92/62 96 03/07/18 15:15 99 H 20 91/71 94 - Physical Examination General: No Apparent Distress HEENT: Positive: PERRL, Normocephaly, Mucus Membranes Moist Neck: Positive: neck supple, trachea midline Neuro: Positive: Grossly Intact Abdomen: Positive: Soft. Negative: Tender Skin: Negative: Wound Extremities: Present: +2 Edema (BLE) - Imaging and Cardiology EKG: report reviewed, image reviewed Echo: report reviewed (01/03/2018: ULYSSES; EF 45-50%, marked RA enlargement, mod RV enlargement, mod RV systolic dysfunction, trace MR, mod to severe TR, mild pulm HTN with RVSP 38mmHg, mod left to right shunt suggestive of ostium secundum atrial septal defect) Cardiac cath: report reviewed (01/04/2018: LHC & RHC, NO ASD, no O2 sat step-up, EF 35%, normal coronaries, mod pulmonary HTN. ) - Allied health notes Allied health notes reviewed: nursing
[2018-03-08] MEDS: ZOFRAN IV PRN (17:59)
[2018-03-09 07:10] LABS: Basophils % (Auto) 0.7 % (0.0-1.8); Hematocrit 52.4 % (30.3-42.9); Lymphocytes # (Auto) 0.8 K/mm3 (1.2-5.4); Mean Corpuscular HGB Conc 33 % (30-34); Mean Corpuscular Hemoglobin 30 pg (28-32); Mean Corpuscular Volume 91 fl (79-97); Monocytes # (Auto) 0.1 K/mm3 (0.0-0.8); Monocytes % (Auto) 4.1 % (0.0-7.3); Platelet Count 254 K/mm3 (140-440); Red Blood Count 5.77 M/mm3 (3.65-5.03); Red Cell Distribution Width 17.5 % (13.2-15.2)
[2018-03-09 07:21] LABS: INR 1.44 (0.87-1.13)
[2018-03-09 07:34] LABS: BUN/Creatinine Ratio 30; Blood Urea Nitrogen 33 mg/dL (7-17); Calcium 8.9 mg/dL (8.4-10.2); Hemolysis Index 15
[2018-03-09] MEDS ORDERED: SUBLIMAZE ONE (09:29)
[2018-03-09] MEDS ORDERED: VERSED ONE (09:29)
[2018-03-09] MEDS ORDERED: HEPARIN 10,000 UNITS/10 ML ONE (09:29)
[2018-03-09] MEDS ORDERED: HEPARIN/NS 5000 UNIT/500ML(CATH LAB) 1,000 ML IR ONE (09:29)
[2018-03-09] MEDS ORDERED: NITROGLYCERIN SYRINGE 0 ML ONE (09:29)
[2018-03-09] MEDS ORDERED: XYLOCAINE 2% INFILTRATI ONE (09:29)
[2018-03-09] MEDS ORDERED: NACL 0.9% 500 ML 500 ML ONE (09:33)
[2018-03-09] MEDS: LASIX PO SCH (10:00)
[2018-03-09] MEDS: PEPCID PO SCH (10:00)
[2018-03-09] MEDS: HALFPRIN EC PO SCH (10:00)
--- NOTE | 2018-03-09 11:30 | Cardiac Catherization Report ---
Right heart catheterization with measurements of cardiac outputs performed on 03/09/2018. A 63-year-old -[place] female with history of severe right heart failure and pulmonary hypertension. She is scheduled for evaluation of right-sided pressures and pulmonary vascular resistance for further evaluation of her symptoms. The patient apparently has moderate to severe tricuspid regurgitation. Has normal coronary anatomy in the past. Informed consent was obtained. The patient was brought to the catheterization laboratory. The patient is requiring high supplemental oxygen. Hence, she was evaluated for moderate sedation, was given careful sedation with IV Versed and fentanyl. The patient tolerated it well. The patient during the procedure was monitored with EKG hemodynamic monitoring and pulse oximetry and she remained stable with no clinical deterioration when she is off oxygen. DESCRIPTION OF PROCEDURE: The patient was brought to the catheterization laboratory and prepared with Betadine solution in the right groin. Right femoral vein puncture was made after giving local anesthesia and 8-Sammarinese sheath was introduced. A 7-Sammarinese Bancroft-Senait catheter was advanced using balloon inflation and fluoroscopy, advanced into the right atrium, right ventricle, and pulmonary artery required wide placement for getting the pulmonary capillary wedge pressure. Measurements were made and at the same time the patient was on supplemental oxygen 6 liters per minute and pulmonary artery oxygen saturations and right femoral artery oxygen saturations were obtained. It is to be noted right femoral artery puncture was made using micropuncture needle and a 4-Sammarinese sheath was introduced for obtaining the samples. Following findings were noted: Right atrial mean pressure is 18 mmHg, right ventricular pressure is 77/16, pulmonary artery pressure is 76/45 with a mean of 54 mmHg. Pulmonary artery mean wedge pressure was found to be 26 mmHg. Cardiac output by Patricia method was found to be 2.34 liters per minute with cardiac index being 1.25 liters per minute. Pulmonary vascular resistance was found to be 950 Dynes per second. It is to be noted O2 saturations were performed without any oxygen supplementation and right atrial oxygen saturation was 32%, right ventricular saturation was 32% along with pulmonary artery saturation of 32%. There is no step up noted. Femoral artery saturation was 74%. FINAL IMPRESSION: Severe pulmonary hypertension with pulmonary artery pressure of 76/45 with a mean of 54. Pulmonary capillary wedge pressure is 26 mmHg. Pulmonary vascular resistance is 950 dynes/sec. The patient tolerated the procedure well. No untoward complications were noted from moderate sedation. The patient's catheter and sheath were removed and good hemostasis was achieved with manual pressure. No hematoma noted. The patient tolerated the procedure well and the patient was transferred to the room in stable condition. JOB# [id number] MELANI/MASON TRAORE
[2018-03-09] MEDS: PROAMATINE PO SCH ×2 (12:00→20:00)
--- NOTE | 2018-03-09 13:47 | Progress Note ---
Assessment and Plan Syncope Acute on chronic respiratory failure (2nd to CHF, fluid overload) Orthopnea Chronic Biventricular CHF with acute exacerbation NICMOP Paroxysmal Atrial Fibrillation H/O Pulmonary HTN PFO Hypotension (h/o Hypertension) Hypokalemia (likely due to diuretic) Moderate protein calorie malnutrition (CXR not improved and with basilar increased interstitial markings; elevated PAP and persistent hypoxemia do make DPLD a real possibility despite the negative history taking) - get HRCT and review - get JOHNNY, EMERSON levels +/- ANCA's and re-evaluate - schedule empiric solumedrol and follow clinicaly - still need to optimize cardiac function re: high PCWP - continue GI prophylaxis - continue full anticoagulation for A-fib - continue supplemental oxygen to keep sats > 90% (HFNC) - continue BIPAP at increased settings of 14/10 (Scheduled qhs) - continue bronchodilators with pulmonary hygiene per RT - continue gentle diuresis - continue dopamine per cardiology recommendations - continue aspiration precautions - increase Pepcid to bid re: reflux symptoms - PT/OT as tolerated - mobility protocol for pressure ulcer prophylaxis - target MAP > 65mmHg - continue other care per attending / other consultants The high probability of a clinically significant, sudden or life-threatening deterioration of the [cardiac, respiratory] system(s) required my full and direct attention, intervention and personal management. The aggregate critical care time was [45] minutes without overlap. Time includes spent on; [x] Data Review and interpretation [x] Patient assessment and monitoring of vital signs [x] Documentation [x] Medication orders and management Subjective Date of service: 03/09/18 Principal diagnosis: Acute on Chronic Hypoxemic Respiratory Failure; AE-CHF; CMOP; Hypotension Interval history: Patient is seen today for: Acute on Chronic Hypoxemic Respiratory Failure; AE- CHF; CMOP; Hypotension; Symptomatic Bradycardia Seen and examined at bedside; 24hour events reviewed; nursing and respiratory care staff consulted; no adverse overnight events reported to me; remains on dopamine; remains hypoxemic; s/p RHCath; Mean PAP is 54 mmHg however wedge is 26 mmHg; she denies h/o athralgia's, nephrolithiasis, rashes, dyspagia or S&S of overt connective tissue disease Objective Vital Signs - 12hr 03/09/18 03/09/18 03/09/18 02:00 02:15 02:30 Temperature Pulse Rate 100 H 97 H 109 H Pulse Rate [ Right Posterior Tibial] Respiratory 16 16 17 Rate Blood Pressure 102/79 113/83 108/80 O2 Sat by Pulse 99 Oximetry 03/09/18 03/09/18 03/09/18 02:45 03:00 03:15 Temperature Pulse Rate 94 H 110 H 99 H Pulse Rate [ Right Posterior Tibial] Respiratory 17 19 16 Rate Blood Pressure 107/74 107/74 115/87 O2 Sat by Pulse 75 L Oximetry 03/09/18 03/09/18 03/09/18 03:30 03:45 04:00 Temperature 98.7 F Pulse Rate 94 H 96 H 91 H Pulse Rate [ 96 H Right Posterior Tibial] Respiratory 15 16 17 Rate Blood Pressure 109/83 120/84 99/75 O2 Sat by Pulse 97 Oximetry 03/09/18 03/09/18 03/09/18 04:15 04:30 04:45 Temperature Pulse Rate 97 H 91 H 97 H Pulse Rate [ Right Posterior Tibial] Respiratory 17 16 15 Rate Blood Pressure 104/71 104/71 108/77 O2 Sat by Pulse Oximetry 03/09/18 03/09/18 03/09/18 05:00 05:15 05:30 Temperature Pulse Rate 98 H 106 H 118 H Pulse Rate [ Right Posterior Tibial] Respiratory 16 17 19 Rate Blood Pressure 110/79 104/75 101/79 O2 Sat by Pulse 75 L Oximetry 03/09/18 03/09/18 03/09/18 05:45 06:00 06:15 Temperature Pulse Rate 103 H 101 H 100 H Pulse Rate [ Right Posterior Tibial] Respiratory 14 15 16 Rate Blood Pressure 100/79 102/74 110/74 O2 Sat by Pulse 100 Oximetry 03/09/18 03/09/18 03/09/18 06:30 06:45 07:00 Temperature Pulse Rate 102 H 102 H 110 H Pulse Rate [ Right Posterior Tibial] Respiratory 16 17 27 H Rate Blood Pressure 105/76 104/74 91/66 O2 Sat by Pulse 66 L Oximetry 03/09/18 03/09/18 03/09/18 07:15 07:30 07:45 Temperature Pulse Rate 106 H 102 H 99 H Pulse Rate [ Right Posterior Tibial] Respiratory 24 20 20 Rate Blood Pressure 76/55 93/69 97/76 O2 Sat by Pulse 99 Oximetry 03/09/18 03/09/18 03/09/18 08:00 08:15 08:30 Temperature Pulse Rate 106 H 100 H 107 H Pulse Rate [ 104 H Right Posterior Tibial] Respiratory 26 H 21 16 Rate Blood Pressure 97/76 101/77 109/74 O2 Sat by Pulse 100 93 Oximetry 03/09/18 03/09/18 03/09/18 11:34 11:45 11:55 Temperature 95 F L Pulse Rate 105 H 111 H Pulse Rate [ Right Posterior Tibial] Respiratory 19 20 Rate Blood Pressure 94/67 100/66 O2 Sat by Pulse Oximetry 03/09/18 03/09/18 03/09/18 12:00 12:15 12:30 Temperature 95.0 F L Pulse Rate 109 H 106 H 101 H Pulse Rate [ 111 H Right Posterior Tibial] Respiratory 14 22 15 Rate Blood Pressure 83/63 90/61 86/61 O2 Sat by Pulse 93 92 93 Oximetry 03/09/18 03/09/18 03/09/18 12:45 13:00 13:15 Temperature Pulse Rate 104 H 105 H 106 H Pulse Rate [ Right Posterior Tibial] Respiratory 19 17 18 Rate Blood Pressure 87/59 87/56 85/59 O2 Sat by Pulse 94 93 91 Oximetry 03/09/18 13:30 Temperature Pulse Rate 107 H Pulse Rate [ Right Posterior Tibial] Respiratory 20 Rate Blood Pressure 90/56 O2 Sat by Pulse 93 Oximetry Constitutional: alert, appears uncomfortable, other (elderly looking AAF, normocephalic and atraumatic with increased respiratory effort) Eyes: non-icteric ENT: oropharynx moist, other ([place] 3) Neck: supple, no lymphadenopathy, other (No thyromegaly) Effort: mildly labored Ascultation: Bilateral: diminished breath sounds, rales (inspiratory in bases) Percussion: Bilateral: not dull Cardiovascular: irregular rhythm, other (No R/M) Gastrointestinal: normoactive bowel sounds, soft, non-tender, non-distended, other (No HSM) Integumentary: rash Extremities: no cyanosis, pulses normal, no ischemia or petechiae, edema (2++) Neurologic: normal mental status, non-focal exam, pupils equal and round, motor strength normal and Psychiatric: mood appropriate, depressed (affect) CBC and BMP: 03/09/18 07:00 03/09/18 07:00 ABG, PT/INR, D-dimer: ABG POC ABG pH 7.399 (7.35-7.45) 03/07/18 14:16 POC ABG pCO2 38.9 (35-45) 03/07/18 14:16 POC ABG pO2 63 (80-105) L 03/07/18 14:16 POC ABG HCO3 24.1 03/07/18 14:16 POC ABG Total CO2 25 03/07/18 14:16 POC ABG O2 Sat 92 03/07/18 14:16 PT/INR, D-dimer PT 18.4 Sec. (12.2-14.9) H 03/09/18 07:00 INR 1.44 (0.87-1.13) H 03/09/18 07:00 D-Dimer 1149.50 ng/mlDDU (0-234) H 02/25/18 23:23 Abnormal lab findings: Abnormal Labs 02/25/18 02/25/18 02/25/18 23:23 23:23 23:23 WBC RBC Hgb 14.9 H Hct 46.0 H RDW 18.0 H Lymph % (Auto) [place] % (Auto) Baso % (Auto) Lymph # Seg Neutrophils % Seg Neutrophils # PT 16.7 H INR 1.30 H D-Dimer 1149.50 H POC ABG pO2 Sodium 136 L Potassium Chloride 94.8 L Carbon Dioxide BUN 36 H Glucose 192 H POC Glucose Total Bilirubin Direct Bilirubin CK-MB (CK-2) CK-MB (CK-2) Rel Index NT-Pro-B Natriuret Pep 4255 H Albumin LDL Cholesterol Direct 02/25/18 02/26/18 02/27/18 23:23 02:59 08:00 WBC RBC Hgb Hct RDW Lymph % (Auto) [place] % (Auto) Baso % (Auto) Lymph # Seg Neutrophils % Seg Neutrophils # PT INR D-Dimer POC ABG pO2 Sodium 136 L Potassium Chloride Carbon Dioxide BUN 34 H Glucose 105 H POC Glucose 186 H Total Bilirubin 1.80 H Direct Bilirubin 0.6 H CK-MB (CK-2) CK-MB (CK-2) Rel Index NT-Pro-B Natriuret Pep Albumin 3.6 L LDL Cholesterol Direct 02/28/18 02/28/18 03/01/18 07:36 07:36 08:02 WBC 3.7 L 3.1 L RBC Hgb 14.6 H Hct 43.5 H RDW 17.3 H 17.7 H Lymph % (Auto) 39.9 H 42.9 H [place] % (Auto) 9.0 H 8.3 H Baso % (Auto) Lymph # Seg Neutrophils % Seg Neutrophils # 1.7 L 1.4 L PT INR D-Dimer POC ABG pO2 Sodium 135 L Potassium Chloride Carbon Dioxide 21 L BUN 33 H Glucose POC Glucose Total Bilirubin Direct Bilirubin CK-MB (CK-2) CK-MB (CK-2) Rel Index NT-Pro-B Natriuret Pep Albumin LDL Cholesterol Direct 03/01/18 03/01/18 03/02/18 08:02 08:02 05:57 WBC RBC Hgb Hct RDW Lymph % (Auto) [place] % (Auto) Baso % (Auto) Lymph # Seg Neutrophils % Seg Neutrophils # PT INR D-Dimer POC ABG pO2 Sodium 133 L Potassium Chloride 97.4 L Carbon Dioxide 21 L 17 L BUN 32 H 30 H Glucose 117 H POC Glucose Total Bilirubin 1.30 H Direct Bilirubin CK-MB (CK-2) CK-MB (CK-2) Rel Index NT-Pro-B Natriuret Pep Albumin 3.0 L LDL Cholesterol Direct 42 L 03/02/18 03/02/18 03/02/18 05:57 17:05 17:05 WBC 4.0 L RBC Hgb Hct RDW 17.8 H Lymph % (Auto) [place] % (Auto) 7.4 H Baso % (Auto) Lymph # 0.7 L Seg Neutrophils % 73.2 H Seg Neutrophils # PT INR D-Dimer POC ABG pO2 Sodium Potassium Chloride Carbon Dioxide BUN Glucose POC Glucose Total Bilirubin Direct Bilirubin CK-MB (CK-2) 4.8 H CK-MB (CK-2) Rel Index 8.1 H NT-Pro-B Natriuret Pep 3883 H Albumin LDL Cholesterol Direct 03/03/18 03/03/18 03/03/18 05:15 05:15 08:28 WBC RBC Hgb Hct RDW 16.9 H Lymph % (Auto) [place] % (Auto) Baso % (Auto) Lymph # 1.0 L Seg Neutrophils % 70.4 H Seg Neutrophils # PT INR D-Dimer POC ABG pO2 65 L Sodium Potassium 3.4 L D Chloride Carbon Dioxide BUN 25 H Glucose 122 H POC Glucose Total Bilirubin Direct Bilirubin CK-MB (CK-2) CK-MB (CK-2) Rel Index NT-Pro-B Natriuret Pep Albumin LDL Cholesterol Direct 03/04/18 03/04/18 03/04/18 04:37 04:37 14:13 WBC RBC Hgb Hct RDW 17.4 H Lymph % (Auto) [place] % (Auto) Baso % (Auto) Lymph # 1.0 L Seg Neutrophils % 70.7 H Seg Neutrophils # PT INR D-Dimer POC ABG pO2 62 L Sodium Potassium Chloride Carbon Dioxide BUN 26 H Glucose 137 H POC Glucose Total Bilirubin 2.10 H Direct Bilirubin 1.0 H CK-MB (CK-2) CK-MB (CK-2) Rel Index NT-Pro-B Natriuret Pep Albumin 3.1 L LDL Cholesterol Direct 03/05/18 03/05/18 03/06/18 04:20 04:20 05:15 WBC 4.1 L RBC Hgb Hct 44.0 H RDW 18.1 H Lymph % (Auto) [place] % (Auto) Baso % (Auto) 2.7 H Lymph # Seg Neutrophils % Seg Neutrophils # PT INR D-Dimer POC ABG pO2 Sodium 136 L Potassium Chloride 97.8 L 97.8 L Carbon Dioxide BUN 29 H 31 H Glucose 113 H 116 H POC Glucose Total Bilirubin Direct Bilirubin CK-MB (CK-2) CK-MB (CK-2) Rel Index NT-Pro-B Natriuret Pep Albumin LDL Cholesterol Direct 03/07/18 03/07/18 03/07/18 05:00 05:00 14:16 WBC 3.8 L RBC 5.22 H Hgb 15.7 H Hct 48.0 H RDW 17.8 H Lymph % (Auto) 35.4 H [place] % (Auto) Baso % (Auto) Lymph # Seg Neutrophils % Seg Neutrophils # PT INR D-Dimer POC ABG pO2 63 L Sodium 135 L Potassium Chloride Carbon Dioxide BUN 31 H Glucose 120 H POC Glucose Total Bilirubin Direct Bilirubin CK-MB (CK-2) CK-MB (CK-2) Rel Index NT-Pro-B Natriuret Pep Albumin LDL Cholesterol Direct 03/08/18 03/08/18 03/09/18 17:46 21:35 01:34 WBC RBC Hgb Hct RDW Lymph % (Auto) [place] % (Auto) Baso % (Auto) Lymph # Seg Neutrophils % Seg Neutrophils # PT INR D-Dimer POC ABG pO2 Sodium Potassium Chloride Carbon Dioxide BUN Glucose POC Glucose 117 H 117 H 128 H Total Bilirubin Direct Bilirubin CK-MB (CK-2) CK-MB (CK-2) Rel Index NT-Pro-B Natriuret Pep Albumin LDL Cholesterol Direct 03/09/18 03/09/18 03/09/18 05:25 07:00 07:00 WBC 3.5 L RBC 5.77 H Hgb 17.0 H Hct 52.4 H RDW 17.5 H Lymph % (Auto) [place] % (Auto) Baso % (Auto) Lymph # 0.8 L Seg Neutrophils % 72.2 H Seg Neutrophils # PT 18.4 H INR 1.44 H D-Dimer POC ABG pO2 Sodium Potassium Chloride Carbon Dioxide BUN Glucose POC Glucose 137 H Total Bilirubin Direct Bilirubin CK-MB (CK-2) CK-MB (CK-2) Rel Index NT-Pro-B Natriuret Pep Albumin LDL Cholesterol Direct 03/09/18 03/09/18 07:00 12:18 WBC RBC Hgb Hct RDW Lymph % (Auto) [place] % (Auto) Baso % (Auto) Lymph # Seg Neutrophils % Seg Neutrophils # PT INR D-Dimer POC ABG pO2 Sodium 134 L Potassium Chloride 97.5 L Carbon Dioxide BUN 33 H Glucose 145 H POC Glucose 117 H Total Bilirubin Direct Bilirubin CK-MB (CK-2) CK-MB (CK-2) Rel Index NT-Pro-B Natriuret Pep Albumin LDL Cholesterol Direct Allied health notes reviewed: nursing
--- NOTE | 2018-03-09 14:30 | XRay Report ---
AP CHEST: HISTORY: Pulmonary edema Heart size is stable and within normal limits. Pulmonary vessels appear normal. No evidence for pulmonary edema. There are mild fibrotic changes at the lung bases. Trace right pleural effusion. No evidence for consolidation or pneumothorax. Right arm PICC remains in the same position. IMPRESSION: No change.
--- NOTE | 2018-03-09 14:42 | Progress Note ---
Assessment and Plan S/p RHC this AM - pt noted to have severe pulmonary HTN with PAP 76/45 with mean of 54, PCWP is 26mmHg, CO 2.34, elevated RA pressures c/w volume overload. Will resume IV diuresis. Wean pressors as tolerated. No BB and/or ACEI/ARB at this time in setting of low BPs. Pt has had no noted recurrence of paroxysmal atrial fibrillation since discontinuation of dobutamine gtt. Will d/c full dosage lovenox and convert to DVT prophylaxis. Follow pulmonary recs. The patient has been seen in conjunction with Dr. Batista who agrees with the assessment and plan of care. - Patient Problems (1) Biventricular congestive heart failure Current Visit: Yes Status: Acute (2) Nonischemic cardiomyopathy Current Visit: Yes Status: Chronic (3) Acute respiratory failure Current Visit: Yes Status: Acute (4) Paroxysmal atrial fibrillation with RVR Current Visit: Yes Status: Acute (5) Cor pulmonale Current Visit: Yes Status: Chronic (6) Pulmonary HTN Current Visit: Yes Status: Chronic (7) Tricuspid regurgitation Current Visit: Yes Status: Chronic (8) PFO (patent foramen ovale) Current Visit: Yes Status: Chronic (9) Hypotension Current Visit: Yes Status: Chronic (10) Hypoxia Current Visit: Yes Status: Chronic (11) Interstitial lung disease Current Visit: Yes Status: Suspected Subjective Date of service: 03/09/18 Principal diagnosis: Acute on Chronic Hypoxemic Respiratory Failure; AE-CHF; CMOP; Hypotension Interval history: seen s/p RHC, pt resting in bed, appears comfortable. on HiFlo NC. BLE edema persists. Dopamine gtt infusing. daughter at bedside. Objective Last Vital Signs Temp 95.0 F L 03/09/18 12:00 Pulse 107 H 03/09/18 13:30 Resp 20 03/09/18 13:30 BP 90/56 03/09/18 13:30 Pulse Ox 93 03/09/18 13:30 - Physical Examination General: No Apparent Distress HEENT: Positive: PERRL, Normocephaly, Mucus Membranes Moist Neck: Positive: neck supple, trachea midline Cardiac: Positive: Reg Rate and Rhythm, S1/S2 Lungs: Positive: Decreased Breath Sounds Neuro: Positive: Grossly Intact Abdomen: Positive: Soft. Negative: Tender Skin: Negative: Wound Extremities: Present: +2 Edema (BLE) - Labs and Meds Coagulation 03/09/18 Range/Units 07:00 PT 18.4 H (12.2-14.9) Sec. INR 1.44 H (0.87-1.13) CBC 03/09/18 Range/Units 07:00 WBC 3.5 L (4.5-11.0) K/mm3 RBC 5.77 H (3.65-5.03) M/mm3 Hgb 17.0 H (10.1-14.3) gm/dl Hct 52.4 H (30.3-42.9) % Plt Count 254 (140-440) K/mm3 Lymph # 0.8 L (1.2-5.4) K/mm3 [place] # 0.1 (0.0-0.8) K/mm3 Eos # 0.0 (0.0-0.4) K/mm3 Baso # 0.0 (0.0-0.1) K/mm3 Comprehensive Metabolic Panel 03/09/18 Range/Units 07:00 Sodium 134 L (137-145) mmol/L Potassium 4.3 (3.6-5.0) mmol/L Chloride 97.5 L (98-107) mmol/L Carbon Dioxide 22 (22-30) mmol/L BUN 33 H (7-17) mg/dL Creatinine 1.1 (0.7-1.2) mg/dL Glucose 145 H (65-100) mg/dL Calcium 8.9 (8.4-10.2) mg/dL - Imaging and Cardiology EKG: report reviewed, image reviewed Echo: report reviewed (01/03/2018: ULYSSES; EF 45-50%, marked RA enlargement, mod RV enlargement, mod RV systolic dysfunction, trace MR, mod to severe TR, mild pulm HTN with RVSP 38mmHg, mod left to right shunt suggestive of ostium secundum atrial septal defect) Cardiac cath: report reviewed (01/04/2018: LHC & RHC, NO ASD, no O2 sat step-up, EF 35%, normal coronaries, mod pulmonary HTN. ) - Telemetry EKG Rhythm: Sinus Rhythm - Allied health notes Allied health notes reviewed: nursing
[2018-03-09] MEDS: TYLENOL PO PRN (15:05)
[2018-03-09] MEDS: LASIX IV SCH (15:39)
--- NOTE | 2018-03-09 18:36 | Progress Note ---
Assessment and Plan Assessment and plan: --Acute on chronic systolic congestive heart failure; with severe lower extremity edema Ejection fraction 45-50%, continue current management --Acute on chronic respiratory failure; patient is stable on nasal cannula oxygen BiPAP as needed , evaluate for home oxygen at discharge --Hypotension; continue midodrine and dopamine ,blood pressures are still in the lower range, Beta blockers and jefe inhibitors are on hold, Lasix as needed, cardiology following --New onset paroxysmal A. fib with rapid ventricular rate; now rate controlled Continue anticoagulation with full dose Lovenox,transition to eliquis when pt is stable --Mild malnutrition; supportive care and nutrition supplements --DVT prophylaxis; Lovenox --Full CODE STATUS Plan of care reviewed with the patient and the family member at the bedside Critical care time 32 minutes History Interval history: Patient seen and examined medical records reviewed Underwent right heart catheterization this morning, CT pulmonary hypertension Complaints of generalized weakness Remains hypotensive on dopamine Vital signs reviewed Hospitalist Physical - Constitutional Vitals: Temp Pulse Resp BP Pulse Ox 96 F L 93 H 22 66/29 89 03/09/18 16:00 03/09/18 18:00 03/09/18 18:00 03/09/18 18:00 03/09/18 18:00 General appearance: Present: mild distress, well-nourished, other (nasal cannula oxygen) - EENT Eyes: Present: PERRL, EOM intact - Neck Neck: Present: supple, normal ROM - Respiratory Respiratory effort: normal Respiratory: bilateral: diminished, rales, negative: rhonchi, wheezing - Cardiovascular Rhythm: regular Heart Sounds: Present: S1 & S2 - Extremities Extremities: no ischemia Extremity abnormal: edema - Abdominal General gastrointestinal: soft, non-tender, non-distended, normal bowel sounds - Integumentary Integumentary: Present: clear, warm - Psychiatric Psychiatric: appropriate mood/affect, cooperative - Neurologic Neurologic: CNII-XII intact, moves all extremities Results - Labs CBC & Chem 7: 03/09/18 07:00 03/09/18 07:00 Labs: Laboratory Last Values WBC 3.5 K/mm3 (4.5-11.0) L 03/09/18 07:00 RBC 5.77 M/mm3 (3.65-5.03) H 03/09/18 07:00 Hgb 17.0 gm/dl (10.1-14.3) H 03/09/18 07:00 Hct 52.4 % (30.3-42.9) H 03/09/18 07:00 MCV 91 fl (79-97) 03/09/18 07:00 MCH 30 pg (28-32) 03/09/18 07:00 MCHC 33 % (30-34) 03/09/18 07:00 RDW 17.5 % (13.2-15.2) H 03/09/18 07:00 Plt Count 254 K/mm3 (140-440) 03/09/18 07:00 Lymph % (Auto) 23.0 % (13.4-35.0) 03/09/18 07:00 [place] % (Auto) 4.1 % (0.0-7.3) 03/09/18 07:00 Eos % (Auto) 0.0 % (0.0-4.3) 03/09/18 07:00 Baso % (Auto) 0.7 % (0.0-1.8) 03/09/18 07:00 Lymph # 0.8 K/mm3 (1.2-5.4) L 03/09/18 07:00 [place] # 0.1 K/mm3 (0.0-0.8) 03/09/18 07:00 Eos # 0.0 K/mm3 (0.0-0.4) 03/09/18 07:00 Baso # 0.0 K/mm3 (0.0-0.1) 03/09/18 07:00 Seg Neutrophils % 72.2 % (40.0-70.0) H 03/09/18 07:00 Seg Neutrophils # 2.6 K/mm3 (1.8-7.7) 03/09/18 07:00 PT 18.4 Sec. (12.2-14.9) H 03/09/18 07:00 INR 1.44 (0.87-1.13) H 03/09/18 07:00 APTT 29.2 Sec. (24.2-36.6) 02/25/18 23:23 D-Dimer 1149.50 ng/mlDDU (0-234) H 02/25/18 23:23 POC ABG pH 7.399 (7.35-7.45) 03/07/18 14:16 POC ABG pCO2 38.9 (35-45) 03/07/18 14:16 POC ABG pO2 63 (80-105) L 03/07/18 14:16 POC ABG HCO3 24.1 03/07/18 14:16 POC ABG Total CO2 25 03/07/18 14:16 POC ABG O2 Sat 92 03/07/18 14:16 POC ABG Base Excess -1 03/07/18 14:16 FiO2 45 % 03/07/18 14:16 Sodium 134 mmol/L (137-145) L 03/09/18 07:00 Potassium 4.3 mmol/L (3.6-5.0) 03/09/18 07:00 Chloride 97.5 mmol/L (98-107) L 03/09/18 07:00 Carbon Dioxide 22 mmol/L (22-30) 03/09/18 07:00 Anion Gap 19 mmol/L 03/09/18 07:00 BUN 33 mg/dL (7-17) H 03/09/18 07:00 Creatinine 1.1 mg/dL (0.7-1.2) 03/09/18 07:00 Estimated GFR > 60 ml/min 03/09/18 07:00 BUN/Creatinine Ratio 30 % 03/09/18 07:00 Glucose 145 mg/dL (65-100) H 03/09/18 07:00 POC Glucose 138 (70-105) H 03/09/18 18:18 Calcium 8.9 mg/dL (8.4-10.2) 03/09/18 07:00 Phosphorus 3.00 mg/dL (2.5-4.5) 03/02/18 05:57 Magnesium 1.90 mg/dL (1.7-2.3) 03/07/18 05:00 Total Bilirubin 2.10 mg/dL (0.1-1.2) H 03/04/18 04:37 Direct Bilirubin 1.0 mg/dL (0-0.2) H 03/04/18 04:37 Indirect Bilirubin 1.1 mg/dL 03/04/18 04:37 AST 18 units/L (5-40) 03/04/18 04:37 ALT 23 units/L (7-56) 03/04/18 04:37 Alkaline Phosphatase 111 units/L (35-129) 03/04/18 04:37 Total Creatine Kinase 59 units/L (30-135) 03/02/18 17:05 CK-MB (CK-2) 4.8 ng/mL (0.0-4.0) H 03/02/18 17:05 CK-MB (CK-2) Rel Index 8.1 (0-4) H 03/02/18 17:05 Troponin T < 0.010 ng/mL (0.00-0.029) 03/02/18 17:05 NT-Pro-B Natriuret Pep 3883 pg/mL (0-900) H 03/02/18 17:05 Total Protein 6.8 g/dL (6.3-8.2) 03/04/18 04:37 Albumin 3.1 g/dL (3.9-5) L 03/04/18 04:37 Albumin/Globulin Ratio 0.8 % 03/04/18 04:37 Triglycerides 54 mg/dL (2-149) 03/01/18 08:02 Cholesterol 95 mg/dL (50-199) 03/01/18 08:02 LDL Cholesterol Direct 42 mg/dL (50-130) L 03/01/18 08:02 HDL Cholesterol 49 mg/dL (40-59) 03/01/18 08:02 Cholesterol/HDL Ratio 1.93 % 03/01/18 08:02
[2018-03-09] MEDS: INTROPIN DRIP 800 MG/D5W 250 ML 800 MG/250 ML BAG IV SCH (19:24)
[2018-03-09] MEDS: SOLU-Medrol IV SCH (19:59)
[2018-03-09] MEDS: LOVENOX SUB-Q SCH (22:01)
[2018-03-10] MEDS: SOLU-Medrol IV SCH ×3 (02:01→18:30)
[2018-03-10] MEDS: PROAMATINE PO SCH ×4 (04:12→20:45)
[2018-03-10 05:46] LABS: Basophils % (Auto) 0.9 % (0.0-1.8); Hematocrit 46.4 % (30.3-42.9); Hemoglobin 15.3 gm/dl (10.1-14.3); Lymphocytes # (Auto) 0.5 K/mm3 (1.2-5.4); Lymphocytes % (Auto) 12.9 % (13.4-35.0); Mean Corpuscular HGB Conc 33 % (30-34); Mean Corpuscular Hemoglobin 30 pg (28-32); Mean Corpuscular Volume 91 fl (79-97); Monocytes # (Auto) 0.1 K/mm3 (0.0-0.8); Platelet Count 209 K/mm3 (140-440); Red Blood Count 5.12 M/mm3 (3.65-5.03); Red Cell Distribution Width 17.7 % (13.2-15.2)
[2018-03-10 07:47] LABS: BUN/Creatinine Ratio 30; Blood Urea Nitrogen 33 mg/dL (7-17); Calcium 8.8 mg/dL (8.4-10.2)
[2018-03-10 07:48] LABS: Hemolysis Index 11
--- NOTE | 2018-03-10 09:55 | Progress Note ---
Assessment and Plan Syncope Acute on chronic hypoxemic respiratory failure (2nd to CHF, fluid overload) Orthopnea Chronic Biventricular CHF with acute exacerbation NICMOP Paroxysmal Atrial Fibrillation H/O Pulmonary HTN PFO Hypotension (h/o Hypertension) Hypokalemia (likely due to diuretic) Moderate protein calorie malnutrition - continue full anticoagulation for A-fib - continue supplemental oxygen to keep sats > 90% - conitnue BIPAP , IPAP 14/EPAP6, qhs and prn FIO2 60%, titrate to oxygen saturations>90% - bronchodilators per protocol -ABG prn -optimize cardiac medications -CXR prn - gentle diuresis - continue dopamine per cardiology recommendations - aspiration precautions -continue Pepcid to bid - PT/OT as tolerated - mobility protocol for pressure ulcer prophylaxis - target MAP > 65mmHg - continue other care per attending / other consultants -transfer to [facility] Subjective Date of service: 03/10/18 Principal diagnosis: Acute on Chronic Hypoxemic Respiratory Failure; AE-CHF; CMOP; Hypotension Interval history: Patient seen and examined. Vitals, labs, medications, chart reviewed. States she feels better. Improving shortness of breath. No fevers or chills. daughter at the bedsdie. Per RN, about to be transferred to [facility] for ongoing care. Objective Vital Signs - 12hr 03/09/18 03/09/18 03/09/18 22:00 22:15 22:30 Temperature Pulse Rate 105 H 103 H 105 H Respiratory 16 22 17 Rate Blood Pressure 98/63 95/66 93/70 O2 Sat by Pulse 90 91 Oximetry 03/09/18 03/09/18 03/09/18 22:45 23:01 23:15 Temperature Pulse Rate 107 H 118 H 104 H Respiratory 21 27 H 25 H Rate Blood Pressure 93/70 86/65 99/73 O2 Sat by Pulse 92 Oximetry 03/09/18 03/09/18 03/09/18 23:30 23:41 23:45 Temperature Pulse Rate 104 H 106 H 117 H Respiratory 23 23 23 Rate Blood Pressure 96/72 99/73 97/70 O2 Sat by Pulse 100 Oximetry 03/10/18 03/10/18 03/10/18 00:00 00:01 00:02 Temperature 97.0 F L Pulse Rate 117 H 107 H Respiratory 25 H 18 Rate Blood Pressure 90/63 90/63 O2 Sat by Pulse 91 Oximetry 03/10/18 03/10/18 03/10/18 00:15 00:30 00:45 Temperature Pulse Rate 105 H 102 H 113 H Respiratory 21 17 22 Rate Blood Pressure 99/66 92/67 93/65 O2 Sat by Pulse Oximetry 03/10/18 03/10/18 03/10/18 01:00 01:15 01:30 Temperature Pulse Rate 102 H 97 H 102 H Respiratory 16 17 17 Rate Blood Pressure 93/65 101/76 94/68 O2 Sat by Pulse Oximetry 03/10/18 03/10/18 03/10/18 01:45 02:01 02:15 Temperature Pulse Rate 104 H 107 H 107 H Respiratory 16 25 H 35 H Rate Blood Pressure 94/71 97/65 89/66 O2 Sat by Pulse Oximetry 03/10/18 03/10/18 03/10/18 02:31 02:45 03:00 Temperature Pulse Rate 114 H 98 H 97 H Respiratory 35 H 17 16 Rate Blood Pressure 89/66 107/80 99/77 O2 Sat by Pulse 94 Oximetry 03/10/18 03/10/18 03/10/18 03:15 03:30 03:45 Temperature Pulse Rate 98 H 97 H 141 H Respiratory 16 15 19 Rate Blood Pressure 103/74 93/73 100/76 O2 Sat by Pulse 100 Oximetry 03/10/18 03/10/18 03/10/18 04:00 04:15 04:30 Temperature 96.9 F L Pulse Rate 87 115 H 101 H Respiratory 15 16 6 L Rate Blood Pressure 100/66 100/66 74/50 O2 Sat by Pulse 92 93 Oximetry 03/10/18 03/10/18 03/10/18 04:45 05:00 05:15 Temperature Pulse Rate 96 H 87 77 Respiratory 17 15 14 Rate Blood Pressure 76/50 99/75 104/80 O2 Sat by Pulse 74 L 81 L Oximetry 03/10/18 03/10/18 03/10/18 05:30 05:45 06:00 Temperature Pulse Rate 82 87 96 H Respiratory 18 16 15 Rate Blood Pressure 106/68 109/74 111/84 O2 Sat by Pulse Oximetry 03/10/18 03/10/18 03/10/18 06:15 06:30 06:45 Temperature Pulse Rate 86 93 H 91 H Respiratory 17 16 15 Rate Blood Pressure 113/80 94/74 91/59 O2 Sat by Pulse 89 Oximetry 03/10/18 03/10/18 03/10/18 07:00 07:15 07:30 Temperature Pulse Rate 88 94 H 98 H Respiratory 12 16 16 Rate Blood Pressure 84/58 86/64 94/62 O2 Sat by Pulse 88 89 90 Oximetry 03/10/18 03/10/18 03/10/18 07:45 08:00 08:15 Temperature 96.1 F L Pulse Rate 96 H 86 93 H Respiratory 15 15 16 Rate Blood Pressure 91/65 85/64 80/56 O2 Sat by Pulse Oximetry Constitutional: alert, appears uncomfortable, other (elderly looking AAF, normocephalic and atraumatic with increased respiratory effort) Eyes: non-icteric ENT: oropharynx moist, other ([place] 3) Neck: supple, no lymphadenopathy, other (No thyromegaly) Effort: mildly labored Ascultation: Bilateral: diminished breath sounds, rales (inspiratory in bases) Percussion: Bilateral: not dull Cardiovascular: irregular rhythm, other (No R/M) Gastrointestinal: normoactive bowel sounds, soft, non-tender, non-distended, other (No HSM) Integumentary: rash Extremities: no cyanosis, pulses normal, no ischemia or petechiae, edema (2++) Neurologic: normal mental status, non-focal exam, pupils equal and round, motor strength normal and Psychiatric: mood appropriate, depressed (affect) CBC and BMP: 03/10/18 05:00 03/10/18 05:00 ABG, PT/INR, D-dimer: ABG POC ABG pH 7.399 (7.35-7.45) 03/07/18 14:16 POC ABG pCO2 38.9 (35-45) 03/07/18 14:16 POC ABG pO2 63 (80-105) L 03/07/18 14:16 POC ABG HCO3 24.1 03/07/18 14:16 POC ABG Total CO2 25 03/07/18 14:16 POC ABG O2 Sat 92 03/07/18 14:16 PT/INR, D-dimer PT 18.4 Sec. (12.2-14.9) H 03/09/18 07:00 INR 1.44 (0.87-1.13) H 03/09/18 07:00 D-Dimer 1149.50 ng/mlDDU (0-234) H 02/25/18 23:23 Abnormal lab findings: Abnormal Labs 02/25/18 02/25/18 02/25/18 23:23 23:23 23:23 WBC RBC Hgb 14.9 H Hct 46.0 H RDW 18.0 H Lymph % (Auto) [place] % (Auto) Baso % (Auto) Lymph # Seg Neutrophils % Seg Neutrophils # PT 16.7 H INR 1.30 H D-Dimer 1149.50 H POC ABG pO2 Sodium 136 L Potassium Chloride 94.8 L Carbon Dioxide BUN 36 H Glucose 192 H POC Glucose Total Bilirubin Direct Bilirubin CK-MB (CK-2) CK-MB (CK-2) Rel Index NT-Pro-B Natriuret Pep 4255 H Albumin LDL Cholesterol Direct 02/25/18 02/26/18 02/27/18 23:23 02:59 08:00 WBC RBC Hgb Hct RDW Lymph % (Auto) [place] % (Auto) Baso % (Auto) Lymph # Seg Neutrophils % Seg Neutrophils # PT INR D-Dimer POC ABG pO2 Sodium 136 L Potassium Chloride Carbon Dioxide BUN 34 H Glucose 105 H POC Glucose 186 H Total Bilirubin 1.80 H Direct Bilirubin 0.6 H CK-MB (CK-2) CK-MB (CK-2) Rel Index NT-Pro-B Natriuret Pep Albumin 3.6 L LDL Cholesterol Direct 02/28/18 02/28/18 03/01/18 07:36 07:36 08:02 WBC 3.7 L 3.1 L RBC Hgb 14.6 H Hct 43.5 H RDW 17.3 H 17.7 H Lymph % (Auto) 39.9 H 42.9 H [place] % (Auto) 9.0 H 8.3 H Baso % (Auto) Lymph # Seg Neutrophils % Seg Neutrophils # 1.7 L 1.4 L PT INR D-Dimer POC ABG pO2 Sodium 135 L Potassium Chloride Carbon Dioxide 21 L BUN 33 H Glucose POC Glucose Total Bilirubin Direct Bilirubin CK-MB (CK-2) CK-MB (CK-2) Rel Index NT-Pro-B Natriuret Pep Albumin LDL Cholesterol Direct 03/01/18 03/01/18 03/02/18 08:02 08:02 05:57 WBC RBC Hgb Hct RDW Lymph % (Auto) [place] % (Auto) Baso % (Auto) Lymph # Seg Neutrophils % Seg Neutrophils # PT INR D-Dimer POC ABG pO2 Sodium 133 L Potassium Chloride 97.4 L Carbon Dioxide 21 L 17 L BUN 32 H 30 H Glucose 117 H POC Glucose Total Bilirubin 1.30 H Direct Bilirubin CK-MB (CK-2) CK-MB (CK-2) Rel Index NT-Pro-B Natriuret Pep Albumin 3.0 L LDL Cholesterol Direct 42 L 03/02/18 03/02/18 03/02/18 05:57 17:05 17:05 WBC 4.0 L RBC Hgb Hct RDW 17.8 H Lymph % (Auto) [place] % (Auto) 7.4 H Baso % (Auto) Lymph # 0.7 L Seg Neutrophils % 73.2 H Seg Neutrophils # PT INR D-Dimer POC ABG pO2 Sodium Potassium Chloride Carbon Dioxide BUN Glucose POC Glucose Total Bilirubin Direct Bilirubin CK-MB (CK-2) 4.8 H CK-MB (CK-2) Rel Index 8.1 H NT-Pro-B Natriuret Pep 3883 H Albumin LDL Cholesterol Direct 03/03/18 03/03/18 03/03/18 05:15 05:15 08:28 WBC RBC Hgb Hct RDW 16.9 H Lymph % (Auto) [place] % (Auto) Baso % (Auto) Lymph # 1.0 L Seg Neutrophils % 70.4 H Seg Neutrophils # PT INR D-Dimer POC ABG pO2 65 L Sodium Potassium 3.4 L D Chloride Carbon Dioxide BUN 25 H Glucose 122 H POC Glucose Total Bilirubin Direct Bilirubin CK-MB (CK-2) CK-MB (CK-2) Rel Index NT-Pro-B Natriuret Pep Albumin LDL Cholesterol Direct 03/04/18 03/04/18 03/04/18 04:37 04:37 14:13 WBC RBC Hgb Hct RDW 17.4 H Lymph % (Auto) [place] % (Auto) Baso % (Auto) Lymph # 1.0 L Seg Neutrophils % 70.7 H Seg Neutrophils # PT INR D-Dimer POC ABG pO2 62 L Sodium Potassium Chloride Carbon Dioxide BUN 26 H Glucose 137 H POC Glucose Total Bilirubin 2.10 H Direct Bilirubin 1.0 H CK-MB (CK-2) CK-MB (CK-2) Rel Index NT-Pro-B Natriuret Pep Albumin 3.1 L LDL Cholesterol Direct 03/05/18 03/05/18 03/06/18 04:20 04:20 05:15 WBC 4.1 L RBC Hgb Hct 44.0 H RDW 18.1 H Lymph % (Auto) [place] % (Auto) Baso % (Auto) 2.7 H Lymph # Seg Neutrophils % Seg Neutrophils # PT INR D-Dimer POC ABG pO2 Sodium 136 L Potassium Chloride 97.8 L 97.8 L Carbon Dioxide BUN 29 H 31 H Glucose 113 H 116 H POC Glucose Total Bilirubin Direct Bilirubin CK-MB (CK-2) CK-MB (CK-2) Rel Index NT-Pro-B Natriuret Pep Albumin LDL Cholesterol Direct 03/07/18 03/07/18 03/07/18 05:00 05:00 14:16 WBC 3.8 L RBC 5.22 H Hgb 15.7 H Hct 48.0 H RDW 17.8 H Lymph % (Auto) 35.4 H [place] % (Auto) Baso % (Auto) Lymph # Seg Neutrophils % Seg Neutrophils # PT INR D-Dimer POC ABG pO2 63 L Sodium 135 L Potassium Chloride Carbon Dioxide BUN 31 H Glucose 120 H POC Glucose Total Bilirubin Direct Bilirubin CK-MB (CK-2) CK-MB (CK-2) Rel Index NT-Pro-B Natriuret Pep Albumin LDL Cholesterol Direct 03/08/18 03/08/18 03/09/18 17:46 21:35 01:34 WBC RBC Hgb Hct RDW Lymph % (Auto) [place] % (Auto) Baso % (Auto) Lymph # Seg Neutrophils % Seg Neutrophils # PT INR D-Dimer POC ABG pO2 Sodium Potassium Chloride Carbon Dioxide BUN Glucose POC Glucose 117 H 117 H 128 H Total Bilirubin Direct Bilirubin CK-MB (CK-2) CK-MB (CK-2) Rel Index NT-Pro-B Natriuret Pep Albumin LDL Cholesterol Direct 03/09/18 03/09/18 03/09/18 05:25 07:00 07:00 WBC 3.5 L RBC 5.77 H Hgb 17.0 H Hct 52.4 H RDW 17.5 H Lymph % (Auto) [place] % (Auto) Baso % (Auto) Lymph # 0.8 L Seg Neutrophils % 72.2 H Seg Neutrophils # PT 18.4 H INR 1.44 H D-Dimer POC ABG pO2 Sodium Potassium Chloride Carbon Dioxide BUN Glucose POC Glucose 137 H Total Bilirubin Direct Bilirubin CK-MB (CK-2) CK-MB (CK-2) Rel Index NT-Pro-B Natriuret Pep Albumin LDL Cholesterol Direct 03/09/18 03/09/18 03/09/18 07:00 12:18 18:18 WBC RBC Hgb Hct RDW Lymph % (Auto) [place] % (Auto) Baso % (Auto) Lymph # Seg Neutrophils % Seg Neutrophils # PT INR D-Dimer POC ABG pO2 Sodium 134 L Potassium Chloride 97.5 L Carbon Dioxide BUN 33 H Glucose 145 H POC Glucose 117 H 138 H Total Bilirubin Direct Bilirubin CK-MB (CK-2) CK-MB (CK-2) Rel Index NT-Pro-B Natriuret Pep Albumin LDL Cholesterol Direct 03/09/18 03/10/18 03/10/18 21:21 02:02 05:00 WBC RBC Hgb Hct RDW Lymph % (Auto) [place] % (Auto) Baso % (Auto) Lymph # Seg Neutrophils % Seg Neutrophils # PT INR D-Dimer POC ABG pO2 Sodium 132 L Potassium Chloride 94.3 L Carbon Dioxide BUN 33 H Glucose 228 H POC Glucose 146 H 167 H Total Bilirubin Direct Bilirubin CK-MB (CK-2) CK-MB (CK-2) Rel Index NT-Pro-B Natriuret Pep Albumin LDL Cholesterol Direct 03/10/18 05:00 WBC 3.8 L RBC 5.12 H Hgb 15.3 H Hct 46.4 H D RDW 17.7 H Lymph % (Auto) 12.9 L [place] % (Auto) Baso % (Auto) Lymph # 0.5 L Seg Neutrophils % 83.2 H Seg Neutrophils # PT INR D-Dimer POC ABG pO2 Sodium Potassium Chloride Carbon Dioxide BUN Glucose POC Glucose Total Bilirubin Direct Bilirubin CK-MB (CK-2) CK-MB (CK-2) Rel Index NT-Pro-B Natriuret Pep Albumin LDL Cholesterol Direct Allied health notes reviewed: nursing
--- NOTE | 2018-03-10 11:22 | Progress Note ---
Assessment and Plan Assessment and plan: --Hypotension; continue midodrine and dopamine ,blood pressures are still in the lower range, Beta blockers and jefe inhibitors are on hold, Lasix as needed, cardiology following Cardiology was planning to transfer the patient to [facility] Dr. Tanmay Ruiz has agreed to accept the patient, Transverse processes initiated , awaiting response from [place] --Acute on chronic systolic congestive heart failure; with severe lower extremity edema Ejection fraction 45-50%, continue current management --Acute on chronic respiratory failure; patient is stable on nasal cannula oxygen BiPAP as needed , evaluate for home oxygen at discharge --New onset paroxysmal A. fib with rapid ventricular rate; now rate controlled on full dose Lovenox , cardiology changed Lovenox to DVT prophylaxis dose. --Mild malnutrition; supportive care and nutrition supplements --DVT prophylaxis; Lovenox --Full CODE STATUS Plan of care reviewed with the patient and the family member at the bedside Follow transfer arrangements to [facility] Critical care time 32 minutes History Interval history: Patient is seen and examination this morning, medical records reviewed Patient feels slightly better, on dopamine, remains hypotensive No new complaints Vital signs reviewed Hospitalist Physical - Constitutional Vitals: Temp Pulse Resp BP Pulse Ox 96.1 F L 93 H 16 80/56 90 03/10/18 08:00 03/10/18 08:15 03/10/18 08:15 03/10/18 08:15 03/10/18 07:30 General appearance: Present: no acute distress, well-nourished, other (nasal cannula oxygen) - EENT Eyes: Present: PERRL, EOM intact - Neck Neck: Present: supple, normal ROM - Respiratory Respiratory effort: normal Respiratory: bilateral: diminished, rales, negative: rhonchi, wheezing - Cardiovascular Rhythm: regular Heart Sounds: Present: S1 & S2 - Extremities Extremities: no ischemia Extremity abnormal: edema - Abdominal General gastrointestinal: soft, non-tender, non-distended, normal bowel sounds - Integumentary Integumentary: Present: clear, warm - Psychiatric Psychiatric: appropriate mood/affect, cooperative - Neurologic Neurologic: CNII-XII intact, moves all extremities Results - Labs CBC & Chem 7: 03/10/18 05:00 03/10/18 05:00 Labs: Laboratory Last Values WBC 3.8 K/mm3 (4.5-11.0) L 03/10/18 05:00 RBC 5.12 M/mm3 (3.65-5.03) H 03/10/18 05:00 Hgb 15.3 gm/dl (10.1-14.3) H 03/10/18 05:00 Hct 46.4 % (30.3-42.9) H D 03/10/18 05:00 MCV 91 fl (79-97) 03/10/18 05:00 MCH 30 pg (28-32) 03/10/18 05:00 MCHC 33 % (30-34) 03/10/18 05:00 RDW 17.7 % (13.2-15.2) H 03/10/18 05:00 Plt Count 209 K/mm3 (140-440) 03/10/18 05:00 Lymph % (Auto) 12.9 % (13.4-35.0) L 03/10/18 05:00 [place] % (Auto) 3.0 % (0.0-7.3) 03/10/18 05:00 Eos % (Auto) 0.0 % (0.0-4.3) 03/10/18 05:00 Baso % (Auto) 0.9 % (0.0-1.8) 03/10/18 05:00 Lymph # 0.5 K/mm3 (1.2-5.4) L 03/10/18 05:00 [place] # 0.1 K/mm3 (0.0-0.8) 03/10/18 05:00 Eos # 0.0 K/mm3 (0.0-0.4) 03/10/18 05:00 Baso # 0.0 K/mm3 (0.0-0.1) 03/10/18 05:00 Seg Neutrophils % 83.2 % (40.0-70.0) H 03/10/18 05:00 Seg Neutrophils # 3.2 K/mm3 (1.8-7.7) 03/10/18 05:00 PT 18.4 Sec. (12.2-14.9) H 03/09/18 07:00 INR 1.44 (0.87-1.13) H 03/09/18 07:00 APTT 29.2 Sec. (24.2-36.6) 08/31/18 23:23 D-Dimer 1149.50 ng/mlDDU (0-234) H 02/25/18 23:23 POC ABG pH 7.399 (7.35-7.45) 03/07/18 14:16 POC ABG pCO2 38.9 (35-45) 03/07/18 14:16 POC ABG pO2 63 (80-105) L 03/07/18 14:16 POC ABG HCO3 24.1 03/07/18 14:16 POC ABG Total CO2 25 03/07/18 14:16 POC ABG O2 Sat 92 03/07/18 14:16 POC ABG Base Excess -1 03/07/18 14:16 FiO2 45 % 03/07/18 14:16 Sodium 132 mmol/L (137-145) L 03/10/18 05:00 Potassium 4.2 mmol/L (3.6-5.0) 03/10/18 05:00 Chloride 94.3 mmol/L (98-107) L 03/10/18 05:00 Carbon Dioxide 22 mmol/L (22-30) 03/10/18 05:00 Anion Gap 20 mmol/L 03/10/18 05:00 BUN 33 mg/dL (7-17) H 03/10/18 05:00 Creatinine 1.1 mg/dL (0.7-1.2) 03/10/18 05:00 Estimated GFR > 60 ml/min 03/10/18 05:00 BUN/Creatinine Ratio 30 % 03/10/18 05:00 Glucose 228 mg/dL (65-100) H 03/10/18 05:00 POC Glucose 181 (70-105) H 03/10/18 10:33 Calcium 8.8 mg/dL (8.4-10.2) 03/10/18 05:00 Phosphorus 3.00 mg/dL (2.5-4.5) 03/02/18 05:57 Magnesium 2.10 mg/dL (1.7-2.3) 03/10/18 05:00 Total Bilirubin 2.10 mg/dL (0.1-1.2) H 03/04/18 04:37 Direct Bilirubin 1.0 mg/dL (0-0.2) H 03/04/18 04:37 Indirect Bilirubin 1.1 mg/dL 03/04/18 04:37 AST 18 units/L (5-40) 03/04/18 04:37 ALT 23 units/L (7-56) 03/04/18 04:37 Alkaline Phosphatase 111 units/L (35-129) 03/04/18 04:37 Total Creatine Kinase 59 units/L (30-135) 03/02/18 17:05 CK-MB (CK-2) 4.8 ng/mL (0.0-4.0) H 03/02/18 17:05 CK-MB (CK-2) Rel Index 8.1 (0-4) H 03/02/18 17:05 Troponin T < 0.010 ng/mL (0.00-0.029) 03/02/18 17:05 NT-Pro-B Natriuret Pep 3883 pg/mL (0-900) H 03/02/18 17:05 Total Protein 6.8 g/dL (6.3-8.2) 03/04/18 04:37 Albumin 3.1 g/dL (3.9-5) L 03/04/18 04:37 Albumin/Globulin Ratio 0.8 % 03/04/18 04:37 Triglycerides 54 mg/dL (2-149) 03/01/18 08:02 Cholesterol 95 mg/dL (50-199) 03/01/18 08:02 LDL Cholesterol Direct 42 mg/dL (50-130) L 03/01/18 08:02 HDL Cholesterol 49 mg/dL (40-59) 03/01/18 08:02 Cholesterol/HDL Ratio 1.93 % 03/01/18 08:02
--- NOTE | 2018-03-10 11:29 | Cat Scan Report ---
CT CHEST WITHOUT CONTRAST: HISTORY: Interstitial lung disease evaluation, pulmonary edema. COMPARISON: Multiple recent chest x-rays. TECHNIQUE: Helical CT in 1.25mm intervals without IV contrast. Sagittal and coronal reformatted images. FINDINGS: Thyroid gland: Normal. Tracheobronchial tree: Normal. Esophagus: Normal. Heart: Borderline to mild cardiomegaly is evident. Pericardium: A small pericardial effusion is identified. Mediastinum: There are scattered borderline to mildly enlarged lymph nodes in the mediastinum. The largest lymph node measures 2.2 x 1.3 cm in the precarinal region. No hilar or axillary adenopathy. Lung Sharma: Interstitial markings are prominent in the lower lung zones. This appears to be secondary to interstitial edema. No fibrotic changes are identified. No evidence for consolidation, suspicious mass or advanced interstitial lung disease. Pleural Spaces: Small right pleural effusion and trace left pleural effusion layered posteriorly. Musculoskeletal: Mild thoracic spondylosis. IMPRESSION: Findings most compatible with mild CHF including mild cardiomegaly, mild interstitial edema and small pleural effusions. No significant interstitial lung disease is detected.
[2018-03-10] MEDS: HALFPRIN EC PO SCH (12:13)
[2018-03-10] MEDS: LASIX IV SCH (12:14)
[2018-03-10] MEDS: PEPCID PO SCH (12:17)
--- NOTE | 2018-03-10 12:25 | Progress Note ---
Assessment and Plan Pt to tx to [facility]. Dr. Tanmay Ruiz has agreed to accept the patient. D/w Dr. Anton. Cont IV diuresis. Wean pressors as tolerated. No BB and/or ACEI/ARB at this time in setting of low BPs. Follow pulmonary recs. The patient has been seen in conjunction with Dr. Batista who agrees with the assessment and plan of care. - Patient Problems (1) Biventricular congestive heart failure Current Visit: Yes Status: Acute (2) Nonischemic cardiomyopathy Current Visit: Yes Status: Chronic (3) Acute respiratory failure Current Visit: Yes Status: Acute (4) Paroxysmal atrial fibrillation with RVR Current Visit: Yes Status: Acute (5) Cor pulmonale Current Visit: Yes Status: Chronic (6) Pulmonary HTN Current Visit: Yes Status: Chronic (7) Tricuspid regurgitation Current Visit: Yes Status: Chronic (8) PFO (patent foramen ovale) Current Visit: Yes Status: Chronic (9) Hypotension Current Visit: Yes Status: Chronic (10) Hypoxia Current Visit: Yes Status: Chronic (11) Interstitial lung disease Current Visit: Yes Status: Suspected Subjective Date of service: 03/10/18 Principal diagnosis: Acute on Chronic Hypoxemic Respiratory Failure; AE-CHF; CMOP; Hypotension Interval history: Pt resting in bed, appears comfortable. on O2 via NC. BLE edema improving. Dopamine gtt infusing. daughter at bedside - she is requesting transfer to [place]. Objective Last Vital Signs Temp 96.1 F L 03/10/18 08:00 Pulse 94 H 03/10/18 12:00 Resp 16 03/10/18 12:00 BP 105/79 03/10/18 12:00 Pulse Ox 70 L 03/10/18 12:00 - Physical Examination General: No Apparent Distress HEENT: Positive: PERRL, Normocephaly, Mucus Membranes Moist Neck: Positive: neck supple, trachea midline Cardiac: Positive: Reg Rate and Rhythm, S1/S2 Lungs: Positive: Decreased Breath Sounds Neuro: Positive: Grossly Intact Abdomen: Positive: Soft. Negative: Tender Skin: Negative: Wound Extremities: Present: +2 Edema (BLE) - Labs and Meds CBC 03/10/18 Range/Units 05:00 WBC 3.8 L (4.5-11.0) K/mm3 RBC 5.12 H (3.65-5.03) M/mm3 Hgb 15.3 H (10.1-14.3) gm/dl Hct 46.4 H D (30.3-42.9) % Plt Count 209 (140-440) K/mm3 Lymph # 0.5 L (1.2-5.4) K/mm3 [place] # 0.1 (0.0-0.8) K/mm3 Eos # 0.0 (0.0-0.4) K/mm3 Baso # 0.0 (0.0-0.1) K/mm3 Comprehensive Metabolic Panel 03/10/18 Range/Units 05:00 Sodium 132 L (137-145) mmol/L Potassium 4.2 (3.6-5.0) mmol/L Chloride 94.3 L (98-107) mmol/L Carbon Dioxide 22 (22-30) mmol/L BUN 33 H (7-17) mg/dL Creatinine 1.1 (0.7-1.2) mg/dL Glucose 228 H (65-100) mg/dL Calcium 8.8 (8.4-10.2) mg/dL - Imaging and Cardiology EKG: report reviewed, image reviewed Echo: report reviewed (01/03/2018: ULYSSES; EF 45-50%, marked RA enlargement, mod RV enlargement, mod RV systolic dysfunction, trace MR, mod to severe TR, mild pulm HTN with RVSP 38mmHg, mod left to right shunt suggestive of ostium secundum atrial septal defect) Cardiac cath: report reviewed (01/04/2018: LHC & RHC, NO ASD, no O2 sat step-up, EF 35%, normal coronaries, mod pulmonary HTN. ) - Allied health notes Allied health notes reviewed: nursing
--- NOTE | 2018-03-10 18:29 | Event Note ---
Date: 03/10/18 As per rn field case manager Ms Barrow's note, [facility] has refused transfer Received a return call from Kirsten Grigsby from the [facility] transfer team who informed that patient had been denied a transfer.
[2018-03-10] MEDS: LOVENOX SUB-Q SCH (21:29)
[2018-03-11] MEDS: PEPCID PO SCH ×2 (00:39→21:41)
[2018-03-11] MEDS: SOLU-Medrol IV SCH ×3 (04:58→18:38)
[2018-03-11] MEDS: PROAMATINE PO SCH ×3 (04:58→20:33)
--- NOTE | 2018-03-11 10:56 | Progress Note ---
Assessment and Plan Syncope Acute on chronic hypoxemic respiratory failure (2nd to CHF, fluid overload) Orthopnea Chronic Biventricular CHF with acute exacerbation NICMOP Paroxysmal Atrial Fibrillation Pulmonary HTN (moderate) PFO Moderate protein calorie malnutrition Echo: report reviewed (01/03/2018: ULYSSES; EF 45-50%, marked RA enlargement, mod RV enlargement, mod RV systolic dysfunction, trace MR, mod to severe TR, mild pulm HTN with RVSP 38mmHg, mod left to right shunt suggestive of ostium secundum atrial septal defect) Cardiac cath: report reviewed (01/04/2018: LHC & RHC, NO ASD, no O2 sat step-up, EF 35%, normal coronaries, mod pulmonary HTN. ) With her pulmonary pressures 76/45, mean 54 and wedge pressure of 26 and a HRCT that does not show any evidence of significant pulmonary disease, this appears to be pulmonary venous hypertension. Optimize heart failure measures--pulmonary vasodilators are contraindicated in pulmonary venous hypertension - continue full anticoagulation for A-fib - continue supplemental oxygen to keep sats > 90% - conitnue BIPAP , IPAP 14/EPAP6, qhs and prn FIO2 60%, titrate to oxygen saturations>90% - bronchodilators per protocol -ABG prn -optimize cardiac medications -CXR prn - gentle diuresis - continue dopamine per cardiology recommendations - aspiration precautions -continue Pepcid to bid - PT/OT as tolerated, increase activity - continue other care per attending / other consultants Subjective Date of service: 03/11/18 Principal diagnosis: Acute on Chronic Hypoxemic Respiratory Failure; AE-CHF; CMOP; Hypotension Interval history: Patient seen and examined. Vitals, labs, medications, chart reviewed. States she feels better. Improving shortness of breath, improving leg edema. Apparently transfer to [place] was rejected. Has not needed the NIPPV at night, continues to need supplemental oxygen during the day at 3l/min Objective Vital Signs - 12hr 03/10/18 03/10/18 03/10/18 23:00 23:07 23:15 Temperature Pulse Rate 72 95 H 86 Respiratory 23 29 H 26 H Rate Blood Pressure 128/96 128/96 128/96 O2 Sat by Pulse 91 90 89 Oximetry 03/10/18 03/10/18 03/11/18 23:30 23:45 00:00 Temperature 97.9 F Pulse Rate 94 H 109 H Respiratory 36 H 25 H Rate Blood Pressure 113/85 113/85 O2 Sat by Pulse 93 Oximetry 03/11/18 03/11/18 03/11/18 00:01 00:15 00:30 Temperature Pulse Rate 113 H 75 80 Respiratory 27 H 30 H 21 Rate Blood Pressure 113/85 85/66 115/89 O2 Sat by Pulse 90 95 Oximetry 03/11/18 03/11/18 03/11/18 00:45 01:00 01:15 Temperature Pulse Rate 87 86 98 H Respiratory 18 16 18 Rate Blood Pressure 115/89 115/89 109/83 O2 Sat by Pulse 93 92 92 Oximetry 03/11/18 03/11/18 03/11/18 01:30 01:45 02:00 Temperature Pulse Rate 88 71 90 Respiratory 17 14 17 Rate Blood Pressure 98/76 98/76 102/77 O2 Sat by Pulse 94 92 90 Oximetry 03/11/18 03/11/18 03/11/18 02:15 02:30 02:45 Temperature Pulse Rate 97 H 88 89 Respiratory 16 16 16 Rate Blood Pressure 102/77 101/76 101/76 O2 Sat by Pulse 92 92 91 Oximetry 03/11/18 03/11/18 03/11/18 03:00 03:15 03:30 Temperature Pulse Rate 82 86 86 Respiratory 16 17 19 Rate Blood Pressure 103/75 103/75 111/85 O2 Sat by Pulse 93 92 89 Oximetry 03/11/18 03/11/18 03/11/18 03:45 04:00 04:15 Temperature 97.3 F L Pulse Rate 102 H 84 87 Respiratory 21 16 16 Rate Blood Pressure 111/85 111/85 111/85 O2 Sat by Pulse 92 93 93 Oximetry 03/11/18 03/11/18 03/11/18 04:28 04:30 04:45 Temperature Pulse Rate 87 89 Respiratory 16 17 Rate Blood Pressure 102/73 102/73 O2 Sat by Pulse 92 93 92 Oximetry 03/11/18 03/11/18 03/11/18 05:00 05:15 05:30 Temperature Pulse Rate 89 86 92 H Respiratory 18 16 16 Rate Blood Pressure 115/70 115/70 110/83 O2 Sat by Pulse 94 94 93 Oximetry 03/11/18 03/11/18 03/11/18 05:45 06:00 06:15 Temperature Pulse Rate 89 90 94 H Respiratory 17 17 19 Rate Blood Pressure 110/83 120/88 120/88 O2 Sat by Pulse 93 90 89 Oximetry 03/11/18 03/11/18 06:30 09:22 Temperature Pulse Rate 87 Respiratory 17 Rate Blood Pressure 112/83 O2 Sat by Pulse 90 92 Oximetry Constitutional: alert, appears uncomfortable, other (elderly looking AAF, normocephalic and atraumatic with increased respiratory effort) Eyes: non-icteric ENT: oropharynx moist, other ([place] 3) Neck: supple, no lymphadenopathy, other (No thyromegaly) Effort: mildly labored Ascultation: Bilateral: diminished breath sounds, rales (inspiratory in bases) Percussion: Bilateral: not dull Cardiovascular: irregular rhythm, other (, loud P2) Gastrointestinal: normoactive bowel sounds, soft, non-tender, non-distended, other (No HSM) Integumentary: rash Extremities: no cyanosis, pulses normal, no ischemia or petechiae, edema (2++) Neurologic: normal mental status, non-focal exam, pupils equal and round, motor strength normal and Psychiatric: mood appropriate, depressed (affect) CBC and BMP: 03/10/18 05:00 03/10/18 05:00 ABG, PT/INR, D-dimer: ABG POC ABG pH 7.399 (7.35-7.45) 03/07/18 14:16 POC ABG pCO2 38.9 (35-45) 03/07/18 14:16 POC ABG pO2 63 (80-105) L 03/07/18 14:16 POC ABG HCO3 24.1 03/07/18 14:16 POC ABG Total CO2 25 03/07/18 14:16 POC ABG O2 Sat 92 03/07/18 14:16 PT/INR, D-dimer PT 18.4 Sec. (12.2-14.9) H 03/09/18 07:00 INR 1.44 (0.87-1.13) H 03/09/18 07:00 D-Dimer 1149.50 ng/mlDDU (0-234) H 02/25/18 23:23 Abnormal lab findings: Abnormal Labs 02/25/18 02/25/18 02/25/18 23:23 23:23 23:23 WBC RBC Hgb 14.9 H Hct 46.0 H RDW 18.0 H Lymph % (Auto) [place] % (Auto) Baso % (Auto) Lymph # Seg Neutrophils % Seg Neutrophils # PT 16.7 H INR 1.30 H D-Dimer 1149.50 H POC ABG pO2 Sodium 136 L Potassium Chloride 94.8 L Carbon Dioxide BUN 36 H Glucose 192 H POC Glucose Total Bilirubin Direct Bilirubin CK-MB (CK-2) CK-MB (CK-2) Rel Index NT-Pro-B Natriuret Pep 4255 H Albumin LDL Cholesterol Direct 02/25/18 02/26/18 02/27/18 23:23 02:59 08:00 WBC RBC Hgb Hct RDW Lymph % (Auto) [place] % (Auto) Baso % (Auto) Lymph # Seg Neutrophils % Seg Neutrophils # PT INR D-Dimer POC ABG pO2 Sodium 136 L Potassium Chloride Carbon Dioxide BUN 34 H Glucose 105 H POC Glucose 186 H Total Bilirubin 1.80 H Direct Bilirubin 0.6 H CK-MB (CK-2) CK-MB (CK-2) Rel Index NT-Pro-B Natriuret Pep Albumin 3.6 L LDL Cholesterol Direct 02/28/18 02/28/18 03/01/18 07:36 07:36 08:02 WBC 3.7 L 3.1 L RBC Hgb 14.6 H Hct 43.5 H RDW 17.3 H 17.7 H Lymph % (Auto) 39.9 H 42.9 H [place] % (Auto) 9.0 H 8.3 H Baso % (Auto) Lymph # Seg Neutrophils % Seg Neutrophils # 1.7 L 1.4 L PT INR D-Dimer POC ABG pO2 Sodium 135 L Potassium Chloride Carbon Dioxide 21 L BUN 33 H Glucose POC Glucose Total Bilirubin Direct Bilirubin CK-MB (CK-2) CK-MB (CK-2) Rel Index NT-Pro-B Natriuret Pep Albumin LDL Cholesterol Direct 03/01/18 03/01/18 03/02/18 08:02 08:02 05:57 WBC RBC Hgb Hct RDW Lymph % (Auto) [place] % (Auto) Baso % (Auto) Lymph # Seg Neutrophils % Seg Neutrophils # PT INR D-Dimer POC ABG pO2 Sodium 133 L Potassium Chloride 97.4 L Carbon Dioxide 21 L 17 L BUN 32 H 30 H Glucose 117 H POC Glucose Total Bilirubin 1.30 H Direct Bilirubin CK-MB (CK-2) CK-MB (CK-2) Rel Index NT-Pro-B Natriuret Pep Albumin 3.0 L LDL Cholesterol Direct 42 L 03/02/18 03/02/18 03/02/18 05:57 17:05 17:05 WBC 4.0 L RBC Hgb Hct RDW 17.8 H Lymph % (Auto) [place] % (Auto) 7.4 H Baso % (Auto) Lymph # 0.7 L Seg Neutrophils % 73.2 H Seg Neutrophils # PT INR D-Dimer POC ABG pO2 Sodium Potassium Chloride Carbon Dioxide BUN Glucose POC Glucose Total Bilirubin Direct Bilirubin CK-MB (CK-2) 4.8 H CK-MB (CK-2) Rel Index 8.1 H NT-Pro-B Natriuret Pep 3883 H Albumin LDL Cholesterol Direct 03/03/18 03/03/18 03/03/18 05:15 05:15 08:28 WBC RBC Hgb Hct RDW 16.9 H Lymph % (Auto) [place] % (Auto) Baso % (Auto) Lymph # 1.0 L Seg Neutrophils % 70.4 H Seg Neutrophils # PT INR D-Dimer POC ABG pO2 65 L Sodium Potassium 3.4 L D Chloride Carbon Dioxide BUN 25 H Glucose 122 H POC Glucose Total Bilirubin Direct Bilirubin CK-MB (CK-2) CK-MB (CK-2) Rel Index NT-Pro-B Natriuret Pep Albumin LDL Cholesterol Direct 03/04/18 03/04/18 03/04/18 04:37 04:37 14:13 WBC RBC Hgb Hct RDW 17.4 H Lymph % (Auto) [place] % (Auto) Baso % (Auto) Lymph # 1.0 L Seg Neutrophils % 70.7 H Seg Neutrophils # PT INR D-Dimer POC ABG pO2 62 L Sodium Potassium Chloride Carbon Dioxide BUN 26 H Glucose 137 H POC Glucose Total Bilirubin 2.10 H Direct Bilirubin 1.0 H CK-MB (CK-2) CK-MB (CK-2) Rel Index NT-Pro-B Natriuret Pep Albumin 3.1 L LDL Cholesterol Direct 03/05/18 03/05/18 03/06/18 04:20 04:20 05:15 WBC 4.1 L RBC Hgb Hct 44.0 H RDW 18.1 H Lymph % (Auto) [place] % (Auto) Baso % (Auto) 2.7 H Lymph # Seg Neutrophils % Seg Neutrophils # PT INR D-Dimer POC ABG pO2 Sodium 136 L Potassium Chloride 97.8 L 97.8 L Carbon Dioxide BUN 29 H 31 H Glucose 113 H 116 H POC Glucose Total Bilirubin Direct Bilirubin CK-MB (CK-2) CK-MB (CK-2) Rel Index NT-Pro-B Natriuret Pep Albumin LDL Cholesterol Direct 03/07/18 03/07/18 03/07/18 05:00 05:00 14:16 WBC 3.8 L RBC 5.22 H Hgb 15.7 H Hct 48.0 H RDW 17.8 H Lymph % (Auto) 35.4 H [place] % (Auto) Baso % (Auto) Lymph # Seg Neutrophils % Seg Neutrophils # PT INR D-Dimer POC ABG pO2 63 L Sodium 135 L Potassium Chloride Carbon Dioxide BUN 31 H Glucose 120 H POC Glucose Total Bilirubin Direct Bilirubin CK-MB (CK-2) CK-MB (CK-2) Rel Index NT-Pro-B Natriuret Pep Albumin LDL Cholesterol Direct 03/08/18 03/08/18 03/09/18 17:46 21:35 01:34 WBC RBC Hgb Hct RDW Lymph % (Auto) [place] % (Auto) Baso % (Auto) Lymph # Seg Neutrophils % Seg Neutrophils # PT INR D-Dimer POC ABG pO2 Sodium Potassium Chloride Carbon Dioxide BUN Glucose POC Glucose 117 H 117 H 128 H Total Bilirubin Direct Bilirubin CK-MB (CK-2) CK-MB (CK-2) Rel Index NT-Pro-B Natriuret Pep Albumin LDL Cholesterol Direct 03/09/18 03/09/18 03/09/18 05:25 07:00 07:00 WBC 3.5 L RBC 5.77 H Hgb 17.0 H Hct 52.4 H RDW 17.5 H Lymph % (Auto) [place] % (Auto) Baso % (Auto) Lymph # 0.8 L Seg Neutrophils % 72.2 H Seg Neutrophils # PT 18.4 H INR 1.44 H D-Dimer POC ABG pO2 Sodium Potassium Chloride Carbon Dioxide BUN Glucose POC Glucose 137 H Total Bilirubin Direct Bilirubin CK-MB (CK-2) CK-MB (CK-2) Rel Index NT-Pro-B Natriuret Pep Albumin LDL Cholesterol Direct 03/09/18 03/09/18 03/09/18 07:00 12:18 18:18 WBC RBC Hgb Hct RDW Lymph % (Auto) [place] % (Auto) Baso % (Auto) Lymph # Seg Neutrophils % Seg Neutrophils # PT INR D-Dimer POC ABG pO2 Sodium 134 L Potassium Chloride 97.5 L Carbon Dioxide BUN 33 H Glucose 145 H POC Glucose 117 H 138 H Total Bilirubin Direct Bilirubin CK-MB (CK-2) CK-MB (CK-2) Rel Index NT-Pro-B Natriuret Pep Albumin LDL Cholesterol Direct 03/09/18 03/10/18 03/10/18 21:21 02:02 05:00 WBC RBC Hgb Hct RDW Lymph % (Auto) [place] % (Auto) Baso % (Auto) Lymph # Seg Neutrophils % Seg Neutrophils # PT INR D-Dimer POC ABG pO2 Sodium 132 L Potassium Chloride 94.3 L Carbon Dioxide BUN 33 H Glucose 228 H POC Glucose 146 H 167 H Total Bilirubin Direct Bilirubin CK-MB (CK-2) CK-MB (CK-2) Rel Index NT-Pro-B Natriuret Pep Albumin LDL Cholesterol Direct 03/10/18 03/10/18 03/10/18 05:00 10:33 14:01 WBC 3.8 L RBC 5.12 H Hgb 15.3 H Hct 46.4 H D RDW 17.7 H Lymph % (Auto) 12.9 L [place] % (Auto) Baso % (Auto) Lymph # 0.5 L Seg Neutrophils % 83.2 H Seg Neutrophils # PT INR D-Dimer POC ABG pO2 Sodium Potassium Chloride Carbon Dioxide BUN Glucose POC Glucose 181 H 215 H Total Bilirubin Direct Bilirubin CK-MB (CK-2) CK-MB (CK-2) Rel Index NT-Pro-B Natriuret Pep Albumin LDL Cholesterol Direct 03/10/18 03/11/18 03/11/18 22:17 02:17 06:36 WBC RBC Hgb Hct RDW Lymph % (Auto) [place] % (Auto) Baso % (Auto) Lymph # Seg Neutrophils % Seg Neutrophils # PT INR D-Dimer POC ABG pO2 Sodium Potassium Chloride Carbon Dioxide BUN Glucose POC Glucose 161 H 161 H 178 H Total Bilirubin Direct Bilirubin CK-MB (CK-2) CK-MB (CK-2) Rel Index NT-Pro-B Natriuret Pep Albumin LDL Cholesterol Direct 03/11/18 10:04 WBC RBC Hgb Hct RDW Lymph % (Auto) [place] % (Auto) Baso % (Auto) Lymph # Seg Neutrophils % Seg Neutrophils # PT INR D-Dimer POC ABG pO2 Sodium Potassium Chloride Carbon Dioxide BUN Glucose POC Glucose 146 H Total Bilirubin Direct Bilirubin CK-MB (CK-2) CK-MB (CK-2) Rel Index NT-Pro-B Natriuret Pep Albumin LDL Cholesterol Direct CT scan - chest: image reviewed (No evidence of fibrosis, bronchiectasis, no GGOs) Allied health notes reviewed: nursing
--- NOTE | 2018-03-11 11:21 | Progress Note ---
Assessment and Plan Transfer to [place] was ultimately denied. BPs improving. Wean dopamine gtt as tolerated. Increase IV lasix to 40mg BID and monitor BPs closely. No BB and/or ACEI/ARB at this time in setting of low BPs. Will obtain PT eval and encourage mobilization. Follow pulmonary recs. The patient has been seen in conjunction with Dr. Batista who agrees with the assessment and plan of care. - Patient Problems (1) Biventricular congestive heart failure Current Visit: Yes Status: Acute (2) Nonischemic cardiomyopathy Current Visit: Yes Status: Chronic (3) Acute respiratory failure Current Visit: Yes Status: Acute (4) Paroxysmal atrial fibrillation with RVR Current Visit: Yes Status: Acute (5) Cor pulmonale Current Visit: Yes Status: Chronic (6) Pulmonary HTN Current Visit: Yes Status: Chronic (7) Tricuspid regurgitation Current Visit: Yes Status: Chronic (8) PFO (patent foramen ovale) Current Visit: Yes Status: Chronic (9) Hypotension Current Visit: Yes Status: Chronic (10) Hypoxia Current Visit: Yes Status: Chronic (11) Interstitial lung disease Current Visit: Yes Status: Suspected Subjective Date of service: 03/11/18 Principal diagnosis: Acute on Chronic Hypoxemic Respiratory Failure; AE-CHF; CMOP; Hypotension Interval history: Pt resting in bed, appears comfortable. on O2 via NC. BLE edema improving. Dopamine gtt infusing. pt states she wants to try to get out of bed today. Objective Last Vital Signs Temp 97.3 F L 03/11/18 04:00 Pulse 87 03/11/18 06:30 Resp 17 03/11/18 06:30 BP 112/83 03/11/18 06:30 Pulse Ox 92 03/11/18 09:22 - Physical Examination General: No Apparent Distress HEENT: Positive: PERRL, Normocephaly, Mucus Membranes Moist Neck: Positive: neck supple, trachea midline Cardiac: Positive: Reg Rate and Rhythm, S1/S2 Lungs: Positive: Decreased Breath Sounds Neuro: Positive: Grossly Intact Abdomen: Positive: Soft. Negative: Tender Skin: Negative: Wound Extremities: Present: +2 Edema (BLE) - Imaging and Cardiology EKG: report reviewed, image reviewed Echo: report reviewed (01/03/2018: ULYSSES; EF 45-50%, marked RA enlargement, mod RV enlargement, mod RV systolic dysfunction, trace MR, mod to severe TR, mild pulm HTN with RVSP 38mmHg, mod left to right shunt suggestive of ostium secundum atrial septal defect) Cardiac cath: report reviewed (01/04/2018: LHC & RHC, NO ASD, no O2 sat step-up, EF 35%, normal coronaries, mod pulmonary HTN. ) - Telemetry EKG Rhythm: Sinus Rhythm - Allied health notes Allied health notes reviewed: nursing
--- NOTE | 2018-03-11 11:43 | Progress Note ---
Assessment and Plan Assessment and plan: Cardiology was planning to transfer the patient to [facility] yesterday Dr. Tanmay Ruiz has agreed to accept the patient, [facility] denied transfer --Hypotension; continue midodrine and dopamine ,blood pressures minimally improved Beta blockers and jefe inhibitors are on hold, Lasix as needed, cardiology following --Acute on chronic systolic congestive heart failure; with severe lower extremity edema Ejection fraction 45-50%, management per cardiology --Acute on chronic respiratory failure; patient is stable on nasal cannula oxygen BiPAP as needed , evaluate for home oxygen at discharge --New onset paroxysmal A. fib with rapid ventricular rate; now rate controlled cardiology changed Lovenox to DVT prophylaxis dose. No anticoagulation at this point --Mild malnutrition; supportive care and nutrition supplements --DVT prophylaxis; Lovenox --Full CODE STATUS Plan of care reviewed with the patient and the family member at the bedside Critical care time 32 minutes History Interval history: Patient seen and examined medical records reviewed Cardiology initiated transfer to [facility] However transfer was denied. Patient complains of generalized weakness , denies chest pain shortness of breath Remains on dopamine and admitted to, blood pressure is slightly improved Vital signs reviewed Hospitalist Physical - Constitutional Vitals: Temp Pulse Resp BP Pulse Ox 97.3 F L 87 17 112/83 92 03/11/18 04:00 03/11/18 06:30 03/11/18 06:30 03/11/18 06:30 03/11/18 09:22 General appearance: Present: no acute distress, well-nourished, other (nasal cannula oxygen) - EENT Eyes: Present: PERRL, EOM intact - Neck Neck: Present: supple, normal ROM - Respiratory Respiratory effort: normal Respiratory: bilateral: diminished, rales, negative: rhonchi, wheezing - Cardiovascular Rhythm: regular Heart Sounds: Present: S1 & S2 - Extremities Extremities: no ischemia Extremity abnormal: edema (bilateral edema, slightly improved) - Abdominal General gastrointestinal: soft, non-tender, non-distended, normal bowel sounds - Integumentary Integumentary: Present: clear, warm - Psychiatric Psychiatric: appropriate mood/affect, cooperative - Neurologic Neurologic: moves all extremities Results - Labs CBC & Chem 7: 03/10/18 05:00 03/10/18 05:00 Labs: Laboratory Last Values WBC 3.8 K/mm3 (4.5-11.0) L 03/10/18 05:00 RBC 5.12 M/mm3 (3.65-5.03) H 03/10/18 05:00 Hgb 15.3 gm/dl (10.1-14.3) H 03/10/18 05:00 Hct 46.4 % (30.3-42.9) H D 03/10/18 05:00 MCV 91 fl (79-97) 03/10/18 05:00 MCH 30 pg (28-32) 03/10/18 05:00 MCHC 33 % (30-34) 03/10/18 05:00 RDW 17.7 % (13.2-15.2) H 03/10/18 05:00 Plt Count 209 K/mm3 (140-440) 03/10/18 05:00 Lymph % (Auto) 12.9 % (13.4-35.0) L 03/10/18 05:00 [place] % (Auto) 3.0 % (0.0-7.3) 03/10/18 05:00 Eos % (Auto) 0.0 % (0.0-4.3) 03/10/18 05:00 Baso % (Auto) 0.9 % (0.0-1.8) 03/10/18 05:00 Lymph # 0.5 K/mm3 (1.2-5.4) L 03/10/18 05:00 [place] # 0.1 K/mm3 (0.0-0.8) 03/10/18 05:00 Eos # 0.0 K/mm3 (0.0-0.4) 03/10/18 05:00 Baso # 0.0 K/mm3 (0.0-0.1) 03/10/18 05:00 Seg Neutrophils % 83.2 % (40.0-70.0) H 03/10/18 05:00 Seg Neutrophils # 3.2 K/mm3 (1.8-7.7) 03/10/18 05:00 PT 18.4 Sec. (12.2-14.9) H 03/09/18 07:00 INR 1.44 (0.87-1.13) H 03/09/18 07:00 APTT 29.2 Sec. (24.2-36.6) 02/25/18 23:23 D-Dimer 1149.50 ng/mlDDU (0-234) H 02/25/18 23:23 POC ABG pH 7.399 (7.35-7.45) 03/07/18 14:16 POC ABG pCO2 38.9 (35-45) 03/07/18 14:16 POC ABG pO2 63 (80-105) L 03/07/18 14:16 POC ABG HCO3 24.1 03/07/18 14:16 POC ABG Total CO2 25 03/07/18 14:16 POC ABG O2 Sat 92 03/07/18 14:16 POC ABG Base Excess -1 03/07/18 14:16 FiO2 45 % 03/07/18 14:16 Sodium 132 mmol/L (137-145) L 03/10/18 05:00 Potassium 4.2 mmol/L (3.6-5.0) 03/10/18 05:00 Chloride 94.3 mmol/L (98-107) L 03/10/18 05:00 Carbon Dioxide 22 mmol/L (22-30) 03/10/18 05:00 Anion Gap 20 mmol/L 03/10/18 05:00 BUN 33 mg/dL (7-17) H 03/10/18 05:00 Creatinine 1.1 mg/dL (0.7-1.2) 03/10/18 05:00 Estimated GFR > 60 ml/min 03/10/18 05:00 BUN/Creatinine Ratio 30 % 03/10/18 05:00 Glucose 228 mg/dL (65-100) H 03/10/18 05:00 POC Glucose 146 (70-105) H 03/11/18 10:04 Calcium 8.8 mg/dL (8.4-10.2) 03/10/18 05:00 Phosphorus 3.00 mg/dL (2.5-4.5) 03/02/18 05:57 Magnesium 2.10 mg/dL (1.7-2.3) 03/10/18 05:00 Total Bilirubin 2.10 mg/dL (0.1-1.2) H 03/04/18 04:37 Direct Bilirubin 1.0 mg/dL (0-0.2) H 03/04/18 04:37 Indirect Bilirubin 1.1 mg/dL 03/04/18 04:37 AST 18 units/L (5-40) 03/04/18 04:37 ALT 23 units/L (7-56) 03/04/18 04:37 Alkaline Phosphatase 111 units/L (35-129) 03/04/18 04:37 Total Creatine Kinase 59 units/L (30-135) 03/02/18 17:05 CK-MB (CK-2) 4.8 ng/mL (0.0-4.0) H 03/02/18 17:05 CK-MB (CK-2) Rel Index 8.1 (0-4) H 03/02/18 17:05 Troponin T < 0.010 ng/mL (0.00-0.029) 03/02/18 17:05 NT-Pro-B Natriuret Pep 3883 pg/mL (0-900) H 03/02/18 17:05 Total Protein 6.8 g/dL (6.3-8.2) 03/04/18 04:37 Albumin 3.1 g/dL (3.9-5) L 03/04/18 04:37 Albumin/Globulin Ratio 0.8 % 03/04/18 04:37 Triglycerides 54 mg/dL (2-149) 03/01/18 08:02 Cholesterol 95 mg/dL (50-199) 03/01/18 08:02 LDL Cholesterol Direct 42 mg/dL (50-130) L 03/01/18 08:02 HDL Cholesterol 49 mg/dL (40-59) 03/01/18 08:02 Cholesterol/HDL Ratio 1.93 % 03/01/18 08:02
[2018-03-11] MEDS: HALFPRIN EC PO SCH (11:48)
[2018-03-11] MEDS: COLACE PO SCH ×2 (11:48→22:19)
[2018-03-11] MEDS ORDERED: PROTONIX PO SCH (12:00)
[2018-03-11] MEDS: ZOFRAN IV PRN ×2 (15:48→20:29)
[2018-03-11] MEDS: INTROPIN DRIP 800 MG/D5W 250 ML 800 MG/250 ML BAG IV SCH (15:49)
[2018-03-11] MEDS: LASIX IV SCH ×2 (18:38→21:41)
[2018-03-12] MEDS: SOLU-Medrol IV SCH ×3 (02:00→17:37)
[2018-03-12] MEDS: LASIX IV SCH ×2 (05:09→17:38)
[2018-03-12] MEDS: PROAMATINE PO SCH ×3 (05:09→22:20)
[2018-03-12 05:38] LABS: Basophils % (Auto) 0.1 % (0.0-1.8); Hematocrit 52.5 % (30.3-42.9); Lymphocytes % (Auto) 8.3 % (13.4-35.0); Mean Corpuscular HGB Conc 32 % (30-34); Mean Corpuscular Hemoglobin 30 pg (28-32); Mean Corpuscular Volume 92 fl (79-97); Monocytes # (Auto) 0.7 K/mm3 (0.0-0.8); Monocytes % (Auto) 5.6 % (0.0-7.3); Platelet Count 177 K/mm3 (140-440); Red Blood Count 5.69 M/mm3 (3.65-5.03); Red Cell Distribution Width 18.6 % (13.2-15.2)
--- NOTE | 2018-03-12 09:06 | Progress Note ---
Assessment and Plan pulm htn tricuspid regurgitation bivent chf continue current mgt per pulmonary Subjective Date of service: 03/12/18 Principal diagnosis: Acute on Chronic Hypoxemic Respiratory Failure; AE-CHF; CMOP; Hypotension Interval history: restsing quietly no cp. states breathing is ok family at bedside Objective Vital Signs Temp Pulse Pulse Pulse Pulse Resp BP 03/12/18 08:00 90.8 F L 03/12/18 06:16 98 H 16 104/77 03/12/18 06:00 101 H 16 104/77 03/12/18 05:46 100 H 17 101/76 03/12/18 05:30 99 H 17 101/76 03/12/18 05:16 105 H 16 103/71 03/12/18 05:00 93 H 13 107/80 03/12/18 04:46 92 H 17 103/71 03/12/18 04:30 109 H 31 H 103/71 03/12/18 04:16 107 H 17 114/82 03/12/18 04:00 101 H 15 114/82 03/12/18 03:55 98.8 F 03/12/18 03:46 92 H 13 119/88 03/12/18 03:30 88 15 119/88 03/12/18 03:16 86 16 111/84 03/12/18 03:00 96 H 15 111/84 03/12/18 02:46 80 18 109/82 03/12/18 02:30 93 H 18 109/82 03/12/18 02:16 99 H 22 96/73 03/12/18 02:00 104 H 34 H 96/73 03/12/18 01:46 102 H 21 103/73 03/12/18 01:30 92 H 13 113/82 03/12/18 01:16 93 H 15 106/82 03/12/18 01:00 91 H 15 106/82 03/12/18 00:46 87 14 86/60 03/12/18 00:30 88 15 106/82 03/12/18 00:16 82 17 126/95 03/12/18 00:00 92 H 15 86/60 03/11/18 23:46 95 H 16 126/95 03/11/18 23:30 80 16 126/95 03/11/18 23:21 98.4 F 03/11/18 23:20 75 16 125/97 03/11/18 23:16 99 H 14 125/97 03/11/18 23:00 80 15 125/97 03/11/18 22:46 79 17 112/88 03/11/18 22:30 96 H 22 107/83 18 22:16 88 14 112/88 03/11/18 22:00 84 16 112/88 03/11/18 21:46 79 14 114/88 03/11/18 21:30 94 H 20 107/85 03/11/18 21:22 98.2 F 03/11/18 21:16 89 24 114/88 03/11/18 21:00 82 21 114/88 03/11/18 20:46 113 H 23 115/83 03/11/18 20:30 91 H 18 115/83 03/11/18 20:16 91 H 16 109/84 03/11/18 20:00 91 H 19 109/84 03/11/18 19:46 95 H 23 104/78 03/11/18 19:30 111 H 27 H 102/79 03/11/18 19:16 87 22 118/90 03/11/18 19:00 100 H 20 104/78 03/11/18 18:45 91 H 21 118/90 03/11/18 18:30 90 22 118/90 03/11/18 18:16 93 H 24 117/86 03/11/18 18:00 92 H 24 117/86 18 17:46 97 H 17 116/89 03/11/18 17:30 90 19 116/89 03/11/18 17:16 87 18 108/87 03/11/18 17:00 84 21 108/87 03/11/18 16:46 85 16 105/85 18 16:42 93 H 10 L 105/85 03/11/18 16:16 95 H 22 105/85 03/11/18 16:00 97.1 F L 114 H 90 90 90 28 H 99/76 18 15:46 91 H 31 H 99/76 18 15:30 119 H 32 H 99/76 18 15:16 109 H 31 H 107/83 03/11/18 15:00 97 H 22 90/62 09/14/18 14:46 96 H 21 90/62 18 14:30 92 H 30 H 90/62 18 14:16 94 H 28 H 82/47 18 14:00 99 H 27 H 82/47 18 13:46 102 H 28 H 18 13:30 98 H 22 76/56 18 13:15 98 H 25 H 73/52 18 13:01 100 H 22 76/56 18 12:45 104 H 20 79/57 18 12:30 105 H 26 H 73/52 18 12:15 102 H 26 H 91/63 18 12:00 96.1 F L 103 H 90 90 90 22 79/57 18 11:45 107 H 27 H 86/65 18 11:30 107 H 26 H 91/63 18 11:15 103 H 23 114/87 03/11/18 11:01 102 H 25 H 86/65 18 10:45 102 H 24 114/87 03/11/18 10:30 86 21 114/87 03/11/18 10:15 92 H 20 112/85 03/11/18 10:00 88 15 102/77 03/11/18 09:45 87 24 116/81 03/11/18 09:30 92 H 17 102/77 18 09:22 03/11/18 09:15 83 16 116/81 Pulse Ox 03/12/18 08:00 03/12/18 06:16 91 03/12/18 06:00 92 03/12/18 05:46 91 03/12/18 05:30 94 03/12/18 05:16 92 03/12/18 05:00 90 03/12/18 04:46 91 03/12/18 04:30 95 03/12/18 04:16 92 03/12/18 04:00 96 03/12/18 03:55 03/12/18 03:46 91 03/12/18 03:30 93 03/12/18 03:16 92 03/12/18 03:00 92 03/12/18 02:46 92 03/12/18 02:30 92 03/12/18 02:16 92 03/12/18 02:00 93 03/12/18 01:46 91 03/12/18 01:30 92 03/12/18 01:16 92 03/12/18 01:00 90 03/12/18 00:46 91 03/12/18 00:30 93 03/12/18 00:16 92 03/12/18 00:00 99 03/11/18 23:46 93 03/11/18 23:30 03/11/18 23:21 03/11/18 23:20 93 03/11/18 23:16 93 03/11/18 23:00 92 03/11/18 22:46 93 03/11/18 22:30 03/11/18 22:16 90 03/11/18 22:00 91 03/11/18 21:46 92 03/11/18 21:30 92 03/11/18 21:22 03/11/18 21:16 92 03/11/18 21:00 94 03/11/18 20:46 87 03/11/18 20:30 92 03/11/18 20:16 92 03/11/18 20:00 93 03/11/18 19:46 92 03/11/18 19:30 03/11/18 19:16 03/11/18 19:00 96 03/11/18 18:45 03/11/18 18:30 91 03/11/18 18:16 89 03/11/18 18:00 03/11/18 17:46 83 L 03/11/18 17:30 90 03/11/18 17:16 91 03/11/18 17:00 100 03/11/18 16:46 03/11/18 16:42 03/11/18 16:16 91 03/11/18 16:00 91 03/11/18 15:46 90 03/11/18 15:30 89 03/11/18 15:16 90 03/11/18 15:00 03/11/18 14:46 91 03/11/18 14:30 97 03/11/18 14:16 91 03/11/18 14:00 89 03/11/18 13:46 94 03/11/18 13:30 91 03/11/18 13:15 92 03/11/18 13:01 96 03/11/18 12:45 91 03/11/18 12:30 89 03/11/18 12:15 98 03/11/18 12:00 87 03/11/18 11:45 90 03/11/18 11:30 89 03/11/18 11:15 89 03/11/18 11:01 98 03/11/18 10:45 94 03/11/18 10:30 94 03/11/18 10:15 90 03/11/18 10:00 91 03/11/18 09:45 92 03/11/18 09:30 98 03/11/18 09:22 92 03/11/18 09:15 91 - Physical Examination General: No Apparent Distress HEENT: Positive: PERRL, Normocephaly, Mucus Membranes Moist Neck: Positive: neck supple, trachea midline Cardiac: Positive: Reg Rate and Rhythm, Systolic Murmur (2/6 sys mur lsb) Lungs: Positive: Decreased Breath Sounds, Rales (basilar rales) Neuro: Positive: Grossly Intact Abdomen: Positive: Soft. Negative: Tender Skin: Negative: Wound Extremities: Present: +2 Edema (BLE) - Labs and Meds CBC 03/12/18 Range/Units 04:21 WBC 12.6 H (4.5-11.0) K/mm3 RBC 5.69 H (3.65-5.03) M/mm3 Hgb 17.0 H (10.1-14.3) gm/dl Hct 52.5 H D (30.3-42.9) % Plt Count 177 (140-440) K/mm3 Lymph # 1.0 L (1.2-5.4) K/mm3 Jay # 0.7 (0.0-0.8) K/mm3 Eos # 0.0 (0.0-0.4) K/mm3 Baso # 0.0 (0.0-0.1) K/mm3 Comprehensive Metabolic Panel 03/12/18 Range/Units 04:21 Sodium 133 L (137-145) mmol/L Potassium 4.8 (3.6-5.0) mmol/L Chloride 95.6 L (98-107) mmol/L Carbon Dioxide 21 L (22-30) mmol/L BUN 36 H (7-17) mg/dL Creatinine 1.2 (0.7-1.2) mg/dL Glucose 160 H (65-100) mg/dL Calcium 9.0 (8.4-10.2) mg/dL - Imaging and Cardiology EKG: report reviewed, image reviewed Echo: report reviewed (01/03/2018: ULYSSES; EF 45-50%, marked RA enlargement, mod RV enlargement, mod RV systolic dysfunction, trace MR, mod to severe TR, mild pulm HTN with RVSP 38mmHg, mod left to right shunt suggestive of ostium secundum atrial septal defect) Cardiac cath: report reviewed (01/04/2018: LHC & RHC, NO ASD, no O2 sat step-up, EF 35%, normal coronaries, mod pulmonary HTN. ) - Allied health notes Allied health notes reviewed: nursing
[2018-03-12] MEDS ORDERED: LOVENOX SUB-Q SCH (10:00)
[2018-03-12] MEDS: COLACE PO SCH (10:04)
[2018-03-12] MEDS: HALFPRIN EC PO SCH (10:04)
--- NOTE | 2018-03-12 10:30 | Progress Note ---
Assessment and Plan Syncope Acute on chronic respiratory failure (2nd to CHF, fluid overload) Orthopnea Chronic Biventricular CHF with acute exacerbation NICMOP Paroxysmal Atrial Fibrillation H/O Pulmonary HTN PFO Hypotension (h/o Hypertension) Hypokalemia (likely due to diuretic) Moderate protein calorie malnutrition (CT chest negative for significant DPLD; overall picture more consistent with pump failure and interstitial edema) - begin low dose milrinone and watch closely for arrhythmia's (discussed with cardiology) - continue diuresis - place NGT and begin enteral nutrition - follow JOHNNY, EMERSON levels +/- ANCA's and re-evaluate - taper systemic steroids - continue to optimize cardiac function re: high PCWP - get USS for induration / swelling onder left breast - continue GI prophylaxis - continue full anticoagulation for A-fib - continue supplemental oxygen to keep sats > 90% (HFNC) - continue BIPAP at increased settings of 14/10 (Scheduled qhs) - continue bronchodilators with pulmonary hygiene per RT - continue gentle diuresis - continue dopamine per cardiology recommendations - continue aspiration precautions - increase Pepcid to bid re: reflux symptoms - PT/OT as tolerated - mobility protocol for pressure ulcer prophylaxis - target MAP > 65mmHg - continue other care per attending / other consultants ... care plan and overall hospital course and strategies discussed at length > 15 mins with patient, her daughter and nurse in room. All her questions were answered The high probability of a clinically significant, sudden or life-threatening deterioration of the [cardiac, respiratory] system(s) required my full and direct attention, intervention and personal management. The aggregate critical care time was [45] minutes without overlap. Time includes spent on; [x] Data Review and interpretation [x] Patient assessment and monitoring of vital signs [x] Documentation [x] Medication orders and management Subjective Date of service: 03/12/18 Principal diagnosis: Acute on Chronic Hypoxemic Respiratory Failure; AE-CHF; CMOP; Hypotension Interval history: Patient is seen today for: Acute on Chronic Hypoxemic Respiratory Failure; AE- CHF; CMOP; Hypotension; Symptomatic Bradycardia Seen and examined at bedside; 24hour events reviewed; nursing and respiratory care staff consulted; no adverse overnight events reported to me; resting in bed ; somnolent; weak; clinically like the "phenotypic cardiac cripple"; daughter in room; not eating; tachycardic; remains on dopamine; + small volume N&V without overt aspiration; denies acute chest pains or palpitations Objective Vital Signs - 12hr 03/11/18 03/11/18 03/11/18 22:30 22:46 23:00 Temperature Pulse Rate 96 H 79 80 Respiratory 22 17 15 Rate Respiratory Rate [ Generalized] Blood Pressure 107/83 112/88 125/97 O2 Sat by Pulse 93 92 Oximetry 03/11/18 03/11/18 03/11/18 23:16 23:20 23:21 Temperature 98.4 F Pulse Rate 99 H 75 Respiratory 14 16 Rate Respiratory Rate [ Generalized] Blood Pressure 125/97 125/97 O2 Sat by Pulse 93 93 Oximetry 03/11/18 03/11/18 03/12/18 23:30 23:46 00:00 Temperature Pulse Rate 80 95 H 92 H Respiratory 16 16 15 Rate Respiratory Rate [ Generalized] Blood Pressure 126/95 126/95 86/60 O2 Sat by Pulse 93 99 Oximetry 03/12/18 03/12/18 03/12/18 00:16 00:30 00:46 Temperature Pulse Rate 82 88 87 Respiratory 17 15 14 Rate Respiratory Rate [ Generalized] Blood Pressure 126/95 106/82 86/60 O2 Sat by Pulse 92 93 91 Oximetry 03/12/18 03/12/18 03/12/18 01:00 01:16 01:30 Temperature Pulse Rate 91 H 93 H 92 H Respiratory 15 15 13 Rate Respiratory Rate [ Generalized] Blood Pressure 106/82 106/82 113/82 O2 Sat by Pulse 90 92 92 Oximetry 03/12/18 03/12/18 03/12/18 01:46 02:00 02:16 Temperature Pulse Rate 102 H 104 H 99 H Respiratory 21 34 H 22 Rate Respiratory Rate [ Generalized] Blood Pressure 103/73 96/73 96/73 O2 Sat by Pulse 91 93 92 Oximetry 03/12/18 03/12/18 03/12/18 02:30 02:46 03:00 Temperature Pulse Rate 93 H 80 96 H Respiratory 18 18 15 Rate Respiratory Rate [ Generalized] Blood Pressure 109/82 109/82 111/84 O2 Sat by Pulse 92 92 92 Oximetry 03/12/18 03/12/18 03/12/18 03:16 03:30 03:46 Temperature Pulse Rate 86 88 92 H Respiratory 16 15 13 Rate Respiratory Rate [ Generalized] Blood Pressure 111/84 119/88 119/88 O2 Sat by Pulse 92 93 91 Oximetry 03/12/18 03/12/18 03/12/18 03:55 04:00 04:16 Temperature 98.8 F Pulse Rate 101 H 107 H Respiratory 15 17 Rate Respiratory Rate [ Generalized] Blood Pressure 114/82 114/82 O2 Sat by Pulse 96 92 Oximetry 03/12/18 03/12/18 03/12/18 04:30 04:46 05:00 Temperature Pulse Rate 109 H 92 H 93 H Respiratory 31 H 17 13 Rate Respiratory Rate [ Generalized] Blood Pressure 103/71 103/71 107/80 O2 Sat by Pulse 95 91 90 Oximetry 03/12/18 03/12/18 03/12/18 05:16 05:30 05:46 Temperature Pulse Rate 105 H 99 H 100 H Respiratory 16 17 17 Rate Respiratory Rate [ Generalized] Blood Pressure 103/71 101/76 101/76 O2 Sat by Pulse 92 94 91 Oximetry 03/12/18 03/12/18 03/12/18 06:00 06:16 06:30 Temperature Pulse Rate 101 H 98 H 100 H Respiratory 16 16 32 H Rate Respiratory Rate [ Generalized] Blood Pressure 104/77 104/77 109/78 O2 Sat by Pulse 92 91 89 Oximetry 03/12/18 03/12/18 03/12/18 06:46 07:00 07:16 Temperature Pulse Rate 102 H 99 H 99 H Respiratory 23 24 15 Rate Respiratory Rate [ Generalized] Blood Pressure 109/78 100/78 100/78 O2 Sat by Pulse 89 93 91 Oximetry 03/12/18 03/12/18 03/12/18 07:30 07:46 08:00 Temperature 90.8 F L Pulse Rate 97 H 95 H 96 H Respiratory 17 15 14 Rate Respiratory Rate [ Generalized] Blood Pressure 103/73 103/73 103/73 O2 Sat by Pulse 91 91 91 Oximetry 03/12/18 03/12/18 03/12/18 08:16 08:30 08:46 Temperature Pulse Rate 94 H 104 H 100 H Respiratory 17 20 22 Rate Respiratory Rate [ Generalized] Blood Pressure 102/77 97/75 97/75 O2 Sat by Pulse 92 92 89 Oximetry 03/12/18 03/12/18 03/12/18 09:00 09:16 09:35 Temperature Pulse Rate 94 H 103 H Respiratory 22 30 H Rate Respiratory Rate [ Generalized] Blood Pressure 99/77 99/77 O2 Sat by Pulse 91 91 91 Oximetry 03/12/18 10:00 Temperature Pulse Rate 103 H Respiratory Rate Respiratory 21 Rate [ Generalized] Blood Pressure O2 Sat by Pulse Oximetry Constitutional: alert, appears uncomfortable, other (elderly looking AAF, normocephalic and atraumatic with increased respiratory effort) Eyes: non-icteric ENT: oropharynx moist, other ([place] 3) Neck: supple, no lymphadenopathy, other (No thyromegaly) Effort: mildly labored Ascultation: Bilateral: diminished breath sounds, rales (scant inspiratory in bases) Percussion: Bilateral: not dull Cardiovascular: irregular rhythm, other (, loud P2) Gastrointestinal: normoactive bowel sounds, soft, non-tender, non-distended, other (No HSM) Integumentary: rash Extremities: no cyanosis, pulses normal, no ischemia or petechiae, edema (2++) Neurologic: normal mental status, non-focal exam, pupils equal and round, motor strength normal and Psychiatric: mood appropriate, depressed (affect) CBC and BMP: 03/12/18 04:21 03/12/18 04:21 ABG, PT/INR, D-dimer: ABG POC ABG pH 7.399 (7.35-7.45) 03/07/18 14:16 POC ABG pCO2 38.9 (35-45) 03/07/18 14:16 POC ABG pO2 63 (80-105) L 03/07/18 14:16 POC ABG HCO3 24.1 03/07/18 14:16 POC ABG Total CO2 25 03/07/18 14:16 POC ABG O2 Sat 92 03/07/18 14:16 PT/INR, D-dimer PT 18.4 Sec. (12.2-14.9) H 03/09/18 07:00 INR 1.44 (0.87-1.13) H 03/09/18 07:00 D-Dimer 1149.50 ng/mlDDU (0-234) H 02/25/18 23:23 Abnormal lab findings: Abnormal Labs 02/25/18 02/25/18 02/25/18 23:23 23:23 23:23 WBC RBC Hgb 14.9 H Hct 46.0 H RDW 18.0 H Lymph % (Auto) [place] % (Auto) Baso % (Auto) Lymph # Seg Neutrophils % Seg Neutrophils # PT 16.7 H INR 1.30 H D-Dimer 1149.50 H POC ABG pO2 Sodium 136 L Potassium Chloride 94.8 L Carbon Dioxide BUN 36 H Glucose 192 H POC Glucose Magnesium Total Bilirubin Direct Bilirubin CK-MB (CK-2) CK-MB (CK-2) Rel Index NT-Pro-B Natriuret Pep 4255 H Albumin LDL Cholesterol Direct 02/25/18 02/26/18 02/27/18 23:23 02:59 08:00 WBC RBC Hgb Hct RDW Lymph % (Auto) [place] % (Auto) Baso % (Auto) Lymph # Seg Neutrophils % Seg Neutrophils # PT INR D-Dimer POC ABG pO2 Sodium 136 L Potassium Chloride Carbon Dioxide BUN 34 H Glucose 105 H POC Glucose 186 H Magnesium Total Bilirubin 1.80 H Direct Bilirubin 0.6 H CK-MB (CK-2) CK-MB (CK-2) Rel Index NT-Pro-B Natriuret Pep Albumin 3.6 L LDL Cholesterol Direct 02/28/18 02/28/18 03/01/18 07:36 07:36 08:02 WBC 3.7 L 3.1 L RBC Hgb 14.6 H Hct 43.5 H RDW 17.3 H 17.7 H Lymph % (Auto) 39.9 H 42.9 H [place] % (Auto) 9.0 H 8.3 H Baso % (Auto) Lymph # Seg Neutrophils % Seg Neutrophils # 1.7 L 1.4 L PT INR D-Dimer POC ABG pO2 Sodium 135 L Potassium Chloride Carbon Dioxide 21 L BUN 33 H Glucose POC Glucose Magnesium Total Bilirubin Direct Bilirubin CK-MB (CK-2) CK-MB (CK-2) Rel Index NT-Pro-B Natriuret Pep Albumin LDL Cholesterol Direct 03/01/18 03/01/18 03/02/18 08:02 08:02 05:57 WBC RBC Hgb Hct RDW Lymph % (Auto) [place] % (Auto) Baso % (Auto) Lymph # Seg Neutrophils % Seg Neutrophils # PT INR D-Dimer POC ABG pO2 Sodium 133 L Potassium Chloride 97.4 L Carbon Dioxide 21 L 17 L BUN 32 H 30 H Glucose 117 H POC Glucose Magnesium Total Bilirubin 1.30 H Direct Bilirubin CK-MB (CK-2) CK-MB (CK-2) Rel Index NT-Pro-B Natriuret Pep Albumin 3.0 L LDL Cholesterol Direct 42 L 03/02/18 03/02/18 03/02/18 05:57 17:05 17:05 WBC 4.0 L RBC Hgb Hct RDW 17.8 H Lymph % (Auto) [place] % (Auto) 7.4 H Baso % (Auto) Lymph # 0.7 L Seg Neutrophils % 73.2 H Seg Neutrophils # PT INR D-Dimer POC ABG pO2 Sodium Potassium Chloride Carbon Dioxide BUN Glucose POC Glucose Magnesium Total Bilirubin Direct Bilirubin CK-MB (CK-2) 4.8 H CK-MB (CK-2) Rel Index 8.1 H NT-Pro-B Natriuret Pep 3883 H Albumin LDL Cholesterol Direct 03/03/18 03/03/18 03/03/18 05:15 05:15 08:28 WBC RBC Hgb Hct RDW 16.9 H Lymph % (Auto) [place] % (Auto) Baso % (Auto) Lymph # 1.0 L Seg Neutrophils % 70.4 H Seg Neutrophils # PT INR D-Dimer POC ABG pO2 65 L Sodium Potassium 3.4 L D Chloride Carbon Dioxide BUN 25 H Glucose 122 H POC Glucose Magnesium Total Bilirubin Direct Bilirubin CK-MB (CK-2) CK-MB (CK-2) Rel Index NT-Pro-B Natriuret Pep Albumin LDL Cholesterol Direct 03/04/18 03/04/18 03/04/18 04:37 04:37 14:13 WBC RBC Hgb Hct RDW 17.4 H Lymph % (Auto) [place] % (Auto) Baso % (Auto) Lymph # 1.0 L Seg Neutrophils % 70.7 H Seg Neutrophils # PT INR D-Dimer POC ABG pO2 62 L Sodium Potassium Chloride Carbon Dioxide BUN 26 H Glucose 137 H POC Glucose Magnesium Total Bilirubin 2.10 H Direct Bilirubin 1.0 H CK-MB (CK-2) CK-MB (CK-2) Rel Index NT-Pro-B Natriuret Pep Albumin 3.1 L LDL Cholesterol Direct 03/05/18 03/05/18 03/06/18 04:20 04:20 05:15 WBC 4.1 L RBC Hgb Hct 44.0 H RDW 18.1 H Lymph % (Auto) [place] % (Auto) Baso % (Auto) 2.7 H Lymph # Seg Neutrophils % Seg Neutrophils # PT INR D-Dimer POC ABG pO2 Sodium 136 L Potassium Chloride 97.8 L 97.8 L Carbon Dioxide BUN 29 H 31 H Glucose 113 H 116 H POC Glucose Magnesium Total Bilirubin Direct Bilirubin CK-MB (CK-2) CK-MB (CK-2) Rel Index NT-Pro-B Natriuret Pep Albumin LDL Cholesterol Direct 03/07/18 03/07/18 03/07/18 05:00 05:00 14:16 WBC 3.8 L RBC 5.22 H Hgb 15.7 H Hct 48.0 H RDW 17.8 H Lymph % (Auto) 35.4 H [place] % (Auto) Baso % (Auto) Lymph # Seg Neutrophils % Seg Neutrophils # PT INR D-Dimer POC ABG pO2 63 L Sodium 135 L Potassium Chloride Carbon Dioxide BUN 31 H Glucose 120 H POC Glucose Magnesium Total Bilirubin Direct Bilirubin CK-MB (CK-2) CK-MB (CK-2) Rel Index NT-Pro-B Natriuret Pep Albumin LDL Cholesterol Direct 03/08/18 03/08/18 03/09/18 17:46 21:35 01:34 WBC RBC Hgb Hct RDW Lymph % (Auto) [place] % (Auto) Baso % (Auto) Lymph # Seg Neutrophils % Seg Neutrophils # PT INR D-Dimer POC ABG pO2 Sodium Potassium Chloride Carbon Dioxide BUN Glucose POC Glucose 117 H 117 H 128 H Magnesium Total Bilirubin Direct Bilirubin CK-MB (CK-2) CK-MB (CK-2) Rel Index NT-Pro-B Natriuret Pep Albumin LDL Cholesterol Direct 03/09/18 03/09/18 03/09/18 05:25 07:00 07:00 WBC 3.5 L RBC 5.77 H Hgb 17.0 H Hct 52.4 H RDW 17.5 H Lymph % (Auto) [place] % (Auto) Baso % (Auto) Lymph # 0.8 L Seg Neutrophils % 72.2 H Seg Neutrophils # PT 18.4 H INR 1.44 H D-Dimer POC ABG pO2 Sodium Potassium Chloride Carbon Dioxide BUN Glucose POC Glucose 137 H Magnesium Total Bilirubin Direct Bilirubin CK-MB (CK-2) CK-MB (CK-2) Rel Index NT-Pro-B Natriuret Pep Albumin LDL Cholesterol Direct 03/09/18 03/09/18 03/09/18 07:00 12:18 18:18 WBC RBC Hgb Hct RDW Lymph % (Auto) [place] % (Auto) Baso % (Auto) Lymph # Seg Neutrophils % Seg Neutrophils # PT INR D-Dimer POC ABG pO2 Sodium 134 L Potassium Chloride 97.5 L Carbon Dioxide BUN 33 H Glucose 145 H POC Glucose 117 H 138 H Magnesium Total Bilirubin Direct Bilirubin CK-MB (CK-2) CK-MB (CK-2) Rel Index NT-Pro-B Natriuret Pep Albumin LDL Cholesterol Direct 03/09/18 03/10/18 03/10/18 21:21 02:02 05:00 WBC RBC Hgb Hct RDW Lymph % (Auto) [place] % (Auto) Baso % (Auto) Lymph # Seg Neutrophils % Seg Neutrophils # PT INR D-Dimer POC ABG pO2 Sodium 132 L Potassium Chloride 94.3 L Carbon Dioxide BUN 33 H Glucose 228 H POC Glucose 146 H 167 H Magnesium Total Bilirubin Direct Bilirubin CK-MB (CK-2) CK-MB (CK-2) Rel Index NT-Pro-B Natriuret Pep Albumin LDL Cholesterol Direct 03/10/18 03/10/18 03/10/18 05:00 10:33 14:01 WBC 3.8 L RBC 5.12 H Hgb 15.3 H Hct 46.4 H D RDW 17.7 H Lymph % (Auto) 12.9 L [place] % (Auto) Baso % (Auto) Lymph # 0.5 L Seg Neutrophils % 83.2 H Seg Neutrophils # PT INR D-Dimer POC ABG pO2 Sodium Potassium Chloride Carbon Dioxide BUN Glucose POC Glucose 181 H 215 H Magnesium Total Bilirubin Direct Bilirubin CK-MB (CK-2) CK-MB (CK-2) Rel Index NT-Pro-B Natriuret Pep Albumin LDL Cholesterol Direct 03/10/18 03/11/18 03/11/18 22:17 02:17 06:36 WBC RBC Hgb Hct RDW Lymph % (Auto) [place] % (Auto) Baso % (Auto) Lymph # Seg Neutrophils % Seg Neutrophils # PT INR D-Dimer POC ABG pO2 Sodium Potassium Chloride Carbon Dioxide BUN Glucose POC Glucose 161 H 161 H 178 H Magnesium Total Bilirubin Direct Bilirubin CK-MB (CK-2) CK-MB (CK-2) Rel Index NT-Pro-B Natriuret Pep Albumin LDL Cholesterol Direct 03/11/18 03/11/18 03/11/18 10:04 14:17 18:25 WBC RBC Hgb Hct RDW Lymph % (Auto) [place] % (Auto) Baso % (Auto) Lymph # Seg Neutrophils % Seg Neutrophils # PT INR D-Dimer POC ABG pO2 Sodium Potassium Chloride Carbon Dioxide BUN Glucose POC Glucose 146 H 251 H 189 H Magnesium Total Bilirubin Direct Bilirubin CK-MB (CK-2) CK-MB (CK-2) Rel Index NT-Pro-B Natriuret Pep Albumin LDL Cholesterol Direct 03/11/18 03/12/18 03/12/18 21:44 01:56 04:21 WBC RBC Hgb Hct RDW Lymph % (Auto) [place] % (Auto) Baso % (Auto) Lymph # Seg Neutrophils % Seg Neutrophils # PT INR D-Dimer POC ABG pO2 Sodium 133 L Potassium Chloride 95.6 L Carbon Dioxide 21 L BUN 36 H Glucose 160 H POC Glucose 197 H 164 H Magnesium 2.50 H Total Bilirubin Direct Bilirubin CK-MB (CK-2) CK-MB (CK-2) Rel Index NT-Pro-B Natriuret Pep Albumin LDL Cholesterol Direct 03/12/18 03/12/18 04:21 05:36 WBC 12.6 H RBC 5.69 H Hgb 17.0 H Hct 52.5 H D RDW 18.6 H Lymph % (Auto) 8.3 L [place] % (Auto) Baso % (Auto) Lymph # 1.0 L Seg Neutrophils % 86.0 H Seg Neutrophils # 10.9 H PT INR D-Dimer POC ABG pO2 Sodium Potassium Chloride Carbon Dioxide BUN Glucose POC Glucose 172 H Magnesium Total Bilirubin Direct Bilirubin CK-MB (CK-2) CK-MB (CK-2) Rel Index NT-Pro-B Natriuret Pep Albumin LDL Cholesterol Direct Chest x-ray: image reviewed Allied health notes reviewed: nursing
--- NOTE | 2018-03-12 12:56 | Progress Note ---
Assessment and Plan Assessment and plan: --Hypotension; continue midodrine and dopamine ,blood pressures minimally improved Beta blockers and jefe inhibitors are on hold, Lasix as needed, cardiology following --Acute on chronic systolic congestive heart failure; with severe lower extremity edema Ejection fraction 45-50%, management per cardiology --Biventricular congestive heart failure --Nonischemic cardiomyopathy --Acute on chronic respiratory failure; patient is stable on nasal cannula oxygen BiPAP as needed , evaluate for home oxygen at discharge --New onset paroxysmal A. fib with rapid ventricular rate; no new episodes of paroxysmal A. fib cardiology felt no need for chronic anticoagulation changed Lovenox to DVT prophylaxis dose. --Mild malnutrition; supportive care and nutrition supplements --DVT prophylaxis; Lovenox --Full CODE STATUS Cardiology was planning to transfer the patient to [facility] per daughter's request Dr. Tanmay Ruiz agreed to accept the patient,However [facility] denied transfer. Plan of care reviewed with the patient and the family member at the bedside Critical care time 32 minutes History Interval history: Patient seen and examined medical records reviewed Remains hypotensive on dopamine and Midodrine Patient complains of generalized weakness Alert awake oriented 3 Vital signs reviewed Hospitalist Physical - Constitutional Vitals: Temp Pulse Resp BP Pulse Ox 90.8 F L 103 H 21 99/77 91 03/12/18 08:00 03/12/18 10:00 03/12/18 10:00 03/12/18 09:16 03/12/18 09:35 General appearance: Present: no acute distress, well-nourished, other (nasal cannula oxygen) - EENT Eyes: Present: PERRL, EOM intact - Neck Neck: Present: supple, normal ROM - Respiratory Respiratory effort: normal Respiratory: bilateral: diminished, rales, negative: rhonchi, wheezing - Cardiovascular Rhythm: regular Heart Sounds: Present: S1 & S2 - Extremities Extremities: no ischemia Extremity abnormal: edema Peripheral Pulses: within normal limits - Abdominal General gastrointestinal: soft, non-tender, non-distended, normal bowel sounds - Integumentary Integumentary: Present: clear, warm - Psychiatric Psychiatric: appropriate mood/affect, cooperative - Neurologic Neurologic: CNII-XII intact, moves all extremities Results - Labs CBC & Chem 7: 03/12/18 04:21 03/12/18 04:21 Labs: Laboratory Last Values WBC 12.6 K/mm3 (4.5-11.0) H 03/12/18 04:21 RBC 5.69 M/mm3 (3.65-5.03) H 03/12/18 04:21 Hgb 17.0 gm/dl (10.1-14.3) H 03/12/18 04:21 Hct 52.5 % (30.3-42.9) H D 03/12/18 04:21 MCV 92 fl (79-97) 03/12/18 04:21 MCH 30 pg (28-32) 03/12/18 04:21 MCHC 32 % (30-34) 03/12/18 04:21 RDW 18.6 % (13.2-15.2) H 03/12/18 04:21 Plt Count 177 K/mm3 (140-440) 03/12/18 04:21 Lymph % (Auto) 8.3 % (13.4-35.0) L 03/12/18 04:21 [place] % (Auto) 5.6 % (0.0-7.3) 03/12/18 04:21 Eos % (Auto) 0.0 % (0.0-4.3) 03/12/18 04:21 Baso % (Auto) 0.1 % (0.0-1.8) 03/12/18 04:21 Lymph # 1.0 K/mm3 (1.2-5.4) L 03/12/18 04:21 [place] # 0.7 K/mm3 (0.0-0.8) 03/12/18 04:21 Eos # 0.0 K/mm3 (0.0-0.4) 03/12/18 04:21 Baso # 0.0 K/mm3 (0.0-0.1) 03/12/18 04:21 Seg Neutrophils % 86.0 % (40.0-70.0) H 03/12/18 04:21 Seg Neutrophils # 10.9 K/mm3 (1.8-7.7) H 03/12/18 04:21 PT 18.4 Sec. (12.2-14.9) H 03/09/18 07:00 INR 1.44 (0.87-1.13) H 03/09/18 07:00 APTT 29.2 Sec. (24.2-36.6) 02/25/18 23:23 D-Dimer 1149.50 ng/mlDDU (0-234) H 02/25/18 23:23 POC ABG pH 7.399 (7.35-7.45) 03/07/18 14:16 POC ABG pCO2 38.9 (35-45) 03/07/18 14:16 POC ABG pO2 63 (80-105) L 03/07/18 14:16 POC ABG HCO3 24.1 03/07/18 14:16 POC ABG Total CO2 25 03/07/18 14:16 POC ABG O2 Sat 92 03/07/18 14:16 POC ABG Base Excess -1 03/07/18 14:16 FiO2 45 % 03/07/18 14:16 Sodium 133 mmol/L (137-145) L 03/12/18 04:21 Potassium 4.8 mmol/L (3.6-5.0) 03/12/18 04:21 Chloride 95.6 mmol/L (98-107) L 03/12/18 04:21 Carbon Dioxide 21 mmol/L (22-30) L 03/12/18 04:21 Anion Gap 21 mmol/L 03/12/18 04:21 BUN 36 mg/dL (7-17) H 03/12/18 04:21 Creatinine 1.2 mg/dL (0.7-1.2) 03/12/18 04:21 Estimated GFR 55 ml/min 03/12/18 04:21 BUN/Creatinine Ratio 30 % 03/12/18 04:21 Glucose 160 mg/dL (65-100) H 03/12/18 04:21 POC Glucose 157 (70-105) H 03/12/18 10:48 Calcium 9.0 mg/dL (8.4-10.2) 03/12/18 04:21 Phosphorus 3.00 mg/dL (2.5-4.5) 03/02/18 05:57 Magnesium 2.50 mg/dL (1.7-2.3) H 03/12/18 04:21 Total Bilirubin 2.10 mg/dL (0.1-1.2) H 03/04/18 04:37 Direct Bilirubin 1.0 mg/dL (0-0.2) H 03/04/18 04:37 Indirect Bilirubin 1.1 mg/dL 03/04/18 04:37 AST 18 units/L (5-40) 03/04/18 04:37 ALT 23 units/L (7-56) 03/04/18 04:37 Alkaline Phosphatase 111 units/L (35-129) 03/04/18 04:37 Total Creatine Kinase 59 units/L (30-135) 03/02/18 17:05 CK-MB (CK-2) 4.8 ng/mL (0.0-4.0) H 03/02/18 17:05 CK-MB (CK-2) Rel Index 8.1 (0-4) H 03/02/18 17:05 Troponin T < 0.010 ng/mL (0.00-0.029) 03/02/18 17:05 NT-Pro-B Natriuret Pep 3883 pg/mL (0-900) H 03/02/18 17:05 Total Protein 6.8 g/dL (6.3-8.2) 03/04/18 04:37 Albumin 3.1 g/dL (3.9-5) L 03/04/18 04:37 Albumin/Globulin Ratio 0.8 % 03/04/18 04:37 Triglycerides 54 mg/dL (2-149) 03/01/18 08:02 Cholesterol 95 mg/dL (50-199) 03/01/18 08:02 LDL Cholesterol Direct 42 mg/dL (50-130) L 03/01/18 08:02 HDL Cholesterol 49 mg/dL (40-59) 03/01/18 08:02 Cholesterol/HDL Ratio 1.93 % 03/01/18 08:02
[2018-03-12] MEDS ORDERED: REGLAN IV PRN (14:47)
[2018-03-12] MEDS ORDERED: SIMPLE SYRUP FEEDTUBE PRN ×2 (14:58)
[2018-03-12] MEDS ORDERED: PANCREAZE DR 10,500 UNIT FEEDTUBE PRN (14:58)
[2018-03-12] MEDS ORDERED: SODIUM BICARBONATE FEEDTUBE PRN (14:58)
[2018-03-12] MEDS: NEO-SYNEPHRINE 100 MG in NACL 0.9% 90 ML IV SCH ×2 (15:11→22:18)
[2018-03-12] MEDS: PROTONIX IV SCH ×2 (16:14→22:20)
--- NOTE | 2018-03-12 16:56 | XRay Report ---
FINAL REPORT EXAM: XR ABDOMEN 1V AP HISTORY: NGT placement COMPARISON: Chest radiograph performed on 02/25/2018 TECHNIQUE: Two views of the abdomen FINDINGS: Enteric tube with tip in the antrum of the stomach. A portion of the tube is coiled on itself. The visualized portion of the bowel is normal. There are streaky opacities in the right lung base that may reflect atelectasis or infiltrate. IMPRESSION: Enteric tube with tip in the antrum of the stomach. A portion of the tube is coiled on itself.
--- NOTE | 2018-03-12 17:01 | Ultrasound Report ---
FINAL REPORT EXAM: US CHEST HISTORY: swelling under left breast COMPARISON: CT of the chest from December 2017. TECHNIQUE: Several real-time grayscale and color Doppler images were obtained. FINDINGS: There is heterogeneous attenuation the subcutaneous fat along the inferior and anterior left chest wall. This could relate to recent trauma. Inflammatory infectious process is not excluded. No definable abscess or hematoma at this time. Short-term followup exam suggested if clinical findings are not improved. IMPRESSION: There is heterogeneous attenuation the subcutaneous fat along the inferior and anterior left chest wall. This could relate to recent trauma. Inflammatory infectious process is not excluded. No definable abscess or hematoma at this time. Short-term followup exam suggested if clinical findings are not improved.
[2018-03-12] MEDS: MILRINONE-D5W 20 MG/100 ML 20 MG/100 ML BAG IV SCH (17:39)
[2018-03-13] MEDS ORDERED: AMIDATE IV ONE (00:24)
[2018-03-13] MEDS ORDERED: QUELICIN ONE (00:24)
[2018-03-13] MEDS ORDERED: VERSED IV ONE (00:24)
[2018-03-13] MEDS ORDERED: ZEMURON IV ONE (00:24)
[2018-03-13] MEDS: NEO-SYNEPHRINE 100 MG in NACL 0.9% 90 ML IV SCH ×3 (02:12→07:53)
[2018-03-13] MEDS: MILRINONE-D5W 20 MG/100 ML 20 MG/100 ML BAG IV SCH (03:25)
[2018-03-13] MEDS: SOLU-Medrol IV SCH (03:29)
[2018-03-13] MEDS ORDERED: ARTIFICIAL TEARS OPHTH OINT OU PRN (05:50)
[2018-03-13] MEDS ORDERED: VASELINE LIP THERAPY TP PRN (05:50)
[2018-03-13] MEDS ORDERED: LEVOPHED DRIP 4 MG/NS 250 ML 4 MG/250 ML BAG IV ONE (05:59)
[2018-03-13] MEDS ORDERED: NACL 0.9% 500 ML IV SCH (06:00)
--- NOTE | 2018-03-13 06:21 | XRay Report ---
FINAL REPORT PROCEDURE: XR CHEST 1V AP TECHNIQUE: Chest radiograph anteroposterior view. CPT 63378 HISTORY: ETT placement COMPARISON: 02/25/2018 FINDINGS: Heart: Normal. Mediastinum/Vessels: Normal. Lungs/Pleural space: There are bilateral perihilar infiltrates. There are no pleural effusions or pneumothoraces.. Bony thorax: No acute osseous abnormality. Life support devices: Endotracheal tube is in the mid trachea. NG tube is in the stomach. There is a right-sided PICC line. The tip is in the superior vena cava.. IMPRESSION: Heart size is normal. There are bilateral perihilar infiltrates. There are no pleural effusions or pneumothoraces.. Endotracheal tube is in the mid trachea. NG tube is in the stomach. There is a right-sided PICC line. The tip is in the superior vena cava..
[2018-03-13] MEDS ORDERED: Vasostrict 20 UNIT in NACL 0.9% 100 ML IV SCH (07:00)
[2018-03-13] MEDS ORDERED: SODIUM BICARBONATE IV ONE ×3 (08:46→11:00)
[2018-03-13] MEDS ORDERED: ADRENALIN ONE (08:46)
[2018-03-13] MEDS ORDERED: LEVOPHED 8 MG in NACL 0.9% 250ML 242 ML IV SCH (09:00)
--- NOTE | 2018-03-13 09:10 | Death Summary ---
Summary - Providers Date of service: 03/13/18 Consults: 02/27/18 15:24 Consult to Physician [CONS] Routine Comment: called answ. serv./ brodie Consulting Provider: CLAUDIA KIRBY Physician Instructions: Reason For Exam: ac on chronic CHF/hypotension 03/02/18 12:53 Consult to Physician [CONS] Urgent Comment: I spoke with Consulting Provider: TIFFANY JONES Physician Instructions: Reason For Exam: Cr Care consult/Cardiogenic shock/Cardiomyopathy 03/02/18 13:19 PICC Line Placement [Consult to PICC Line RN] [CONS] Routine Reason For Exam: Hypotension/Dopamin drip Type Line:: PICC 03/11/18 11:24 Physical Therapy Evaluation and Treat [CONS] Routine Comment: Reason For Exam: deconditioning 03/12/18 12:55 Consult to Dietitian/Nutrition [CONS] Routine Physician Instructions: Reason For Exam: Reason for Consult: Write/Manage Tube Feeding 03/13/18 05:50 Consult to Dietitian/Nutrition [CONS] Routine Physician Instructions: Reason For Exam: Reason for Consult: Write/Manage TPN/PPN Attending: ALIRIO GOTTI - summary Date of admission: 02/26/18 09:19 Date of : 03/13/18 (09:01am) Disposition:
--- NOTE | 2018-03-13 09:13 | Event Note ---
Date: 03/13/18 PATIENT BECAME BRADYCARDIC WITH LETHERGY, PULSE WAS DOWN TO THE 20'S AND CODE BLUE CALLED , PATIENT WAS RESUSCITATED AND SUBSEQUENTLY INTUBATED AND MECHANICALLY VENTILATED
[2018-03-13 13:57] VITALS: BP 201/113
[2018-03-14 17:51] LABS: Myeloperoxidase Antibody <1.0 AI (<1.0)
[2018-03-14 21:19] LABS: ANA Screen, IFA Negative (Negative)
--- NOTE | 2018-03-15 11:29 | Progress Note ---
Assessment and Plan Assessment and plan: --Hypotension; blood pressures are still in the lower range, secondary to congestive heart failure Hold antihypertensives, Lasix as tolerated, On Midodrin 10 mg twice a day, Patient was on dobutamine drip, however had cardiac arrhythmia, dobutamine discontinued Cardiology considering Cardioversion. --New onset A. fib with rapid ventricular rate; paroxysmal Cardiology considering amiodarone, full dose anticoagulation --Acute on chronic systolic congestive heart failure; Ejection fraction 45-50%, oxygen titrated to O2 sats more than 90% Patient is hypotensive ,hold IV diuretics, beta blockers, jefe inhibitors doses, input output monitoring, Low-sodium diet. --Acute on chronic respiratory failure; mild improvement Secondary to acute exacerbation of congestive heart failure oxygen titrated O2 sats more than 90% --History of Hypertension; she is currently hypotensive, hold all BP meds --Mild malnutrition; supportive care and nutrition supplements --DVT prophylaxis; Lovenox --Full CODE STATUS Physical therapy occupational therapy when stable Closely monitor the patient and adjust the management as needed. [facility] reviewed with patient and her nurse. History Interval history: Patient seen and evaluated, med records reviewed, Last night events noted Patient had tachycardia,and hypotension Remains hypotensive this am. Pt c/o gen weakness. Vital signs reviewed Hospitalist Physical - Constitutional Vitals: Temp Pulse Resp BP Pulse Ox 97.2 F L 102 H 64 H 201/113 18 L 03/12/18 12:00 03/13/18 09:00 03/13/18 09:00 03/13/18 09:00 03/13/18 08:46 General appearance: Present: no acute distress, well-nourished, other (nasal cannula oxygen) - EENT Eyes: Present: PERRL, EOM intact - Neck Neck: Present: supple, normal ROM - Respiratory Respiratory effort: normal Respiratory: bilateral: diminished, rales, negative: rhonchi, wheezing - Cardiovascular Rhythm: regular Heart Sounds: Present: S1 & S2 - Extremities Extremities: no ischemia Extremity abnormal: edema - Abdominal General gastrointestinal: soft, non-tender, non-distended, normal bowel sounds - Integumentary Integumentary: Present: clear, warm - Psychiatric Psychiatric: appropriate mood/affect, cooperative - Neurologic Neurologic: moves all extremities Results - Labs CBC & Chem 7: 03/12/18 04:21 03/12/18 04:21 Labs: Laboratory Last Values WBC 12.6 K/mm3 (4.5-11.0) H 03/12/18 04:21 RBC 5.69 M/mm3 (3.65-5.03) H 03/12/18 04:21 Hgb 17.0 gm/dl (10.1-14.3) H 03/12/18 04:21 Hct 52.5 % (30.3-42.9) H D 03/12/18 04:21 MCV 92 fl (79-97) 03/12/18 04:21 MCH 30 pg (28-32) 03/12/18 04:21 MCHC 32 % (30-34) 03/12/18 04:21 RDW 18.6 % (13.2-15.2) H 03/12/18 04:21 Plt Count 177 K/mm3 (140-440) 03/12/18 04:21 Lymph % (Auto) 8.3 % (13.4-35.0) L 03/12/18 04:21 [place] % (Auto) 5.6 % (0.0-7.3) 03/12/18 04:21 Eos % (Auto) 0.0 % (0.0-4.3) 03/12/18 04:21 Baso % (Auto) 0.1 % (0.0-1.8) 03/12/18 04:21 Lymph # 1.0 K/mm3 (1.2-5.4) L 03/12/18 04:21 [place] # 0.7 K/mm3 (0.0-0.8) 03/12/18 04:21 Eos # 0.0 K/mm3 (0.0-0.4) 03/12/18 04:21 Baso # 0.0 K/mm3 (0.0-0.1) 03/12/18 04:21 Seg Neutrophils % 86.0 % (40.0-70.0) H 03/12/18 04:21 Seg Neutrophils # 10.9 K/mm3 (1.8-7.7) H 03/12/18 04:21 PT 18.4 Sec. (12.2-14.9) H 03/09/18 07:00 INR 1.44 (0.87-1.13) H 03/09/18 07:00 APTT 29.2 Sec. (24.2-36.6) 02/25/18 23:23 D-Dimer 1149.50 ng/mlDDU (0-234) H 02/25/18 23:23 POC ABG pH 7.078 (7.35-7.45) L 03/13/18 05:30 POC ABG pCO2 28.3 (35-45) L 03/13/18 05:30 POC ABG pO2 56 (80-105) L 03/13/18 05:30 POC ABG HCO3 8.4 03/13/18 05:30 POC ABG Total CO2 9 03/13/18 05:30 POC ABG O2 Sat 77 03/13/18 05:30 POC ABG Base Excess -22 03/13/18 05:30 FiO2 100 % 03/13/18 05:30 Sodium 133 mmol/L (137-145) L 03/12/18 04:21 Potassium 4.8 mmol/L (3.6-5.0) 03/12/18 04:21 Chloride 95.6 mmol/L (98-107) L 03/12/18 04:21 Carbon Dioxide 21 mmol/L (22-30) L 03/12/18 04:21 Anion Gap 21 mmol/L 03/12/18 04:21 BUN 36 mg/dL (7-17) H 03/12/18 04:21 Creatinine 1.2 mg/dL (0.7-1.2) 03/12/18 04:21 Estimated GFR 55 ml/min 03/12/18 04:21 BUN/Creatinine Ratio 30 % 03/12/18 04:21 Glucose 160 mg/dL (65-100) H 03/12/18 04:21 POC Glucose 137 (70-105) H 03/13/18 00:26 Calcium 9.0 mg/dL (8.4-10.2) 03/12/18 04:21 Phosphorus 3.00 mg/dL (2.5-4.5) 03/02/18 05:57 Magnesium 2.50 mg/dL (1.7-2.3) H 03/12/18 04:21 Total Bilirubin 2.10 mg/dL (0.1-1.2) H 03/04/18 04:37 Direct Bilirubin 1.0 mg/dL (0-0.2) H 03/04/18 04:37 Indirect Bilirubin 1.1 mg/dL 03/04/18 04:37 AST 18 units/L (5-40) 03/04/18 04:37 ALT 23 units/L (7-56) 03/04/18 04:37 Alkaline Phosphatase 111 units/L (35-129) 03/04/18 04:37 Total Creatine Kinase 59 units/L (30-135) 03/02/18 17:05 CK-MB (CK-2) 4.8 ng/mL (0.0-4.0) H 03/02/18 17:05 CK-MB (CK-2) Rel Index 8.1 (0-4) H 03/02/18 17:05 Troponin T < 0.010 ng/mL (0.00-0.029) 03/02/18 17:05 NT-Pro-B Natriuret Pep 3883 pg/mL (0-900) H 03/02/18 17:05 Total Protein 6.8 g/dL (6.3-8.2) 03/04/18 04:37 Albumin 3.1 g/dL (3.9-5) L 03/04/18 04:37 Albumin/Globulin Ratio 0.8 % 03/04/18 04:37 Triglycerides 54 mg/dL (2-149) 03/01/18 08:02 Cholesterol 95 mg/dL (50-199) 03/01/18 08:02 LDL Cholesterol Direct 42 mg/dL (50-130) L 03/01/18 08:02 HDL Cholesterol 49 mg/dL (40-59) 03/01/18 08:02 Cholesterol/HDL Ratio 1.93 % 03/01/18 08:02 JOHNNY Screen Negative (Negative) 03/09/18 16:17 Proteinase 3 (PR3) Ab <1.0 AI (<1.0) 03/09/18 16:20 Myeloperoxidase Ab <1.0 AI (<1.0) 03/09/18 16:20
--- NOTE | 2018-03-15 11:58 | Event Note ---
Date: 03/02/18 Patient had an episode of severe bradycardia and hypotension when she returned from the bathroom. Code MET/rapid response was called, code team arrived When I evaluated the patient ,patient is alert and awake ,responds appropriately ,hypotensive with HR 86/min Cardiology adjusted meds and patient is transferred to ICU with dopamine drip for close observation. Critical care time 35 min
== END 2018-03-13 15:57 | DRG 286 ==
LOC: ED 22:03 → 4A 02-26 09:19 → 2B-ACE 02-26 12:24 → 4A 03-01 16:54 → CC1 03-02 12:48
PROVIDERS: ADMIT Internal Medicine; ATTEND Internal Medicine
PROC: 02HV33Z Insertion of Infusion Device into Superior Vena Cava, Percutaneous Approach (ICD-10-PCS; 2018-03-02)
PROC: 5A09357 Assistance with Respiratory Ventilation, Less than 24 Consecutive Hours, Continuous Positive Airway Pressure (ICD-10-PCS; 2018-03-03)
PROC: 4A033R1 Measurement of Arterial Saturation, Peripheral, Percutaneous Approach (ICD-10-PCS; 2018-03-04)
PROC: 5A09357 Assistance with Respiratory Ventilation, Less than 24 Consecutive Hours, Continuous Positive Airway Pressure (ICD-10-PCS; 2018-03-04)
PROC: 5A09357 Assistance with Respiratory Ventilation, Less than 24 Consecutive Hours, Continuous Positive Airway Pressure (ICD-10-PCS; 2018-03-05)
PROC: 5A09357 Assistance with Respiratory Ventilation, Less than 24 Consecutive Hours, Continuous Positive Airway Pressure (ICD-10-PCS; 2018-03-06)
PROC: 5A09357 Assistance with Respiratory Ventilation, Less than 24 Consecutive Hours, Continuous Positive Airway Pressure (ICD-10-PCS; 2018-03-07)
PROC: 4A023N6 Measurement of Cardiac Sampling and Pressure, Right Heart, Percutaneous Approach (ICD-10-PCS; principal; 2018-03-09)
PROC: 5A12012 Performance of Cardiac Output, Single, Manual (ICD-10-PCS; 2018-03-13)
PROC: 5A1935Z Respiratory Ventilation, Less than 24 Consecutive Hours (ICD-10-PCS; 2018-03-13)
PROC: 0BH17EZ Insertion of Endotracheal Airway into Trachea, Via Natural or Artificial Opening (ICD-10-PCS; 2018-03-13)
PROC: 5A09357 Assistance with Respiratory Ventilation, Less than 24 Consecutive Hours, Continuous Positive Airway Pressure (ICD-10-PCS; 2018-03-13)
DX: I11.0 Hypertensive heart disease with heart failure (principal); J96.21 Acute and chronic respiratory failure with hypoxia; G45.9 Transient cerebral ischemic attack, unspecified; Q21.1 Atrial septal defect; E44.0 Moderate protein-calorie malnutrition; I50.23 Acute on chronic systolic (congestive) heart failure; I42.9 Cardiomyopathy, unspecified; I27.20 Pulmonary hypertension, unspecified; I25.10 Atherosclerotic heart disease of native coronary artery without angina pectoris; I95.9 Hypotension, unspecified; I50.82 Biventricular heart failure; I48.0 Paroxysmal atrial fibrillation; E87.6 Hypokalemia; I07.1 Rheumatic tricuspid insufficiency; I27.81 Cor pulmonale (chronic); R55 Syncope and collapse; Z82.49 Family history of ischemic heart disease and other diseases of the circulatory system; Z88.0 Allergy status to penicillin; Z79.82 Long term (current) use of aspirin; Z79.899 Other long term (current) drug therapy; Z68.29 Body mass index [BMI] 29.0-29.9, adult; Z98.51 Tubal ligation status
CPT/HCPCS: 31500; 36415; 36600; 70450; 71045; 71250; 74018; 76604; 78582; 80048; 80053; 80061; 80074; 82164; 82550; 82553; 82803; 82962; 83735; 83880; 84100; 84484; 85025; 85379; 85610; 85730; 86021; 86038; 87040; 87070; 87116; 87205; 92950; 93005; 93010; 93451; 93970; 94002; 94003; 94660; 94760; 96361; 96372; A9270-GY; A9540; A9558; C1769; C1894; C9113; J0171; J0282; J0330; J1250; J1265; J1644; J1650; J1720; J1940; J2250; J2260; J2370; J2405; J2765; J2930; J3010; J7040; J7050; J7060